=== PATIENT | male | born 1935 | race American Indian/Alaskan Native ===

== ENCOUNTER 2017-06-01 12:18 | Emergency (ER) | payer MEDICARE ==
[2017-06-01] MEDS ORDERED: TYLENOL PO ONE (16:59)
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
[2017-06-01 18:00] VITALS: BP 128/79
== END 2017-06-01 17:58 | disposition left against medical advice (07) ==
LOC: ED 12:18
DX: L03.116 Cellulitis of left lower limb (principal); I10 Essential (primary) hypertension; E11.9 Type 2 diabetes mellitus without complications; M19.90 Unspecified osteoarthritis, unspecified site; Z86.73 Personal history of transient ischemic attack (TIA), and cerebral infarction without residual deficits; Z87.891 Personal history of nicotine dependence
CPT/HCPCS: 99283

== ENCOUNTER 2017-06-02 09:02 | Outpatient (CLI) | payer OTHER ==
--- NOTE | 2017-06-05 11:50 | Vascular Lab Report ---
Left Lower Extremity Venous Duplex Study: Reason for Exam: Pain of the left lower extremity. Comments on the Right: A limited duplex study was done of the proximal veins of the right lower extremity. All veins visualized are freely compressible without evidence of internal echogenicity. Flow is spontaneous and phasic throughout. No evidence of acute or chronic thrombus is seen in any of the vessels visualized. Comments on the Left: All veins visualized are freely compressible without evidence of internal echogenicity. Flow is spontaneous and phasic throughout. No evidence of acute or chronic thrombus is seen in any of the vessels visualized. Impression: No evidence of acute or chronic deep venous thrombosis in the left lower extremity.
== END 2017-06-02 09:03 | disposition home or self-care (01) ==
LOC: VAS 09:02
PROVIDERS: ATTEND Physician Assistant
DX: M79.662 Pain in left lower leg (principal)

== ENCOUNTER 2017-11-29 15:51 | Emergency (ER) | payer MEDICARE ==
[2017-11-29 17:12] LABS: Bilirubin,Urine NEG (Negative); Blood,Urine NEG (Negative); Color,Urine Yellow (Yellow); Hyaline Casts,Urine 3 /LPF; Urobilinogen,Urine < 2.0 mg/dL (<2.0)
[2017-11-29 17:15] LABS: Protein,Urine >500 mg/dL (Negative)
[2017-11-29 17:20] LABS: Albumin 3.5 g/dL (3.9-5); Calcium 9.2 mg/dL (8.4-10.2); Hemoglobin 9.2 gm/dl (11.8-15.2); Mean Corpuscular HGB Conc 31 % (32-34); Platelet Count 197 K/mm3 (140-440); Red Blood Count 4.62 M/mm3 (3.65-5.03); Red Cell Distribution Width 19.3 % (13.2-15.2)
[2017-11-29 17:25] LABS: INR 0.95 (0.87-1.13)
[2017-11-29 17:26] LABS: Partial Thromboplastin Time 37.7 Sec. (24.2-36.6)
[2017-11-29 17:32] LABS: Mean Corpuscular Volume 65 fl (84-94)
[2017-11-29 17:33] LABS: Mean Corpuscular Hemoglobin 20 pg (28-32)
--- NOTE | 2017-11-29 18:12 | XRay Report ---
FINAL REPORT PROCEDURE: Chest. TECHNIQUE: Chest radiograph anteroposterior view. CPT 30128 HISTORY: Difficulty breathing. COMPARISON: No prior studies are available for comparison. FINDINGS: The heart size is borderline. There is mild tortuosity and calcification in the thoracic aorta. The lungs are grossly clear. There are no pleural effusions. The soft tissues are unremarkable. There may be a fracture involving the posterolateral portion of the left 5th rib. Clinical correlation is recommended. IMPRESSION: Borderline cardiomegaly. Possible fracture of the left 5th rib. No definite signs of acute pulmonary disease.
[2017-11-29 18:14] LABS: Basophils % (Manual) 0 % (0.0-1.8); RBC Morphology Normal; Total Cells Counted 100
[2017-11-29] MEDS ORDERED: LASIX IV ONE (19:06)
--- NOTE | 2017-11-29 19:15 | Emergency Department Report ---
ED Shortness of Breath HPI - General Chief Complaint: Dyspnea/Respdistress Stated Complaint: SOB/CHEST PAIN Time Seen by Provider: 11/29/17 18:51 Source: patient Mode of arrival: Ambulatory Limitations: No Limitations - History of Present Illness MD Complaint: shortness of breath -: Gradual, days(s) (3) Severity: moderate Consistency: constant Improves With: nothing Worsens With: nothing Known History Of: congestive heart failure Associated Symptoms: cough Treatments Prior to Arrival: none - Related Data Home Oxygen Therapy: No Home Medications Medication Instructions Recorded Confirmed Last Taken B,C/Folic/Zinc/Copper Ox/Vit E 1 each PO DAILY 04/13/14 04/01/15 Unknown [Stress B-Complex Tablet] Baclofen 10 mg PO BID 04/13/14 04/01/15 Unknown Cyanocobalamin (Vitamin B-12) 1,000 mcg PO DAILY 04/13/14 04/01/15 Unknown [B-12] Doxazosin [Cardura] 4 mg PO QHS 04/13/14 04/01/15 Unknown Gabapentin 300 mg PO BID 04/13/14 04/01/15 Unknown Glimepiride [Amaryl] 4 mg PO BID 04/13/14 04/01/15 Unknown Valsartan/Hydrochlorothiazide 1.5 tab PO DAILY 04/13/14 04/01/15 Unknown [Valsartan-Hctz 160-25 mg] glipiZIDE [glipiZIDE XL] 10 mg PO BID 04/13/14 04/01/15 Unknown metFORMIN [Glucophage] 500 mg PO BID 04/13/14 04/01/15 Unknown Previous Rx's Medication Instructions Recorded Last Taken Type Ferrous Sulfate [Ferrous Sulfate 162.5 mg PO QDAY 30 Days oral.liqd 04/16/14 Unknown Rx Oral Liq 300 Mg/5 Ml] Pantoprazole [Protonix TAB] 40 mg PO BID #60 tablet 06/25/15 Unknown Rx Acetaminophen [Acetaminophen TAB] 500 mg PO Q6HR PRN #30 tablet 06/01/17 Unknown Rx Sulfamethoxazole/Trimethoprim 1 each PO BID #14 tablet 06/01/17 Unknown Rx [Bactrim DS TAB] Allergies Allergy/AdvReac Type Severity Reaction Status Date / Time No Known Allergies Allergy Unverified 05/30/13 12:56 ED Review of Systems ROS: Stated complaint: SOB/CHEST PAIN Other details as noted in HPI Comment: All other systems reviewed and negative Constitutional: denies: chills, fever Eyes: denies: eye pain, eye discharge ENT: denies: ear pain, dental pain Respiratory: cough, orthopnea, shortness of breath, SOB with exertion, SOB at rest Cardiovascular: dyspnea on exertion. denies: chest pain, palpitations Endocrine: no symptoms reported Gastrointestinal: denies: abdominal pain, nausea, vomiting, diarrhea Genitourinary: denies: urgency, dysuria Musculoskeletal: denies: back pain, joint swelling Skin: denies: rash, change in color Neurological: denies: headache, weakness Psychiatric: denies: anxiety, depression Hematological/Lymphatic: denies: easy bleeding, easy bruising ED Past Medical Hx - Past Medical History Hx Hypertension: Yes Hx CVA: Yes (no resid. deficits) Hx Diabetes: Yes Hx Arthritis: Yes Additional medical history: A-fib, anemia - Surgical History Additional Surgical History: colon polyps removed. - Social History Smoking Status: Never Smoker Substance Use Type: None - Medications Home Medications: Home Medications Medication Instructions Recorded Confirmed Last Taken Type B,C/Folic/Zinc/Copper Ox/Vit E 1 each PO DAILY 04/13/14 04/01/15 Unknown History [Stress B-Complex Tablet] Baclofen 10 mg PO BID 04/13/14 04/01/15 Unknown History Cyanocobalamin (Vitamin B-12) 1,000 mcg PO DAILY 04/13/14 04/01/15 Unknown History [B-12] Doxazosin [Cardura] 4 mg PO QHS 04/13/14 04/01/15 Unknown History Gabapentin 300 mg PO BID 04/13/14 04/01/15 Unknown History Glimepiride [Amaryl] 4 mg PO BID 04/13/14 04/01/15 Unknown History Valsartan/Hydrochlorothiazide 1.5 tab PO DAILY 04/13/14 04/01/15 Unknown History [Valsartan-Hctz 160-25 mg] glipiZIDE [glipiZIDE XL] 10 mg PO BID 04/13/14 04/01/15 Unknown History metFORMIN [Glucophage] 500 mg PO BID 04/13/14 04/01/15 Unknown History Ferrous Sulfate [Ferrous Sulfate 162.5 mg PO QDAY 30 Days oral.liqd 04/16/14 Unknown Rx Oral Liq 300 Mg/5 Ml] Pantoprazole [Protonix TAB] 40 mg PO BID #60 tablet 06/25/15 Unknown Rx Acetaminophen [Acetaminophen TAB] 500 mg PO Q6HR PRN #30 tablet 06/01/17 Unknown Rx Sulfamethoxazole/Trimethoprim 1 each PO BID #14 tablet 06/01/17 Unknown Rx [Bactrim DS TAB] ED Physical Exam - General Limitations: No Limitations General appearance: alert, in no apparent distress - Head Head exam: Present: atraumatic, normocephalic, normal inspection - Eye Eye exam: Present: normal appearance, PERRL, EOMI Pupils: Present: normal accommodation - ENT ENT exam: Present: normal exam, normal orophraynx, mucous membranes moist - Neck Neck exam: Present: normal inspection, full ROM. Absent: tenderness - Respiratory Respiratory exam: Present: normal lung sounds bilaterally, rales, rhonchi - Cardiovascular Cardiovascular Exam: Present: regular rate, normal rhythm, normal heart sounds - GI/Abdominal GI/Abdominal exam: Present: soft, normal bowel sounds. Absent: distended, tenderness, guarding, rebound - Extremities Exam Extremities exam: Present: full ROM, pedal edema - Back Exam Back exam: Present: normal inspection, full ROM - Neurological Exam Neurological exam: Present: alert, oriented X3, CN II-XII intact - Psychiatric Psychiatric exam: Present: normal affect, normal mood - Skin Skin exam: Present: warm, dry, intact, normal color. Absent: rash ED Course Vital Signs 11/29/17 11/29/17 11/29/17 16:03 18:38 18:45 Temperature 97.7 F Pulse Rate 67 76 70 Respiratory 22 22 16 Rate Blood Pressure 160/96 Blood Pressure [Left] O2 Sat by Pulse 97 97 97 Oximetry 11/29/17 11/29/17 11/29/17 19:00 19:05 19:07 Temperature 97.7 F Pulse Rate 71 72 Respiratory 20 17 20 Rate Blood Pressure 180/86 Blood Pressure 180/86 [Left] O2 Sat by Pulse 97 97 97 Oximetry 11/29/17 11/29/17 11/29/17 19:15 19:30 19:46 Temperature Pulse Rate 73 67 82 Respiratory 23 18 19 Rate Blood Pressure 173/82 176/86 176/86 Blood Pressure [Left] O2 Sat by Pulse 95 97 97 Oximetry 11/29/17 11/29/17 11/29/17 20:00 20:16 20:30 Temperature Pulse Rate 69 61 66 Respiratory 21 14 23 Rate Blood Pressure 176/86 176/86 172/94 Blood Pressure [Left] O2 Sat by Pulse 98 98 99 Oximetry 11/29/17 11/29/17 20:45 21:00 Temperature Pulse Rate Respiratory 13 23 Rate Blood Pressure 184/97 189/91 Blood Pressure [Left] O2 Sat by Pulse 98 99 Oximetry - Reevaluation(s) Reevaluation #1: 11/29/17 22:50 Patient refused admission and he signed and left AGAINST MEDICAL ADVICE. He said he does not want to be admitted to the hospital and he wants to go home. He verbalizes understanding the risks that I explained to him which includes severe medical disability or . He is alert and oriented 4 and he has a medical decision making capacity. ED Medical Decision Making - Lab Data Result diagrams: 11/29/17 16:25 11/29/17 16:25 - EKG Data -: EKG Interpreted by Me EKG shows normal: sinus rhythm Rate: normal (77) - EKG Data When compared to previous EKG there are: previous EKG unavailable Interpretation: nonspecific ST-T wave felisha, LVH, other (First degree Heart Block , RBBB, LAE.) - Radiology Data Radiology results: report reviewed, image reviewed - Medical Decision Making CHF Exacerbation. Critical care attestation.: If time is entered above; I have spent that time in minutes in the direct care of this critically ill patient, excluding procedure time. ED Disposition Clinical Impression: Shortness of breath CHF exacerbation Qualifiers: Heart failure type: unspecified Qualified Code(s): I50.9 - Heart failure, unspecified Disposition: DC-07 LEFT AGAINST MED ADVICE Is pt being admited?: No Does the pt Need Aspirin: No Condition: Stable Referrals: PRIMARY CARE, [Primary Care Provider] - 3-5 Days Forms: AMA Form
[2017-11-29 20:35] LABS: Chol/HDL Ratio 3.15 %
[2017-11-29 21:34] VITALS: BP 189/91
== END 2017-11-29 21:35 | disposition left against medical advice (07) ==
LOC: ED 15:51
DX: I11.0 Hypertensive heart disease with heart failure (principal); E11.9 Type 2 diabetes mellitus without complications; M19.90 Unspecified osteoarthritis, unspecified site; I48.91 Unspecified atrial fibrillation; Z86.2 Personal history of diseases of the blood and blood-forming organs and certain disorders involving the immune mechanism
CPT/HCPCS: 36415; 71045; 80053; 80061; 81001; 83880; 84484; 85007; 85025; 85610; 85730; 93005; 93010; 96374; 99284; J1940

== ENCOUNTER 2018-01-19 12:35 | Inpatient (IN) | payer MEDICARE ==
[2018-01-19] MEDS ORDERED: ASPIRIN PO ONE (13:26)
[2018-01-19 14:09] LABS: Hematocrit 33.1 % (35.5-45.6); Hemoglobin 10.5 gm/dl (11.8-15.2); Lymphocytes % (Auto) 23.2 % (13.4-35.0); Mean Corpuscular HGB Conc 32 % (32-34); Mean Corpuscular Hemoglobin 20 pg (28-32); Mean Corpuscular Volume 62 fl (84-94); Monocytes % (Auto) 12.1 % (0.0-7.3); Platelet Count 260 K/mm3 (140-440); Red Blood Count 5.35 M/mm3 (3.65-5.03); Red Cell Distribution Width 16.2 % (13.2-15.2)
[2018-01-19 14:10] LABS: Basophils # (Auto) 0.1 K/mm3 (0.0-0.1); Basophils % (Auto) 1.5 % (0.0-1.8); Eosinophils # (Auto) 0.1 K/mm3 (0.0-0.4); Eosinophils % (Auto) 3.4 % (0.0-4.3); Monocytes # (Auto) 0.5 K/mm3 (0.0-0.8)
[2018-01-19 14:31] LABS: Calcium 9.7 mg/dL (8.4-10.2)
[2018-01-19 15:01] LABS: Chol/HDL Ratio 3.78 %
[2018-01-19 16:20] LABS: Bilirubin,Urine NEG (Negative); Blood,Urine NEG (Negative); Color,Urine Yellow (Yellow); Urobilinogen,Urine < 2.0 mg/dL (<2.0); WBC,Urine < 1.0 /HPF (0.0-6.0)
[2018-01-19 16:21] LABS: Protein,Urine >500 mg/dL (Negative)
--- NOTE | 2018-01-19 16:39 | Emergency Department Report ---
ED Altered Mental Status HPI - General Chief Complaint: Weakness Stated Complaint: GENERAL WEAKNESS Time Seen by Provider: 01/19/18 15:12 Source: EMS Mode of arrival: Wheelchair Limitations: Physical Limitation - History of Present Illness Initial Comments: 82-year-old male with a past medical history of arthritis, CVA without residual deficits, diabetes, and hypertension presents to the hospital with alteration in mental status and sleeping a lot. Patient states he's been sleeping a lot the last 3 days with low energy. He has been eating and drinking appropriately. This morning when his checked on him he was lethargic and slow to respond. No syncope reported. Patient has been compliant with his medications but did not take his medications today. His expressed a concerns that his blood pressure was elevated with systolic in the 170s and glucose was "high" in the 160s. As per spouse patient's and she has been low since patient returned from his sister's last week. Currently patient is oriented to self and place but not to year. At his baseline he is alert and oriented 3 per . Patient is pain free. - Related Data Home Medications Medication Instructions Recorded Confirmed Last Taken B,C/Folic/Zinc/Copper Ox/Vit E 1 each PO DAILY 04/13/14 04/01/15 Unknown [Stress B-Complex Tablet] Baclofen 10 mg PO BID 04/13/14 04/01/15 Unknown Cyanocobalamin (Vitamin B-12) 1,000 mcg PO DAILY 04/13/14 04/01/15 Unknown [B-12] Doxazosin [Cardura] 4 mg PO QHS 04/13/14 04/01/15 Unknown Gabapentin 300 mg PO BID 04/13/14 04/01/15 Unknown Glimepiride [Amaryl] 4 mg PO BID 04/13/14 04/01/15 Unknown Valsartan/Hydrochlorothiazide 1.5 tab PO DAILY 04/13/14 04/01/15 Unknown [Valsartan-Hctz 160-25 mg] glipiZIDE [glipiZIDE XL] 10 mg PO BID 04/13/14 04/01/15 Unknown metFORMIN [Glucophage] 500 mg PO BID 04/13/14 04/01/15 Unknown Previous Rx's Medication Instructions Recorded Last Taken Type Ferrous Sulfate [Ferrous Sulfate 162.5 mg PO QDAY 30 Days oral.liqd 04/16/14 Unknown Rx Oral Liq 300 Mg/5 Ml] Pantoprazole [Protonix TAB] 40 mg PO BID #60 tablet 06/25/15 Unknown Rx Acetaminophen [Acetaminophen TAB] 500 mg PO Q6HR PRN #30 tablet 06/01/17 Unknown Rx Sulfamethoxazole/Trimethoprim 1 each PO BID #14 tablet 06/01/17 Unknown Rx [Bactrim DS TAB] Allergies Allergy/AdvReac Type Severity Reaction Status Date / Time No Known Allergies Allergy Unverified 05/30/13 12:56 ED Review of Systems ROS: Stated complaint: GENERAL WEAKNESS Other details as noted in HPI Comment: All other systems reviewed and negative ED Past Medical Hx - Past Medical History Previous Medical History?: Yes Hx Hypertension: Yes Hx CVA: Yes (no resid. deficits) Hx Diabetes: Yes Hx Arthritis: Yes Additional medical history: A-fib, anemia - Surgical History Past Surgical History?: Yes Additional Surgical History: colon polyps removed. - Social History Smoking Status: Former Smoker Substance Use Type: Alcohol - Medications Home Medications: Home Medications Medication Instructions Recorded Confirmed Last Taken Type B,C/Folic/Zinc/Copper Ox/Vit E 1 each PO DAILY 04/13/14 04/01/15 Unknown History [Stress B-Complex Tablet] Baclofen 10 mg PO BID 04/13/14 04/01/15 Unknown History Cyanocobalamin (Vitamin B-12) 1,000 mcg PO DAILY 04/13/14 04/01/15 Unknown History [B-12] Doxazosin [Cardura] 4 mg PO QHS 04/13/14 04/01/15 Unknown History Gabapentin 300 mg PO BID 04/13/14 04/01/15 Unknown History Glimepiride [Amaryl] 4 mg PO BID 04/13/14 04/01/15 Unknown History Valsartan/Hydrochlorothiazide 1.5 tab PO DAILY 04/13/14 04/01/15 Unknown History [Valsartan-Hctz 160-25 mg] glipiZIDE [glipiZIDE XL] 10 mg PO BID 04/13/14 04/01/15 Unknown History metFORMIN [Glucophage] 500 mg PO BID 04/13/14 04/01/15 Unknown History Ferrous Sulfate [Ferrous Sulfate 162.5 mg PO QDAY 30 Days oral.liqd 04/16/14 Unknown Rx Oral Liq 300 Mg/5 Ml] Pantoprazole [Protonix TAB] 40 mg PO BID #60 tablet 06/25/15 Unknown Rx Acetaminophen [Acetaminophen TAB] 500 mg PO Q6HR PRN #30 tablet 06/01/17 Unknown Rx Sulfamethoxazole/Trimethoprim 1 each PO BID #14 tablet 06/01/17 Unknown Rx [Bactrim DS TAB] ED Physical Exam - General Limitations: Physical Limitation - Other Other exam information: General: No limitations, patient is alert in no acute distress Head exam: Atraumatic, normocephalic Eyes exam: Normal appearance, pupils equal reactive to light, extraocular movements intact ENT: Moist mucous membrane, normal oropharynx Neck exam: Normal inspection, full range of motion, no meningismus nontender Respiratory exam: Clear to auscultation bilateral, no wheezes, rales, crackles Cardiovascular: Normal rate and rhythm, normal heart sounds Abdomen: Soft, nondistended, and nontender, with normal bowel sounds, no rebound, or guarding Extremity: Full range of motion normal inspection no deformity Back: Normal Inspection, full range of motion, no tenderness Neurologic: Alert, oriented x2 (not to year), cranial nerves intact, no motor or sensory deficit Psychiatric: normal affect, normal mood Skin: Warm, dry, intact - Assessment Assessment Interval: Baseline - Level of Consciousness 1a. Level of Consciousness: alert - LOC Questions 1b. LOC Questions: answers correctly - LOC Command 1c. LOC Commands: performs tasks correctly - Best Gaze 2. Best Gaze: normal - Visual 3. Visual: no visual loss - Facial Palsy 4. Facial Palsy: normal symmetrical movement - Motor Arm 5b. Motor Arm Right: no drift 5a. Motor Arm Left: no drift - Motor Leg 6a. Motor Leg Left: no drift 6b. Motor Leg Right: no drift - Limb Ataxia 7. Limb Ataxia: absent - Sensory 8. Sensory: normal - Best Language 9. Best Language: no aphasia - Dysarthria 10. Dysarthria: normal - Extinction and Inattention 11. Extinction/Inattention: no abnormality - Scoring Total Score: 0 Stroke Severity: No Stroke Symptoms ED Course Vital Signs 01/19/18 01/19/18 01/19/18 12:46 12:58 13:00 Temperature 97.6 F Pulse Rate 56 L 62 62 Respiratory 21 20 18 Rate Blood Pressure 183/102 183/102 Blood Pressure 183/102 [Left] O2 Sat by Pulse 99 98 98 Oximetry 01/19/18 01/19/18 01/19/18 13:15 13:30 13:45 Temperature 97.7 F Pulse Rate 55 L 65 54 L Respiratory 16 16 17 Rate Blood Pressure 170/84 179/108 173/84 Blood Pressure 183/102 [Left] O2 Sat by Pulse 100 100 99 Oximetry 01/19/18 01/19/18 01/19/18 14:00 14:15 14:30 Temperature Pulse Rate 54 L 59 L 58 L Respiratory 20 0 L 19 Rate Blood Pressure 170/83 164/101 177/98 Blood Pressure [Left] O2 Sat by Pulse 100 100 100 Oximetry 01/19/18 01/19/18 01/19/18 14:45 15:00 15:15 Temperature Pulse Rate 56 L 54 L 50 L Respiratory 20 20 19 Rate Blood Pressure 174/89 172/92 174/72 Blood Pressure [Left] O2 Sat by Pulse 100 100 100 Oximetry 01/19/18 01/19/18 01/19/18 15:31 15:45 16:01 Temperature Pulse Rate 67 72 71 Respiratory 13 17 15 Rate Blood Pressure 179/105 181/97 189/92 Blood Pressure [Left] O2 Sat by Pulse 100 100 100 Oximetry 01/19/18 01/19/18 01/19/18 16:15 16:30 16:45 Temperature Pulse Rate 55 L 72 75 Respiratory 18 17 10 L Rate Blood Pressure 185/81 194/104 194/104 Blood Pressure [Left] O2 Sat by Pulse 100 100 86 Oximetry 01/19/18 17:52 Temperature Pulse Rate 71 Respiratory Rate Blood Pressure 198/101 Blood Pressure [Left] O2 Sat by Pulse Oximetry - Lab Data Result diagrams: 01/19/18 13:52 01/19/18 13:52 Lab Results 01/19/18 01/19/18 01/19/18 Range/Units 13:38 13:52 13:52 WBC 4.3 L (4.5-11.0) K/mm3 RBC 5.35 H (3.65-5.03) M/mm3 Hgb 10.5 L (11.8-15.2) gm/dl Hct 33.1 L (35.5-45.6) % MCV 62 L (84-94) fl MCH 20 L (28-32) pg MCHC 32 (32-34) % RDW 16.2 H (13.2-15.2) % Plt Count 260 (140-440) K/mm3 Lymph % (Auto) 23.2 (13.4-35.0) % [place] % (Auto) 12.1 H (0.0-7.3) % Eos % (Auto) 3.4 (0.0-4.3) % Baso % (Auto) 1.5 (0.0-1.8) % Lymph # 1.0 L (1.2-5.4) K/mm3 [place] # 0.5 (0.0-0.8) K/mm3 Eos # 0.1 (0.0-0.4) K/mm3 Baso # 0.1 (0.0-0.1) K/mm3 Seg Neutrophils % 59.8 (40.0-70.0) % Seg Neutrophils # 2.5 (1.8-7.7) K/mm3 Sodium 137 (137-145) mmol/L Potassium 4.2 (3.6-5.0) mmol/L Chloride 101.5 (98-107) mmol/L Carbon Dioxide 22 (22-30) mmol/L Anion Gap 18 mmol/L BUN 42 H (9-20) mg/dL Creatinine 2.6 H (0.8-1.5) mg/dL Estimated GFR 29 ml/min BUN/Creatinine Ratio 16 % Glucose 138 H (75-100) mg/dL POC Glucose 130 H (70-105) Calcium 9.7 (8.4-10.2) mg/dL Troponin T 0.081 H (0.00-0.029) ng/mL Triglycerides 82 (2-149) mg/dL Cholesterol 212 H (50-199) mg/dL LDL Cholesterol Direct 155 H (50-130) mg/dL HDL Cholesterol 56 (40-59) mg/dL Cholesterol/HDL Ratio 3.78 % TSH (0.270-4.200) mlU/mL Free T4 (0.76-1.46) ng/dL Urine Color (Yellow) Urine Turbidity (Clear) Urine pH (5.0-7.0) Ur Specific [place] (1.003-1.030) Urine Protein (Negative) mg/dL Urine Glucose (UA) (Negative) mg/dL Urine Ketones (Negative) mg/dL Urine Blood (Negative) Urine Nitrite (Negative) Urine Bilirubin (Negative) Urine Urobilinogen (<2.0) mg/dL Ur Leukocyte Esterase (Negative) Urine WBC (Auto) (0.0-6.0) /HPF Urine RBC (Auto) (0.0-6.0) /HPF 01/19/18 01/19/18 01/19/18 Range/Units 14:30 16:41 16:41 WBC (4.5-11.0) K/mm3 RBC (3.65-5.03) M/mm3 Hgb (11.8-15.2) gm/dl Hct (35.5-45.6) % MCV (84-94) fl MCH (28-32) pg MCHC (32-34) % RDW (13.2-15.2) % Plt Count (140-440) K/mm3 Lymph % (Auto) (13.4-35.0) % [place] % (Auto) (0.0-7.3) % Eos % (Auto) (0.0-4.3) % Baso % (Auto) (0.0-1.8) % Lymph # (1.2-5.4) K/mm3 [place] # (0.0-0.8) K/mm3 Eos # (0.0-0.4) K/mm3 Baso # (0.0-0.1) K/mm3 Seg Neutrophils % (40.0-70.0) % Seg Neutrophils # (1.8-7.7) K/mm3 Sodium (137-145) mmol/L Potassium (3.6-5.0) mmol/L Chloride (98-107) mmol/L Carbon Dioxide (22-30) mmol/L Anion Gap mmol/L BUN (9-20) mg/dL Creatinine (0.8-1.5) mg/dL Estimated GFR ml/min BUN/Creatinine Ratio % Glucose (75-100) mg/dL POC Glucose (70-105) Calcium (8.4-10.2) mg/dL Troponin T 0.106 H* D (0.00-0.029) ng/mL Triglycerides (2-149) mg/dL Cholesterol (50-199) mg/dL LDL Cholesterol Direct (50-130) mg/dL HDL Cholesterol (40-59) mg/dL Cholesterol/HDL Ratio % TSH 0.760 (0.270-4.200) mlU/mL Free T4 1.22 (0.76-1.46) ng/dL Urine Color Yellow (Yellow) Urine Turbidity Clear (Clear) Urine pH 7.0 (5.0-7.0) Ur Specific [place] 1.012 (1.003-1.030) Urine Protein >500 (Negative) mg/dL Urine Glucose (UA) 50 (Negative) mg/dL Urine Ketones Neg (Negative) mg/dL Urine Blood Neg (Negative) Urine Nitrite Neg (Negative) Urine Bilirubin Neg (Negative) Urine Urobilinogen < 2.0 (<2.0) mg/dL Ur Leukocyte Esterase Neg (Negative) Urine WBC (Auto) < 1.0 (0.0-6.0) /HPF Urine RBC (Auto) 2.0 (0.0-6.0) /HPF - EKG Data -: EKG Interpreted by Nh EKG shows normal: sinus rhythm, axis (qrs -78), QRS complexes (qrsd 180), ST-T waves (rbbb, no stemi/t inv) Rate: normal (64) When compared to previous EKG there are: no significant change - Radiology Data Radiology results: report reviewed FINAL REPORT EXAM: CT HEAD/BRAIN WO CON HISTORY: altered mental status TECHNIQUE : 2.5 millimeter axial images from the skullbase to the vertex. Comparison: None FINDINGS: Low attenuation in the subcortical and deep white matter of the cerebral hemispheres bilaterally most likely represent areas of chronic post ischemic demyelination/small vessel disease. However, a small focus of acute white matter ischemia cannot entirely be excluded. There are lacunar infarcts in the left basal ganglia that appear to be chronic. There is no evidence of intracranial hemorrhage or mass effect. Ventricular size is concordant with the degree of atrophy. There is atherosclerotic vascular calcification of the internal carotid arteries and vertebral arteries bilaterally at the skullbase. The visualized portions of the orbits, paranasal and mastoid sinuses are unremarkable. There appears to be mild right parietal scalp soft tissue swelling. IMPRESSION: 1. No evidence of an acute intracranial process, intracranial hemorrhage or mass effect. If there is a clinical suspicion of an acute intracranial process, MRI brain may be helpful. 2. White matter changes that most likely represent areas of chronic post ischemic demyelination/small vessel disease. However, a small focus of acute white matter ischemia cannot entirely be excluded. 3. Lacunar infarcts left basal ganglia that appear to be chronic. 4. Appearance of mild right parietal scalp soft tissue swelling. - Medical Decision Making ams ? depression/grief response as cause no labs findings to indicate encephalopathy CT head performed HTN did not have meds today elevated trop with renal insuf, slight elevation with repeat value. Patient does not have chest pain EKG unchanged Aspirin provided after negative CT head obtained NTG paste placed on chest chronic renal insuf stable creatinine will admit to hospitalist for further evaluate and workup - Differential Diagnosis depression, dementia, CVA, encephalopathy, infection Critical Care Time: No Critical care attestation.: If time is entered above; I have spent that time in minutes in the direct care of this critically ill patient, excluding procedure time. ED Disposition Clinical Impression: Lethargy, Diabetes, CRI (chronic renal insufficiency), Elevated troponin, Hypertension Disposition: OP ADMIT IP TO THIS HOSP Is pt being admited?: Yes Condition: Stable Time of Disposition: 18:20 (Dr cummings/hosp)
[2018-01-19 17:25] LABS: Free T4 (Free Thyroxine) 1.22 ng/dL (0.76-1.46)
[2018-01-19] MEDS ORDERED: NITRO-BID 2% TP ONE (17:35)
--- NOTE | 2018-01-19 17:47 | Cat Scan Report ---
FINAL REPORT EXAM: CT HEAD/BRAIN WO CON HISTORY: altered mental status TECHNIQUE: 2.5 millimeter axial images from the skullbase to the vertex. Comparison: None FINDINGS: Low attenuation in the subcortical and deep white matter of the cerebral hemispheres bilaterally most likely represent areas of chronic post ischemic demyelination/small vessel disease. However, a small focus of acute white matter ischemia cannot entirely be excluded. There are lacunar infarcts in the left basal ganglia that appear to be chronic. There is no evidence of intracranial hemorrhage or mass effect. Ventricular size is concordant with the degree of atrophy. There is atherosclerotic vascular calcification of the internal carotid arteries and vertebral arteries bilaterally at the skullbase. The visualized portions of the orbits, paranasal and mastoid sinuses are unremarkable. There appears to be mild right parietal scalp soft tissue swelling. IMPRESSION: 1. No evidence of an acute intracranial process, intracranial hemorrhage or mass effect. If there is a clinical suspicion of an acute intracranial process, MRI brain may be helpful. 2. White matter changes that most likely represent areas of chronic post ischemic demyelination/small vessel disease. However, a small focus of acute white matter ischemia cannot entirely be excluded. 3. Lacunar infarcts left basal ganglia that appear to be chronic. 4. Appearance of mild right parietal scalp soft tissue swelling.
[2018-01-19] MEDS ORDERED: ASPIRIN ONE (19:07)
[2018-01-19] MEDS ORDERED: APRESOLINE IV ONE (20:45)
[2018-01-19] MEDS ORDERED: APRESOLINE ONE (20:52)
[2018-01-19] MEDS ORDERED: TYLENOL PO PRN (22:19)
[2018-01-19] MEDS ORDERED: SODIUM CHLORIDE FLUSH SYRINGE 10 ML IV PRN (22:22)
[2018-01-19] MEDS ORDERED: MORPHINE IV PRN (22:22)
[2018-01-19] MEDS ORDERED: PERCOCET 5/325 PO PRN (22:22)
[2018-01-19] MEDS ORDERED: ZOFRAN IV PRN (22:22)
--- NOTE | 2018-01-19 22:56 | History and Physical Report ---
CHIEF COMPLAINT: Altered mental status for 3 days. HISTORY OF PRESENT ILLNESS: An 82-year-old with past medical history of cerebrovascular accident, hypertension, type 2 diabetes, comes in for altered mental status. The patient has been apparently sleeping a lot for the last 3 days with low energy. As per his , the patient is lethargic and slow to respond. No syncope, no seizures. No fever or chills. The patient eating normally. Also, his blood sugar was high in the and systolic blood pressure was in 170s. PAST MEDICAL HISTORY: As mentioned, hypertension, type 2 diabetes, peripheral neuropathy, overactive bladder, vitamin deficiency. CURRENT MEDICATIONS: Gabapentin 300 mg twice a day, glimepiride 4 mg twice a day, valsartan 160/25 tab daily, glipizide XL 10 mg twice a day, metformin, Glucophage 500 mg twice a day. PAST SURGICAL HISTORY: Colon polyps removed. SOCIAL HISTORY: Former smoker. FAMILY HISTORY: Hypertension. REVIEW OF SYSTEMS: Significant for depression and slightly altered sensorium. No focal deficits. No recent changes. No fever. No chills. A 14-point review of systems done. PHYSICAL EXAMINATION: GENERAL: Elderly male, cooperative during examination, slow to talk. VITAL SIGNS: Blood pressure 168/100, temperature 99, pulse is 71, respirations are 17, sats are 97%. HEENT: Unremarkable. Pupils equal and reactive. NECK: Supple, no lymphadenopathy, no thyromegaly. LUNGS: Clear to auscultation and percussion. Good air entry. CARDIOVASCULAR: S1, S2 heard. No gallop, no murmur, no rub. Apical impulse in left fifth intercostal space and midclavicular line. ABDOMEN: Soft and benign. No hepatosplenomegaly. No guarding, no rigidity. Hernial orifices are normal. EXTREMITIES: Good pedal pulses. No focal deficits. CENTRAL NERVOUS SYSTEM: Alert and oriented. Slow to talk and a bit lethargic. Otherwise, no focal deficits. LABORATORY DATA: Significant for white count of 4300, H and H is 10.3 and 33.1, platelet count is 260,000. Sodium is 137, potassium is 4.2, BUN and creatinine is 42 and 2.6. Troponin is 0.081. Cholesterol is 212. EKG, no acute ST-T wave changes. EKG shows a prolonged AL interval and prolonged left atrial enlargement and right bundle branch block, heart rate of [address], no evidence of any acute intracranial process. Labs, as mentioned elevated troponins and low hemoglobin and hematocrit of 10.5 and 33.1. ASSESSMENT AND PLAN: 1. Acute kidney injury. BUN and creatinine 42 and 2.6. We will try IV fluids. Also, we will get a Nephrology consult. 2. Elevated troponin. Possibly secondary to elevated creatinine. We will get a Lexiscan and Cardiology consult if necessary. 3. Encephalopathy. Reason for altered mental status is not clear. The patient looks depressed. Electrolytes are normal. Neurology consult if necessary. The patient seems to be dehydrated that may be causing his lethargy. His creatinine is 2.6. His baseline creatinine is not known. 4. Hypertension. Continue valsartan/hydrochlorothiazide. Also, Cardura. 5. Muscle spasms. Continue baclofen. 6. Peripheral neuropathy. Continue gabapentin. 7. Type 2 diabetes mellitus. Continue glimepiride and metformin. We will hold the glipizide. 8. Gastroesophageal reflux disease. Continue Protonix. 9. Deep venous thrombosis prophylaxis, Lovenox 40 mg subcutaneous daily. JOB# [id number] HOLLY/NTS
[2018-01-19] MEDS ORDERED: GLUCOPHAGE PO SCH (23:00)
[2018-01-19] MEDS ORDERED: NACL 0.9% 1000 ML 1,000 ML IV SCH (23:00)
[2018-01-19] MEDS ORDERED: GLUCOTROL XL PO SCH (23:00)
[2018-01-20] MEDS: AMARYL PO SCH ×3 (00:49→18:33)
[2018-01-20] MEDS: LIORESAL PO SCH ×3 (00:49→23:08)
[2018-01-20] MEDS: NEURONTIN PO SCH ×3 (00:49→23:08)
[2018-01-20] MEDS: PROTONIX PO SCH ×3 (00:50→23:09)
[2018-01-20] MEDS ORDERED: ZINC PO SCH (10:00)
[2018-01-20] MEDS ORDERED: PEPCID PO SCH (10:00)
[2018-01-20] MEDS ORDERED: HYDROCHLOROTHIAZIDE PO SCH (10:00)
[2018-01-20] MEDS ORDERED: DIOVAN PO SCH (10:00)
[2018-01-20] MEDS ORDERED: VIT E PO SCH (10:00)
[2018-01-20] MEDS ORDERED: [UNRECOGNIZED DRUG - OTHER] PO SCH (10:00)
[2018-01-20] MEDS ORDERED: FOLIC PO SCH (10:00)
[2018-01-20] MEDS ORDERED: VALSARTAN PO SCH (10:00)
--- NOTE | 2018-01-20 10:52 | Progress Note ---
Assessment and Plan Assessment and plan: --Metabolic encephalopathy; neurochecks and supportive care --Elevated cardiac enzymes/and ST elevation TN/ multiple risk factors Evaluate for acute coronary syndrome, continue current cardiac medications Echocardiogram left ventricle function ejection fraction, cardiology consultation Aspirin and beta blockers and nitrates statins, no MARYJANE inhibitors in view of acute kidney injury --Hypertension; moderate control, continue current antihypertensives and when necessary medications --Acute kidney injury; due to ATN Closely monitor renal function and avoid nephrotoxins, consistent nephrology evaluation if no improvement --Type 2 diabetes mellitus; Accu-Chek sliding scale coverage and ADA diet and insulin as needed --Dyslipidemia; continue lipid lowering medications --DVT prophylaxis; Lovenox renal dose --Full CODE STATUS --DC planning per case management. We'll closely monitor the patient and adjust management as needed Follow cardiology and renal evaluations and recommendations . History Interval history: Patient seen and examined medical records reviewed No new events reported by the nursing staff admitted with generalized weakness and elevated troponins and acute on chronic kidney disease Alert awake oriented Vital signs reviewed Hospitalist Physical - Constitutional Vitals: Temp Pulse Resp BP Pulse Ox 98.5 F 67 18 167/103 97 01/20/18 08:09 01/20/18 08:09 01/20/18 08:09 01/20/18 08:09 01/20/18 08:09 General appearance: Present: no acute distress, well-nourished, other (agitated) - EENT Eyes: Present: PERRL, EOM intact - Neck Neck: Present: supple, normal ROM - Respiratory Respiratory effort: normal Respiratory: bilateral: diminished, negative: rales, rhonchi, wheezing - Cardiovascular Rhythm: regular Heart Sounds: Present: S1 & S2 - Extremities Extremities: no ischemia, No edema - Abdominal General gastrointestinal: soft, non-tender, non-distended, normal bowel sounds - Integumentary Integumentary: Present: clear, warm - Psychiatric Psychiatric: appropriate mood/affect, agitated - Neurologic Neurologic: moves all extremities Results - Labs CBC & Chem 7: 01/20/18 10:09 01/20/18 10:09 Labs: Laboratory Last Values WBC 4.3 K/mm3 (4.5-11.0) L 01/19/18 13:52 RBC 5.35 M/mm3 (3.65-5.03) H 01/19/18 13:52 Hgb 10.5 gm/dl (11.8-15.2) L 01/19/18 13:52 Hct 33.1 % (35.5-45.6) L 01/19/18 13:52 MCV 62 fl (84-94) L 01/19/18 13:52 MCH 20 pg (28-32) L 01/19/18 13:52 MCHC 32 % (32-34) 01/19/18 13:52 RDW 16.2 % (13.2-15.2) H 01/19/18 13:52 Plt Count 260 K/mm3 (140-440) 01/19/18 13:52 Lymph % (Auto) 23.2 % (13.4-35.0) 01/19/18 13:52 [place] % (Auto) 12.1 % (0.0-7.3) H 01/19/18 13:52 Eos % (Auto) 3.4 % (0.0-4.3) 01/19/18 13:52 Baso % (Auto) 1.5 % (0.0-1.8) 01/19/18 13:52 Lymph # 1.0 K/mm3 (1.2-5.4) L 01/19/18 13:52 [place] # 0.5 K/mm3 (0.0-0.8) 01/19/18 13:52 Eos # 0.1 K/mm3 (0.0-0.4) 01/19/18 13:52 Baso # 0.1 K/mm3 (0.0-0.1) 01/19/18 13:52 Seg Neutrophils % 59.8 % (40.0-70.0) 01/19/18 13:52 Seg Neutrophils # 2.5 K/mm3 (1.8-7.7) 01/19/18 13:52 Sodium 137 mmol/L (137-145) 01/19/18 13:52 Potassium 4.2 mmol/L (3.6-5.0) 01/19/18 13:52 Chloride 101.5 mmol/L (98-107) 01/19/18 13:52 Carbon Dioxide 22 mmol/L (22-30) 01/19/18 13:52 Anion Gap 18 mmol/L 01/19/18 13:52 BUN 42 mg/dL (9-20) H 01/19/18 13:52 Creatinine 2.6 mg/dL (0.8-1.5) H 01/19/18 13:52 Estimated GFR 29 ml/min 01/19/18 13:52 BUN/Creatinine Ratio 16 % 01/19/18 13:52 Glucose 138 mg/dL (75-100) H 01/19/18 13:52 POC Glucose 130 (70-105) H 01/19/18 13:38 Hemoglobin A1c 7.6 % (4-6) H 01/19/18 22:35 Calcium 9.7 mg/dL (8.4-10.2) 01/19/18 13:52 Troponin T 0.075 ng/mL (0.00-0.029) H D 01/19/18 19:40 Triglycerides 82 mg/dL (2-149) 01/19/18 13:52 Cholesterol 212 mg/dL (50-199) H 01/19/18 13:52 LDL Cholesterol Direct 155 mg/dL (50-130) H 01/19/18 13:52 HDL Cholesterol 56 mg/dL (40-59) 01/19/18 13:52 Cholesterol/HDL Ratio 3.78 % 01/19/18 13:52 TSH 0.760 mlU/mL (0.270-4.200) 01/19/18 16:41 Free T4 1.22 ng/dL (0.76-1.46) 01/19/18 16:41 Urine Color Yellow (Yellow) 01/19/18 14:30 Urine Turbidity Clear (Clear) 01/19/18 14:30 Urine pH 7.0 (5.0-7.0) 01/19/18 14:30 Ur Specific [place] 1.012 (1.003-1.030) 01/19/18 14:30 Urine Protein >500 mg/dL (Negative) 01/19/18 14:30 Urine Glucose (UA) 50 mg/dL (Negative) 01/19/18 14:30 Urine Ketones Neg mg/dL (Negative) 01/19/18 14:30 Urine Blood Neg (Negative) 01/19/18 14:30 Urine Nitrite Neg (Negative) 01/19/18 14:30 Urine Bilirubin Neg (Negative) 01/19/18 14:30 Urine Urobilinogen < 2.0 mg/dL (<2.0) 01/19/18 14:30 Ur Leukocyte Esterase Neg (Negative) 01/19/18 14:30 Urine WBC (Auto) < 1.0 /HPF (0.0-6.0) 01/19/18 14:30 Urine RBC (Auto) 2.0 /HPF (0.0-6.0) 01/19/18 14:30
[2018-01-20] MEDS: ALLBEE WITH C PO SCH (10:59)
[2018-01-20] MEDS: HumaLOG SUB-Q SCH ×4 (10:59→23:09)
[2018-01-20] MEDS: FERROUS SULFATE PO SCH (11:00)
[2018-01-20] MEDS: HCTZ PO SCH (11:00)
[2018-01-20] MEDS: VITAMIN B-12 PO SCH (11:01)
[2018-01-20] MEDS: SODIUM CHLORIDE FLUSH SYRINGE 10 ML IV SCH ×2 (11:01→23:09)
[2018-01-20 12:09] LABS: Basophils % (Auto) 0.8 % (0.0-1.8); Eosinophils # (Auto) 0.1 K/mm3 (0.0-0.4); Eosinophils % (Auto) 1.8 % (0.0-4.3); Hemoglobin 10.8 gm/dl (11.8-15.2); Lymphocytes # (Auto) 0.7 K/mm3 (1.2-5.4); Lymphocytes % (Auto) 15.5 % (13.4-35.0); Mean Corpuscular HGB Conc 32 % (32-34); Monocytes # (Auto) 0.6 K/mm3 (0.0-0.8); Monocytes % (Auto) 13.5 % (0.0-7.3); Platelet Count 265 K/mm3 (140-440); Red Blood Count 5.49 M/mm3 (3.65-5.03); Red Cell Distribution Width 16.3 % (13.2-15.2)
[2018-01-20 12:11] LABS: Mean Corpuscular Hemoglobin 20 pg (28-32); Mean Corpuscular Volume 62 fl (84-94)
[2018-01-20 12:24] LABS: Albumin 3.2 g/dL (3.9-5); Calcium 9.6 mg/dL (8.4-10.2)
[2018-01-20 12:25] LABS: Creatine Kinase MB 4.4 ng/mL (0.0-4.0)
--- NOTE | 2018-01-20 17:45 | Consultation ---
History of Present Illness - Reason for Consult Consult date: 01/20/18 acute renal failure, chronic renal failure Requesting physician: MARGUERITE HUMPHRIES - History of Present Illness 82-year-old male with a past medical history of arthritis, CVA without residual deficits, diabetes, and hypertension presents to the hospital with alteration in mental status and sleeping a lot. Patient states he's been sleeping a lot the last 3 days with low energy. He has been eating and drinking appropriately. on the morning of admission when his checked on him he was lethargic and slow to respond. No syncope reported. Patient has been compliant with his medications but did not take his medications today. His expressed a concerns that his blood pressure was elevated with systolic in the 170s and glucose was "high" in the 160s. As per spouse patient's and she has been low since patient returned from his sister's last week. Currently patient is oriented to self and place but not to year. At his baseline he is alert and oriented 3 per . Patient is pain free. patient states that he had seen in pig lead mel[facility] helper in the past. However does not recall the name Past History Past Medical History: diabetes, hypertension, stroke Social history: no significant social history Family history: no significant family history Medications and Allergies Allergies Allergy/AdvReac Type Severity Reaction Status Date / Time No Known Allergies Allergy Unverified 05/30/13 12:56 Home Medications Medication Instructions Recorded Confirmed Last Taken Type B,C/Folic/Zinc/Copper Ox/Vit E 1 each PO DAILY 04/13/14 01/20/18 Unknown History [Stress B-Complex Tablet] Cyanocobalamin (Vitamin B-12) 1,000 mcg PO DAILY 04/13/14 01/20/18 Unknown History [B-12] Doxazosin [Cardura] 4 mg PO QHS 04/13/14 01/20/18 Unknown History Gabapentin 300 mg PO BID 04/13/14 01/20/18 Unknown History Glimepiride [Amaryl] 4 mg PO BID 04/13/14 01/20/18 Unknown History Valsartan/Hydrochlorothiazide 1.5 tab PO DAILY 04/13/14 01/20/18 Unknown History [Valsartan-Hctz 160-25 mg] glipiZIDE [glipiZIDE XL] 10 mg PO BID 04/13/14 01/20/18 Unknown History metFORMIN [Glucophage] 500 mg PO BID 04/13/14 01/20/18 Unknown History Ferrous Sulfate [Ferrous Sulfate 162.5 mg PO QDAY 30 Days oral.liqd 04/16/14 Unknown Rx Oral Liq 300 Mg/5 Ml] Pantoprazole [Protonix TAB] 40 mg PO BID #60 tablet 06/25/15 01/20/18 Unknown Rx Acetaminophen [Acetaminophen TAB] 500 mg PO Q6HR PRN #30 tablet 06/01/17 Unknown Rx Active Meds: Active Medications Acetaminophen (Tylenol) 500 mg PO Q6HR PRN PRN Reason: Pain Baclofen (Lioresal) 10 mg PO BID [facility] Last Admin: 01/20/18 11:00 Dose: 10 mg Carvedilol (Coreg) 12.5 mg PO BID [facility] Cyanocobalamin (Vitamin B-12) 1,000 mcg PO DAILY [facility] Last Admin: 01/20/18 11:01 Dose: 1,000 mcg Doxazosin Mesylate (Cardura) 4 mg PO QHS [facility] Ferrous Sulfate (Ferrous Sulfate) 162.5 mg PO QDAY [facility] Last Admin: 01/20/18 11:00 Dose: 162.5 mg Gabapentin (Neurontin) 300 mg PO BID [facility] Last Admin: 01/20/18 11:00 Dose: 300 mg Glimepiride (Amaryl) 4 mg PO BIDDIAB [facility] Last Admin: 01/20/18 10:59 Dose: 4 mg Hydrochlorothiazide (Hctz) 37.5 mg PO QDAY [facility] Last Admin: 01/20/18 11:00 Dose: 37.5 mg Sodium Chloride (Nacl 0.9% 1000 Ml) 1,000 mls @ 75 mls/hr IV DIRECT [facility] Stop: 01/20/18 23:59 Last Admin: 01/20/18 00:50 Dose: 75 mls/hr Insulin Human Lispro (Humalog) 0 unit SUB-Q [facility]; Protocol Last Admin: 01/20/18 14:00 Dose: 3 unit Morphine Sulfate (Morphine) 2 mg IV Q4H PRN PRN Reason: Pain, Moderate (4-6) Ondansetron HCl (Zofran) 4 mg IV Q8H PRN PRN Reason: Nausea And Vomiting Oxycodone/Acetaminophen (Percocet 5/325) 1 tab PO Q6H PRN PRN Reason: Pain, Moderate (4-6) Pantoprazole Sodium (Protonix) 40 mg PO BID [facility] Last Admin: 01/20/18 11:01 Dose: 40 mg Sodium Chloride (Sodium Chloride Flush Syringe 10 Ml) 10 ml IV BID [facility] Last Admin: 01/20/18 11:01 Dose: 10 ml Sodium Chloride (Sodium Chloride Flush Syringe 10 Ml) 10 ml IV PRN PRN PRN Reason: LINE FLUSH Vitamin B Complex/Vitamin C ([place] With C) 1 each PO QDAY [facility] Last Admin: 01/20/18 10:59 Dose: 1 each Review of Systems All systems: negative (except as noted above) Exam - Vital Signs Vital signs: Vital Signs Temp Pulse Resp BP Pulse Ox 97.6 F 56 L 21 183/102 99 01/19/18 12:46 01/19/18 12:46 01/19/18 12:46 01/19/18 12:46 01/19/18 12:46 - General Appearance General appearance: well-developed, well-nourished, appears stated age EENT: PERRL, mucous membranes moist Neck: Present: neck supple, trachea midline. Absent: JVD/HJR, Masses Respiratory: Decreased Breath Sounds (at the bases) Heart: regular, normal heart rate, S1S2, no murmurs Gastrointestinal: Present: normal, normoactive bowel sounds Integumentary: no rash, other (no edema) Results - Lab Results 01/20/18 10:09 01/20/18 10:09 Most recent lab results Calcium 9.6 mg/dL (8.4-10.2) 01/20/18 10:09 Assessment and Plan impression * Acute on chronic renal failure * Altered mental status * Uncontrolled hypertension * Diabetes * history of CVA * Hyperkalemia recommendations * Check a UA as well as a fractional excretion of sodium * Agree with gentle hydration * Avoid nephrotoxins * Monitor fluid status and electrolytes closely * Renal ultrasound to assess kidney size and echogenicity * Check old records if available. His baseline creatinine appears to be approximately 2 * Also check a chest x-ray * If urine sediment is active, we will do additional workup * Thank you very much for the consultation. Shall follow along with you
[2018-01-20] MEDS: COREG PO SCH (23:08)
[2018-01-20] MEDS: CARDURA PO SCH (23:08)
[2018-01-20] MEDS: LOVENOX SUB-Q SCH (23:08)
[2018-01-21] MEDS: AMARYL PO SCH ×2 (08:40→17:59)
[2018-01-21] MEDS: HumaLOG SUB-Q SCH ×4 (08:40→22:50)
[2018-01-21 08:54] LABS: Basophils % (Auto) 0.4 % (0.0-1.8); Eosinophils # (Auto) 0.1 K/mm3 (0.0-0.4); Eosinophils % (Auto) 1.8 % (0.0-4.3); Hematocrit 34.2 % (35.5-45.6); Hemoglobin 10.7 gm/dl (11.8-15.2); Lymphocytes # (Auto) 0.7 K/mm3 (1.2-5.4); Mean Corpuscular HGB Conc 31 % (32-34); Monocytes # (Auto) 0.4 K/mm3 (0.0-0.8); Monocytes % (Auto) 9.2 % (0.0-7.3); Platelet Count 225 K/mm3 (140-440); Red Blood Count 5.45 M/mm3 (3.65-5.03); Red Cell Distribution Width 16.2 % (13.2-15.2)
[2018-01-21 08:55] LABS: Mean Corpuscular Hemoglobin 20 pg (28-32); Mean Corpuscular Volume 63 fl (84-94)
[2018-01-21 09:18] LABS: Calcium 9.6 mg/dL (8.4-10.2)
--- NOTE | 2018-01-21 09:20 | Progress Note ---
Assessment and Plan impression * Acute on chronic renal failure * Altered mental status * Uncontrolled hypertension * Diabetes * history of CVA * Hyperkalemia recommendations * F/U results of UA as well as a fractional excretion of sodium * Checked office records . His last creatinine was 2.6 * Avoid nephrotoxins * Monitor fluid status and electrolytes closely * Renal ultrasound to assess kidney size and echogenicity * F/u results of chest x-ray * If urine sediment is active, we will do additional workup Subjective Date of service: 01/21/18 Interval history: patient is comfortable . Denies SOB Objective - Vital Signs Vital signs: Vital Signs - 12hr 01/21/18 01/21/18 01/21/18 00:03 00:21 04:49 Temperature 98.4 F 97.9 F Pulse Rate 73 40 L 48 L Respiratory 20 20 Rate Blood Pressure 135/68 141/61 O2 Sat by Pulse 93 88 Oximetry - General Appearance General appearance: well-developed, well-nourished, appears stated age EENT: PERRL, mucous membranes moist Neck: no JVD, no thyromegaly, no carotid bruit, supple Respiratory: Present: Clear to Ascultation Cardiology: regular, normal heart rate, S1S2, no murmurs Gastrointestinal: normal, normoactive bowel sounds Integumentary: other (no edema ) - Lab 01/21/18 08:07 01/20/18 10:09 Most recent lab results Calcium 9.6 mg/dL (8.4-10.2) 01/20/18 10:09
--- NOTE | 2018-01-21 11:27 | Event Note ---
Date: 01/21/18 Generalized malaise and fatigue Altered Mental Status - reason for admission Chronically elevated troponin MPI 01/01/2017 at [facility] showing no ischemia with a normal LVEF Echo 10/03/2017 - normal LVEF calculated at 62% with G1 DDx Echo 01/20/2018 - LVEF 35-40% Chronic RBBB Acute on chronic renal failure Microcytic anemia - chronic History of gastroduodenal AVM s/p APC 2015 Systemic Hypertension Type II DM Recommendations: Patient with interval decrease in LVEF. However due to multiple comorbidities including renal failure and chronic microcytic anemia with history of AVM, recommend conservative medical management.
--- NOTE | 2018-01-21 11:41 | Consultation ---
History of Present Illness Consult date: 01/21/18 Consult reason: elevated troponin History of present illness: This is an 82 year old man with a history of renal failure, hypertension, diabetes and anemia. He was brought to this hospital with reports of altered mental status and generalized weakness. Head CT scan reports no acute intracranial process. A cardiac consultation was requested for chronic elevated troponin in the setting of renal disease. He has a creatinine of 2.9. Patient denies chest pain and shortness of breath. He has undergone cardiac evaluation at [facility]. He had a persantine stress thallium December 2016 that reports no ischemia with a normal LVEF. An echocardiogram 3 months ago documents a normal LVEF calculated at 62%. A repeat echocardiogram this presentation reports a decrease LVEF 35-40% . ECG shows a sinus rhythm with chronic RBBB. Past History Past Medical History: diabetes, hypertension, stroke Social history: no significant social history Family history: no significant family history Medications and Allergies Allergies Allergy/AdvReac Type Severity Reaction Status Date / Time No Known Allergies Allergy Unverified 05/30/13 12:56 Home Medications Medication Instructions Recorded Confirmed Last Taken Type B,C/Folic/Zinc/Copper Ox/Vit E 1 each PO DAILY 04/13/14 01/20/18 Unknown History [Stress B-Complex Tablet] Cyanocobalamin (Vitamin B-12) 1,000 mcg PO DAILY 04/13/14 01/20/18 Unknown History [B-12] Doxazosin [Cardura] 4 mg PO QHS 04/13/14 01/20/18 Unknown History Gabapentin 300 mg PO BID 04/13/14 01/20/18 Unknown History Glimepiride [Amaryl] 4 mg PO BID 04/13/14 01/20/18 Unknown History Valsartan/Hydrochlorothiazide 1.5 tab PO DAILY 04/13/14 01/20/18 Unknown History [Valsartan-Hctz 160-25 mg] glipiZIDE [glipiZIDE XL] 10 mg PO BID 04/13/14 01/20/18 Unknown History metFORMIN [Glucophage] 500 mg PO BID 04/13/14 01/20/18 Unknown History Ferrous Sulfate [Ferrous Sulfate 162.5 mg PO QDAY 30 Days oral.liqd 04/16/14 Unknown Rx Oral Liq 300 Mg/5 Ml] Pantoprazole [Protonix TAB] 40 mg PO BID #60 tablet 06/25/15 01/20/18 Unknown Rx Acetaminophen [Acetaminophen TAB] 500 mg PO Q6HR PRN #30 tablet 06/01/17 Unknown Rx Active Meds: Active Medications Acetaminophen (Tylenol) 500 mg PO Q6HR PRN PRN Reason: Pain Baclofen (Lioresal) 10 mg PO BID [facility] Last Admin: 01/20/18 23:08 Dose: 10 mg Carvedilol (Coreg) 12.5 mg PO BID [facility] Last Admin: 01/20/18 23:08 Dose: 12.5 mg Cyanocobalamin (Vitamin B-12) 1,000 mcg PO DAILY [facility] Last Admin: 01/20/18 11:01 Dose: 1,000 mcg Doxazosin Mesylate (Cardura) 4 mg PO QHS [facility] Last Admin: 01/20/18 23:08 Dose: 4 mg Enoxaparin Sodium (Lovenox) 30 mg SUB-Q QDAY@2200 [facility] Last Admin: 01/20/18 23:08 Dose: 30 mg Ferrous Sulfate (Ferrous Sulfate) 162.5 mg PO QDAY [facility] Last Admin: 01/20/18 11:00 Dose: 162.5 mg Gabapentin (Neurontin) 300 mg PO BID [facility] Last Admin: 01/20/18 23:08 Dose: 300 mg Glimepiride (Amaryl) 4 mg PO BIDDIAB [facility] Last Admin: 01/20/18 18:33 Dose: 4 mg Hydrochlorothiazide (Hctz) 37.5 mg PO QDAY [facility] Last Admin: 01/20/18 11:00 Dose: 37.5 mg Insulin Human Lispro (Humalog) 0 unit SUB-Q [facility]; Protocol Last Admin: 01/20/18 23:09 Dose: 3 unit Morphine Sulfate (Morphine) 2 mg IV Q4H PRN PRN Reason: Pain, Moderate (4-6) Ondansetron HCl (Zofran) 4 mg IV Q8H PRN PRN Reason: Nausea And Vomiting Oxycodone/Acetaminophen (Percocet 5/325) 1 tab PO Q6H PRN PRN Reason: Pain, Moderate (4-6) Pantoprazole Sodium (Protonix) 40 mg PO BID [facility] Last Admin: 01/20/18 23:09 Dose: 40 mg Sodium Chloride (Sodium Chloride Flush Syringe 10 Ml) 10 ml IV BID [facility] Last Admin: 01/20/18 23:09 Dose: Not Given Sodium Chloride (Sodium Chloride Flush Syringe 10 Ml) 10 ml IV PRN PRN PRN Reason: LINE FLUSH Vitamin B Complex/Vitamin C ([place]bee With C) 1 each PO QDAY [facility] Last Admin: 01/20/18 10:59 Dose: 1 each Physical Examination Vital Signs Temp Pulse Resp BP Pulse Ox 97.6 F 56 L 21 183/102 99 01/19/18 12:46 01/19/18 12:46 01/19/18 12:46 01/19/18 12:46 01/19/18 12:46 General appearance: no acute distress HEENT: Positive: PERRL Cardiac: Positive: Reg Rate and Rhythm Lungs: Positive: Decreased Breath Sounds Results 01/21/18 08:07 01/21/18 08:07 Cardiac Enzymes 01/20/18 01/20/18 01/20/18 Range/Units 10:09 10:09 17:39 AST 17 (5-40) units/L CK-MB (CK-2) 4.4 H 5.0 H (0.0-4.0) ng/mL CBC 01/20/18 01/21/18 Range/Units 10:09 08:07 WBC 4.7 4.9 (4.5-11.0) K/mm3 RBC 5.49 H 5.45 H (3.65-5.03) M/mm3 Hgb 10.8 L 10.7 L (11.8-15.2) gm/dl Hct 34.0 L 34.2 L (35.5-45.6) % Plt Count 265 225 (140-440) K/mm3 Lymph # 0.7 L 0.7 L (1.2-5.4) K/mm3 [place] # 0.6 0.4 (0.0-0.8) K/mm3 Eos # 0.1 0.1 (0.0-0.4) K/mm3 Baso # 0.0 0.0 (0.0-0.1) K/mm3 Comprehensive Metabolic Panel 01/20/18 01/21/18 Range/Units 10:09 08:07 Sodium 138 139 (137-145) mmol/L Potassium 5.3 H D 4.9 (3.6-5.0) mmol/L Chloride 102.6 103.3 (98-107) mmol/L Carbon Dioxide 23 22 (22-30) mmol/L BUN 40 H 45 H (9-20) mg/dL Creatinine 2.4 H 2.9 H (0.8-1.5) mg/dL Glucose 274 H 182 H (75-100) mg/dL Calcium 9.6 9.6 (8.4-10.2) mg/dL AST 17 (5-40) units/L ALT 11 (7-56) units/L Alkaline Phosphatase 98 (35-129) units/L Total Protein 7.1 (6.3-8.2) g/dL Albumin 3.2 L (3.9-5) g/dL Assessment and Plan Generalized malaise and fatigue Altered Mental Status Chronically elevated troponin MPI 01/01/2017 at [facility] showing no ischemia with a normal LVEF Echo 10/03/2017 - normal LVEF calculated at 62% with G1 DDx Echo 01/20/2018 - LVEF 35-40% Chronic RBBB Acute on chronic renal failure Microcytic anemia - chronic History of gastroduodenal AVM s/p APC 2016 Systemic Hypertension Type II DM Recommendations: Patient with interval decrease in LVEF. However due to multiple comorbidities including renal failure and chronic microcytic anemia with history of AVM, recommend conservative medical management.
--- NOTE | 2018-01-21 12:17 | Progress Note ---
Assessment and Plan Assessment and plan: --Metabolic encephalopathy; neurochecks and supportive care --Elevated cardiac enzymes/and ST elevation [place]/ multiple risk factors Evaluate for acute coronary syndrome, Echo EF 35-40%, cardiology following Aspirin and beta blockers and nitrates statins, no MARYJANE inhibitors in view of acute kidney injury --Hypertension; moderate control, continue current antihypertensives and when necessary medications --Acute kidney injury; due to ATN Closely monitor renal function and avoid nephrotoxins, consistent nephrology evaluation if no improvement --Type 2 diabetes mellitus; Accu-Chek sliding scale coverage and ADA diet and insulin as needed --Dyslipidemia; continue lipid lowering medications --DVT prophylaxis; Lovenox renal dose --Full CODE STATUS --DC planning per case management. We'll closely monitor the patient and adjust management as needed Follow cardiology and renal evaluations and recommendations . History Interval history: Patient seen and examined medical records reviewed Patient feels better, slightly confused Denies chest pain shortness of breath Vital signs reviewed Hospitalist Physical - Constitutional Vitals: Temp Pulse Resp BP Pulse Ox 97.5 F L 82 20 133/80 92 01/21/18 07:35 01/21/18 07:35 01/21/18 07:35 01/21/18 07:35 01/21/18 07:35 General appearance: Present: no acute distress, well-nourished - EENT Eyes: Present: PERRL, EOM intact - Neck Neck: Present: supple, normal ROM - Respiratory Respiratory effort: normal Respiratory: bilateral: diminished, negative: rales, rhonchi, wheezing - Cardiovascular Rhythm: regular Heart Sounds: Present: S1 & S2 - Extremities Extremities: no ischemia, No edema - Abdominal General gastrointestinal: soft, non-tender, non-distended, normal bowel sounds - Integumentary Integumentary: Present: clear, warm - Psychiatric Psychiatric: appropriate mood/affect, cooperative - Neurologic Neurologic: CNII-XII intact, moves all extremities Results - Labs CBC & Chem 7: 01/21/18 08:07 01/21/18 08:07 Labs: Laboratory Last Values WBC 4.9 K/mm3 (4.5-11.0) 01/21/18 08:07 RBC 5.45 M/mm3 (3.65-5.03) H 01/21/18 08:07 Hgb 10.7 gm/dl (11.8-15.2) L 01/21/18 08:07 Hct 34.2 % (35.5-45.6) L 01/21/18 08:07 MCV 63 fl (84-94) L 01/21/18 08:07 MCH 20 pg (28-32) L 01/21/18 08:07 MCHC 31 % (32-34) L 01/21/18 08:07 RDW 16.2 % (13.2-15.2) H 01/21/18 08:07 Plt Count 225 K/mm3 (140-440) 01/21/18 08:07 Lymph % (Auto) 14.0 % (13.4-35.0) 01/21/18 08:07 [place] % (Auto) 9.2 % (0.0-7.3) H 01/21/18 08:07 Eos % (Auto) 1.8 % (0.0-4.3) 01/21/18 08:07 Baso % (Auto) 0.4 % (0.0-1.8) 01/21/18 08:07 Lymph # 0.7 K/mm3 (1.2-5.4) L 01/21/18 08:07 [place] # 0.4 K/mm3 (0.0-0.8) 01/21/18 08:07 Eos # 0.1 K/mm3 (0.0-0.4) 01/21/18 08:07 Baso # 0.0 K/mm3 (0.0-0.1) 01/21/18 08:07 Seg Neutrophils % 74.6 % (40.0-70.0) H 01/21/18 08:07 Seg Neutrophils # 3.6 K/mm3 (1.8-7.7) 01/21/18 08:07 Sodium 139 mmol/L (137-145) 01/21/18 08:07 Potassium 4.9 mmol/L (3.6-5.0) 01/21/18 08:07 Chloride 103.3 mmol/L (98-107) 01/21/18 08:07 Carbon Dioxide 22 mmol/L (22-30) 01/21/18 08:07 Anion Gap 19 mmol/L 01/21/18 08:07 BUN 45 mg/dL (9-20) H 01/21/18 08:07 Creatinine 2.9 mg/dL (0.8-1.5) H 01/21/18 08:07 Estimated GFR 25 ml/min 01/21/18 08:07 BUN/Creatinine Ratio 16 % 01/21/18 08:07 Glucose 182 mg/dL (75-100) H 01/21/18 08:07 POC Glucose 188 (70-105) H 01/21/18 07:11 Hemoglobin A1c 7.6 % (4-6) H 01/19/18 22:35 Calcium 9.6 mg/dL (8.4-10.2) 01/21/18 08:07 Total Bilirubin 0.70 mg/dL (0.1-1.2) 01/20/18 10:09 AST 17 units/L (5-40) 01/20/18 10:09 ALT 11 units/L (7-56) 01/20/18 10:09 Alkaline Phosphatase 98 units/L (35-129) 01/20/18 10:09 Total Creatine Kinase 103 units/L (55-170) 01/20/18 17:39 CK-MB (CK-2) 5.0 ng/mL (0.0-4.0) H 01/20/18 17:39 CK-MB (CK-2) Rel Index 4.8 (0-4) H 01/20/18 17:39 Troponin T 0.094 ng/mL (0.00-0.029) H 01/20/18 17:39 Total Protein 7.1 g/dL (6.3-8.2) 01/20/18 10:09 Albumin 3.2 g/dL (3.9-5) L 01/20/18 10:09 Albumin/Globulin Ratio 0.8 % 01/20/18 10:09 Triglycerides 82 mg/dL (2-149) 01/19/18 13:52 Cholesterol 212 mg/dL (50-199) H 01/19/18 13:52 LDL Cholesterol Direct 155 mg/dL (50-130) H 01/19/18 13:52 HDL Cholesterol 56 mg/dL (40-59) 01/19/18 13:52 Cholesterol/HDL Ratio 3.78 % 01/19/18 13:52 TSH 0.760 mlU/mL (0.270-4.200) 01/19/18 16:41 Free T4 1.22 ng/dL (0.76-1.46) 01/19/18 16:41 Urine Color Yellow (Yellow) 01/19/18 14:30 Urine Turbidity Clear (Clear) 01/19/18 14:30 Urine pH 7.0 (5.0-7.0) 01/19/18 14:30 Ur Specific [place] 1.012 (1.003-1.030) 01/19/18 14:30 Urine Protein >500 mg/dL (Negative) 01/19/18 14:30 Urine Glucose (UA) 50 mg/dL (Negative) 01/19/18 14:30 Urine Ketones Neg mg/dL (Negative) 01/19/18 14:30 Urine Blood Neg (Negative) 01/19/18 14:30 Urine Nitrite Neg (Negative) 01/19/18 14:30 Urine Bilirubin Neg (Negative) 01/19/18 14:30 Urine Urobilinogen < 2.0 mg/dL (<2.0) 01/19/18 14:30 Ur Leukocyte Esterase Neg (Negative) 01/19/18 14:30 Urine WBC (Auto) < 1.0 /HPF (0.0-6.0) 01/19/18 14:30 Urine RBC (Auto) 2.0 /HPF (0.0-6.0) 01/19/18 14:30
[2018-01-21] MEDS: ALLBEE WITH C PO SCH (12:26)
[2018-01-21] MEDS: COREG PO SCH ×2 (12:26→21:43)
[2018-01-21] MEDS: FERROUS SULFATE PO SCH (12:27)
[2018-01-21] MEDS: PROTONIX PO SCH ×2 (12:28→21:44)
[2018-01-21] MEDS: NEURONTIN PO SCH ×2 (12:28→21:44)
[2018-01-21] MEDS: HCTZ PO SCH (12:28)
[2018-01-21] MEDS: LIORESAL PO SCH ×2 (12:28→21:44)
[2018-01-21] MEDS: SODIUM CHLORIDE FLUSH SYRINGE 10 ML IV SCH ×2 (12:29→22:20)
[2018-01-21] MEDS: VITAMIN B-12 PO SCH (12:29)
--- NOTE | 2018-01-21 14:09 | Ultrasound Report ---
ULTRASOUND RENAL BILATERAL HISTORY: Acute renal insufficiency. TECHNIQUE: transabdominal ultrasound with color Doppler interrogation. COMPARISON: none. FINDINGS: The right kidney measures 11.2cm. Right renal cortex: 1.3cm. The left kidney measures 11.6cm. Left renal cortex: 1.3cm. The kidneys are normal size, contour and position. There is increased renal cortical echotexture bilaterally consistent with nonspecific renal parenchymal disease. Corticomedullary differentiation is preserved. There are 2 cysts in the mid left kidney measuring 1.5 cm and 2.0 cm. No evidence for mass, nephrolithiasis, hydronephrosis or perinephric fluid. The views of the bladder and the region of the ureters appear normal. IMPRESSION: Slightly echogenic kidneys consistent with nonspecific renal parenchymal disease. Simple left renal cysts.
[2018-01-21] MEDS: LOVENOX SUB-Q SCH (21:43)
[2018-01-21] MEDS: CARDURA PO SCH (21:44)
[2018-01-22 07:35] LABS: Calcium 9.5 mg/dL (8.4-10.2)
--- NOTE | 2018-01-22 09:23 | Progress Note ---
Assessment and Plan impression * Acute on chronic renal failure * Altered mental status * Uncontrolled hypertension * Diabetes * history of CVA * Hyperkalemia recommendations * F/U results of UA as well as a fractional excretion of sodium * Checked office records . His last creatinine was 2.6 * Avoid nephrotoxins * Monitor fluid status and electrolytes closely * Renal ultrasound to assess kidney size and echogenicity * F/u results of chest x-ray * If urine sediment is active, we will do additional workup * Renal function getting worse . Resume IV fluid * Check bladder scan Subjective Date of service: 01/22/18 Interval history: patient is sleepy today . Incontinent of urine Objective - Vital Signs Vital signs: Vital Signs - 12hr 01/21/18 01/21/18 01/21/18 21:43 21:44 22:00 Temperature Pulse Rate 72 72 68 Respiratory Rate Blood Pressure 132/73 132/73 O2 Sat by Pulse Oximetry 01/22/18 01/22/18 00:40 05:36 Temperature 98.2 F 97.8 F Pulse Rate 70 76 Respiratory 20 20 Rate Blood Pressure 101/58 136/72 O2 Sat by Pulse 92 92 Oximetry - General Appearance General appearance: well-developed, well-nourished, appears stated age EENT: PERRL, mucous membranes moist Neck: no JVD, no thyromegaly, no carotid bruit, supple Respiratory: Present: Clear to Ascultation Cardiology: regular, normal heart rate, S1S2, no murmurs Gastrointestinal: normal, normoactive bowel sounds Integumentary: no rash, other (no edema ) - Lab 01/21/18 08:07 01/22/18 05:40 Most recent lab results Calcium 9.5 mg/dL (8.4-10.2) 01/22/18 05:40
[2018-01-22] MEDS ORDERED: NACL 0.9% 1000 ML 1,000 ML IV SCH (10:30)
[2018-01-22] MEDS: FERROUS SULFATE PO SCH (11:15)
[2018-01-22] MEDS: LIORESAL PO SCH ×2 (11:15→22:04)
[2018-01-22] MEDS: COREG PO SCH ×2 (11:15→22:04)
[2018-01-22] MEDS: PROTONIX PO SCH ×2 (11:16→22:04)
[2018-01-22] MEDS: AMARYL PO SCH ×2 (11:17→18:10)
[2018-01-22] MEDS: NEURONTIN PO SCH ×2 (11:17→22:04)
[2018-01-22] MEDS: VITAMIN B-12 PO SCH (11:17)
[2018-01-22] MEDS: ALLBEE WITH C PO SCH (11:17)
[2018-01-22] MEDS: HCTZ PO SCH (11:21)
[2018-01-22] MEDS: HumaLOG SUB-Q SCH ×4 (11:23→22:05)
[2018-01-22] MEDS: SODIUM CHLORIDE FLUSH SYRINGE 10 ML IV SCH ×2 (11:23→22:06)
[2018-01-22] MEDS ORDERED: LASIX IV ONE (13:44)
--- NOTE | 2018-01-22 14:37 | Progress Note ---
Assessment and Plan Generalized malaise and fatigue Altered Mental Status Chronically elevated troponin MPI 01/01/2017 at [facility] showing no ischemia with a normal LVEF Echo 10/03/2017 - normal LVEF calculated at 62% with G1 DDx Echo 01/20/2018 - LVEF 35-40% Chronic RBBB Acute on chronic renal failure Microcytic anemia - chronic History of gastroduodenal AVM s/p APC 2016 Systemic Hypertension Type II DM Conservative cardiac management. Subjective Date of service: 01/22/18 Interval history: Patient is resting in bed comfortably. No reported cardiac events on telemetry. Objective Vital Signs Temp Pulse Resp BP Pulse Ox 01/22/18 12:36 98.3 F 66 20 164/77 93 01/22/18 09:04 97.7 F 92 H 20 149/79 100 01/22/18 05:36 97.8 F 76 20 136/72 92 01/22/18 00:40 98.2 F 70 20 101/58 92 01/21/18 22:00 68 01/21/18 21:44 72 132/73 01/21/18 21:43 72 132/73 01/21/18 20:32 97.3 F L 82 18 145/92 90 01/21/18 16:49 98.4 F 72 20 132/73 95 - Physical Examination General: No Apparent Distress Cardiac: Positive: Reg Rate and Rhythm - Labs and Meds Comprehensive Metabolic Panel 01/22/18 Range/Units 05:40 Sodium 137 (137-145) mmol/L Potassium 4.9 (3.6-5.0) mmol/L Chloride 100.9 (98-107) mmol/L Carbon Dioxide 21 L (22-30) mmol/L BUN 59 H (9-20) mg/dL Creatinine 3.8 H (0.8-1.5) mg/dL Glucose 161 H (75-100) mg/dL Calcium 9.5 (8.4-10.2) mg/dL
--- NOTE | 2018-01-22 16:34 | Progress Note ---
Assessment and Plan Assessment and plan: --Metabolic encephalopathy; neurochecks and supportive care --Elevated cardiac enzymes/and ST elevation OH/ multiple risk factors Evaluate for acute coronary syndrome, Echo EF 35-40%, cardiology following Aspirin and beta blockers and nitrates statins, no MARYJANE inhibitors in view of acute kidney injury --Hypertension; moderate control, continue current antihypertensives and when necessary medications --Acute kidney injury; due to ATN Closely monitor renal function and avoid nephrotoxins, consistent nephrology evaluation if no improvement --Type 2 diabetes mellitus; Accu-Chek sliding scale coverage and ADA diet and insulin as needed --Dyslipidemia; continue lipid lowering medications --DVT prophylaxis; Lovenox renal dose --Full CODE STATUS --DC planning per case management. We'll closely monitor the patient and adjust management as needed Follow cardiology and renal evaluations and recommendations I discussed patient's condition and treatment plan in detail with at the bedside. I also discussed with the son from [place] over the phone Answered all the questions Disposition continue current management, closely monitor his renal function History Interval history: Patient seen and examined medical records reviewed No new events reported by nursing staff The patient remains confused intermittently, mild shortness of breath Worsening renal function Alert awake and responds to simple questions appropriately Vital signs reviewed Hospitalist Physical - Constitutional Vitals: Temp Pulse Resp BP Pulse Ox 98.3 F 66 20 164/77 93 01/22/18 12:36 01/22/18 12:36 01/22/18 12:36 01/22/18 12:36 01/22/18 12:36 General appearance: Present: no acute distress, well-nourished - EENT Eyes: Present: PERRL, EOM intact - Neck Neck: Present: supple, normal ROM - Respiratory Respiratory effort: normal Respiratory: bilateral: diminished, negative: rales, rhonchi, wheezing - Cardiovascular Rhythm: regular Heart Sounds: Present: S1 & S2 - Extremities Extremities: no ischemia, No edema - Abdominal General gastrointestinal: soft, non-tender, non-distended, normal bowel sounds - Integumentary Integumentary: Present: clear, warm - Psychiatric Psychiatric: appropriate mood/affect, cooperative, other (confused at times) - Neurologic Neurologic: CNII-XII intact, moves all extremities Results - Labs CBC & Chem 7: 01/21/18 08:07 01/22/18 05:40 Labs: Laboratory Last Values WBC 4.9 K/mm3 (4.5-11.0) 01/21/18 08:07 RBC 5.45 M/mm3 (3.65-5.03) H 01/21/18 08:07 Hgb 10.7 gm/dl (11.8-15.2) L 01/21/18 08:07 Hct 34.2 % (35.5-45.6) L 01/21/18 08:07 MCV 63 fl (84-94) L 01/21/18 08:07 MCH 20 pg (28-32) L 01/21/18 08:07 MCHC 31 % (32-34) L 01/21/18 08:07 RDW 16.2 % (13.2-15.2) H 01/21/18 08:07 Plt Count 225 K/mm3 (140-440) 01/21/18 08:07 Lymph % (Auto) 14.0 % (13.4-35.0) 01/21/18 08:07 [place] % (Auto) 9.2 % (0.0-7.3) H 01/21/18 08:07 Eos % (Auto) 1.8 % (0.0-4.3) 01/21/18 08:07 Baso % (Auto) 0.4 % (0.0-1.8) 01/21/18 08:07 Lymph # 0.7 K/mm3 (1.2-5.4) L 01/21/18 08:07 [place] # 0.4 K/mm3 (0.0-0.8) 01/21/18 08:07 Eos # 0.1 K/mm3 (0.0-0.4) 01/21/18 08:07 Baso # 0.0 K/mm3 (0.0-0.1) 01/21/18 08:07 Seg Neutrophils % 74.6 % (40.0-70.0) H 01/21/18 08:07 Seg Neutrophils # 3.6 K/mm3 (1.8-7.7) 01/21/18 08:07 Sodium 137 mmol/L (137-145) 01/22/18 05:40 Potassium 4.9 mmol/L (3.6-5.0) 01/22/18 05:40 Chloride 100.9 mmol/L (98-107) 01/22/18 05:40 Carbon Dioxide 21 mmol/L (22-30) L 01/22/18 05:40 Anion Gap 20 mmol/L 01/22/18 05:40 BUN 59 mg/dL (9-20) H 01/22/18 05:40 Creatinine 3.8 mg/dL (0.8-1.5) H 01/22/18 05:40 Estimated GFR 19 ml/min 01/22/18 05:40 BUN/Creatinine Ratio 16 % 01/22/18 05:40 Glucose 161 mg/dL (75-100) H 01/22/18 05:40 POC Glucose 216 (70-105) H 01/22/18 12:12 Hemoglobin A1c 7.6 % (4-6) H 01/19/18 22:35 Calcium 9.5 mg/dL (8.4-10.2) 01/22/18 05:40 Total Bilirubin 0.70 mg/dL (0.1-1.2) 01/20/18 10:09 AST 17 units/L (5-40) 01/20/18 10:09 ALT 11 units/L (7-56) 01/20/18 10:09 Alkaline Phosphatase 98 units/L (35-129) 01/20/18 10:09 Total Creatine Kinase 103 units/L (55-170) 01/20/18 17:39 CK-MB (CK-2) 5.0 ng/mL (0.0-4.0) H 01/20/18 17:39 CK-MB (CK-2) Rel Index 4.8 (0-4) H 01/20/18 17:39 Troponin T 0.094 ng/mL (0.00-0.029) H 01/20/18 17:39 Total Protein 7.1 g/dL (6.3-8.2) 01/20/18 10:09 Albumin 3.2 g/dL (3.9-5) L 01/20/18 10:09 Albumin/Globulin Ratio 0.8 % 01/20/18 10:09 Triglycerides 82 mg/dL (2-149) 01/19/18 13:52 Cholesterol 212 mg/dL (50-199) H 01/19/18 13:52 LDL Cholesterol Direct 155 mg/dL (50-130) H 01/19/18 13:52 HDL Cholesterol 56 mg/dL (40-59) 01/19/18 13:52 Cholesterol/HDL Ratio 3.78 % 01/19/18 13:52 TSH 0.760 mlU/mL (0.270-4.200) 01/19/18 16:41 Free T4 1.22 ng/dL (0.76-1.46) 01/19/18 16:41 Urine Color Yellow (Yellow) 01/19/18 14:30 Urine Turbidity Clear (Clear) 01/19/18 14:30 Urine pH 7.0 (5.0-7.0) 01/19/18 14:30 Ur Specific [place] 1.012 (1.003-1.030) 01/19/18 14:30 Urine Protein >500 mg/dL (Negative) 01/19/18 14:30 Urine Glucose (UA) 50 mg/dL (Negative) 01/19/18 14:30 Urine Ketones Neg mg/dL (Negative) 01/19/18 14:30 Urine Blood Neg (Negative) 01/19/18 14:30 Urine Nitrite Neg (Negative) 01/19/18 14:30 Urine Bilirubin Neg (Negative) 01/19/18 14:30 Urine Urobilinogen < 2.0 mg/dL (<2.0) 01/19/18 14:30 Ur Leukocyte Esterase Neg (Negative) 01/19/18 14:30 Urine WBC (Auto) < 1.0 /HPF (0.0-6.0) 01/19/18 14:30 Urine RBC (Auto) 2.0 /HPF (0.0-6.0) 01/19/18 14:30
[2018-01-22] MEDS ORDERED: PROVENTIL IH PRN (18:11)
[2018-01-22] MEDS: CARDURA PO SCH (22:04)
[2018-01-22] MEDS: LOVENOX SUB-Q SCH (22:04)
[2018-01-23 06:36] LABS: Calcium 9.6 mg/dL (8.4-10.2)
--- NOTE | 2018-01-23 10:35 | Progress Note ---
Assessment and Plan Generalized malaise and fatigue Altered Mental Status Chronically elevated troponin MPI 01/01/2017 at [facility] showing no ischemia with a normal LVEF Echo 10/03/2017 - normal LVEF calculated at 62% with G1 DDx Echo 01/20/2018 - LVEF 35-40% Chronic RBBB Acute on chronic renal failure Microcytic anemia - chronic History of gastroduodenal AVM s/p APC 2016 Systemic Hypertension Type II DM Conservative cardiac management. Subjective Date of service: 01/23/18 Interval history: Patient is resting in bed comfortably. No reported cardiac events on telemetry. Objective Vital Signs Temp Pulse Resp BP Pulse Ox 01/22/18 23:01 98.4 F 77 18 118/68 94 01/22/18 22:00 78 01/22/18 19:51 97.8 F 50 L 18 135/62 93 01/22/18 16:54 98.0 F 64 20 127/54 96 01/22/18 12:36 98.3 F 66 20 164/77 93 - Physical Examination General: No Apparent Distress HEENT: Positive: PERRL Cardiac: Positive: Reg Rate and Rhythm - Labs and Meds Comprehensive Metabolic Panel 01/23/18 Range/Units 05:39 Sodium 135 L (137-145) mmol/L Potassium 4.6 (3.6-5.0) mmol/L Chloride 98.4 (98-107) mmol/L Carbon Dioxide 20 L (22-30) mmol/L BUN 67 H (9-20) mg/dL Creatinine 4.0 H (0.8-1.5) mg/dL Glucose 193 H (75-100) mg/dL Calcium 9.6 (8.4-10.2) mg/dL
[2018-01-23] MEDS: NEURONTIN PO SCH ×2 (10:55→21:38)
[2018-01-23] MEDS: HumaLOG SUB-Q SCH ×4 (10:55→21:38)
[2018-01-23] MEDS: ALLBEE WITH C PO SCH (10:55)
[2018-01-23] MEDS: FERROUS SULFATE PO SCH (10:55)
[2018-01-23] MEDS: VITAMIN B-12 PO SCH (10:55)
[2018-01-23] MEDS: HCTZ PO SCH (10:55)
[2018-01-23] MEDS: PROTONIX PO SCH ×2 (10:55→21:38)
[2018-01-23] MEDS: COREG PO SCH ×2 (10:55→21:37)
[2018-01-23] MEDS: SODIUM CHLORIDE FLUSH SYRINGE 10 ML IV SCH ×2 (10:56→21:39)
[2018-01-23] MEDS: LIORESAL PO SCH ×2 (10:56→21:38)
--- NOTE | 2018-01-23 11:21 | Progress Note ---
Assessment and Plan impression * Acute on chronic renal failure * Altered mental status * Uncontrolled hypertension * Diabetes * history of CVA * Hyperkalemia recommendations * Reorder UA as well as a fractional excretion of sodium * Checked office records . His last creatinine was 2.6 * Avoid nephrotoxins * Monitor fluid status and electrolytes closely * Renal ultrasound to assess kidney size and echogenicity * Reorder chest x-ray. Don't see one this admission * If urine sediment is active, we will do additional workup * Renal function getting worse . Currently off IV fluid . Stop HCTZ * Bladder scan showing a volume of 980 cc . Insert morrell . Add flomax Subjective Date of service: 01/23/18 Interval history: patient appears more alert today . Incontinent of urine Objective - Vital Signs Vital signs: Vital Signs - 12hr 01/23/18 05:34 Temperature 98.2 F Pulse Rate 66 Respiratory 18 Rate Blood Pressure 112/58 O2 Sat by Pulse 95 Oximetry - General Appearance General appearance: well-developed, well-nourished, appears stated age EENT: PERRL, mucous membranes moist Neck: no JVD Respiratory: Present: Clear to Ascultation Cardiology: regular, normal heart rate, S1S2, no murmurs Gastrointestinal: normal, normoactive bowel sounds Integumentary: no rash, other (no edema ) - Lab 01/21/18 08:07 01/23/18 05:39 Most recent lab results Calcium 9.6 mg/dL (8.4-10.2) 01/23/18 05:39
[2018-01-23 12:05] LABS: Bilirubin,Urine NEG (Negative); Blood,Urine NEG (Negative); Color,Urine Yellow (Yellow); Urobilinogen,Urine < 2.0 mg/dL (<2.0)
[2018-01-23 13:19] LABS: Creatinine,Urine 107.9 mg/dL (0.1-20.0); Fractional Sodium Excretion 1.2
--- NOTE | 2018-01-23 13:56 | XRay Report ---
Single view chest: Compared to 11/29/17. History: Shortness of breath. Findings: Cardiomegaly. Trachea is midline. Ill-defined density right lower lobe adjacent to the right diaphragm probably right basilar atelectasis or pneumonitis. Not seen the previous study. Impression: Right basilar pneumonitis or segmental atelectasis.
[2018-01-23] MEDS: FLOMAX PO SCH (14:35)
[2018-01-23] MEDS: AMARYL PO SCH ×2 (14:35→18:17)
--- NOTE | 2018-01-23 14:48 | Progress Note ---
Assessment and Plan Assessment and plan: --Pneumonitis/acute bronchitis: IV antibiotics, albuterol inhaler when necessary, oxygen titrated to O2 sats more than 90%, Supportive care --Metabolic encephalopathy; more alert and awake today --Elevated cardiac enzymes; evaluated by cardiology, continue medical management Echo EF 35-40%, Aspirin and beta blockers and nitrates statins, no MARYJANE inhibitors in view of acute kidney injury --Hypertension; moderate control, continue current antihypertensives and when necessary medications --Acute kidney injury; due to ATN, worsening renal function creatinine today' is 4 Closely monitor renal function and avoid nephrotoxins, nephrology following --Type 2 diabetes mellitus; Accu-Chek sliding scale coverage and ADA diet and insulin as needed --Dyslipidemia; continue lipid lowering medications --DVT prophylaxis; Lovenox renal dose --Full CODE STATUS --DC planning per case management. PT, OT and possible rehabilitation versus home with home health I discussed patient's condition and treatment plan in detail with at the bedside. I also discussed with the son from [place] over the phone, Answered all the questions Disposition continue current management, this planning per case management Possible home with home health versus rehabilitation when medically stable History Interval history: Patient seen and examined medical records reviewed Patient is more alert and awake responding appropriately todaye Mild congestion in the chest, probably secondary to fluid overload Patient responding to simple questions, sometimes lethargic and confused Vital signs reviewed Hospitalist Physical - Constitutional Vitals: Temp Pulse Resp BP Pulse Ox 98.0 F 89 20 178/61 95 01/23/18 11:05 01/23/18 11:05 01/23/18 11:05 01/23/18 11:05 01/23/18 11:05 General appearance: Present: no acute distress, well-nourished - EENT Eyes: Present: PERRL, EOM intact - Neck Neck: Present: supple, normal ROM - Respiratory Respiratory effort: normal Respiratory: bilateral: diminished, rales, negative: rhonchi, wheezing - Cardiovascular Rhythm: regular Heart Sounds: Present: S1 & S2 - Extremities Extremities: no ischemia Extremity abnormal: edema - Abdominal General gastrointestinal: soft, non-tender, non-distended, normal bowel sounds - Integumentary Integumentary: Present: clear, warm - Psychiatric Psychiatric: appropriate mood/affect, cooperative - Neurologic Neurologic: CNII-XII intact, moves all extremities Results - Labs CBC & Chem 7: 01/21/18 08:07 01/23/18 11:22 Labs: Laboratory Last Values WBC 4.9 K/mm3 (4.5-11.0) 01/21/18 08:07 RBC 5.45 M/mm3 (3.65-5.03) H 01/21/18 08:07 Hgb 10.7 gm/dl (11.8-15.2) L 01/21/18 08:07 Hct 34.2 % (35.5-45.6) L 01/21/18 08:07 MCV 63 fl (84-94) L 01/21/18 08:07 MCH 20 pg (28-32) L 01/21/18 08:07 MCHC 31 % (32-34) L 01/21/18 08:07 RDW 16.2 % (13.2-15.2) H 01/21/18 08:07 Plt Count 225 K/mm3 (140-440) 01/21/18 08:07 Lymph % (Auto) 14.0 % (13.4-35.0) 01/21/18 08:07 [place] % (Auto) 9.2 % (0.0-7.3) H 01/21/18 08:07 Eos % (Auto) 1.8 % (0.0-4.3) 01/21/18 08:07 Baso % (Auto) 0.4 % (0.0-1.8) 01/21/18 08:07 Lymph # 0.7 K/mm3 (1.2-5.4) L 01/21/18 08:07 [place] # 0.4 K/mm3 (0.0-0.8) 01/21/18 08:07 Eos # 0.1 K/mm3 (0.0-0.4) 01/21/18 08:07 Baso # 0.0 K/mm3 (0.0-0.1) 01/21/18 08:07 Seg Neutrophils % 74.6 % (40.0-70.0) H 01/21/18 08:07 Seg Neutrophils # 3.6 K/mm3 (1.8-7.7) 01/21/18 08:07 Sodium 134 mmol/L (137-145) L 01/23/18 11:22 Potassium 4.6 mmol/L (3.6-5.0) 01/23/18 05:39 Chloride 98.4 mmol/L (98-107) 01/23/18 05:39 Carbon Dioxide 20 mmol/L (22-30) L 01/23/18 05:39 Anion Gap 21 mmol/L 01/23/18 05:39 BUN 67 mg/dL (9-20) H 01/23/18 05:39 Creatinine 4.0 mg/dL (0.8-1.5) H 01/23/18 11:22 Estimated GFR 18 ml/min 01/23/18 05:39 BUN/Creatinine Ratio 17 % 01/23/18 05:39 Glucose 193 mg/dL (75-100) H 01/23/18 05:39 POC Glucose 158 (70-105) H 01/23/18 05:37 Hemoglobin A1c 7.6 % (4-6) H 01/19/18 22:35 Calcium 9.6 mg/dL (8.4-10.2) 01/23/18 05:39 Total Bilirubin 0.70 mg/dL (0.1-1.2) 01/20/18 10:09 AST 17 units/L (5-40) 01/20/18 10:09 ALT 11 units/L (7-56) 01/20/18 10:09 Alkaline Phosphatase 98 units/L (35-129) 01/20/18 10:09 Total Creatine Kinase 103 units/L (55-170) 01/20/18 17:39 CK-MB (CK-2) 5.0 ng/mL (0.0-4.0) H 01/20/18 17:39 CK-MB (CK-2) Rel Index 4.8 (0-4) H 01/20/18 17:39 Troponin T 0.094 ng/mL (0.00-0.029) H 01/20/18 17:39 Total Protein 7.1 g/dL (6.3-8.2) 01/20/18 10:09 Albumin 3.2 g/dL (3.9-5) L 01/20/18 10:09 Albumin/Globulin Ratio 0.8 % 01/20/18 10:09 Triglycerides 82 mg/dL (2-149) 01/19/18 13:52 Cholesterol 212 mg/dL (50-199) H 01/19/18 13:52 LDL Cholesterol Direct 155 mg/dL (50-130) H 01/19/18 13:52 HDL Cholesterol 56 mg/dL (40-59) 01/19/18 13:52 Cholesterol/HDL Ratio 3.78 % 01/19/18 13:52 TSH 0.760 mlU/mL (0.270-4.200) 01/19/18 16:41 Free T4 1.22 ng/dL (0.76-1.46) 01/19/18 16:41 Urine Color Yellow (Yellow) 01/23/18 11:22 Urine Turbidity Slightly-cloudy (Clear) 01/23/18 11:22 Urine pH 5.0 (5.0-7.0) 01/23/18 11:22 Ur Specific [place] 1.010 (1.003-1.030) 01/23/18 11:22 Urine Protein 100 mg/dl mg/dL (Negative) 01/23/18 11:22 Urine Glucose (UA) Neg mg/dL (Negative) 01/23/18 11:22 Urine Ketones Neg mg/dL (Negative) 01/23/18 11:22 Urine Blood Neg (Negative) 01/23/18 11:22 Urine Nitrite Neg (Negative) 01/23/18 11:22 Urine Bilirubin Neg (Negative) 01/23/18 11:22 Urine Urobilinogen < 2.0 mg/dL (<2.0) 01/23/18 11:22 Ur Leukocyte Esterase Neg (Negative) 01/23/18 11:22 Urine WBC (Auto) 1.0 /HPF (0.0-6.0) 01/23/18 11:22 Urine RBC (Auto) 2.0 /HPF (0.0-6.0) 01/23/18 11:22 Urine Eosinophils None seen (None Seen) 01/23/18 11:40 Urine Creatinine 107.9 mg/dL (0.1-20.0) H 01/23/18 11:22 Urine Sodium 54 mmol/L 01/23/18 11:22 Fraction Sodium Excret 1.2 01/23/18 11:22
[2018-01-23] MEDS ORDERED: LEVAQUIN 500MG/100ML 500 MG/100 ML BAG IV ONE (17:00)
--- NOTE | 2018-01-23 19:28 | Cat Scan Report ---
FINAL REPORT EXAM: CT HEAD/BRAIN WO CON HISTORY: Altered level of consciousness TECHNIQUE: 2.5 millimeter axial images from the skullbase to the vertex. Comparison: Head CT dated January 19, 2018 FINDINGS: There is no evidence of an acute intracranial process, intracranial hemorrhage or mass effect. Ventricular size is concordant with the degree of atrophy. The visualized portions of the orbits, paranasal and mastoid sinuses are unremarkable. The bony structures are unremarkable in appearance. IMPRESSION: 1. No evidence of an acute intracranial process, intracranial hemorrhage or mass effect. If there is a clinical suspicion of an acute intracranial process and if there is no clinical contraindication, MRI brain would be helpful.
[2018-01-23] MEDS: CARDURA PO SCH (21:37)
[2018-01-23] MEDS: LOVENOX SUB-Q SCH (21:38)
[2018-01-24] MEDS: HumaLOG SUB-Q SCH ×4 (08:00→23:13)
[2018-01-24] MEDS: VITAMIN B-12 PO SCH (09:45)
[2018-01-24] MEDS: FERROUS SULFATE PO SCH (09:46)
[2018-01-24] MEDS: ALLBEE WITH C PO SCH (09:46)
[2018-01-24] MEDS: COREG PO SCH ×2 (09:50→23:12)
[2018-01-24] MEDS: LIORESAL PO SCH ×2 (09:50→23:12)
[2018-01-24] MEDS: NEURONTIN PO SCH ×2 (09:52→23:14)
[2018-01-24] MEDS: PROTONIX PO SCH ×2 (09:52→23:13)
[2018-01-24] MEDS: FLOMAX PO SCH (09:53)
[2018-01-24] MEDS: AMARYL PO SCH ×2 (09:53→17:18)
[2018-01-24] MEDS: SODIUM CHLORIDE FLUSH SYRINGE 10 ML IV SCH ×2 (09:59→23:13)
--- NOTE | 2018-01-24 12:32 | Progress Note ---
Assessment and Plan impression * Acute on chronic renal failure * Altered mental status * Uncontrolled hypertension * Diabetes * history of CVA * Hyperkalemia recommendations * His UA shows 2+ protein . Check urine Protein: creatinine ratio * fractional excretion of sodium is 1.2% . * Checked office records . His last creatinine was 2.6 * Avoid nephrotoxins * Monitor fluid status and electrolytes closely * Renal ultrasound showing slightly echogenic kidneys * chest x-ray showing pneumonitis / Atelectasis * Continue to hold diuretics for now * Continue flomax Subjective Date of service: 01/24/18 Interval history: patient appears more alert today . Donato in place Objective - Vital Signs Vital signs: Vital Signs - 12hr 01/24/18 01/24/18 01/24/18 05:53 09:50 10:45 Temperature 98.1 F Pulse Rate 96 H 93 H Respiratory 18 Rate Blood Pressure 149/67 146/70 O2 Sat by Pulse 90 97 Oximetry - General Appearance General appearance: well-developed, well-nourished, appears stated age EENT: PERRL, mucous membranes moist Neck: no JVD, no thyromegaly, no carotid bruit, supple Respiratory: Present: Clear to Ascultation Cardiology: regular, normal heart rate, S1S2, no murmurs Gastrointestinal: normal, normoactive bowel sounds - Lab 01/21/18 08:07 01/23/18 11:22 Most recent lab results Calcium 9.6 mg/dL (8.4-10.2) 01/23/18 05:39 Urine Creatinine 107.9 mg/dL (0.1-20.0) H 01/23/18 11:22 Urine Sodium 54 mmol/L 01/23/18 11:22
--- NOTE | 2018-01-24 12:51 | Progress Note ---
Assessment and Plan - Patient Problems (1) Elevated troponin Current Visit: Yes Status: Acute Plan to address problem: Nonspecific mild troponin elevation in an asymptomatic patient with chronic kidney disease. No further cardiac workup in the absence of cardiac related symptoms, will follow intermittently. Subjective Date of service: 01/24/18 Interval history: Patient is comfortable, no new cardiac complaints. Objective Vital Signs Temp Pulse Resp BP Pulse Ox 01/24/18 10:45 97 01/24/18 09:50 93 H 146/70 01/24/18 05:53 98.1 F 96 H 18 149/67 90 01/23/18 23:26 98.1 F 73 18 142/59 97 01/23/18 22:00 80 01/23/18 21:37 73 136/55 01/23/18 19:44 98.4 F 73 18 136/55 97 01/23/18 18:11 99 01/23/18 16:41 98.9 F 76 20 146/69 93 - Physical Examination General: No Apparent Distress HEENT: Positive: PERRL Neck: Positive: neck supple, trachea midline. Negative: JVD/HJR, Masses Cardiac: Positive: Reg Rate and Rhythm Lungs: Positive: Decreased Breath Sounds Neuro: Positive: Grossly Intact Abdomen: Positive: Soft Skin: Positive: Clear Extremities: Absent: edema - Labs and Meds Comprehensive Metabolic Panel 01/23/18 01/23/18 Range/Units 11:22 11:22 Sodium 132 L 134 L (137-145) mmol/L Creatinine 4.0 H 4.0 H (0.8-1.5) mg/dL
--- NOTE | 2018-01-24 17:35 | Progress Note ---
Assessment and Plan Assessment and plan: --Metabolic encephalopathy; more alert and awake today --Pneumonitis/acute bronchitis: IV antibiotics, albuterol inhaler when necessary, oxygen titrated to O2 sats more than 90%, Supportive care --Elevated cardiac enzymes; evaluated by cardiology, continue medical management Echo EF 35-40%, Aspirin and beta blockers and nitrates statins, no MARYJANE inhibitors in view of acute kidney injury --Hypertension; moderate control, continue current antihypertensives and when necessary medications --Acute kidney injury; due to ATN, worsening renal function creatinine today' is 4 Closely monitor renal function and avoid nephrotoxins, nephrology following --Type 2 diabetes mellitus; Accu-Chek sliding scale coverage and ADA diet and insulin as needed --Dyslipidemia; continue lipid lowering medications --DVT prophylaxis; Lovenox renal dose --Full CODE STATUS --DC planning per case management. PT, OT and possible rehabilitation versus home with home health I discussed patient's condition and treatment plan in detail with at the bedside. I also discussed with the son from [place] over the phone, Answered all the questions Patient may be transferred out of telemetry to medical floor Possible discharge in 1-2 days if stable History Interval history: Patient seen and examined medical records reviewed No new events reported by nursing Patient is more alert and awake, is at the bedside Continues to be confused at times Vital signs reviewed stable Hospitalist Physical - Constitutional Vitals: Temp Pulse Resp BP Pulse Ox 98.1 F 78 22 146/70 97 01/24/18 05:53 01/24/18 10:00 01/24/18 10:00 01/24/18 09:50 01/24/18 10:45 General appearance: Present: no acute distress, well-nourished - EENT Eyes: Present: PERRL, EOM intact - Neck Neck: Present: supple, normal ROM - Respiratory Respiratory effort: normal Respiratory: bilateral: diminished, negative: rales, rhonchi, wheezing - Cardiovascular Rhythm: regular Heart Sounds: Present: S1 & S2 - Extremities Extremities: no ischemia, No edema - Abdominal General gastrointestinal: soft, non-tender, non-distended, normal bowel sounds - Integumentary Integumentary: Present: clear, warm - Psychiatric Psychiatric: appropriate mood/affect, other (confused at times, intermittent lethargy) - Neurologic Neurologic: moves all extremities Results - Labs CBC & Chem 7: 01/21/18 08:07 01/23/18 11:22 Labs: Laboratory Last Values WBC 4.9 K/mm3 (4.5-11.0) 01/21/18 08:07 RBC 5.45 M/mm3 (3.65-5.03) H 01/21/18 08:07 Hgb 10.7 gm/dl (11.8-15.2) L 01/21/18 08:07 Hct 34.2 % (35.5-45.6) L 01/21/18 08:07 MCV 63 fl (84-94) L 01/21/18 08:07 MCH 20 pg (28-32) L 01/21/18 08:07 MCHC 31 % (32-34) L 01/21/18 08:07 RDW 16.2 % (13.2-15.2) H 01/21/18 08:07 Plt Count 225 K/mm3 (140-440) 01/21/18 08:07 Lymph % (Auto) 14.0 % (13.4-35.0) 01/21/18 08:07 [place] % (Auto) 9.2 % (0.0-7.3) H 01/21/18 08:07 Eos % (Auto) 1.8 % (0.0-4.3) 01/21/18 08:07 Baso % (Auto) 0.4 % (0.0-1.8) 01/21/18 08:07 Lymph # 0.7 K/mm3 (1.2-5.4) L 01/21/18 08:07 [place] # 0.4 K/mm3 (0.0-0.8) 01/21/18 08:07 Eos # 0.1 K/mm3 (0.0-0.4) 01/21/18 08:07 Baso # 0.0 K/mm3 (0.0-0.1) 01/21/18 08:07 Seg Neutrophils % 74.6 % (40.0-70.0) H 01/21/18 08:07 Seg Neutrophils # 3.6 K/mm3 (1.8-7.7) 01/21/18 08:07 POC ABG pH 7.375 (7.35-7.45) 01/23/18 18:01 POC ABG pCO2 38.5 (35-45) 01/23/18 18:01 POC ABG pO2 58 (80-105) L 01/23/18 18:01 POC ABG HCO3 22.5 01/23/18 18:01 POC ABG Total CO2 24 01/23/18 18:01 POC ABG O2 Sat 89 01/23/18 18:01 POC ABG Base Excess -3 01/23/18 18:01 FiO2 21 % 01/23/18 18:01 Sodium 134 mmol/L (137-145) L 01/23/18 11:22 Potassium 4.6 mmol/L (3.6-5.0) 01/23/18 05:39 Chloride 98.4 mmol/L (98-107) 01/23/18 05:39 Carbon Dioxide 20 mmol/L (22-30) L 01/23/18 05:39 Anion Gap 21 mmol/L 01/23/18 05:39 BUN 67 mg/dL (9-20) H 01/23/18 05:39 Creatinine 4.0 mg/dL (0.8-1.5) H 01/23/18 11:22 Estimated GFR 18 ml/min 01/23/18 05:39 BUN/Creatinine Ratio 17 % 01/23/18 05:39 Glucose 193 mg/dL (75-100) H 01/23/18 05:39 POC Glucose 330 (70-105) H 01/24/18 11:33 Hemoglobin A1c 7.6 % (4-6) H 01/19/18 22:35 Calcium 9.6 mg/dL (8.4-10.2) 01/23/18 05:39 Total Bilirubin 0.70 mg/dL (0.1-1.2) 01/20/18 10:09 AST 17 units/L (5-40) 01/20/18 10:09 ALT 11 units/L (7-56) 01/20/18 10:09 Alkaline Phosphatase 98 units/L (35-129) 01/20/18 10:09 Total Creatine Kinase 103 units/L (55-170) 01/20/18 17:39 CK-MB (CK-2) 5.0 ng/mL (0.0-4.0) H 01/20/18 17:39 CK-MB (CK-2) Rel Index 4.8 (0-4) H 01/20/18 17:39 Troponin T 0.094 ng/mL (0.00-0.029) H 01/20/18 17:39 Total Protein 7.1 g/dL (6.3-8.2) 01/20/18 10:09 Albumin 3.2 g/dL (3.9-5) L 01/20/18 10:09 Albumin/Globulin Ratio 0.8 % 01/20/18 10:09 Triglycerides 82 mg/dL (2-149) 01/19/18 13:52 Cholesterol 212 mg/dL (50-199) H 01/19/18 13:52 LDL Cholesterol Direct 155 mg/dL (50-130) H 01/19/18 13:52 HDL Cholesterol 56 mg/dL (40-59) 01/19/18 13:52 Cholesterol/HDL Ratio 3.78 % 01/19/18 13:52 TSH 0.760 mlU/mL (0.270-4.200) 01/19/18 16:41 Free T4 1.22 ng/dL (0.76-1.46) 01/19/18 16:41 Urine Color Yellow (Yellow) 01/23/18 11:22 Urine Turbidity Slightly-cloudy (Clear) 01/23/18 11:22 Urine pH 5.0 (5.0-7.0) 01/23/18 11:22 Ur Specific [place] 1.010 (1.003-1.030) 01/23/18 11:22 Urine Protein 100 mg/dl mg/dL (Negative) 01/23/18 11:22 Urine Glucose (UA) Neg mg/dL (Negative) 01/23/18 11:22 Urine Ketones Neg mg/dL (Negative) 01/23/18 11:22 Urine Blood Neg (Negative) 01/23/18 11:22 Urine Nitrite Neg (Negative) 01/23/18 11:22 Urine Bilirubin Neg (Negative) 01/23/18 11:22 Urine Urobilinogen < 2.0 mg/dL (<2.0) 01/23/18 11:22 Ur Leukocyte Esterase Neg (Negative) 01/23/18 11:22 Urine WBC (Auto) 1.0 /HPF (0.0-6.0) 01/23/18 11:22 Urine RBC (Auto) 2.0 /HPF (0.0-6.0) 01/23/18 11:22 Urine Eosinophils None seen (None Seen) 01/23/18 11:40 Urine Creatinine 107.9 mg/dL (0.1-20.0) H 01/23/18 11:22 Urine Sodium 54 mmol/L 01/23/18 11:22 Fraction Sodium Excret 1.2 01/23/18 11:22
[2018-01-24] MEDS: LOVENOX SUB-Q SCH (23:11)
[2018-01-24] MEDS: CARDURA PO SCH (23:11)
[2018-01-25 05:20] LABS: Basophils % (Auto) 0.4 % (0.0-1.8); Eosinophils # (Auto) 0.1 K/mm3 (0.0-0.4); Eosinophils % (Auto) 1.8 % (0.0-4.3); Hematocrit 28.2 % (35.5-45.6); Hemoglobin 8.9 gm/dl (11.8-15.2); Lymphocytes # (Auto) 0.6 K/mm3 (1.2-5.4); Lymphocytes % (Auto) 7.7 % (13.4-35.0); Mean Corpuscular HGB Conc 32 % (32-34); Monocytes % (Auto) 12.4 % (0.0-7.3); Platelet Count 211 K/mm3 (140-440); Red Blood Count 4.51 M/mm3 (3.65-5.03); Red Cell Distribution Width 16.1 % (13.2-15.2)
[2018-01-25 05:30] LABS: Calcium 9.5 mg/dL (8.4-10.2)
[2018-01-25 05:35] LABS: Mean Corpuscular Hemoglobin 20 pg (28-32); Mean Corpuscular Volume 63 fl (84-94)
[2018-01-25] MEDS: HumaLOG SUB-Q SCH ×4 (08:30→22:46)
[2018-01-25] MEDS: AMARYL PO SCH ×2 (08:45→17:30)
--- NOTE | 2018-01-25 10:41 | Progress Note ---
Assessment and Plan Assessment and plan: --Metabolic encephalopathy; more alert and awake today --Pneumonitis/acute bronchitis: IV antibiotics, albuterol inhaler when necessary, oxygen titrated to O2 sats more than 90%, Supportive care --Elevated cardiac enzymes; evaluated by cardiology, continue medical management Echo EF 35-40%, Aspirin and beta blockers and nitrates statins, no MARYJANE inhibitors in view of acute kidney injury --Hypertension; moderate control, continue current antihypertensives and when necessary medications --Acute kidney injury; due to ATN, worsening renal function creatinine monitor renal function and avoid nephrotoxins, nephrology following --Type 2 diabetes mellitus; Accu-Chek sliding scale coverage and ADA diet and insulin as needed --Dyslipidemia; continue lipid lowering medications --DVT prophylaxis; Lovenox renal dose --Full CODE STATUS --DC planning per case management. PT, OT and possible rehabilitation versus home with home health I discussed patient's condition and treatment plan in detail with at the bedside. I also discussed with the son from [place] over the phone, Answered all the questions Continue current management, Possible discharge in 1-2 days if stable. History Interval history: Patient seen and examined medical records reviewed Patient is more alert and awake today Wants to go home, no new complaints Vital signs reviewed Hospitalist Physical - Constitutional Vitals: Temp Pulse Resp BP Pulse Ox 97.3 F L 40 L 20 125/50 96 01/25/18 08:00 01/25/18 08:00 01/25/18 08:00 01/25/18 08:00 01/25/18 08:34 General appearance: Present: no acute distress, well-nourished - EENT Eyes: Present: PERRL, EOM intact ENT: hearing intact, clear oral mucosa - Neck Neck: Present: supple, normal ROM - Respiratory Respiratory effort: normal, labored Respiratory: bilateral: diminished, rales, negative: rhonchi, wheezing - Cardiovascular Rhythm: regular Heart Sounds: Present: S1 & S2 - Extremities Extremities: no ischemia, No edema - Abdominal General gastrointestinal: soft, non-tender, non-distended, normal bowel sounds - Integumentary Integumentary: Present: clear, warm - Psychiatric Psychiatric: appropriate mood/affect, cooperative, other (slow speech) - Neurologic Neurologic: moves all extremities Results - Labs CBC & Chem 7: 01/25/18 04:52 01/25/18 04:52 Labs: Laboratory Last Values WBC 8.2 K/mm3 (4.5-11.0) 01/25/18 04:52 RBC 4.51 M/mm3 (3.65-5.03) 01/25/18 04:52 Hgb 8.9 gm/dl (11.8-15.2) L 01/25/18 04:52 Hct 28.2 % (35.5-45.6) L 01/25/18 04:52 MCV 63 fl (84-94) L 01/25/18 04:52 MCH 20 pg (28-32) L 01/25/18 04:52 MCHC 32 % (32-34) 01/25/18 04:52 RDW 16.1 % (13.2-15.2) H 01/25/18 04:52 Plt Count 211 K/mm3 (140-440) 01/25/18 04:52 Lymph % (Auto) 7.7 % (13.4-35.0) L 01/25/18 04:52 [place] % (Auto) 12.4 % (0.0-7.3) H 01/25/18 04:52 Eos % (Auto) 1.8 % (0.0-4.3) 01/25/18 04:52 Baso % (Auto) 0.4 % (0.0-1.8) 01/25/18 04:52 Lymph # 0.6 K/mm3 (1.2-5.4) L 01/25/18 04:52 [place] # 1.0 K/mm3 (0.0-0.8) H 01/25/18 04:52 Eos # 0.1 K/mm3 (0.0-0.4) 01/25/18 04:52 Baso # 0.0 K/mm3 (0.0-0.1) 01/25/18 04:52 Seg Neutrophils % 77.7 % (40.0-70.0) H 01/25/18 04:52 Seg Neutrophils # 6.4 K/mm3 (1.8-7.7) 01/25/18 04:52 POC ABG pH 7.375 (7.35-7.45) 01/23/18 18:01 POC ABG pCO2 38.5 (35-45) 01/23/18 18:01 POC ABG pO2 58 (80-105) L 01/23/18 18:01 POC ABG HCO3 22.5 01/23/18 18:01 POC ABG Total CO2 24 01/23/18 18:01 POC ABG O2 Sat 89 01/23/18 18:01 POC ABG Base Excess -3 01/23/18 18:01 FiO2 21 % 01/23/18 18:01 Sodium 134 mmol/L (137-145) L 01/25/18 04:52 Potassium 4.1 mmol/L (3.6-5.0) 01/25/18 04:52 Chloride 96.4 mmol/L (98-107) L 01/25/18 04:52 Carbon Dioxide 23 mmol/L (22-30) 01/25/18 04:52 Anion Gap 19 mmol/L 01/25/18 04:52 BUN 84 mg/dL (9-20) H 01/25/18 04:52 Creatinine 4.3 mg/dL (0.8-1.5) H 01/25/18 04:52 Estimated GFR 16 ml/min 01/25/18 04:52 BUN/Creatinine Ratio 20 % 01/25/18 04:52 Glucose 184 mg/dL (75-100) H 01/25/18 04:52 POC Glucose 184 (70-105) H 01/25/18 07:31 Hemoglobin A1c 7.6 % (4-6) H 01/19/18 22:35 Calcium 9.5 mg/dL (8.4-10.2) 01/25/18 04:52 Magnesium 2.30 mg/dL (1.7-2.3) 01/25/18 04:52 Total Bilirubin 0.70 mg/dL (0.1-1.2) 01/20/18 10:09 AST 17 units/L (5-40) 01/20/18 10:09 ALT 11 units/L (7-56) 01/20/18 10:09 Alkaline Phosphatase 98 units/L (35-129) 01/20/18 10:09 Total Creatine Kinase 103 units/L (55-170) 01/20/18 17:39 CK-MB (CK-2) 5.0 ng/mL (0.0-4.0) H 01/20/18 17:39 CK-MB (CK-2) Rel Index 4.8 (0-4) H 01/20/18 17:39 Troponin T 0.094 ng/mL (0.00-0.029) H 01/20/18 17:39 Total Protein 7.1 g/dL (6.3-8.2) 01/20/18 10:09 Albumin 3.2 g/dL (3.9-5) L 01/20/18 10:09 Albumin/Globulin Ratio 0.8 % 01/20/18 10:09 Triglycerides 82 mg/dL (2-149) 01/19/18 13:52 Cholesterol 212 mg/dL (50-199) H 01/19/18 13:52 LDL Cholesterol Direct 155 mg/dL (50-130) H 01/19/18 13:52 HDL Cholesterol 56 mg/dL (40-59) 01/19/18 13:52 Cholesterol/HDL Ratio 3.78 % 01/19/18 13:52 TSH 0.760 mlU/mL (0.270-4.200) 01/19/18 16:41 Free T4 1.22 ng/dL (0.76-1.46) 01/19/18 16:41 Urine Color Yellow (Yellow) 01/23/18 11:22 Urine Turbidity Slightly-cloudy (Clear) 01/23/18 11:22 Urine pH 5.0 (5.0-7.0) 01/23/18 11:22 Ur Specific [place] 1.010 (1.003-1.030) 01/23/18 11:22 Urine Protein 100 mg/dl mg/dL (Negative) 01/23/18 11:22 Urine Glucose (UA) Neg mg/dL (Negative) 01/23/18 11:22 Urine Ketones Neg mg/dL (Negative) 01/23/18 11:22 Urine Blood Neg (Negative) 01/23/18 11:22 Urine Nitrite Neg (Negative) 01/23/18 11:22 Urine Bilirubin Neg (Negative) 01/23/18 11:22 Urine Urobilinogen < 2.0 mg/dL (<2.0) 01/23/18 11:22 Ur Leukocyte Esterase Neg (Negative) 01/23/18 11:22 Urine WBC (Auto) 1.0 /HPF (0.0-6.0) 01/23/18 11:22 Urine RBC (Auto) 2.0 /HPF (0.0-6.0) 01/23/18 11:22 Urine Eosinophils None seen (None Seen) 01/23/18 11:40 Urine Creatinine 107.9 mg/dL (0.1-20.0) H 01/23/18 11:22 Urine Sodium 54 mmol/L 01/23/18 11:22 Fraction Sodium Excret 1.2 01/23/18 11:22
[2018-01-25] MEDS: SODIUM CHLORIDE FLUSH SYRINGE 10 ML IV SCH ×2 (10:47→21:54)
[2018-01-25] MEDS: FLOMAX PO SCH (10:48)
[2018-01-25] MEDS: ALLBEE WITH C PO SCH (10:48)
[2018-01-25] MEDS: PROTONIX PO SCH ×2 (10:49→21:53)
[2018-01-25] MEDS: LIORESAL PO SCH ×2 (10:49→21:53)
[2018-01-25] MEDS: VITAMIN B-12 PO SCH (10:49)
[2018-01-25] MEDS: FERROUS SULFATE PO SCH (10:52)
--- NOTE | 2018-01-25 11:23 | Progress Note ---
Assessment and Plan impression * Acute on chronic renal failure * Altered mental status * Uncontrolled hypertension * Diabetes * history of CVA * Hyperkalemia recommendations * His UA shows 2+ protein . Check urine Protein: creatinine ratio * fractional excretion of sodium is 1.2% . * Checked office records . His last creatinine was 2.6 * Avoid nephrotoxins * Monitor fluid status and electrolytes closely * Renal ultrasound showing slightly echogenic kidneys * chest x-ray showing pneumonitis / Atelectasis * Continue to hold diuretics for now * Creatinine trending up . Resume IV fluid * Check 24 hour urine for creatinine clearance * Continue flomax Subjective Date of service: 01/25/18 Interval history: patient appears more alert today . Donato in place . Appetite still poor Objective - Vital Signs Vital signs: Vital Signs - 12hr 01/25/18 01/25/18 08:00 08:34 Temperature 97.3 F L Pulse Rate 40 L Respiratory 20 Rate Blood Pressure 125/50 [Left] O2 Sat by Pulse 99 96 Oximetry - General Appearance General appearance: well-developed, well-nourished, appears stated age EENT: PERRL, mucous membranes moist Neck: no JVD, no thyromegaly, no carotid bruit, supple Respiratory: Present: Clear to Ascultation Cardiology: regular, normal heart rate, S1S2, no murmurs Gastrointestinal: normal, normoactive bowel sounds Integumentary: no rash, other (ne edema ) - Lab 01/25/18 04:52 01/25/18 04:52 Most recent lab results Calcium 9.5 mg/dL (8.4-10.2) 01/25/18 04:52 Magnesium 2.30 mg/dL (1.7-2.3) 01/25/18 04:52 Urine Creatinine 107.9 mg/dL (0.1-20.0) H 01/23/18 11:22 Urine Sodium 54 mmol/L 01/23/18 11:22
[2018-01-25] MEDS: COREG PO SCH ×2 (11:24→21:54)
[2018-01-25] MEDS: NACL 0.9% 1000 ML 1,000 ML IV SCH (11:30)
[2018-01-25] MEDS ORDERED: LEVAQUIN 250MG/50ML 250 MG/50 ML BAG IV SCH (16:00)
[2018-01-25] MEDS: LOVENOX SUB-Q SCH (21:53)
[2018-01-25] MEDS: CARDURA PO SCH (21:53)
[2018-01-26] MEDS: NACL 0.9% 1000 ML 1,000 ML IV SCH ×2 (05:18→21:47)
[2018-01-26 05:19] LABS: Calcium 9.3 mg/dL (8.4-10.2)
[2018-01-26] MEDS: VITAMIN B-12 PO SCH (09:40)
[2018-01-26] MEDS: COREG PO SCH ×2 (09:40→21:49)
[2018-01-26] MEDS: ALLBEE WITH C PO SCH (09:40)
[2018-01-26] MEDS: LIORESAL PO SCH ×2 (09:40→21:48)
[2018-01-26] MEDS: AMARYL PO SCH ×2 (09:41→17:00)
[2018-01-26] MEDS: HumaLOG SUB-Q SCH ×4 (09:41→22:38)
--- NOTE | 2018-01-26 09:57 | Progress Note ---
Assessment and Plan Impression * Acute kidney injury on chronic kidney disease --Oupatient labs: SCr 2.6 --FeNa1.2% --Renal ultrasound showing slightly echogenic kidneys * Altered mental status * Uncontrolled hypertension * Type II diabetes * History of CVA * Hyperkalemia Recommendations * Renal prognosis is guarded. No emergent need for HD at present * 24 hour urine for creatinine clearance in progress * Monitor fluid status and electrolytes closely * Continue to hold diuretics for now * Gentle IVF * Continue Flomax * Dose medications for renal function * Avoid nephrotoxins Subjective Date of service: 01/26/18 Interval history: Patient reports nausea, generalized malaise. Denies SOB. Objective - Vital Signs Vital signs: Vital Signs - 12hr 01/25/18 01/26/18 01/26/18 22:00 02:50 07:20 Temperature 98.5 F 98.7 F Pulse Rate 42 L 51 L Respiratory 20 20 20 Rate Blood Pressure 157/52 153/53 O2 Sat by Pulse 98 100 Oximetry 01/26/18 09:40 Temperature Pulse Rate 96 H Respiratory Rate Blood Pressure 127/67 O2 Sat by Pulse Oximetry - General Appearance General appearance: well-developed, well-nourished EENT: ATNC Respiratory: Present: Decreased Breath Sounds Cardiology: regular, S1S2 Gastrointestinal: normal, no tenderness, no distended Integumentary: no rash, warm and dry Musculoskeletal: other (no edema) Psychiatric: cooperative - Lab 01/25/18 04:52 01/26/18 03:30 Most recent lab results Calcium 9.3 mg/dL (8.4-10.2) 01/26/18 03:30 Magnesium 2.30 mg/dL (1.7-2.3) 01/25/18 04:52 Urine Creatinine 107.9 mg/dL (0.1-20.0) H 01/23/18 11:22 Urine Sodium 54 mmol/L 01/23/18 11:22
[2018-01-26] MEDS: FERROUS SULFATE PO SCH (10:04)
[2018-01-26] MEDS: SODIUM CHLORIDE FLUSH SYRINGE 10 ML IV SCH ×2 (10:13→21:49)
[2018-01-26] MEDS: FLOMAX PO SCH (10:13)
[2018-01-26] MEDS: PROTONIX PO SCH ×2 (10:13→21:48)
--- NOTE | 2018-01-26 12:46 | Progress Note ---
Assessment and Plan Assessment and plan: --Metabolic encephalopathy; more alert and awake today Multifactorial, uremia, dementia, underlying pneumonitis, continue current management --Acute kidney injury; due to ATN, worsening renal function creatinine monitor renal function and avoid nephrotoxins, nephrology following --acute bronchitis/pneumonitis: IV antibiotics, albuterol inhaler when necessary, oxygen titrated to O2 sats more than 90%, --Elevated cardiac enzymes; evaluated by cardiology, continue medical management Echo EF 35-40%, Aspirin and beta blockers and nitrates statins, no MARYJANE inhibitors in view of acute kidney injury --Hypertension; moderate control, continue current antihypertensives and when necessary medications --Type 2 diabetes mellitus; Accu-Chek sliding scale coverage and ADA diet and insulin as needed --Dyslipidemia; continue lipid lowering medications --DVT prophylaxis; Lovenox renal dose --Full CODE STATUS --DC planning per case management. PT, OT and possible rehabilitation versus home with home health I discussed patient's condition and treatment plan in detail with at the bedside. I also discussed with the son from [place] over the phone, Answered all the questions Disposition; continue current management History Interval history: Patient is seen and examined medical records reviewed No new events reported by nursing staff Patient is more alert today responding to simple questions Vital signs reviewed Hospitalist Physical - Constitutional Vitals: Temp Pulse Resp BP Pulse Ox 98.7 F 96 H 20 127/67 100 01/26/18 07:20 01/26/18 09:40 01/26/18 10:00 01/26/18 09:40 01/26/18 07:20 General appearance: Present: no acute distress, well-nourished - EENT Eyes: Present: PERRL, EOM intact - Neck Neck: Present: supple, normal ROM - Respiratory Respiratory effort: normal Respiratory: bilateral: diminished, rhonchi, negative: rales, wheezing - Cardiovascular Rhythm: regular Heart Sounds: Present: S1 & S2 - Extremities Extremities: no ischemia, No edema - Abdominal General gastrointestinal: soft, non-tender, non-distended, normal bowel sounds - Integumentary Integumentary: Present: clear, warm - Psychiatric Psychiatric: appropriate mood/affect, other (confused at times) - Neurologic Neurologic: moves all extremities Results - Labs CBC & Chem 7: 01/25/18 04:52 01/26/18 03:30 Labs: Laboratory Last Values WBC 8.2 K/mm3 (4.5-11.0) 01/25/18 04:52 RBC 4.51 M/mm3 (3.65-5.03) 01/25/18 04:52 Hgb 8.9 gm/dl (11.8-15.2) L 01/25/18 04:52 Hct 28.2 % (35.5-45.6) L 01/25/18 04:52 MCV 63 fl (84-94) L 01/25/18 04:52 MCH 20 pg (28-32) L 01/25/18 04:52 MCHC 32 % (32-34) 01/25/18 04:52 RDW 16.1 % (13.2-15.2) H 01/25/18 04:52 Plt Count 211 K/mm3 (140-440) 01/25/18 04:52 Lymph % (Auto) 7.7 % (13.4-35.0) L 01/25/18 04:52 [place] % (Auto) 12.4 % (0.0-7.3) H 01/25/18 04:52 Eos % (Auto) 1.8 % (0.0-4.3) 01/25/18 04:52 Baso % (Auto) 0.4 % (0.0-1.8) 01/25/18 04:52 Lymph # 0.6 K/mm3 (1.2-5.4) L 01/25/18 04:52 [place] # 1.0 K/mm3 (0.0-0.8) H 01/25/18 04:52 Eos # 0.1 K/mm3 (0.0-0.4) 01/25/18 04:52 Baso # 0.0 K/mm3 (0.0-0.1) 01/25/18 04:52 Seg Neutrophils % 77.7 % (40.0-70.0) H 01/25/18 04:52 Seg Neutrophils # 6.4 K/mm3 (1.8-7.7) 01/25/18 04:52 POC ABG pH 7.375 (7.35-7.45) 01/23/18 18:01 POC ABG pCO2 38.5 (35-45) 01/23/18 18:01 POC ABG pO2 58 (80-105) L 01/23/18 18:01 POC ABG HCO3 22.5 01/23/18 18:01 POC ABG Total CO2 24 01/23/18 18:01 POC ABG O2 Sat 89 01/23/18 18:01 POC ABG Base Excess -3 01/23/18 18:01 FiO2 21 % 01/23/18 18:01 Sodium 135 mmol/L (137-145) L 01/26/18 03:30 Potassium 4.1 mmol/L (3.6-5.0) 01/26/18 03:30 Chloride 98.5 mmol/L (98-107) 01/26/18 03:30 Carbon Dioxide 20 mmol/L (22-30) L 01/26/18 03:30 Anion Gap 21 mmol/L 01/26/18 03:30 BUN 93 mg/dL (9-20) H 01/26/18 03:30 Creatinine 4.5 mg/dL (0.8-1.5) H 01/26/18 03:30 Estimated GFR 15 ml/min 01/26/18 03:30 BUN/Creatinine Ratio 21 % 01/26/18 03:30 Glucose 127 mg/dL (75-100) H 01/26/18 03:30 POC Glucose 208 (70-105) H 01/26/18 11:28 Hemoglobin A1c 7.6 % (4-6) H 01/19/18 22:35 Calcium 9.3 mg/dL (8.4-10.2) 01/26/18 03:30 Magnesium 2.30 mg/dL (1.7-2.3) 01/25/18 04:52 Total Bilirubin 0.70 mg/dL (0.1-1.2) 01/20/18 10:09 AST 17 units/L (5-40) 01/20/18 10:09 ALT 11 units/L (7-56) 01/20/18 10:09 Alkaline Phosphatase 98 units/L (35-129) 01/20/18 10:09 Total Creatine Kinase 103 units/L (55-170) 01/20/18 17:39 CK-MB (CK-2) 5.0 ng/mL (0.0-4.0) H 01/20/18 17:39 CK-MB (CK-2) Rel Index 4.8 (0-4) H 01/20/18 17:39 Troponin T 0.094 ng/mL (0.00-0.029) H 01/20/18 17:39 Total Protein 7.1 g/dL (6.3-8.2) 01/20/18 10:09 Albumin 3.2 g/dL (3.9-5) L 01/20/18 10:09 Albumin/Globulin Ratio 0.8 % 01/20/18 10:09 Triglycerides 82 mg/dL (2-149) 01/19/18 13:52 Cholesterol 212 mg/dL (50-199) H 01/19/18 13:52 LDL Cholesterol Direct 155 mg/dL (50-130) H 01/19/18 13:52 HDL Cholesterol 56 mg/dL (40-59) 01/19/18 13:52 Cholesterol/HDL Ratio 3.78 % 01/19/18 13:52 TSH 0.760 mlU/mL (0.270-4.200) 01/19/18 16:41 Free T4 1.22 ng/dL (0.76-1.46) 01/19/18 16:41 Urine Color Yellow (Yellow) 01/23/18 11:22 Urine Turbidity Slightly-cloudy (Clear) 01/23/18 11:22 Urine pH 5.0 (5.0-7.0) 01/23/18 11:22 Ur Specific [place] 1.010 (1.003-1.030) 01/23/18 11:22 Urine Protein 100 mg/dl mg/dL (Negative) 01/23/18 11:22 Urine Glucose (UA) Neg mg/dL (Negative) 01/23/18 11:22 Urine Ketones Neg mg/dL (Negative) 01/23/18 11:22 Urine Blood Neg (Negative) 01/23/18 11:22 Urine Nitrite Neg (Negative) 01/23/18 11:22 Urine Bilirubin Neg (Negative) 01/23/18 11:22 Urine Urobilinogen < 2.0 mg/dL (<2.0) 01/23/18 11:22 Ur Leukocyte Esterase Neg (Negative) 01/23/18 11:22 Urine WBC (Auto) 1.0 /HPF (0.0-6.0) 01/23/18 11:22 Urine RBC (Auto) 2.0 /HPF (0.0-6.0) 01/23/18 11:22 Urine Eosinophils None seen (None Seen) 01/23/18 11:40 Urine Creatinine 107.9 mg/dL (0.1-20.0) H 01/23/18 11:22 Urine Sodium 54 mmol/L 01/23/18 11:22 Fraction Sodium Excret 1.2 01/23/18 11:22
[2018-01-26 21:40] LABS: Creatinine,Urine 84.7 mg/dL (0.1-20.0)
[2018-01-26] MEDS: LOVENOX SUB-Q SCH (21:47)
[2018-01-26] MEDS: CARDURA PO SCH (21:48)
[2018-01-26 23:16] LABS: Creatinine 24 Hour,Urine 1.2 (0.8-2.8); Creatinine,Urine 84.7 mg/dL (0.1-20.0)
[2018-01-27 06:32] LABS: Hematocrit 30.6 % (35.5-45.6); Hemoglobin 9.6 gm/dl (11.8-15.2); Mean Corpuscular HGB Conc 31 % (32-34); Platelet Count 254 K/mm3 (140-440); Red Blood Count 4.94 M/mm3 (3.65-5.03); Red Cell Distribution Width 16.1 % (13.2-15.2)
[2018-01-27 06:38] LABS: Mean Corpuscular Hemoglobin 19 pg (28-32); Mean Corpuscular Volume 62 fl (84-94)
[2018-01-27 06:51] LABS: Calcium 9.6 mg/dL (8.4-10.2)
[2018-01-27] MEDS: HumaLOG SUB-Q SCH ×3 (07:20→16:54)
[2018-01-27] MEDS: AMARYL PO SCH ×2 (07:52→16:55)
[2018-01-27 08:10] LABS: Anisocytosis 2+; Hypochromasia 2+; Ovalocytes 1+; Poikilocytosis 1+; Stomatocytes 1+; Target Cells 1+; Total Cells Counted 100
[2018-01-27 08:11] LABS: Helmet Cells Rare; Tear Drop Cells Few
--- NOTE | 2018-01-27 08:56 | Progress Note ---
Assessment and Plan Assessment and plan: --acute bronchitis/pneumonitis: IV antibiotics, albuterol inhaler when necessary, oxygen titrated to O2 sats more than 90%, --Metabolic encephalopathy; more alert and awake today Multifactorial, uremia, dementia, underlying pneumonitis, continue current management --Acute kidney injury; due to ATN, mild improvement renal function creatinine monitor renal function and avoid nephrotoxins, nephrology following --Elevated cardiac enzymes; evaluated by cardiology, continue medical management Echo EF 35-40%, Aspirin and beta blockers and nitrates statins, no MARYJANE inhibitors in view of acute kidney injury --Hypertension; moderate control, continue current antihypertensives and when necessary medications --Type 2 diabetes mellitus; Accu-Chek sliding scale coverage and ADA diet and insulin as needed --Dyslipidemia; continue lipid lowering medications --DVT prophylaxis; Lovenox renal dose --Full CODE STATUS --DC planning per case management. PT, OT and possible rehabilitation versus home with home health Continue Current management, Possible DC in 1-2 days if stable History Interval history: Patient is doing better today More alert and awake sitting in the chair Not in acute distress, vital signs reviewed Hospitalist Physical - Constitutional Vitals: Temp Pulse Resp BP Pulse Ox 97.7 F 50 L 16 155/80 95 01/27/18 02:54 01/27/18 02:54 01/27/18 02:54 01/27/18 02:54 01/27/18 02:54 General appearance: Present: no acute distress, well-nourished - EENT Eyes: Present: PERRL, EOM intact - Neck Neck: Present: supple, normal ROM - Respiratory Respiratory effort: normal Respiratory: bilateral: diminished, negative: rales, rhonchi, wheezing - Cardiovascular Rhythm: regular Heart Sounds: Present: S1 & S2 - Extremities Extremities: no ischemia, No edema - Abdominal General gastrointestinal: soft, non-tender, non-distended, normal bowel sounds - Integumentary Integumentary: Present: clear, warm - Psychiatric Psychiatric: appropriate mood/affect, cooperative - Neurologic Neurologic: CNII-XII intact, moves all extremities Results - Labs CBC & Chem 7: 01/27/18 06:01 01/27/18 06:01 Labs: Laboratory Last Values WBC 4.6 K/mm3 (4.5-11.0) 01/27/18 06:01 RBC 4.94 M/mm3 (3.65-5.03) 01/27/18 06:01 Hgb 9.6 gm/dl (11.8-15.2) L 01/27/18 06:01 Hct 30.6 % (35.5-45.6) L 01/27/18 06:01 MCV 62 fl (84-94) L 01/27/18 06:01 MCH 19 pg (28-32) L 01/27/18 06:01 MCHC 31 % (32-34) L 01/27/18 06:01 RDW 16.1 % (13.2-15.2) H 01/27/18 06:01 Plt Count 254 K/mm3 (140-440) 01/27/18 06:01 Lymph % (Auto) 7.7 % (13.4-35.0) L 01/25/18 04:52 [place] % (Auto) [employer] 01/27/18 06:01 Eos % (Auto) 1.8 % (0.0-4.3) 01/25/18 04:52 Baso % (Auto) 0.4 % (0.0-1.8) 01/25/18 04:52 Lymph # 0.6 K/mm3 (1.2-5.4) L 01/25/18 04:52 [place] # 1.0 K/mm3 (0.0-0.8) H 01/25/18 04:52 Eos # 0.1 K/mm3 (0.0-0.4) 01/25/18 04:52 Baso # 0.0 K/mm3 (0.0-0.1) 01/25/18 04:52 Add Manual Diff Complete 01/27/18 06:01 Total Counted 100 01/27/18 06:01 Seg Neutrophils % 77.7 % (40.0-70.0) H 01/25/18 04:52 Seg Neuts % (Manual) 76.0 % (40.0-70.0) H 01/27/18 06:01 Band Neutrophils % 1.0 % 01/27/18 06:01 Lymphocytes % (Manual) 11.0 % (13.4-35.0) L 01/27/18 06:01 Reactive Lymphs % (Man) 0 % 01/27/18 06:01 Monocytes % (Manual) 3.0 % (0.0-7.3) 01/27/18 06:01 Eosinophils % (Manual) 7.0 % (0.0-4.3) H 01/27/18 06:01 Basophils % (Manual) 1.0 % (0.0-1.8) 01/27/18 06:01 Metamyelocytes % 1.0 % 01/27/18 06:01 Myelocytes % 0 % 01/27/18 06:01 Promyelocytes % 0 % 01/27/18 06:01 Blast Cells % 0 % 01/27/18 06:01 Nucleated RBC % Not Reportable 01/27/18 06:01 Seg Neutrophils # 6.4 K/mm3 (1.8-7.7) 01/25/18 04:52 Seg Neutrophils # Man 3.5 K/mm3 (1.8-7.7) 01/27/18 06:01 Band Neutrophils # 0.0 K/mm3 01/27/18 06:01 Lymphocytes # (Manual) 0.5 K/mm3 (1.2-5.4) L 01/27/18 06:01 Abs React Lymphs (Man) 0.0 K/mm3 01/27/18 06:01 Monocytes # (Manual) 0.1 K/mm3 (0.0-0.8) 01/27/18 06:01 Eosinophils # (Manual) 0.3 K/mm3 (0.0-0.4) 01/27/18 06:01 Basophils # (Manual) 0.0 K/mm3 (0.0-0.1) 01/27/18 06:01 Metamyelocytes # 0.0 K/mm3 01/27/18 06:01 Myelocytes # 0.0 K/mm3 01/27/18 06:01 Promyelocytes # 0.0 K/mm3 01/27/18 06:01 Blast Cells # 0.0 K/mm3 01/27/18 06:01 WBC Morphology Not Reportable 01/27/18 06:01 Hypersegmented Neuts Not Reportable 01/27/18 06:01 Hyposegmented Neuts Not Reportable 01/27/18 06:01 Hypogranular Neuts Not Reportable 01/27/18 06:01 Smudge Cells Not Reportable 01/27/18 06:01 Toxic Granulation Not Reportable 01/27/18 06:01 Toxic Vacuolation Not Reportable 01/27/18 06:01 Dohle Bodies Not Reportable 01/27/18 06:01 Pelger-Huet Anomaly Not Reportable 01/27/18 06:01 Alessio Rods Not Reportable 01/27/18 06:01 Platelet Estimate Appears normal 01/27/18 06:01 Clumped Platelets Not Reportable 01/27/18 06:01 Plt Clumps, EDTA Not Reportable 01/27/18 06:01 Large Platelets Not Reportable 01/27/18 06:01 Giant Platelets Not Reportable 01/27/18 06:01 Platelet Satelliting Not Reportable 01/27/18 06:01 Plt Morphology Comment Not Reportable 01/27/18 06:01 RBC Morphology Not Reportable 01/27/18 06:01 Dimorphic RBCs Not Reportable 01/27/18 06:01 Polychromasia Not Reportable 01/27/18 06:01 Hypochromasia 2+ 01/27/18 06:01 Poikilocytosis 1+ 01/27/18 06:01 Anisocytosis 2+ 01/27/18 06:01 Microcytosis 1+ 01/27/18 06:01 Macrocytosis Not Reportable 01/27/18 06:01 Spherocytes Not Reportable 01/27/18 06:01 Pappenheimer Bodies Not Reportable 01/27/18 06:01 Sickle Cells Not Reportable 01/27/18 06:01 Target Cells 1+ 01/27/18 06:01 Tear Drop Cells Few 01/27/18 06:01 Ovalocytes 1+ 01/27/18 06:01 Stomatocytes 1+ 01/27/18 06:01 Helmet Cells Rare 01/27/18 06:01 [place] Bodies Not Reportable 01/27/18 06:01 [place] Rings Not Reportable 01/27/18 06:01 [place] Cells Not Reportable 01/27/18 06:01 Bite Cells Not Reportable 01/27/18 06:01 Crenated Cell Not Reportable 01/27/18 06:01 Elliptocytes Few 01/27/18 06:01 Acanthocytes (Spur) Not Reportable 01/27/18 06:01 Rouleaux Not Reportable 01/27/18 06:01 Hemoglobin C Crystals Not Reportable 01/27/18 06:01 Schistocytes Not Reportable 01/27/18 06:01 Malaria parasites Not Reportable 01/27/18 06:01 Marlo Bodies Not Reportable 01/27/18 06:01 Hem Pathologist Commnt No 01/27/18 06:01 POC ABG pH 7.375 (7.35-7.45) 01/23/18 18:01 POC ABG pCO2 38.5 (35-45) 01/23/18 18:01 POC ABG pO2 58 (80-105) L 01/23/18 18:01 POC ABG HCO3 22.5 01/23/18 18:01 POC ABG Total CO2 24 01/23/18 18:01 POC ABG O2 Sat 89 01/23/18 18:01 POC ABG Base Excess -3 01/23/18 18:01 FiO2 21 % 01/23/18 18:01 Sodium 137 mmol/L (137-145) 01/27/18 06:01 Potassium 3.8 mmol/L (3.6-5.0) 01/27/18 06:01 Chloride 100.5 mmol/L (98-107) 01/27/18 06:01 Carbon Dioxide 22 mmol/L (22-30) 01/27/18 06:01 Anion Gap 18 mmol/L 01/27/18 06:01 BUN 78 mg/dL (9-20) H 01/27/18 06:01 Creatinine 3.4 mg/dL (0.8-1.5) H 01/27/18 06:01 Estimated GFR 21 ml/min 01/27/18 06:01 BUN/Creatinine Ratio 23 % 01/27/18 06:01 Glucose 105 mg/dL (75-100) H 01/27/18 06:01 POC Glucose 108 (70-105) H 01/27/18 07:18 Hemoglobin A1c 7.6 % (4-6) H 01/19/18 22:35 Calcium 9.6 mg/dL (8.4-10.2) 01/27/18 06:01 Magnesium 2.30 mg/dL (1.7-2.3) 01/25/18 04:52 Total Bilirubin 0.70 mg/dL (0.1-1.2) 01/20/18 10:09 AST 17 units/L (5-40) 01/20/18 10:09 ALT 11 units/L (7-56) 01/20/18 10:09 Alkaline Phosphatase 98 units/L (35-129) 01/20/18 10:09 Total Creatine Kinase 103 units/L (55-170) 01/20/18 17:39 CK-MB (CK-2) 5.0 ng/mL (0.0-4.0) H 01/20/18 17:39 CK-MB (CK-2) Rel Index 4.8 (0-4) H 01/20/18 17:39 Troponin T 0.094 ng/mL (0.00-0.029) H 01/20/18 17:39 Total Protein 7.1 g/dL (6.3-8.2) 01/20/18 10:09 Albumin 3.2 g/dL (3.9-5) L 01/20/18 10:09 Albumin/Globulin Ratio 0.8 % 01/20/18 10:09 Triglycerides 82 mg/dL (2-149) 01/19/18 13:52 Cholesterol 212 mg/dL (50-199) H 01/19/18 13:52 LDL Cholesterol Direct 155 mg/dL (50-130) H 01/19/18 13:52 HDL Cholesterol 56 mg/dL (40-59) 01/19/18 13:52 Cholesterol/HDL Ratio 3.78 % 01/19/18 13:52 TSH 0.760 mlU/mL (0.270-4.200) 01/19/18 16:41 Free T4 1.22 ng/dL (0.76-1.46) 01/19/18 16:41 Urine Color Yellow (Yellow) 01/23/18 11:22 Urine Turbidity Slightly-cloudy (Clear) 01/23/18 11:22 Urine pH 5.0 (5.0-7.0) 01/23/18 11:22 Ur Specific [place] 1.010 (1.003-1.030) 01/23/18 11:22 Urine Protein 100 mg/dl mg/dL (Negative) 01/23/18 11:22 Urine Glucose (UA) Neg mg/dL (Negative) 01/23/18 11:22 Urine Ketones Neg mg/dL (Negative) 01/23/18 11:22 Urine Blood Neg (Negative) 01/23/18 11:22 Urine Nitrite Neg (Negative) 01/23/18 11:22 Urine Bilirubin Neg (Negative) 01/23/18 11:22 Urine Urobilinogen < 2.0 mg/dL (<2.0) 01/23/18 11:22 Ur Leukocyte Esterase Neg (Negative) 01/23/18 11:22 Urine WBC (Auto) 1.0 /HPF (0.0-6.0) 01/23/18 11:22 Urine RBC (Auto) 2.0 /HPF (0.0-6.0) 01/23/18 11:22 Urine Eosinophils None seen (None Seen) 01/23/18 11:40 Urine Total Volume 1400 01/26/18 20:15 Urine Creatinine 84.7 mg/dL (0.1-20.0) H 01/26/18 20:15 Ur Creatinine 24 Hour 1.2 (0.8-2.8) 01/26/18 20:15 Height (in) 71.0 inches 01/25/18 11:24 Weight (lb) 174.0 lbs 01/25/18 11:24 Creatinine Clearance 16 01/25/18 11:24 Urine Sodium 54 mmol/L 01/23/18 11:22 Fraction Sodium Excret 1.2 01/23/18 11:22
--- NOTE | 2018-01-27 09:30 | Progress Note ---
Assessment and Plan Impression * Acute kidney injury on chronic kidney disease --Oupatient labs: SCr 2.6 --FeNa1.2% --Renal ultrasound showing slightly echogenic kidneys * Altered mental status * Uncontrolled hypertension * Type II diabetes * History of CVA * Hyperkalemia Recommendations * Renal function improved - SCr down to 3.4 this AM; 24h urine CrCl appx 18ml/ min (calculated w/ SCr 4.5) * No indication for renal replacement therapy at this time * Monitor fluid status and electrolytes closely * Continue to hold diuretics for now * Stop IVF and encourage po hydration * Continue Flomax * Dose medications for renal function * Avoid nephrotoxins * Hopefully stable for d/c from a renal standpoint in next 24hours Subjective Date of service: 01/27/18 Interval history: Patient sitting in chair this am. Reports generalized malaise - no specific complaint Objective - Vital Signs Vital signs: Vital Signs - 12hr 01/26/18 01/26/18 01/27/18 21:48 21:49 02:54 Temperature 97.7 F Pulse Rate 70 70 50 L Respiratory 16 Rate Blood Pressure 140/102 140/102 155/80 O2 Sat by Pulse 95 Oximetry - General Appearance General appearance: well-developed, well-nourished EENT: ATNC Respiratory: Present: Clear to Ascultation Cardiology: regular, S1S2 Gastrointestinal: normal, no tenderness, no distended Integumentary: no rash, warm and dry Neurologic: other (more alert, interactive this am) Musculoskeletal: other (no edema) Psychiatric: cooperative - Lab 01/27/18 06:01 01/27/18 06:01 Most recent lab results Calcium 9.6 mg/dL (8.4-10.2) 01/27/18 06:01 Magnesium 2.30 mg/dL (1.7-2.3) 01/25/18 04:52 Urine Creatinine 84.7 mg/dL (0.1-20.0) H 01/26/18 20:15 Urine Sodium 54 mmol/L 01/23/18 11:22
[2018-01-27] MEDS: FLOMAX PO SCH (09:43)
[2018-01-27] MEDS: PROTONIX PO SCH ×2 (09:43→22:46)
[2018-01-27] MEDS: LIORESAL PO SCH ×2 (09:44→22:50)
[2018-01-27] MEDS: VITAMIN B-12 PO SCH (09:44)
[2018-01-27] MEDS: ALLBEE WITH C PO SCH (09:44)
[2018-01-27] MEDS: FERROUS SULFATE PO SCH (09:45)
[2018-01-27] MEDS: COREG PO SCH (09:45)
[2018-01-27] MEDS: SODIUM CHLORIDE FLUSH SYRINGE 10 ML IV SCH (09:47)
[2018-01-27] MEDS: LEVAQUIN PO SCH (09:52)
[2018-01-27] MEDS: LOVENOX SUB-Q SCH (22:45)
[2018-01-27] MEDS: CARDURA PO SCH (22:47)
[2018-01-28] MEDS: COREG PO SCH ×2 (05:16→09:07)
[2018-01-28] MEDS: HumaLOG SUB-Q SCH ×3 (05:16→11:29)
[2018-01-28] MEDS: SODIUM CHLORIDE FLUSH SYRINGE 10 ML IV SCH ×2 (05:17→09:07)
[2018-01-28] MEDS: AMARYL PO SCH (07:56)
[2018-01-28 08:07] LABS: Hematocrit 29.4 % (35.5-45.6); Hemoglobin 9.4 gm/dl (11.8-15.2); Mean Corpuscular Volume 62 fl (84-94); Red Blood Count 4.74 M/mm3 (3.65-5.03)
[2018-01-28 08:08] LABS: Mean Corpuscular HGB Conc 32 % (32-34); Mean Corpuscular Hemoglobin 20 pg (28-32); Platelet Count 250 K/mm3 (140-440); Red Cell Distribution Width 15.9 % (13.2-15.2)
[2018-01-28 08:20] LABS: Calcium 9.9 mg/dL (8.4-10.2)
[2018-01-28] MEDS: VITAMIN B-12 PO SCH (09:04)
[2018-01-28] MEDS: FLOMAX PO SCH (09:05)
[2018-01-28] MEDS: LEVAQUIN PO SCH (09:05)
[2018-01-28] MEDS: ALLBEE WITH C PO SCH (09:05)
[2018-01-28] MEDS: PROTONIX PO SCH (09:05)
[2018-01-28] MEDS: FERROUS SULFATE PO SCH (09:06)
[2018-01-28] MEDS: LIORESAL PO SCH (09:06)
[2018-01-28 09:09] VITALS: BP 130/68
--- NOTE | 2018-01-28 09:09 | Progress Note ---
Assessment and Plan Impression * Acute kidney injury on chronic kidney disease --Oupatient labs: SCr 2.6 --FeNa1.2% --Renal ultrasound showing slightly echogenic kidneys * Altered mental status * Uncontrolled hypertension * Type II diabetes * History of CVA * Hyperkalemia Recommendations * * No indication for renal replacement therapy at this time * Monitor fluid status and electrolytes closely * Continue to hold diuretics for now * Continue Flomax * Dose medications for renal function * Avoid nephrotoxins * Stable for d/c from a renal standpoint Subjective Date of service: 01/28/18 Objective - Vital Signs Vital signs: Vital Signs - 12hr 01/27/18 01/28/18 01/28/18 22:47 01:34 02:00 Temperature 97.5 F L Pulse Rate 60 88 Respiratory 20 Rate Blood Pressure 170/70 111/75 Blood Pressure [Left] O2 Sat by Pulse 90 Oximetry 01/28/18 06:28 Temperature 98.4 F Pulse Rate 67 Respiratory 16 Rate Blood Pressure Blood Pressure 158/77 [Left] O2 Sat by Pulse 95 Oximetry - Lab 01/28/18 07:40 01/28/18 07:40 Most recent lab results Calcium 9.9 mg/dL (8.4-10.2) 01/28/18 07:40 Magnesium 2.30 mg/dL (1.7-2.3) 01/25/18 04:52 Urine Creatinine 84.7 mg/dL (0.1-20.0) H 01/26/18 20:15 Urine Sodium 54 mmol/L 01/23/18 11:22
[2018-01-28 09:47] LABS: Total Cells Counted 100
[2018-01-28 09:48] LABS: Anisocytosis 1+; Hypochromasia 2+; Poikilocytosis 1+
[2018-01-28 09:49] LABS: Ovalocytes Few; Target Cells 1+
[2018-01-28 09:50] LABS: Platelet Estimate Cons
--- NOTE | 2018-01-28 13:10 | Discharge Summary ---
Providers - Providers Date of Admission: 01/19/18 18:30 Date of discharge: 01/28/18 Attending physician: MARGUERITE HUMPHRIES 01/20/18 11:25 Consult to Physician [CONS] Routine Comment: Consulting Provider: SAWYER SHEETS Physician Instructions: Reason For Exam: Ac on CKD 01/23/18 18:55 Physical Therapy Evaluation and Treat [CONS] Routine Comment: Reason For Exam: Gen debility/evaluate and treat Primary care physician: DAIRY TECHNICIAN Hospitalization Reason for admission: altered level of consciousness/metabolic encephalopathy/ ANNA Condition: Stable Disposition: DC/TX-06 HOME UNDER HOME HL Time spent for discharge: 35 min Core Measure Documentation - Palliative Care Palliative Care/ Comfort Measures: Not Applicable - Core Measures Any of the following diagnoses?: heart failure - Heart Failure Discharge Requirements MARYJANE/ARB for LVSD if EF <40%: No Reason for no MARYJANE/ARB: Renal impairment Beta ollie at discharge: Yes Exam - Constitutional Vitals: Temp Pulse Resp BP Pulse Ox 98.4 F 76 16 130/68 95 01/28/18 06:28 01/28/18 10:00 01/28/18 10:00 01/28/18 09:07 01/28/18 10:00 General appearance: Present: no acute distress, well-nourished - EENT Eyes: Present: PERRL, EOM intact - Neck Neck: Present: supple, normal ROM - Respiratory Respiratory effort: normal Respiratory: bilateral: diminished, negative: rales, rhonchi, wheezing - Cardiovascular Rhythm: regular Heart Sounds: Present: S1 & S2 - Extremities Extremities: no ischemia, No edema - Abdominal General gastrointestinal: Present: soft, non-tender, non-distended, normal bowel sounds - Integumentary Integumentary: Present: clear - Musculoskeletal Musculoskeletal: strength equal bilaterally, generalized weakness - Psychiatric Psychiatric: appropriate mood/affect, cooperative - Neurologic Neurologic: moves all extremities Plan Activity: advance as tolerated, fall precautions Diet: low salt, diabetic Special Instructions: physical therapy, occupational therapy Additional Instructions: Fall precautions. Physical therapy. Plenty of fluids Follow up with: PAMELA BRUNO MD [Primary Care Provider] - 3-5 Days CHRIS LUCIANO MD [Staff Physician] - 7 Days AGBRIELLE CARRASCO MD [Staff Physician] - 7 Days Prescriptions: Carvedilol [Coreg] 12.5 mg PO BID #60 tablet Tamsulosin [Flomax] 0.4 mg PO QDAY #30 capsule
== END 2018-01-28 15:10 | disposition home health service (06) | DRG 682 ==
LOC: ED 12:35 → 4A 18:30 → 2B-ACE 01-24 22:32
PROVIDERS: ADMIT Internal Medicine; ATTEND Internal Medicine
PROC: 4A033R1 Measurement of Arterial Saturation, Peripheral, Percutaneous Approach (ICD-10-PCS; principal; 2018-01-23)
DX: N17.0 Acute kidney failure with tubular necrosis (principal); G93.41 Metabolic encephalopathy; J18.9 Pneumonia, unspecified organism; R74.8 Abnormal levels of other serum enzymes; E11.42 Type 2 diabetes mellitus with diabetic polyneuropathy; N18.9 Chronic kidney disease, unspecified; K21.9 Gastro-esophageal reflux disease without esophagitis; E11.22 Type 2 diabetes mellitus with diabetic chronic kidney disease; I12.9 Hypertensive chronic kidney disease with stage 1 through stage 4 chronic kidney disease, or unspecified chronic kidney disease; E87.5 Hyperkalemia; I45.10 Unspecified right bundle-branch block; D50.9 Iron deficiency anemia, unspecified; E78.5 Hyperlipidemia, unspecified; J20.9 Acute bronchitis, unspecified; Z86.73 Personal history of transient ischemic attack (TIA), and cerebral infarction without residual deficits; Z87.891 Personal history of nicotine dependence; Z79.84 Long term (current) use of oral hypoglycemic drugs; Z79.899 Other long term (current) drug therapy
CPT/HCPCS: 36415; 36600; 70450; 71045; 76770; 80048; 80053; 80061; 81001; 82550; 82553; 82565; 82570; 82575; 82803; 82962; 83036; 83735; 84295; 84300; 84439; 84443; 84484; 85007; 85025; 89050; 93005; 93010; 93306; 94760; 96374; G8978-GP; G8979-GP; J0360; J1650; J1815; J1940; J1956; J7030

== ENCOUNTER 2018-11-30 10:51 | Emergency (ER) | payer MEDICARE ==
--- NOTE | 2018-11-30 11:59 | Emergency Department Report ---
Blank Doc - Documentation Documentation: This 83-year-old male has presented with a complaint of acute on chronic heada kiah. Overall it is been going on for a few weeks or months but it has been constant for the past one week. It is associated with some blurry vision. He has a history of diabetes, CVA without residual deficits, paroxysmal A. fib, hypertension. His vital signs show some bradycardia with a heart rate of 47. For all these reasons, the patient will be moved over to the main emergency department for further evaluation from one of the ER physicians.
[2018-11-30 12:20] LABS: Hematocrit 31.7 % (35.5-45.6); Hemoglobin 9.9 gm/dl (11.8-15.2); Mean Corpuscular HGB Conc 31 % (32-34); Mean Corpuscular Volume 64 fl (84-94); Red Blood Count 4.96 M/mm3 (3.65-5.03); Red Cell Distribution Width 18.5 % (13.2-15.2)
--- NOTE | 2018-11-30 12:33 | Emergency Department Report ---
ED Headache HPI - General Chief Complaint: Headache Stated Complaint: HEAD PAIN Time Seen by Provider: 11/30/18 11:45 Source: patient Exam Limitations: no limitations - History of Present Illness Initial Comments: 83-year-old male with history of COPD, CHF presents to ED with complaint of headache 3 months. Patient states initially the headache was intermittent, would last for 2-3 days, however, over the last week has been more constant. Patient states pain is located diffusely. Denies fever, nausea, vomiting, dizziness, numbness, weakness. Patient states headache is relieved with Tylenol. Patient denies trauma or fall. Timing/Duration: other (3 months) Quality: moderate, constant, pressure Modifying Factors: improves with: movement Associated Symptoms: denies: facial pain, fever/chills, loss of consciousness, nausea/vomiting, nasal congestion, nasal drainage, sinus infection, stiff neck, vision changes, weakness Allergies/Adverse Reactions: Allergies No Known Allergies Allergy (Unverified 05/30/13 12:56) Home Medications: Ambulatory Orders B,C/Folic/Zinc/Copper Ox/Vit E [Stress B-Complex Tablet] 1 each PO DAILY 04/13/14 Cyanocobalamin (Vitamin B-12) [B-12] 1,000 mcg PO DAILY 04/13/14 Glimepiride [Amaryl] 4 mg PO BID 04/13/14 glipiZIDE [glipiZIDE XL] 10 mg PO BID 04/13/14 Ferrous Sulfate [Ferrous Sulfate Oral Liq 300 Mg/5 Ml] 162.5 mg PO QDAY 30 Days oral.liqd 04/16/14 Pantoprazole [Protonix TAB] 40 mg PO BID #60 tablet 06/25/15 Acetaminophen [Acetaminophen TAB] 500 mg PO Q6HR PRN #30 tablet 06/01/17 Celecoxib [Celebrex] 200 mg PO DAILY 01/23/18 Ipratropium [place] [Atrovent Hfa] 12.9 gm IH Q4HR PRN 01/23/18 Carvedilol [Coreg] 12.5 mg PO BID #60 tablet 01/28/18 Doxazosin [Cardura] 4 mg PO QHS tablet 01/28/18 Tamsulosin [Flomax] 0.4 mg PO QDAY #30 capsule 01/28/18 levoFLOXacin [Levaquin TAB] 250 mg PO DAILY #5 tablet 01/28/18 Butalb/Acetamin/Caff 50-325-40 [Fioricet] 1 tab PO Q6HR PRN #15 tab 11/30/18 ED Review of Systems ROS: Stated complaint: HEAD PAIN Other details as noted in HPI Comment: All other systems reviewed and negative Constitutional: denies: chills, fever Eyes: denies: vision change ENT: denies: congestion Respiratory: denies: shortness of breath Cardiovascular: denies: chest pain Gastrointestinal: denies: nausea, vomiting Neurological: headache. denies: weakness, numbness, paresthesias, abnormal gait, vertigo ED Past Medical Hx - Past Medical History Previous Medical History?: Yes Hx Hypertension: Yes Hx CVA: Yes (no resid. deficits) Hx Diabetes: Yes Hx Arthritis: Yes Additional medical history: A-fib, anemia - Surgical History Past Surgical History?: Yes Additional Surgical History: colon polyps removed. - Social History Smoking Status: Never Smoker Substance Use Type: None - Medications Home Medications: Home Medications Medication Instructions Recorded Confirmed Last Taken Type B,C/Folic/Zinc/Copper Ox/Vit E 1 each PO DAILY 04/13/14 01/20/18 Unknown History [Stress B-Complex Tablet] Cyanocobalamin (Vitamin B-12) 1,000 mcg PO DAILY 04/13/14 01/20/18 Unknown History [B-12] Glimepiride [Amaryl] 4 mg PO BID 04/13/14 01/20/18 Unknown History glipiZIDE [glipiZIDE XL] 10 mg PO BID 04/13/14 01/20/18 Unknown History Ferrous Sulfate [Ferrous Sulfate 162.5 mg PO QDAY 30 Days oral.liqd 04/16/14 01/20/18 Unknown Rx Oral Liq 300 Mg/5 Ml] Pantoprazole [Protonix TAB] 40 mg PO BID #60 tablet 06/25/15 01/20/18 Unknown Rx Acetaminophen [Acetaminophen TAB] 500 mg PO Q6HR PRN #30 tablet 06/01/17 01/20/18 Unknown Rx Celecoxib [Celebrex] 200 mg PO DAILY 01/23/18 01/23/18 Unknown History Ipratropium [place] [Atrovent Hfa] 12.9 gm IH Q4HR PRN 01/23/18 01/23/18 Unknown History Carvedilol [Coreg] 12.5 mg PO BID #60 tablet 01/28/18 Unknown Rx Doxazosin [Cardura] 4 mg PO QHS tablet 01/28/18 Unknown Rx Tamsulosin [Flomax] 0.4 mg PO QDAY #30 capsule 01/28/18 Unknown Rx levoFLOXacin [Levaquin TAB] 250 mg PO DAILY #5 tablet 01/28/18 Unknown Rx Butalb/Acetamin/Caff 50-325-40 1 tab PO Q6HR PRN #15 tab 11/30/18 Unknown Rx [Fioricet] ED Physical Exam - General Limitations: No Limitations General appearance: alert, in no apparent distress - Head Head exam: Present: atraumatic, normocephalic - Eye Eye exam: Present: normal appearance, PERRL, EOMI - ENT ENT exam: Present: mucous membranes moist - Neck Neck exam: Present: normal inspection, full ROM. Absent: meningismus - Respiratory Respiratory exam: Present: normal lung sounds bilaterally. Absent: respiratory distress - Cardiovascular Cardiovascular Exam: Present: normal rhythm, bradycardia - GI/Abdominal GI/Abdominal exam: Present: soft. Absent: distended, tenderness - Extremities Exam Extremities exam: Present: normal inspection - Neurological Exam Neurological exam: Present: alert, oriented X3, CN II-XII intact, normal gait, other ([id number] testing is normal). Absent: motor sensory deficit - Psychiatric Psychiatric exam: Present: normal affect, normal mood - Skin Skin exam: Present: warm, dry, intact, normal color. Absent: rash ED Course Vital Signs 11/30/18 11/30/18 11:05 15:26 Temperature 97.3 F L Pulse Rate 47 L 72 Respiratory 18 16 Rate Blood Pressure 150/68 Blood Pressure 166/94 [Left] O2 Sat by Pulse 100 99 Oximetry ED Medical Decision Making - Lab Data Result diagrams: 11/30/18 11:56 11/30/18 11:56 - Radiology Data Radiology results: report reviewed, image reviewed - Medical Decision Making - OCONNELL x 3 months - no neuro deficits - labs show Cr of 3.2, hx of CKD, last creatnine 2.8, potassium normal - neuro follow-up advised - rx given for fioricet - BP slightly elevated, otherwise vitals are normal - return precautions given - Differential Diagnosis tension OCONNELL, brain mass, metabolic abnormality Critical care attestation.: If time is entered above; I have spent that time in minutes in the direct care of this critically ill patient, excluding procedure time. ED Disposition Clinical Impression: Acute headache, CRI (chronic renal insufficiency) Disposition: TO HOME OR SELFCARE Is pt being admited?: No Condition: Stable Instructions: Acute Headache (ED) Prescriptions: Butalb/Acetamin/Caff 50-325-40 [Fioricet] 1 tab PO Q6HR PRN #15 tab PRN Reason: Headache Referrals: MESSI ROSADO MD [Primary Care Provider] - 3-5 Days DAYANARA RODRIGUEZ MD [Referring] - 3-5 Days Time of Disposition: 15:07
[2018-11-30 12:48] LABS: Calcium 9.7 mg/dL (8.4-10.2)
[2018-11-30 13:13] LABS: Platelet Count 245 K/mm3 (140-440)
--- NOTE | 2018-11-30 14:51 | Cat Scan Report ---
CT HEAD WITHOUT CONTRAST HISTORY: Dizziness, headache for 7 days. TECHNIQUE: Axial imaging performed from the skull apex through the skull base without the use of con trast. All CT scans at this location are performed using CT dose reduction for ALARA by means of aut omated exposure control. COMPARISON: CT head report dated 01/23/2018 FINDINGS: Parenchyma: Mild diffuse cortical volume loss is noted. Moderate hypoattenuation throughout the whit e matter is identified consistent with chronic microvascular ischemic disease. Subcentimeter chronic focal infarct is identified in the left doty radiata. No large chronic infarct. No hemorrhage, extr a-axial fluid collection or obvious mass. Ventricles: There is mild diffuse brain atrophy with commensurate ventricular enlargement which is l ikely age appropriate. Soft tissues: Soft tissues including the orbits appear normal. Bones: No acute osseous abnormality. Sinuses: Sinuses and mastoid air cells are clear. IMPRESSION: No acute abnormality. Volume loss and chronic white matter changes. Chronic focal infarct in the left doty radiata. Signer Name: Landry Thorne Jr, MD Signed: 11/30/2018 2:47 PM Workstation Name: [id number]
[2018-11-30 15:28] VITALS: BP 166/94
== END 2018-11-30 15:28 | disposition home or self-care (01) ==
LOC: ED 10:51
DX: R51 Headache (principal); I13.0 Hypertensive heart and chronic kidney disease with heart failure and stage 1 through stage 4 chronic kidney disease, or unspecified chronic kidney disease; I50.9 Heart failure, unspecified; E11.22 Type 2 diabetes mellitus with diabetic chronic kidney disease; N18.9 Chronic kidney disease, unspecified; J44.9 Chronic obstructive pulmonary disease, unspecified; I48.91 Unspecified atrial fibrillation; M19.90 Unspecified osteoarthritis, unspecified site; Z86.73 Personal history of transient ischemic attack (TIA), and cerebral infarction without residual deficits; Z98.890 Other specified postprocedural states; Z79.899 Other long term (current) drug therapy
CPT/HCPCS: 36415; 70450; 80048; 85027; 99284

== ENCOUNTER 2018-12-05 11:01 | Emergency (ER) | payer MEDICARE ==
[2018-12-05 11:19] VITALS: BP 165/69
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
== END 2018-12-05 13:18 | disposition home or self-care (01) ==
LOC: ED 11:01
DX: M54.2 Cervicalgia (principal); M25.511 Pain in right shoulder; M25.512 Pain in left shoulder; I10 Essential (primary) hypertension; E11.9 Type 2 diabetes mellitus without complications; M19.90 Unspecified osteoarthritis, unspecified site; I48.91 Unspecified atrial fibrillation; Z86.2 Personal history of diseases of the blood and blood-forming organs and certain disorders involving the immune mechanism; Z86.73 Personal history of transient ischemic attack (TIA), and cerebral infarction without residual deficits; Z79.899 Other long term (current) drug therapy; V89.2XXA Person injured in unspecified motor-vehicle accident, traffic, initial encounter; Y93.89 Activity, other specified; Y92.488 Other paved roadways as the place of occurrence of the external cause; Y99.8 Other external cause status
CPT/HCPCS: 72100; 99283

== ENCOUNTER 2019-02-11 11:45 | Emergency (ER) | payer MEDICARE ==
--- NOTE | 2019-02-11 12:11 | Event Note ---
ED Screening Note Date of service: 02/11/19 Time: 12:06 ED Screening Note: This is a 83 y.o. M. with dyspnea and chest discomfort for 3 days. Reports symptoms progressively worse. PMH COPD, HTN, DM2, iron def anemia. Reports increased use of nebulizer with no improvement of symptoms. Denies fever, chills, n/v, or pain This initial assessment/diagnostic orders/clinical plan/treatment(s) is/are subject to change based on patients health status, clinical progression and re- assessment by fellow clinical providers in the ED. Further treatment and workup at subsequent clinical providers discretion. Patient/guardian urged not to elope from the ED as their condition may be serious if not clinically assessed and managed. Initial orders include: CXR and ekg
--- NOTE | 2019-02-11 12:47 | XRay Report ---
CHEST 2 VIEWS INDICATION / CLINICAL INFORMATION: SOB. COMPARISON: 01/23/2018 FINDINGS: SUPPORT DEVICES: None. HEART / MEDIASTINUM: There is mild enlargement of cardiac silhouette. LUNGS / PLEURA: There is mild increased interstitial markings bilaterally characteristic of mild diane a. .No pneumothorax. ADDITIONAL FINDINGS: No significant additional findings. IMPRESSION: 1. There is mild increased interstitial markings bilaterally characteristic of mild pulmonary edema. There is mild enlargement of the cardiac silhouette Signer Name: Paul Connell MD Signed: 02/11/2019 12:42 PM Workstation Name: [id number]
[2019-02-11] MEDS ORDERED: SUBLIMAZE IV ONE (14:21)
[2019-02-11] MEDS ORDERED: ZOFRAN IV ONE (14:21)
--- NOTE | 2019-02-11 14:30 | Emergency Department Report ---
HPI - General Chief Complaint: Dyspnea/Respdistress Time Seen by Provider: 02/11/19 12:06 - HPI HPI: Room 25 The patient is an 83-year-old male presenting with a chief complaint of shortness of breath and chest pain. Patient states she came to the emergency department because he is short of breath for the past 3 days. The patient states for the past 2 days he has had intermittent substernal chest pressure in addition to her shortness of breath. Patient was an occasional cough for the past few days productive of clear white sputum. Patient currently gets the chest pain score of 5/10. Patient states his last stress test occurred approximate 4 years ago but he's never had a cardiac catheterization. The patient states he has an appointment to see the director of rehabilitation Dr. Nate Hanks February 26 Location: [See above] Duration: [See above] Quality: [See above] Severity: [See above] Timing: [See above] Context: [See above] Modifying factors: [See above] Associated signs and symptoms: [see above] ED Past Medical Hx - Past Medical History Hx Hypertension: Yes Hx CVA: Yes (no resid. deficits) Hx Diabetes: Yes Hx Arthritis: Yes Additional medical history: A-fib, anemia - Surgical History Past Surgical History?: No Additional Surgical History: colon polyps removed. - Family History Family history: no significant - Social History Smoking Status: Former Smoker (none 2 years) Substance Use Type: None - Medications Home Medications: Home Medications Medication Instructions Recorded Confirmed Last Taken Type B,C/Folic/Zinc/Copper Ox/Vit E 1 each PO DAILY 04/13/14 02/11/19 02/10/19 History [Stress B-Complex Tablet] Cyanocobalamin (Vitamin B-12) 1,000 mcg PO DAILY 04/13/14 02/11/19 02/10/19 History [B-12] Glimepiride [Amaryl] 4 mg PO BID 04/13/14 02/11/19 02/10/19 History glipiZIDE [glipiZIDE XL] 10 mg PO BID 04/13/14 02/11/19 02/10/19 History Ferrous Sulfate [Ferrous Sulfate 162.5 mg PO QDAY 30 Days oral.liqd 04/16/14 02/11/19 02/10/19 Rx Oral Liq 300 Mg/5 Ml] Pantoprazole [Protonix TAB] 40 mg PO BID #60 tablet 06/25/15 02/11/19 02/10/19 Rx Acetaminophen [Acetaminophen TAB] 500 mg PO Q6HR PRN #30 tablet 06/01/17 02/11/19 02/10/19 Rx Celecoxib [Celebrex] 200 mg PO DAILY 01/23/18 02/11/19 02/10/19 History Ipratropium [place] [Atrovent Hfa] 12.9 gm IH Q4HR PRN 01/23/18 02/11/19 02/10/19 History Carvedilol [Coreg] 12.5 mg PO BID #60 tablet 01/28/18 02/11/19 02/10/19 Rx Doxazosin [Cardura] 4 mg PO QHS tablet 01/28/18 02/11/19 02/10/19 Rx Tamsulosin [Flomax] 0.4 mg PO QDAY #30 capsule 01/28/18 02/11/19 02/10/19 Rx Butalb/Acetamin/Caff 50-325-40 1 tab PO Q6HR PRN #15 tab 11/30/18 02/11/19 02/10/19 Rx [Fioricet] Naproxen [Naprosyn] 500 mg PO BID #14 tablet 12/05/18 02/11/19 02/10/19 Rx ED Review of Systems ROS: Stated complaint: SOB Other details as noted in HPI Constitutional: denies: fever Eyes: denies: eye pain ENT: denies: throat pain Respiratory: cough, shortness of breath Cardiovascular: chest pain Endocrine: no symptoms reported Gastrointestinal: denies: abdominal pain Genitourinary: denies: dysuria Musculoskeletal: denies: back pain Neurological: denies: headache Physical Exam - Physical Exam Vital Signs: Vital Signs 02/11/19 12:07 Temperature 97.5 F L Pulse Rate 82 Respiratory 18 Rate Blood Pressure 115/54 O2 Sat by Pulse 100 Oximetry Physical Exam: GENERAL: The patient is well-developed well-nourished male sitting on stretcher not appearing to be in acute distress HEENT: Normocephalic. Atraumatic. Extraocular motions are intact. Patient has moist mucous membranes. NECK: Supple. Trachea midline CHEST/LUNGS: Clear to auscultation. There is no respiratory distress noted. HEART/CARDIOVASCULAR: Regular. There is no tachycardia. There is no gallop rub or murmur. ABDOMEN: Abdomen is soft, nontender. Patient has normal bowel sounds. There is no abdominal distention. SKIN: There is no rash. There is trace to 1+ bilateral lower extremity pitting edema. There is no diaphoresis. NEURO: The patient is awake, alert, and oriented. The patient is cooperative. The patient has normal speech MUSCULOSKELETAL: There is no evidence of acute injury. ED Course Vital Signs 02/11/19 12:07 Temperature 97.5 F L Pulse Rate 82 Respiratory 18 Rate Blood Pressure 115/54 O2 Sat by Pulse 100 Oximetry - Consultations Consultation #1: 02/11/19 18:[address] Demario tsang 02/11/19 18:[address] Barber ED Medical Decision Making - Lab Data Result diagrams: 02/11/19 17:00 02/11/19 17:00 Laboratory Tests 02/11/19 02/11/19 02/11/19 16:39 16:48 17:00 WBC 4.2 L RBC 4.74 Hgb 9.2 L Hct 30.0 L MCV 63 L MCH 19 L MCHC 31 L RDW 18.9 H Plt Count 239 Sodium Potassium Chloride Carbon Dioxide Anion Gap BUN Creatinine Estimated GFR BUN/Creatinine Ratio Glucose POC Glucose 198 H Calcium Total Bilirubin AST ALT Alkaline Phosphatase Troponin T NT-Pro-B Natriuret Pep Total Protein Albumin Albumin/Globulin Ratio Triglycerides Cholesterol LDL Cholesterol Direct HDL Cholesterol Cholesterol/HDL Ratio Urine Color Yellow Urine Turbidity Clear Urine pH 6.0 Ur Specific Tea 1.013 Urine Protein 100 mg/dl Urine Glucose (UA) 50 Urine Ketones Neg Urine Blood Neg Urine Nitrite Neg Urine Bilirubin Neg Urine Urobilinogen < 2.0 Ur Leukocyte Esterase Neg Urine WBC (Auto) < 1.0 Urine RBC (Auto) < 1.0 Urine Mucus Few 02/11/19 17:00 WBC RBC Hgb Hct MCV MCH MCHC RDW Plt Count Sodium 134 L Potassium 6.3 H* Chloride 104.7 Carbon Dioxide 20 L Anion Gap 16 BUN 54 H Creatinine 3.2 H Estimated GFR 23 BUN/Creatinine Ratio 17 Glucose 167 H POC Glucose Calcium 9.1 Total Bilirubin 0.50 AST 27 ALT 18 Alkaline Phosphatase 97 Troponin T 0.141 H* NT-Pro-B Natriuret Pep 4465 H Total Protein 7.3 Albumin 3.4 L Albumin/Globulin Ratio 0.9 Triglycerides 70 Cholesterol 182 LDL Cholesterol Direct 112 HDL Cholesterol 62 H Cholesterol/HDL Ratio 2.93 Urine Color Urine Turbidity Urine pH Ur Specific Tea Urine Protein Urine Glucose (UA) Urine Ketones Urine Blood Urine Nitrite Urine Bilirubin Urine Urobilinogen Ur Leukocyte Esterase Urine WBC (Auto) Urine RBC (Auto) Urine Mucus - EKG Data -: EKG Interpreted by Me EKG shows normal: sinus rhythm Rate: normal - EKG Data Interpretation: other (frequent PVCs) - Radiology Data Radiology results: report reviewed (chest x-ray), image reviewed (chest x-ray) interpreted by me: Chest x-ray-no focal infiltrates, no pneumothorax [facility] [address] [place] [address] XRay Report Signed Patient: LAMONT GUILLAUME MR# : [id number] : 1935 Acct:[id number] Age/Sex: 83 / M ADM Date: 02/11/19 Loc: ED Attending Dr: Ordering Physician: KIMANI FLORES Date of Service: 02/11/19 Procedure(s): XR chest routine 2V Accession Number(s): [id number] cc: KIMANI FLORES Fluoro Time In Minutes: CHEST 2 VIEWS INDICATION / CLINI SPIKE INFORMATION: SOB. COMPARISON: 01/23/2018 FINDINGS: SUPPORT DEVICES: None. HEART / MEDIASTINUM: There is mild enlargement of cardiac silhouette. LUNGS / PLEURA: There is mild increased interstitial markings bilaterally characteristic of mild edema. .No pneumothorax. ADDITIONAL FINDINGS: No significant additional findings. IMPRESSION: 1. There is mild increased interstitial markings bilaterally characteristic of mild pulmonary edema. There is mild enlargement of the cardiac silhouette Signer Name: Paul Connell MD Signed: 02/11/2019 12:42 PM Workstation Name: [id number] Transcribed By: SS Dictated By: Paul Connell MD Electronically Authenticated By: Paul Connell MD Signed Date/Time: 02/11/19 1242 DD/ 1241 TD/TT: - Differential Diagnosis ACS, pericarditis, CHF, GERD Critical care attestation.: If time is entered above; I have spent that time in minutes in the direct care of this critically ill patient, excluding procedure time. ED Disposition Clinical Impression: Chest pain, Shortness of breath, Frequent PVCs Disposition: 09 OP ADMIT IP TO THIS HOSP Is pt being admited?: Yes Does the pt Need Aspirin: Yes Condition: Fair Instructions: Chest Pain (ED) Referrals: PRIMARY CARE, [Primary Care Provider] - 3-5 Days Time of Disposition: 18:51 (hospitalist paged (Dr Cash))
[2019-02-11] MEDS ORDERED: ASPIRIN PO ONE (14:36)
[2019-02-11 17:11] VITALS: BP 141/82
[2019-02-11 17:16] LABS: Hemoglobin 9.2 gm/dl (11.8-15.2); Mean Corpuscular HGB Conc 31 % (32-34); Platelet Count 239 K/mm3 (140-440); Red Blood Count 4.74 M/mm3 (3.65-5.03); Red Cell Distribution Width 18.9 % (13.2-15.2)
[2019-02-11 17:17] LABS: Mean Corpuscular Volume 63 fl (84-94)
[2019-02-11 17:40] LABS: Albumin 3.4 g/dL (3.9-5); Calcium 9.1 mg/dL (8.4-10.2)
[2019-02-11 18:00] LABS: Chol/HDL Ratio 2.93 %
[2019-02-11] MEDS ORDERED: KIONEX PO ONE (18:01)
[2019-02-11] MEDS ORDERED: D50W (25GM) Syringe IV ONE ×2 (18:02→19:20)
[2019-02-11] MEDS ORDERED: PROVENTIL IH ONE (18:02)
[2019-02-11] MEDS ORDERED: HumuLIN R IV ONE (18:02)
[2019-02-11 18:09] LABS: Bilirubin,Urine NEG (Negative); Blood,Urine NEG (Negative); Color,Urine Yellow (Yellow); Mucus,Urine FEW /HPF; RBC,Urine < 1.0 /HPF (0.0-6.0); Urobilinogen,Urine < 2.0 mg/dL (<2.0); WBC,Urine < 1.0 /HPF (0.0-6.0)
[2019-02-11] MEDS ORDERED: CALCIUM GLUCONATE 1,000 MG in NACL 0.9% 100 ML IV ONE (19:02)
[2019-02-11] MEDS ORDERED: KIONEX ONE (19:20)
[2019-02-11] MEDS ORDERED: FIORICET PO PRN (19:55)
[2019-02-11] MEDS ORDERED: SODIUM CHLORIDE FLUSH SYRINGE 10 ML IV PRN ×2 (19:59→20:02)
[2019-02-11] MEDS ORDERED: NITROSTAT SL PRN (19:59)
[2019-02-11] MEDS ORDERED: NACL 0.9% 1000 ML 1,000 ML IV SCH (20:00)
[2019-02-11] MEDS ORDERED: TYLENOL PO PRN (20:02)
[2019-02-11] MEDS ORDERED: D50W (25GM) Syringe IV PRN (20:02)
[2019-02-11] MEDS ORDERED: PROVENTIL IH PRN (20:02)
[2019-02-11] MEDS ORDERED: ZOFRAN IV PRN (20:02)
--- NOTE | 2019-02-11 20:15 | Event Note ---
Date: 02/11/19 Pt left AMA before being assessed. Risk associated with leaving AMA was discussed with pt. He verbalized understanding and signed AMA form.
[2019-02-11] MEDS ORDERED: HEPARIN SUB-Q SCH (22:00)
[2019-02-11] MEDS ORDERED: CARDURA PO SCH (22:00)
[2019-02-11] MEDS ORDERED: NAPROSYN PO SCH (22:00)
[2019-02-11] MEDS ORDERED: COLACE PO SCH (22:00)
[2019-02-11] MEDS ORDERED: PROTONIX PO SCH (22:00)
[2019-02-11] MEDS ORDERED: COREG PO SCH (22:00)
[2019-02-11] MEDS ORDERED: SODIUM CHLORIDE FLUSH SYRINGE 10 ML IV SCH (22:00)
[2019-02-12] MEDS ORDERED: HumaLOG SUB-Q SCH
[2019-02-12] MEDS ORDERED: DUONEB *Not for PRN Use IH SCH (02:00)
[2019-02-12] MEDS ORDERED: FOLIC PO SCH (10:00)
[2019-02-12] MEDS ORDERED: VITAMIN B-12 PO SCH (10:00)
[2019-02-12] MEDS ORDERED: BABY ASPIRIN PO SCH (10:00)
[2019-02-12] MEDS ORDERED: FLOMAX PO SCH (10:00)
[2019-02-12] MEDS ORDERED: VIT E PO SCH (10:00)
[2019-02-12] MEDS ORDERED: [UNRECOGNIZED DRUG - OTHER] PO SCH (10:00)
[2019-02-12] MEDS ORDERED: FERROUS SULFATE PO SCH (10:00)
[2019-02-12] MEDS ORDERED: ZINC PO SCH (10:00)
== END 2019-02-11 20:27 | disposition admitted as inpatient to this hospital (09) ==
LOC: ED 11:45 → 4A 18:55 → UNDOADMIN 18:55 → UNDODISIN 20:15
DX: R06.02 Shortness of breath (principal); R07.9 Chest pain, unspecified; E11.9 Type 2 diabetes mellitus without complications; I49.3 Ventricular premature depolarization; I48.91 Unspecified atrial fibrillation; Z79.84 Long term (current) use of oral hypoglycemic drugs; E87.5 Hyperkalemia; Z86.73 Personal history of transient ischemic attack (TIA), and cerebral infarction without residual deficits; Z87.891 Personal history of nicotine dependence
CPT/HCPCS: 36415; 71046; 80053; 80061; 81001; 82962; 83880; 84484; 85027; 93005; 93010; 94640; 96374; 96375; 99285; J0610; J2405; J3010; 94644; 96365; G0378

== ENCOUNTER 2019-03-21 12:54 | Inpatient (IN) | payer MEDICARE ==
--- NOTE | 2019-03-21 14:43 | XRay Report ---
CHEST 1 VIEW INDICATION: sob. COMPARISON: 02/11/2019 FINDINGS: Support devices: None. Heart: Within normal limits. Lungs/Pleura: Mild interstitial edema. Additional findings: None. IMPRESSION: 1. Mild interstitial edema. Signer Name: Darrell Jalloh MD Signed: 03/21/2019 2:38 PM Workstation Name: [id number]
--- NOTE | 2019-03-21 14:48 | Emergency Department Report ---
ED Shortness of Breath HPI - General Chief Complaint: Dyspnea/Respdistress Stated Complaint: DAXA Time Seen by Provider: 03/21/19 13:52 Source: patient Mode of arrival: Wheelchair Limitations: No Limitations - History of Present Illness Initial Comments: 84-year-old male with history of COPD, CHF, anemia, CKD presents to ED with shortness of breath 3 days. Patient states symptoms are worse with exertion. Patient reports mild chest discomfort, however denies chest pain currently. Sent denies any fever. Does report cough and orthopnea. Patient denies any leg pain or swelling. MD Complaint: shortness of breath -: days(s) (3) Severity: moderate Consistency: intermittent Improves With: upright position Worsens With: lying flat, exertion Known History Of: COPD, congestive heart failure Associated Symptoms: chest pain, cough - Related Data Home Oxygen Therapy: No Home Medications Medication Instructions Recorded Confirmed Last Taken B,C/Folic/Zinc/Copper Ox/Vit E 1 each PO DAILY 04/13/14 02/11/19 02/10/19 [Stress B-Complex Tablet] Cyanocobalamin (Vitamin B-12) 1,000 mcg PO DAILY 04/13/14 02/11/19 02/10/19 [B-12] Glimepiride [Amaryl] 4 mg PO BID 04/13/14 02/11/19 02/10/19 glipiZIDE [glipiZIDE XL] 10 mg PO BID 04/13/14 02/11/19 02/10/19 Celecoxib [Celebrex] 200 mg PO DAILY 01/23/18 02/11/19 02/10/19 Ipratropium [place] [Atrovent Hfa] 12.9 gm IH Q4HR PRN 01/23/18 02/11/19 02/10/19 Previous Rx's Medication Instructions Recorded Last Taken Type Ferrous Sulfate [Ferrous Sulfate 162.5 mg PO QDAY 30 Days oral.liqd 04/16/14 02/10/19 Rx Oral Liq 300 Mg/5 Ml] Pantoprazole [Protonix TAB] 40 mg PO BID #60 tablet 06/25/15 02/10/19 Rx Acetaminophen [Acetaminophen TAB] 500 mg PO Q6HR PRN #30 tablet 06/01/17 02/10/19 Rx Carvedilol [Coreg] 12.5 mg PO BID #60 tablet 01/28/18 02/10/19 Rx Doxazosin [Cardura] 4 mg PO QHS tablet 01/28/18 02/10/19 Rx Tamsulosin [Flomax] 0.4 mg PO QDAY #30 capsule 01/28/18 02/10/19 Rx Butalb/Acetamin/Caff 50-325-40 1 tab PO Q6HR PRN #15 tab 11/30/18 02/10/19 Rx [Fioricet] Naproxen [Naprosyn] 500 mg PO BID #14 tablet 12/05/18 02/10/19 Rx Allergies Allergy/AdvReac Type Severity Reaction Status Date / Time No Known Allergies Allergy Verified 03/21/19 12:57 ED Review of Systems ROS: Stated complaint: DAXA Other details as noted in HPI Comment: All other systems reviewed and negative Constitutional: denies: chills, fever Respiratory: cough, orthopnea, SOB with exertion Cardiovascular: chest pain Gastrointestinal: denies: nausea, vomiting Musculoskeletal: other (denies leg pain and swelling) ED Past Medical Hx - Past Medical History Hx Hypertension: Yes Hx CVA: Yes (no resid. deficits) Hx Diabetes: Yes Hx Arthritis: Yes Additional medical history: A-fib, anemia - Surgical History Additional Surgical History: colon polyps removed. - Social History Smoking Status: Former Smoker (none 2 years) Substance Use Type: None - Medications Home Medications: Home Medications Medication Instructions Recorded Confirmed Last Taken Type B,C/Folic/Zinc/Copper Ox/Vit E 1 each PO DAILY 04/13/14 02/11/19 02/10/19 History [Stress B-Complex Tablet] Cyanocobalamin (Vitamin B-12) 1,000 mcg PO DAILY 04/13/14 02/11/19 02/10/19 His tory [B-12] Glimepiride [Amaryl] 4 mg PO BID 04/13/14 02/11/19 02/10/19 History glipiZIDE [glipiZIDE XL] 10 mg PO BID 04/13/14 02/11/19 02/10/19 History Ferrous Sulfate [Ferrous Sulfate 162.5 mg PO QDAY 30 Days oral.liqd 04/16/14 02/11/19 02/10/19 Rx Oral Liq 300 Mg/5 Ml] Pantoprazole [Protonix TAB] 40 mg PO BID #60 tablet 06/25/15 02/11/19 02/10/19 Rx Acetaminophen [Acetaminophen TAB] 500 mg PO Q6HR PRN #30 tablet 06/01/17 02/11/19 02/10/19 Rx Celecoxib [Celebrex] 200 mg PO DAILY 01/23/18 02/11/19 02/10/19 History Ipratropium [place] [Atrovent Hfa] 12.9 gm IH Q4HR PRN 01/23/18 02/11/19 02/10/19 History Carvedilol [Coreg] 12.5 mg PO BID #60 tablet 01/28/18 02/11/19 02/10/19 Rx Doxazosin [Cardura] 4 mg PO QHS tablet 01/28/18 02/11/19 02/10/19 Rx Tamsulosin [Flomax] 0.4 mg PO QDAY #30 capsule 01/28/18 02/11/19 02/10/19 Rx Butalb/Acetamin/Caff 50-325-40 1 tab PO Q6HR PRN #15 tab 11/30/18 02/11/19 02/10/19 Rx [Fioricet] Naproxen [Naprosyn] 500 mg PO BID #14 tablet 12/05/18 02/11/19 02/10/19 Rx ED Physical Exam - General Limitations: No Limitations General appearance: alert, in no apparent distress - Head Head exam: Present: atraumatic, normocephalic - Eye Eye exam: Present: normal appearance, PERRL, EOMI - ENT ENT exam: Present: mucous membranes moist - Neck Neck exam: Present: normal inspection - Respiratory Respiratory exam: Present: rales. Absent: respiratory distress - Cardiovascular Cardiovascular Exam: Present: regular rate, normal rhythm - GI/Abdominal GI/Abdominal exam: Present: soft. Absent: distended, tenderness - Extremities Exam Extremities exam: Present: other (one plus pitting edema bilateral lower legs). Absent: calf tenderness - Neurological Exam Neurological exam: Present: alert, oriented X3 - Psychiatric Psychiatric exam: Present: normal affect, normal mood - Skin Skin exam: Present: warm, dry, intact, normal color ED Course Vital Signs 03/21/19 03/21/19 03/21/19 13:14 13:20 14:00 Temperature Pulse Rate 69 68 Respiratory 15 20 25 H Rate Blood Pressure 145/90 Blood Pressure 148/83 [Right] O2 Sat by Pulse 99 100 Oximetry 03/21/19 03/21/19 03/21/19 14:14 14:18 15:00 Temperature 97.9 F Pulse Rate 77 71 Respiratory 21 Rate Blood Pressure 149/81 Blood Pressure 145/90 [Right] O2 Sat by Pulse 100 Oximetry 03/21/19 16:01 Temperature Pulse Rate 70 Respiratory 18 Rate Blood Pressure 149/81 Blood Pressure [Right] O2 Sat by Pulse 96 Oximetry ED Medical Decision Making - Lab Data Result diagrams: 03/21/19 15:02 03/21/19 15:02 - EKG Data EKG shows normal: sinus rhythm, ST-T waves - EKG Data When compared to previous EKG there are: no significant change (compared to 01/2018) Interpretation: other (RBBB, old inferior infarct, prolonged RI interval) - Radiology Data Radiology results: report reviewed, image reviewed - Medical Decision Making 84-year-old male with chronic renal insufficiency, CHF presents to ED with dyspnea on exertion, orthopnea 3 days. EKG is unchanged from previous, showing a right bundle branch block. Renal function is at baseline with creatinine of 3. Troponin is elevated at 0.14, likely due to abnormal renal function. Chest x-ray shows pulmonary edema with BNP level of 13,000. Patient had mildly elevated potassium at 5.5. Insulin, D50, Kayexalate given. Will admit to hospitalist for further management. - Differential Diagnosis pneumonia, COPD, CHF Critical Care Time: Yes Critical care time in (mins) excluding proc time.: 35 Critical care attestation.: If time is entered above; I have spent that time in minutes in the direct care of this critically ill patient, excluding procedure time. Critical Care Time: 35 min ED Disposition Clinical Impression: Pulmonary edema, Hyperkalemia, CRI (chronic renal insufficiency), Elevated troponin Disposition: DC-[id number] OP ADMIT IP TO THIS HOSP Is pt being admited?: Yes Condition: Stable Instructions: Pulmonary Edema (ED) Referrals: ASMITA CHANEY MD [Primary Care Provider] - 3-5 Days
[2019-03-21 15:35] LABS: INR 1.17 (0.87-1.13)
[2019-03-21 15:46] LABS: Calcium 9.9 mg/dL (8.4-10.2)
[2019-03-21 16:17] LABS: Chol/HDL Ratio 2.78 %
[2019-03-21] MEDS ORDERED: INSULIN REGULAR, HUMAN 100 UNITS/1 ML IV ONE (16:24)
[2019-03-21] MEDS ORDERED: DEXTROSE 50% IN WATER (25GM) 50 ML SYRINGE IV ONE ×2 (16:24→18:13)
[2019-03-21] MEDS ORDERED: SODIUM POLYSTYRENE 15 GM/60 ML ORAL LIQD PO ONE (16:25)
[2019-03-21 16:29] LABS: Hematocrit 27.9 % (35.5-45.6); Hemoglobin 8.7 gm/dl (11.8-15.2); Mean Corpuscular HGB Conc 31 % (32-34); Mean Corpuscular Volume 65 fl (84-94); Platelet Count 268 K/mm3 (140-440); Red Cell Distribution Width 18.1 % (13.2-15.2)
[2019-03-21 16:35] LABS: Hypochromasia 2+; Total Cells Counted 100
--- NOTE | 2019-03-21 17:17 | History and Physical Report ---
History of Present Illness Chief complaint: I cant breathe History of present illness: 84 YO Male with HTN, DM, OA, BPH, HLD, CVA, Diverticulosis, Systolic CHF(EF 35%), Chronic Mild troponin elevation, Atrial Fib not taking therapeutic anticoagulation, AVM with H/O Hemorrhage, Anemia presents to ED for evaluation. Pt states that he has experienced shortness of breath over the past 3 days with worsening symptoms over the same time frame. Pt acknowledges Orthopnea/PND, Decreased exercise tolerance, Dypsnea with exertion, Dypsnea at rest. Pt transported to [facility] via private vehicle. Pt seen and evaluated in ED and found to have CHF Decompensation, Acute Kidney Injury and Hyperkalemia without EKG changes. Pt admitted to telemetry. Cardiology team consulted. Nephrology team consulted. Pt denies fever, chills, CP, palpitations, Hemoptysis, productive cough, Individual/Family history of DVT/PE, bleeding or blood clotting disorders. Prior admission on 01/19/18 reviewed. All listed medication reconciled at time of admission. Past History Past Medical History: other (see hpi) Past Surgical History: Other (colonoscopy) Social history: , other (colonoscopy). denies: smoking, alcohol abuse Family history: hypertension Medications and Allergies Allergies Allergy/AdvReac Type Severity Reaction Status Date / Time No Known Allergies Allergy Verified 03/21/19 12:57 Home Medications Medication Instructions Recorded Confirmed Last Taken Type B,C/Folic/Zinc/Copper Ox/Vit E 1 each PO DAILY 04/13/14 02/11/19 02/10/19 History [Stress B-Complex Tablet] Cyanocobalamin (Vitamin B-12) 1,000 mcg PO DAILY 04/13/14 02/11/19 02/10/19 History [B-12] Glimepiride [Amaryl] 4 mg PO BID 04/13/14 02/11/19 02/10/19 History glipiZIDE [glipiZIDE XL] 10 mg PO BID 04/13/14 02/11/19 02/10/19 History Ferrous Sulfate [Ferrous Sulfate 162.5 mg PO QDAY 30 Days oral.liqd 04/16/14 02/11/19 02/10/19 Rx Oral Liq 300 Mg/5 Ml] Pantoprazole [Protonix TAB] 40 mg PO BID #60 tablet 0202/11/19 02/10/19 Rx Acetaminophen [Acetaminophen TAB] 500 mg PO Q6HR PRN #30 tablet 06/01/17 02/11/19 02/10/19 Rx Celecoxib [Celebrex] 200 mg PO DAILY 01/23/18 02/11/19 02/10/19 History Ipratropium [place] [Atrovent Hfa] 12.9 gm IH Q4HR PRN 01/23/18 02/11/19 02/10/19 History Carvedilol [Coreg] 12.5 mg PO BID #60 tablet 01/28/18 02/11/19 02/10/19 Rx Doxazosin [Cardura] 4 mg PO QHS tablet 01/28/18 02/11/19 02/10/19 Rx Tamsulosin [Flomax] 0.4 mg PO QDAY #30 capsule 01/28/18 02/11/19 02/10/19 Rx Butalb/Acetamin/Caff 50-325-40 1 tab PO Q6HR PRN #15 tab 11/30/18 02/11/19 02/10/19 Rx [Fioricet] Naproxen [Naprosyn] 500 mg PO BID #14 tablet 12/05/18 02/11/19 02/10/19 Rx Review of Systems Constitutional: no weight loss, no weight gain, no fever, no chills Ears, nose, mouth and throat: no ear pain, no ear discharge, no tinnitis, no decreased hearing, no nose pain, no nasal congestion, no nasal discharge Cardiovascular: orthopnea, shortness of breath, dyspnea on exertion, paroxysmal nocturnal dyspnea, decreased exercise tolerance, no chest pain, no rapid/irregular heart beat, no syncope Respiratory: no cough, no cough with sputum, no excessive sputum, no hemoptysis Gastrointestinal: no abdominal pain, no nausea, no vomiting, no diarrhea Genitourinary Male: no hematuria, no flank pain, no discharge, no urinary fr equency, no urinary hesitancy Rectal: no pain, no incontinence, no bleeding Musculoskeletal: no neck stiffness, no neck pain, no shooting arm pain, no leg numbness/tingling Integumentary: no rash, no pruritis, no redness, no sores, no wounds Neurological: no transient paralysis, no paralysis, no weakness, no numbness, no tingling, no seizures, no syncope Psychiatric: no anxiety, no memory loss, no change in sleep habits, no hypersomnia, no change in appetite Endocrine: no cold intolerance, no heat intolerance, no polyphagia, no excessive thirst, no polyuria, no nocturia, no excessive sweating Hematologic/Lymphatic: no easy bruising, no easy bleeding, no lymphedema Allergic/Immunologic: no urticaria, no wheezing, no angioedema Exam - Constitutional Vitals: Temp Pulse Resp BP Pulse Ox 97.9 F 70 18 149/81 96 03/21/19 14:14 03/21/19 16:01 03/21/19 16:01 03/21/19 16:01 03/21/19 16:01 General appearance: Present: mild distress - EENT Eyes: Present: PERRL ENT: hearing intact, clear oral mucosa - Neck Neck: Present: supple, normal ROM - Respiratory Respiratory effort: normal Respiratory: bilateral: diminished - Cardiovascular Rhythm: irregularly irregular Heart Sounds: Present: S1 & S2. Absent: rub, click - Extremities Extremities: pulses symmetrical, No edema Peripheral Pulses: within normal limits - Abdominal General gastrointestinal: Present: soft, non-tender, non-distended, normal bowel sounds Male genitourinary: Present: normal - Integumentary Integumentary: Present: clear, warm, dry - Musculoskeletal Musculoskeletal: gait normal, strength equal bilaterally - Psychiatric Psychiatric: appropriate mood/affect, intact judgment & insight - Neurologic Neurologic: CNII-XII intact, moves all extremities Results - Labs CBC & Chem 7: 03/21/19 15:02 03/21/19 15:02 Labs: Abnormal lab results 03/21/19 03/21/19 03/21/19 Range/Units 15:02 15:02 15:02 Hgb 8.7 L (11.8-15.2) gm/dl Hct 27.9 L (35.5-45.6) % MCV 65 L (84-94) fl MCH 20 L (28-32) pg MCHC 31 L (32-34) % RDW 18.1 H (13.2-15.2) % Monocytes % (Manual) 8.0 H (0.0-7.3) % Eosinophils % (Manual) 5.0 H (0.0-4.3) % INR 1.17 H (0.87-1.13) Sodium 133 L (137-145) mmol/L Potassium 5.5 H (3.6-5.0) mmol/L Carbon Dioxide 18 L (22-30) mmol/L BUN 49 H (9-20) mg/dL Creatinine 3.0 H (0.8-1.5) mg/dL Glucose 174 H (75-100) mg/dL Troponin T 0.141 H* (0.00-0.029) ng/mL NT-Pro-B Natriuret Pep 66916 H (0-900) pg/mL Assessment and Plan - Patient Problems (1) CHF (congestive heart failure) Current Visit: Yes Status: Acute Qualifiers: Heart failure type: systolic Heart failure chronicity: acute on chronic Qualified Code(s): I50.23 - Acute on chronic systolic (congestive) heart failure Plan to address problem: Admit to telemetry, Cardiology consulted, strict I/O, daily weight, monitor uop q shift, echo, supplemental oxygen, pulse oximetry, thyroid panel, magnesium level, dikuresis, VQ scan. (2) ANNA (acute kidney injury) Current Visit: Yes Status: Acute Plan to address problem: Nephrology consulted, monitor uop q shift, avoid nephrotoxic agents. (3) Hyperkalemia Current Visit: Yes Status: Acute Plan to address problem: Calcium gluconate, kayexelate, repeat bmp in am, (4) Atrial fibrillation Current Visit: Yes Status: Acute Qualifiers: Atrial fibrillation type: unspecified Qualified Code(s): I48.91 - Unspecified atrial fibrillation Plan to address problem: Supportive care, Rate control, cardiology consulted, risk benefit of anticoagulation in view of high risk for bleeding. supportive care. (5) DVT prophylaxis Current Visit: Yes Status: Acute Plan to address problem: SCD to BLE while in bed,
[2019-03-21] MEDS ORDERED: BUTALB/ACETAMINOPHEN/CAFFEINE TAB PO PRN (17:19)
[2019-03-21] MEDS ORDERED: ACETAMINOPHEN 500 MG TAB PO PRN (17:19)
[2019-03-21] MEDS ORDERED: ACETAMINOPHEN 325 MG TAB PO PRN (17:21)
[2019-03-21] MEDS ORDERED: ALBUTEROL 2.5 MG/3 ML NEBU IH PRN (17:21)
[2019-03-21] MEDS ORDERED: ONDANSETRON 4 MG/2 ML INJ IV PRN (17:21)
[2019-03-21] MEDS ORDERED: INSULIN REGULAR, HUMAN 100 UNITS/1 ML ONE (17:58)
[2019-03-21] MEDS ORDERED: SODIUM POLYSTYRENE 15 GM/60 ML ORAL LIQD ONE ×2 (18:06→18:12)
[2019-03-21] MEDS ORDERED: HEPARIN/ 0.45% NACL DRIP 25,000 UNIT/500 ML BAG IV SCH (20:00)
[2019-03-21 20:26] LABS: Free T4 (Free Thyroxine) 1.14 ng/dL (0.76-1.46)
[2019-03-21] MEDS ORDERED: CALCIUM GLUCONATE 1,000 MG in SODIUM CHLORIDE 0.9% 100 ML IV ONE (20:35)
[2019-03-21] MEDS: FERROUS SULFATE 325 MG TAB PO SCH (21:08)
[2019-03-21] MEDS: PANTOPRAZOLE 40 MG TAB PO SCH (21:09)
[2019-03-21] MEDS: carvediloL 12.5 MG TAB PO SCH (21:09)
[2019-03-21] MEDS: DOXAZOSIN 4 MG TAB PO SCH (21:09)
[2019-03-21] MEDS ORDERED: NAPROXEN 500 MG TAB PO SCH (22:00)
--- NOTE | 2019-03-22 08:52 | Nuclear Medicine Report ---
VENTILATION PERFUSION PULMONARY SCINTIGRAPHY HISTORY: Dyspnea COMPARISON: 03/21/2019 chest radiograph. TECHNIQUE: Radiopharmaceutical was inhaled. Tc-99m-MAA was then injected. Ventilation and perfusion images were acquired. RADIOPHARMACEUTICAL: 15.0 mCi of 4.5 inhaled mCi of Tc-99m-MAA injected FINDINGS: VENTILATION: There is mild to moderate air trapping throughout both lungs, left greater than right, s uggesting obstructive pulmonary disease. PERFUSION: No significant segmental or non-segmental defect. Additional Findings: Prominent cardiac shadow is noted. IMPRESSION: 1. Low probability for pulmonary embolism. Signer Name: Landry Thorne Jr, MD Signed: 03/22/2019 8:47 AM Workstation Name: [id number]
--- NOTE | 2019-03-22 09:01 | Consultation ---
History of Present Illness - History of Present Illness Thank you for the consultation Patient was evaluated today My assessment and plan are as follows Patient does have history of chronic kidney disease and has multiple risk factors for this including, baseline creatinine is around 3.2 as of November 2018 creatinine was 2.6 in November 2017 1.6 and March 2014 No emergent indication for renal replacement therapy, But needs to be mo nitored closely Urinalysis obtained January 2019 showed that patient does have 100 mg protein Creatinine clearance was around 16 mL/m suggestive of advanced stage IV chronic kidney disease, close to stage V Mild hyperkalemia avoid nonsteroidal drugs altogether Mild hyponatremia that could be due to congestive heart failure COPD Mild metabolic acidosis bicarbonate from 18 Abnormal troponin to be followed by cardiology Was also taking Celebrex which should be avoided with a history of hypertension chronic kidney disease as well as congestive heart failure Admitted with respiratory failure resulting from COPD as well as congestive heart failure patient has noted progressive shortness of breath which has been worse for last 3 days Patient was advised to comply with diet, fluid restriction sodium restriction, daily weight monitoring Multiple underlying comorbidities including hypertension, diabetes, osteoarthritis, benign prostatic hyperplasia, hyperlipidemia, CVA, diverticulosis, systolic heart failure ejection fraction 35% on chronic anticoagulation for atrial fibrillation, history of AVM Needs follow-up in outpatient clinic upon discharge. History of presenting illness please note patient is an extremely poor historian Patient is a pleasant 84-year-old -[place] male who has been admitted here with congestive heart failure hyperkalemia metabolic acidosis hyponatremia, also noted to be anemic with a hemoglobin of 8.7, Patient has known history of chronic kidney disease and progression over time old records were also reviewed He presented to the hospital with complaints of increasing shortness of breath swelling in legs which has been going on for last several days and worse for last 3 Patient does have history of underlying COPD congestive heart failure as well as renal failure, is currently in the process of workup for congestive heart failure and is going for echocardiogram Patient has taken nonsteroidal drugs in the past he says that he has seen a informatica architect, but does not recall the name He has been followed by his primary care physician and according to patient he was told that he should not consider dialysis given his age and multiple comorbidities so he does have reservations about her Past medical history significant for Congestive heart failure Progression of renal failure COPD hypertension NSAID use Diabetes Anemia Current allergies: None Home medication present medication: Reviewed Social history, family history: Reviewed Review of system: Positive for worsening shortness of breath progressive swelling in both lower extremity Declining quality of life All other review of system negative Physical examination: General: No acute distress HEENT: Oral mucosa moist no icterus, no facial swelling Neck: Supple no thyromegaly no lymphadenopathy no JVD Chest: bilateral basilar crackles and some wheezes Heart: Regular rate and rhythm S1-S2 heard no S3-S4 Abdomen: Soft nontender no organomegaly no masses palpable no renal bruit no suprapubic masses no CVA tenderness Dermatology: No skin rashes noted Extremity: Approximately 2+ peripheral edema, dry skin no petechial rashes Musculoskeletal: No joint effusion noted in knee and ankle area Psych: No evidence of agitation and aggression noted Neurological: Alert awake follows commands no tremors no myoclonus Back: No CVA tenderness Past History Past Medical History: other (see hpi) Past Surgical History: Other (colonoscopy) Social history: , other (colonoscopy). denies: smoking, alcohol abuse Family history: hypertension Medications and Allergies Allergies Allergy/AdvReac Type Severity Reaction Status Date / Time No Known Allergies Allergy Verified 03/21/19 12:57 Home Medications Medication Instructions Recorded Confirmed Last Taken Type B,C/Folic/Zinc/Copper Ox/Vit E 1 each PO DAILY 04/13/14 03/23/19 02/10/19 History [Stress B-Complex Tablet] Cyanocobalamin (Vitamin B-12) 1,000 mcg PO DAILY 04/13/14 03/23/19 02/10/19 History [B-12] Glimepiride [Amaryl] 4 mg PO BID 04/13/14 03/23/19 02/10/19 History glipiZIDE [glipiZIDE XL] 10 mg PO BID 04/13/14 03/23/19 02/10/19 History Ferrous Sulfate [Ferrous Sulfate 162.5 mg PO QDAY 30 Days oral.liqd 04/16/14 03/23/19 02/10/19 Rx Oral Liq 300 Mg/5 Ml] Pantoprazole [Protonix TAB] 40 mg PO BID #60 tablet 06/25/15 03/23/19 02/10/19 Rx Acetaminophen [Acetaminophen TAB] 500 mg PO Q6HR PRN #30 tablet 06/01/17 03/23/19 02/10/19 Rx Ipratropium [place] [Atrovent Hfa] 12.9 gm IH Q4HR PRN 01/23/18 03/23/19 02/10/19 History Carvedilol [Coreg] 12.5 mg PO BID #60 tablet 01/28/18 03/23/19 02/10/19 Rx Doxazosin [Cardura] 4 mg PO QHS tablet 01/28/18 03/23/19 02/10/19 Rx Tamsulosin [Flomax] 0.4 mg PO QDAY #30 capsule 01/28/18 03/23/19 02/10/19 Rx Butalb/Acetamin/Caff 50-325-40 1 tab PO Q6HR PRN #15 tab 11/30/18 03/23/19 02/10/19 Rx [Fioricet 50-325-40] Active Meds: Active Medications Acetaminophen (Tylenol) 650 mg PO Q4H PRN PRN Reason: Pain MILD(1-3)/Fever >100.5/OCONNELL Last Admin: 03/22/19 03:59 Dose: 650 mg Documented by: Acetaminophen/Butalbital/Caffeine (Fioricet) 1 tab PO Q6HR PRN PRN Reason: Headache Albuterol (Proventil) 2.5 mg IH Q4HRT PRN PRN Reason: Shortness Of Breath Carvedilol (Coreg) 12.5 mg PO BID [facility] Last Admin: 03/21/19 21:09 Dose: 12.5 mg Documented by: Cyanocobalamin (Vitamin B-12) 1,000 mcg PO DAILY [facility] Doxazosin Mesylate (Cardura) 4 mg PO QHS [facility] Last Admin: 03/21/19 21:09 Dose: 4 mg Documented by: Ferrous Sulfate (Feosol) 162.5 mg PO QDAY [facility] Last Admin: 03/21/19 21:08 Dose: 162.5 mg Documented by: Furosemide (Lasix) 40 mg IV 0700,1900 [facility] Ondansetron HCl (Zofran) 4 mg IV Q8H PRN PRN Reason: Nausea And Vomiting Pantoprazole Sodium (Protonix) 40 mg PO BID [facility] Last Admin: 03/21/19 21:09 Dose: 40 mg Documented by: Sodium Chloride (Sodium Chloride Flush Syringe 10 Ml) 10 ml IV BID [facility] Last Admin: 03/21/19 21:10 Dose: 10 ml Documented by: Sodium Chloride (Sodium Chloride Flush Syringe 10 Ml) 10 ml IV PRN PRN PRN Reason: LINE FLUSH Tamsulosin HCl (Flomax) 0.4 mg PO QDAY [facility] Vitamin B Complex/Vitamin C (Allbee With C) 1 each PO QDAY [facility] Exam - Vital Signs Vital signs: Vital Signs Pulse Resp 69 15 03/21/19 13:14 03/21/19 13:14 Results - Lab Results 03/23/19 06:51 03/23/19 06:51 Most recent lab results Calcium 9.9 mg/dL (8.4-10.2) 03/21/19 15:02 Magnesium 2.10 mg/dL (1.7-2.3) 03/21/19 15:02
[2019-03-22] MEDS ORDERED: FERROUS SULFATE PO SCH (10:00)
[2019-03-22] MEDS ORDERED: VIT E PO SCH (10:00)
[2019-03-22] MEDS ORDERED: ZINC PO SCH (10:00)
[2019-03-22] MEDS ORDERED: FOLIC PO SCH (10:00)
[2019-03-22] MEDS ORDERED: CELECOXIB 100 MG CAP PO SCH (10:00)
[2019-03-22] MEDS ORDERED: [UNRECOGNIZED DRUG - OTHER] PO SCH (10:00)
--- NOTE | 2019-03-22 10:14 | Consultation ---
History of Present Illness Consult date: 03/22/19 Consult reason: congestive heart failure History of present illness: This is an 84-year old male who presents with shortness of breath. Patient has a history of chronic renal failure, hypertension, diabetes and anemia. Patient also has a history of dilated cardiomyopathy, ejection fraction 35-40% by echocardiogram done a year ago. In December of 2016, he had a persantine thallium stress test that reports no ischemia. Patient has not followed up with a women nurse in over a year but reports he is followed on a regular basis by his pcp. Chest x-ray reports mild interstitial edema. Ventilation perfusion scan reports a low probability for PE. Lab measurements shows a creatinine at 3.0 and a proBNP greater than 13,000. ECG shows a sinus rhythm with chronic RBBB. Past History Past Medical History: other (see hpi) Past Surgical History: Other (colonoscopy) Social history: , other (colonoscopy). denies: smoking, alcohol abuse Family history: hypertension Medications and Allergies Allergies Allergy/AdvReac Type Severity Reaction Status Date / Time No Known Allergies Allergy Verified 03/21/19 12:57 Home Medications Medication Instructions Recorded Confirmed Last Taken Type B,C/Folic/Zinc/Copper Ox/Vit E 1 each PO DAILY 04/13/14 02/11/19 02/10/19 History [Stress B-Complex Tablet] Cyanocobalamin (Vitamin B-12) 1,000 mcg PO DAILY 04/13/14 02/11/19 02/10/19 History [B-12] Glimepiride [Amaryl] 4 mg PO BID 04/13/14 02/11/19 02/10/19 History glipiZIDE [glipiZIDE XL] 10 mg PO BID 04/13/14 02/11/19 02/10/19 History Ferrous Sulfate [Ferrous Sulfate 162.5 mg PO QDAY 30 Days oral.liqd 04/16/14 02/11/19 02/10/19 Rx Oral Liq 300 Mg/5 Ml] Pantoprazole [Protonix TAB] 40 mg PO BID #60 tablet 06/25/15 02/11/19 02/10/19 Rx Acetaminophen [Acetaminophen TAB] 500 mg PO Q6HR PRN #30 tablet 06/01/1702/10/19 Rx Celecoxib [Celebrex] 200 mg PO DAILY 01/23/18 02/11/19 02/10/19 History Ipratropium Barrett [Atrovent Hfa] 12.9 gm IH Q4HR PRN 01/23/18 02/11/19 02/10/19 History Carvedilol [Coreg] 12.5 mg PO BID #60 tablet 01/28/18 02/11/19 02/10/19 Rx Doxazosin [Cardura] 4 mg PO QHS tablet 01/28/18 02/11/19 02/10/19 Rx Tamsulosin [Flomax] 0.4 mg PO QDAY #30 capsule 01/28/18 02/11/19 02/10/19 Rx Butalb/Acetamin/Caff 50-325-40 1 tab PO Q6HR PRN #15 tab 11/30/18 02/11/19 02/10/19 Rx [Fioricet] Naproxen [Naprosyn] 500 mg PO BID #14 tablet 12/05/18 02/11/19 02/10/19 Rx Active Meds: Active Medications Acetaminophen (Tylenol) 650 mg PO Q4H PRN PRN Reason: Pain MILD(1-3)/Fever >100.5/OCONNELL Last Admin: 03/22/19 03:59 Dose: 650 mg Documented by: Acetaminophen/Butalbital/Caffeine (Fioricet) 1 tab PO Q6HR PRN PRN Reason: Headache Albuterol (Proventil) 2.5 mg IH Q4HRT PRN PRN Reason: Shortness Of Breath Carvedilol (Coreg) 12.5 mg PO BID [facility] Last Admin: 03/21/19 21:09 Dose: 12.5 mg Documented by: Cyanocobalamin (Vitamin B-12) 1,000 mcg PO DAILY [facility] Doxazosin Mesylate (Cardura) 4 mg PO QHS [facility] Last Admin: 03/21/19 21:09 Dose: 4 mg Documented by: Ferrous Sulfate (Feosol) 162.5 mg PO QDAY [facility] Last Admin: 03/21/19 21:08 Dose: 162.5 mg Documented by: Furosemide (Lasix) 40 mg IV 0700,1900 [facility] Ondansetron HCl (Zofran) 4 mg IV Q8H PRN PRN Reason: Nausea And Vomiting Pantoprazole Sodium (Protonix) 40 mg PO BID [facility] Last Admin: 03/21/19 21:09 Dose: 40 mg Documented by: Sodium Chloride (Sodium Chloride Flush Syringe 10 Ml) 10 ml IV BID [facility] Last Admin: 03/21/19 21:10 Dose: 10 ml Documented by: Sodium Chloride (Sodium Chloride Flush Syringe 10 Ml) 10 ml IV PRN PRN PRN Reason: LINE FLUSH Tamsulosin HCl (Flomax) 0.4 mg PO QDAY [facility] Vitamin B Complex/Vitamin C (Allbee With C) 1 each PO QDAY [facility] Physical Examination Vital Signs Pulse Resp 69 15 03/21/19 13:14 03/21/19 13:14 General appearance: no acute distress HEENT: Positive: PERRL Neck: Positive: trachea midline Cardiac: Positive: Reg Rate and Rhythm Lungs: Positive: Decreased Breath Sounds Neuro: Positive: Grossly Intact Extremities: Absent: edema Results 03/21/19 15:02 03/21/19 15:02 Coagulation 03/21/19 Range/Units 15:02 PT 14.8 (12.2-14.9) Sec. INR 1.17 H (0.87-1.13) APTT 29.0 (24.2-36.6) Sec. Lipids 03/21/19 Range/Units 15:02 Triglycerides 50 (2-149) mg/dL Cholesterol 156 (50-199) mg/dL HDL Cholesterol 56 (40-59) mg/dL Cholesterol/HDL Ratio 2.78 % CBC 03/21/19 Range/Units 15:02 WBC 4.5 (4.5-11.0) K/mm3 RBC 4.30 (3.65-5.03) M/mm3 Hgb 8.7 L (11.8-15.2) gm/dl Hct 27.9 L (35.5-45.6) % Plt Count 268 (140-440) K/mm3 Lymph # Blocking Machine Operator [place] # Blocking Machine Operator Eos # Blocking Machine Operator Baso # Blocking Machine Operator Comprehensive Metabolic Panel 03/21/19 Range/Units 15:02 Sodium 133 L (137-145) mmol/L Potassium 5.5 H (3.6-5.0) mmol/L Chloride 103.6 (98-107) mmol/L Carbon Dioxide 18 L (22-30) mmol/L BUN 49 H (9-20) mg/dL Creatinine 3.0 H (0.8-1.5) mg/dL Glucose 174 H (75-100) mg/dL Calcium 9.9 (8.4-10.2) mg/dL Assessment and Plan Systolic heart failure Echo 01/20/2018 - LVEF 35-40% Volume overload Chronic renal failure Chronically elevated troponin MPI 01/01/2017 at [place] reports no ischemia with a normal LVEF Chronic RBBB Microcytic anemia - chronic History of gastroduodenal AVM s/p APC 2015 Hypertension DM Low probability for PE per ventilation perfusion scan.
[2019-03-22] MEDS: carvediloL 12.5 MG TAB PO SCH ×2 (10:47→22:15)
[2019-03-22] MEDS: FERROUS SULFATE 325 MG TAB PO SCH (10:47)
[2019-03-22] MEDS: CYANOCOBALAMIN (VIT B-12) 1000 MCG TAB PO SCH (10:48)
[2019-03-22] MEDS: FUROSEMIDE 40 MG/4 ML INJ IV SCH ×2 (10:48→22:15)
[2019-03-22] MEDS: B COMPLEX W/VITAMIN C TAB PO SCH (10:48)
[2019-03-22] MEDS: TAMSULOSIN 0.4 MG CAP PO SCH (10:48)
[2019-03-22] MEDS: PANTOPRAZOLE 40 MG TAB PO SCH ×2 (10:48→22:14)
--- NOTE | 2019-03-22 12:08 | Ultrasound Report ---
ULTRASOUND RENAL INDICATION / CLINICAL INFORMATION: Renal failure. COMPARISON: 01/21/2018 FINDINGS: RIGHT KIDNEY: Length = 12.5 cm. [normal > 9 cm] - Parenchymal Thickness = 2.1 cm. [normal > 1.5 cm] - Echogenicity: Increased - Hydronephrosis: None. - Cyst or mass: No significant abnormality. - Stones: None seen. LEFT KIDNEY: Length = 11.7 cm. [normal > 9 cm] - Parenchymal Thickness = 1.3 cm. [normal > 1.5 cm] - Echogenicity: Increased - Hydronephrosis: None. - Cyst or mass: No significant abnormality. - Stones: None seen. URINARY BLADDER: No significant abnormality. FREE FLUID: None. ADDITIONAL FINDINGS: A small to medium layering right pleural effusion is partially imaged. IMPRESSION: Echogenic kidneys consistent with acute renal failure or nonspecific renal parenchymal disease. No o bstructive uropathy. Right pleural effusion. Signer Name: Landry Thorne Jr, MD Signed: 03/22/2019 12:03 PM Workstation Name: [id number]
--- NOTE | 2019-03-22 12:09 | Progress Note ---
Assessment and Plan Assessment and plan: Acute systolic heart failure. Echocardiogram January 2018 revealed EF of 35%. Continue GDMT. Cardiology following. Acute hypoxic respiratory failure. Etiology secondary to above. Low probability for PE via ventilation perfusion scan. Chronic renal failure. Nephrology consult. Elevated troponin. Patient appears to have chronically elevated troponins. MPI 01/01/2017 at [place] reports no ischemia with a normal LVEF Hypertension. Continue antihypertensive medications. Diabetes mellitus type 2. Continue Accu-Cheks and sliding scale insulin. History Interval history: No new issues overnight. Hospitalist Physical - Constitutional Vitals: Temp Pulse Resp BP Pulse Ox 98.4 F 76 18 123/65 95 03/22/19 07:48 03/22/19 04:00 03/22/19 07:48 03/22/19 10:47 03/22/19 04:00 General appearance: Present: no acute distress - EENT Eyes: Present: PERRL, EOM intact ENT: hearing intact, clear oral mucosa, dentition normal - Neck Neck: Present: supple, normal ROM - Respiratory Respiratory effort: normal Respiratory: bilateral: CTA - Cardiovascular Rhythm: regular Heart Sounds: Present: S1 & S2. Absent: gallop, rub - Extremities Extremities: no ischemia, No edema, Full ROM - Abdominal General gastrointestinal: soft, non-tender, non-distended, normal bowel sounds - Integumentary Integumentary: Present: clear, warm, dry - Neurologic Neurologic: CNII-XII intact, moves all extremities Results - Labs CBC & Chem 7: 03/21/19 15:02 03/21/19 15:02 Labs: Laboratory Last Values WBC 4.5 K/mm3 (4.5-11.0) 03/21/19 15:02 RBC 4.30 M/mm3 (3.65-5.03) 03/21/19 15:02 Hgb 8.7 gm/dl (11.8-15.2) L 03/21/19 15:02 Hct 27.9 % (35.5-45.6) L 03/21/19 15:02 MCV 65 fl (84-94) L 03/21/19 15:02 MCH 20 pg (28-32) L 03/21/19 15:02 MCHC 31 % (32-34) L 03/21/19 15:02 RDW 18.1 % (13.2-15.2) H 03/21/19 15:02 Plt Count 268 K/mm3 (140-440) 03/21/19 15:02 Lymph % (Auto) Tassel Snipper 03/21/19 15:02 Chase % (Auto) Tassel Snipper 03/21/19 15:02 Eos % (Auto) Tassel Snipper 03/21/19 15:02 Baso % (Auto) Tassel Snipper 03/21/19 15:02 Lymph # Tassel Snipper 03/21/19 15:02 Chase # Tassel Snipper 03/21/19 15:02 Eos # Tassel Snipper 03/21/19 15:02 Baso # Tassel Snipper 03/21/19 15:02 Add Manual Diff Complete 03/21/19 15:02 Total Counted 100 03/21/19 15:02 Seg Neutrophils % Tassel Snipper 03/21/19 15:02 Seg Neuts % (Manual) 60.0 % (40.0-70.0) 03/21/19 15:02 Band Neutrophils % 0 % 03/21/19 15:02 Lymphocytes % (Manual) 26.0 % (13.4-35.0) 03/21/19 15:02 Reactive Lymphs % (Man) 0 % 03/21/19 15:02 Monocytes % (Manual) 8.0 % (0.0-7.3) H 03/21/19 15:02 Eosinophils % (Manual) 5.0 % (0.0-4.3) H 03/21/19 15:02 Basophils % (Manual) 1.0 % (0.0-1.8) 03/21/19 15:02 Metamyelocytes % 0 % 03/21/19 15:02 Myelocytes % 0 % 03/21/19 15:02 Promyelocytes % 0 % 03/21/19 15:02 Blast Cells % 0 % 03/21/19 15:02 Nucleated RBC % Not Reportable 03/21/19 15:02 Seg Neutrophils # Tassel Snipper 03/21/19 15:02 Seg Neutrophils # Man 2.7 K/mm3 (1.8-7.7) 03/21/19 15:02 Band Neutrophils # 0.0 K/mm3 03/21/19 15:02 Lymphocytes # (Manual) 1.2 K/mm3 (1.2-5.4) 03/21/19 15:02 Abs React Lymphs (Man) 0.0 K/mm3 03/21/19 15:02 Monocytes # (Manual) 0.4 K/mm3 (0.0-0.8) 03/21/19 15:02 Eosinophils # (Manual) 0.2 K/mm3 (0.0-0.4) 03/21/19 15:02 Basophils # (Manual) 0.0 K/mm3 (0.0-0.1) 03/21/19 15:02 Metamyelocytes # 0.0 K/mm3 03/21/19 15:02 Myelocytes # 0.0 K/mm3 03/21/19 15:02 Promyelocytes # 0.0 K/mm3 03/21/19 15:02 Blast Cells # 0.0 K/mm3 03/21/19 15:02 WBC Morphology Not Reportable 03/21/19 15:02 Hypersegmented Neuts Not Reportable 03/21/19 15:02 Hyposegmented Neuts Not Reportable 03/21/19 15:02 Hypogranular Neuts Not Reportable 03/21/19 15:02 Smudge Cells Not Reportable 03/21/19 15:02 Toxic Granulation Not Reportable 03/21/19 15:02 Toxic Vacuolation Not Reportable 03/21/19 15:02 Dohle Bodies Not Reportable 03/21/19 15:02 Pelger-Huet Anomaly Not Reportable 03/21/19 15:02 Alessio Rods Not Reportable 03/21/19 15:02 Platelet Estimate Not Reportable 03/21/19 15:02 Clumped Platelets Not Reportable 03/21/19 15:02 Plt Clumps, EDTA Not Reportable 03/21/19 15:02 Large Platelets Not Reportable 03/21/19 15:02 Giant Platelets Not Reportable 03/21/19 15:02 Platelet Satelliting Not Reportable 03/21/19 15:02 Plt Morphology Comment Not Reportable 03/21/19 15:02 RBC Morphology Not Reportable 03/21/19 15:02 Dimorphic RBCs Not Reportable 03/21/19 15:02 Polychromasia Not Reportable 03/21/19 15:02 Hypochromasia 2+ 03/21/19 15:02 Poikilocytosis Not Reportable 03/21/19 15:02 Anisocytosis Not Reportable 03/21/19 15:02 Microcytosis 1+ 03/21/19 15:02 Macrocytosis Not Reportable 03/21/19 15:02 Spherocytes Not Reportable 03/21/19 15:02 Pappenheimer Bodies Not Reportable 03/21/19 15:02 Sickle Cells Not Reportable 03/21/19 15:02 Target Cells Not Reportable 03/21/19 15:02 Tear Drop Cells Not Reportable 03/21/19 15:02 Ovalocytes Not Reportable 03/21/19 15:02 Helmet Cells Not Reportable 03/21/19 15:02 [place] Bodies Not Reportable 03/21/19 15:02 [place] Rings Not Reportable 03/21/19 15:02 [place] Cells Not Reportable 03/21/19 15:02 Bite Cells Not Reportable 03/21/19 15:02 Crenated Cell Not Reportable 03/21/19 15:02 Elliptocytes Not Reportable 03/21/19 15:02 Acanthocytes (Spur) Not Reportable 03/21/19 15:02 Rouleaux Not Reportable 03/21/19 15:02 Hemoglobin C Crystals Not Reportable 03/21/19 15:02 Schistocytes Not Reportable 03/21/19 15:02 Malaria parasites Not Reportable 03/21/19 15:02 Marlo Bodies Not Reportable 03/21/19 15:02 Hem Pathologist Commnt No 03/21/19 15:02 PT 14.8 Sec. (12.2-14.9) 03/21/19 15:02 INR 1.17 (0.87-1.13) H 03/21/19 15:02 APTT 29.0 Sec. (24.2-36.6) 03/21/19 15:02 Sodium 133 mmol/L (137-145) L 03/21/19 15:02 Potassium 5.5 mmol/L (3.6-5.0) H 03/21/19 15:02 Chloride 103.6 mmol/L (98-107) 03/21/19 15:02 Carbon Dioxide 18 mmol/L (22-30) L 03/21/19 15:02 Anion Gap 17 mmol/L 03/21/19 15:02 BUN 49 mg/dL (9-20) H 03/21/19 15:02 Creatinine 3.0 mg/dL (0.8-1.5) H 03/21/19 15:02 Estimated GFR 24 ml/min 03/21/19 15:02 BUN/Creatinine Ratio 16 % 03/21/19 15:02 Glucose 174 mg/dL (75-100) H 03/21/19 15:02 POC Glucose 230 (70-105) H 03/22/19 12:10 Calcium 9.9 mg/dL (8.4-10.2) 03/21/19 15:02 Magnesium 2.10 mg/dL (1.7-2.3) 03/21/19 15:02 Troponin T 0.141 ng/mL (0.00-0.029) H* 03/21/19 15:02 NT-Pro-B Natriuret Pep 04769 pg/mL (0-900) H 03/21/19 15:02 Triglycerides 50 mg/dL (2-149) 03/21/19 15:02 Cholesterol 156 mg/dL (50-199) 03/21/19 15:02 LDL Cholesterol Direct 96 mg/dL (50-130) 03/21/19 15:02 HDL Cholesterol 56 mg/dL (40-59) 03/21/19 15:02 Cholesterol/HDL Ratio 2.78 % 03/21/19 15:02 TSH 0.797 mlU/mL (0.270-4.200) 03/21/19 15:02 Free T4 1.14 ng/dL (0.76-1.46) 03/21/19 15:02 Active Medications - Current Medications Current Medications: Generic Name Dose Route Start Last Admin Trade Name Freq PRN Reason Stop Dose Admin Acetaminophen 650 mg 03/21/19 17:21 03/22/19 03:59 Tylenol PO 650 mg Q4H PRN Administration Pain MILD(1-3)/Fever >100.5/OCONNELL Acetaminophen/Butalbital/Caffeine 1 tab 03/21/19 17:19 Fioricet PO Q6HR PRN Headache Albuterol 2.5 mg 03/21/19 17:21 Proventil IH Q4HRT PRN Shortness Of Breath Carvedilol 12.5 mg 03/21/19 22:00 03/22/19 10:47 Coreg PO 12.5 mg BID ARUNLFO Administration Cyanocobalamin 1,000 mcg 03/22/19 10:00 03/22/19 10:48 Vitamin B-12 PO 1,000 mcg DAILY ARNULFO Administration Doxazosin Mesylate 4 mg 03/21/19 22:00 03/21/19 21:09 Cardura PO 4 mg QHS ARNULFO Administration Ferrous Sulfate 162.5 mg 03/21/19 20:00 03/22/19 10:47 Feosol PO 162.5 mg QDAY ARNULFO Administration Furosemide 40 mg 03/22/19 07:00 03/22/19 10:48 Lasix IV 40 mg 0700,1900 ARNULFO Administration Ondansetron HCl 4 mg 03/21/19 17:21 Zofran IV Q8H PRN Nausea And Vomiting Pantoprazole Sodium 40 mg 03/21/19 22:00 03/22/19 10:48 Protonix PO 40 mg BID ARNULFO Administration Sodium Chloride 10 ml 03/21/19 22:00 03/22/19 10:48 Sodium Chloride Flush Syringe 10 Ml IV 10 ml BID ARNULFO Administration Sodium Chloride 10 ml 03/21/19 17:21 Sodium Chloride Flush Syringe 10 Ml IV PRN PRN LINE FLUSH Tamsulosin HCl 0.4 mg 03/22/19 10:00 03/22/19 10:48 Flomax PO 0.4 mg QDAY ARNULFO Administration Vitamin B Complex/Vitamin C 1 each 03/22/19 10:00 03/22/19 10:48 Allbee With C PO 1 each QDAY ARNULFO Administration
[2019-03-22 15:14] LABS: Albumin 2.9 g/dL (3.9-5); Calcium 9.4 mg/dL (8.4-10.2)
[2019-03-22] MEDS ORDERED: FUROSEMIDE 20 MG/2 ML INJ IV SCH (19:19)
[2019-03-22] MEDS ORDERED: INSULIN GLARGINE 100 UNITS/ML SUB-Q SCH (22:00)
[2019-03-22] MEDS: INSULIN REGULAR, HUMAN 100 UNITS/1 ML SUB-Q SCH (22:12)
[2019-03-22] MEDS: DOXAZOSIN 4 MG TAB PO SCH (22:15)
[2019-03-23 07:47] LABS: Hematocrit 26.5 % (35.5-45.6); Hemoglobin 8.3 gm/dl (11.8-15.2); Mean Corpuscular HGB Conc 31 % (32-34); Platelet Count 260 K/mm3 (140-440); Red Blood Count 4.12 M/mm3 (3.65-5.03); Red Cell Distribution Width 17.7 % (13.2-15.2)
[2019-03-23 07:49] LABS: Mean Corpuscular Volume 64 fl (84-94)
[2019-03-23 08:07] LABS: Calcium 9.3 mg/dL (8.4-10.2)
--- NOTE | 2019-03-23 08:46 | Progress Note ---
Subjective Interval history: Patient was seen today for follow-up on multiple renal related issues Events of this hospitalization were noted Patient does have reservations about dialysis as he was told by his primary care physician not to consider dialysis He does understand that he has severe renal failure and does have a good idea about this hospitalization, Interdisciplinary notes were also reviewed Vitals intake output medications were reviewed Past medical history: Reviewed Family, social history: Reviewed Allergies: Reviewed Physical examination General: No acute distress Vitals: Reviewed HEENT: Oral mucosa moist no icterus Neck: Supple no thyromegaly nodular mass or JVD Chest: Clear to auscultation anteriorly Heart: Regular rate and rhythm S1-S2 heard no S3-S4 Abdomen: Soft nontender no suprapubic masses no organomegaly Extremity: Dry skin less than 1+ edema Psych: No evidence of any agitation and aggression noted Derm: No petechial rash Assessment and plan: Stage IV CK D with hyperkalemia and metabolic acidosis fluid overload in a patient who is 84-year-old, and discussed all the options with the patient including possibility of at least a short-term trial of dialysis which can be given to see how he feels patient will let me know tomorrow, Renal ultrasonogram shows evidence of echogenic kidneys Echocardiogram shows: Ejection fraction in the range of 30-35% Hyperkalemia needs ongoing monitoring Hyponatremia with volume overload Metabolic acidosis relatively stable Leukopenia, anemia patient may need to see hematology down the line at this time Patient will benefit from erythropoietin therapy All renal related issues were discussed with the patient, patient does exhibit good understanding, lab results were also discussed with patient in simple Yi Prognosis: Guarded We'll continue to follow and make recommendation from renal standpoint Objective - Vital Signs Vital signs: Vital Signs - 12hr 03/22/19 03/22/19 03/22/19 21:32 22:41 23:14 Temperature 97.7 F Pulse Rate 78 Respiratory 20 18 Rate Blood Pressure 137/64 O2 Sat by Pulse 97 99 Oximetry 03/23/19 03/23/19 03:44 08:34 Temperature 97.5 F L Pulse Rate 79 Respiratory 18 Rate Blood Pressure 143/84 O2 Sat by Pulse 97 97 Oximetry - Lab 03/23/19 06:51 03/23/19 06:51 Most recent lab results Calcium 9.3 mg/dL (8.4-10.2) 03/23/19 06:51 Magnesium 2.10 mg/dL (1.7-2.3) 03/21/19 15:02 Medications & Allergies - Medications Allergies/Adverse Reactions: Allergies No Known Allergies Allergy (Verified 03/21/19 12:57) Home Medications: Home Medications Medication Instructions Recorded Confirmed Last Taken Type B,C/Folic/Zinc/Copper Ox/Vit E 1 each PO DAILY 04/13/14 03/23/19 02/10/19 History [Stress B-Complex Tablet] Cyanocobalamin (Vitamin B-12) 1,000 mcg PO DAILY 04/13/14 03/23/19 02/10/19 History [B-12] Glimepiride [Amaryl] 4 mg PO BID 04/13/14 03/23/19 02/10/19 History glipiZIDE [glipiZIDE XL] 10 mg PO BID 04/13/14 03/23/19 02/10/19 History Ferrous Sulfate [Ferrous Sulfate 162.5 mg PO QDAY 30 Days oral.liqd 04/16/14 03/23/19 02/10/19 Rx Oral Liq 300 Mg/5 Ml] Pantoprazole [Protonix TAB] 40 mg PO BID #60 tablet 06/25/15 03/23/19 02/10/19 Rx Acetaminophen [Acetaminophen TAB] 500 mg PO Q6HR PRN #30 tablet 06/01/17 03/23/19 02/10/19 Rx Celecoxib [Celebrex] 200 mg PO DAILY 01/23/18 03/23/19 02/10/19 History Ipratropium Poth [Atrovent Hfa] 12.9 gm IH Q4HR PRN 01/23/18 03/23/19 02/10/19 History Carvedilol [Coreg] 12.5 mg PO BID #60 tablet 01/28/18 03/23/19 02/10/19 Rx Doxazosin [Cardura] 4 mg PO QHS tablet 01/28/18 03/23/19 02/10/19 Rx Tamsulosin [Flomax] 0.4 mg PO QDAY #30 capsule 01/28/18 03/23/19 02/10/19 Rx Butalb/Acetamin/Caff 50-325-40 1 tab PO Q6HR PRN #15 tab 11/30/18 03/23/19 02/10/19 Rx [Fioricet] Naproxen [Naprosyn] 500 mg PO BID #14 tablet 12/05/18 03/23/19 02/10/19 Rx Active Medications: Generic Name Dose Route Start Last Admin Trade Name Freq PRN Reason Stop Dose Admin Acetaminophen 650 mg 03/21/19 17:21 03/22/19 03:59 Tylenol PO 650 mg Q4H PRN Administration Pain MILD(1-3)/Fever >100.5/[place]ON[place] Acetaminophen/Butalbital/Caffeine 1 tab 03/21/19 17:19 Fioricet PO Q6HR PRN Headache Albuterol 2.5 mg 03/21/19 17:21 Proventil IH Q4HRT PRN Shortness Of Breath Carvedilol 12.5 mg 03/21/19 22:00 03/22/19 22:15 Coreg PO 12.5 mg BID ARNULFO Administration Cyanocobalamin 1,000 mcg 03/22/19 10:00 03/22/19 10:48 Vitamin B-12 PO 1,000 mcg DAILY ARNULFO Administration Doxazosin Mesylate 4 mg 03/21/19 22:00 03/22/19 22:15 Cardura PO 4 mg QHS ARNULFO Administration Ferrous Sulfate 162.5 mg 03/21/19 20:00 03/22/19 10:47 Feosol PO 162.5 mg QDAY ARNULFO Administration Furosemide 40 mg 03/22/19 07:00 03/22/19 22:15 Lasix IV 40 mg 0700,1900 ARNULFO Administration Insulin Glargine 10 units 03/22/19 22:00 03/22/19 22:16 Lantus SUB-Q 10 units QHS ARNULFO Administration Insulin Human Regular 0 units 03/22/19 22:00 03/22/19 22:12 Humulin R SUB-Q Not Given ACHS [facility] Protocol Ondansetron HCl 4 mg 03/21/19 17:21 Zofran IV Q8H PRN Nausea And Vomiting Pantoprazole Sodium 40 mg 03/21/19 22:00 03/22/19 22:14 Protonix PO 40 mg BID ARNULFO Administration Sodium Chloride 10 ml 03/21/19 22:00 03/22/19 22:17 Sodium Chloride Flush Syringe 10 Ml IV 10 ml BID ARNULFO Administration Sodium Chloride 10 ml 03/21/19 17:21 Sodium Chloride Flush Syringe 10 Ml IV PRN PRN LINE FLUSH Tamsulosin HCl 0.4 mg 03/22/19 10:00 03/22/19 10:48 Flomax PO 0.4 mg QDAY ARNULFO Administration Vitamin B Complex/Vitamin C 1 each 03/22/19 10:00 03/22/19 10:48 Allbee With C PO 1 each QDAY ARNULFO Administration
[2019-03-23 09:43] LABS: Uric Acid 7.7 mg/dL (3.5-7.6)
[2019-03-23 10:14] VITALS: BP 136/43
[2019-03-23 10:25] LABS: Total Cells Counted 100
[2019-03-23 10:26] LABS: Basophils % (Manual) 0 % (0.0-1.8); Hypochromasia 2+; Platelet Estimate Consistent w Auto; Target Cells 1+
[2019-03-23] MEDS: FERROUS SULFATE 325 MG TAB PO SCH (10:40)
[2019-03-23] MEDS: TAMSULOSIN 0.4 MG CAP PO SCH (10:40)
[2019-03-23] MEDS: carvediloL 12.5 MG TAB PO SCH (10:41)
[2019-03-23] MEDS: INSULIN REGULAR, HUMAN 100 UNITS/1 ML SUB-Q SCH ×2 (10:41→13:55)
[2019-03-23] MEDS: PANTOPRAZOLE 40 MG TAB PO SCH (10:41)
[2019-03-23] MEDS: CYANOCOBALAMIN (VIT B-12) 1000 MCG TAB PO SCH (10:41)
[2019-03-23] MEDS: B COMPLEX W/VITAMIN C TAB PO SCH (10:41)
[2019-03-23] MEDS: FUROSEMIDE 40 MG/4 ML INJ IV SCH (10:45)
[2019-03-23] MEDS ORDERED: EPOETIN ALFA 20,000 UNIT/1 ML INJ SUB-Q NR (11:10)
--- NOTE | 2019-03-23 11:24 | Progress Note ---
Assessment and Plan Systolic heart failure Volume overload Chronic renal failure Chronically elevated troponin MPI 01/01/2017 at [place] reports no ischemia with a normal LVEF Chronic RBBB Microcytic anemia - chronic History of gastroduodenal AV malformation s/p APC 2016 Hypertension DM Low probability for PE per ventilation perfusion scan. A repeat echocardiogram this admission shows a decreased left ventricular systolic function, EF 30-35%. Recommendations: Advised sodium/fluid restriction. Medical therapy with afterload reduction agents, beta blockers for systolic heart failure. Medical therapy for fluid overload including diuretics as tolerated and directed by the nephrology service. Subjective Date of service: 03/23/19 Interval history: Patient denies shortness of breath and chest pain. Objective Vital Signs Temp Pulse Resp BP Pulse Ox 03/23/19 08:34 97 03/23/19 08:31 98.6 F 18 136/43 03/23/19 03:44 97.5 F L 79 18 143/84 97 03/22/19 23:14 97.7 F 78 18 137/64 99 03/22/19 22:41 20 03/22/19 21:32 97 03/22/19 20:40 75 03/22/19 19:47 97.6 F 79 20 155/87 97 03/22/19 17:26 98.2 F 18 156/78 98 03/22/19 12:03 98.4 F 75 18 143/79 97 03/22/19 12:00 66 - Physical Examination General: No Apparent Distress HEENT: Positive: PERRL Neck: Positive: trachea midline Cardiac: Positive: Reg Rate and Rhythm Lungs: Positive: Decreased Breath Sounds Neuro: Positive: Grossly Intact Extremities: Absent: edema - Labs and Meds Cardiac Enzymes 03/22/19 Range/Units 14:28 AST 26 (5-40) units/L CBC 03/23/19 Range/Units 06:51 WBC 3.3 L (4.5-11.0) K/mm3 RBC 4.12 (3.65-5.03) M/mm3 Hgb 8.3 L (11.8-15.2) gm/dl Hct 26.5 L (35.5-45.6) % Plt Count 260 (140-440) K/mm3 Comprehensive Metabolic Panel 03/22/19 03/23/19 Range/Units 14:28 06:51 Sodium 132 L 132 L (137-145) mmol/L Potassium 5.8 H 5.2 H (3.6-5.0) mmol/L Chloride 103.5 102.0 (98-107) mmol/L Carbon Dioxide 18 L 19 L (22-30) mmol/L BUN 54 H 54 H (9-20) mg/dL Creatinine 3.2 H 3.3 H (0.8-1.5) mg/dL Glucose 270 H 266 H (75-100) mg/dL Calcium 9.4 9.3 (8.4-10.2) mg/dL AST 26 (5-40) units/L ALT 26 (7-56) units/L Alkaline Phosphatase 106 (35-129) units/L Total Protein 6.6 (6.3-8.2) g/dL Albumin 2.9 L (3.9-5) g/dL
--- NOTE | 2019-03-23 11:52 | Discharge Summary ---
Providers - Providers Date of Admission: 03/21/19 17:21 Date of discharge: 03/23/19 Attending physician: REHAN MENDOZA MD 03/21/19 17:21 Consult to Physician [CONS] Routine Comment: CLD OFC TO ADV OF CONSULT Consulting Provider: GABRIELLE CARRASCO Physician Instructions: Reason For Exam: CHF 03/21/19 17:25 Consult to Physician [CONS] Routine Comment: CLD OFC TO ADV OF CONSULT Consulting Provider: SAWYER SHEETS Physician Instructions: Reason For Exam: ANNA Primary care physician: MESSI ROSADO Hospitalization Reason for admission: CHF exacerbation, acute on chronic renal failure Condition: Stable Hospital course: 84 YO Male with HTN, DM, OA, BPH, HLD, CVA, Diverticulosis, Systolic CHF(EF 35%) , Chronic Mild troponin elevation, Atrial Fib not taking therapeutic anticoagulation, AVM with H/O Hemorrhage, Anemia presents to ED for evaluation. Pt states that he has experienced shortness of breath over the past 3 days with worsening symptoms over the same time frame. Pt acknowledges Orthopnea/PND, Decreased exercise tolerance, Dypsnea with exertion, Dypsnea at rest. Pt transported to [facility] via private vehicle. Pt seen and evaluated in ED and found to have CHF Decompensation, Acute Kidney Injury and Hyperkalemia without EKG changes. Pt admitted to telemetry. Cardiology team consulted. Nephrology team consulted. Pt denies fever, chills, CP, palpitations, Hemoptysis, productive cough, Individual/Family history of DVT/PE, bleeding or blood clotting disorders. Prior admission on 01/19/18 reviewed. All listed medication reconciled at time of admission. Patient was admitted to the floor, cardiology was consulted and patient was adequately treated for CHF exacerbation. Patient symptoms resolved and discharged home in a stable condition. Disposition: DC-01 TO HOME OR SELFCARE Time spent for discharge: 35 minutes - Discharge Diagnoses (1) Atrial fibrillation Status: Acute Qualifiers: Atrial fibrillation type: unspecified Qualified Code(s): I48.91 - Unspecified atrial fibrillation (2) CHF (congestive heart failure) Status: Acute Qualifiers: Heart failure type: systolic Heart failure chronicity: acute on chronic Qualified Code(s): I50.23 - Acute on chronic systolic (congestive) heart failure (3) CRI (chronic renal insufficiency) Status: Acute (4) Acute on chronic renal failure Status: Acute Core Measure Documentation - Palliative Care Palliative Care/ Comfort Measures: Not Applicable - Core Measures Any of the following diagnoses?: heart failure - Heart Failure Discharge Requirements MARYJANE/ARB for LVSD if EF <40%: No Reason for no MARYJANE/ARB: Renal impairment Beta ollie at discharge: Yes Exam - Physical Exam Narrative exam: Not in cardiopulmonary distress. The patient appeared well nourished and normally developed. Vital signs as documented. Head exam is unremarkable. No scleral icterus . Neck is without jugular venous distension, thyromegaly, or carotid bruits. Lungs are clear to auscultation. Cardiac exam reveals regular rate and Rhythm. Abdominal exam reveals normal bowel sounds, nontender, no organomegaly. Extremities are nonedematous and both femoral and pedal pulses are normal. CLINICAL BIOCHEMICAL GENETICIST: Alert and oriented 3. No focal weakness. - Constitutional Vitals: Temp Pulse Resp BP Pulse Ox 98.6 F 79 18 136/43 97 03/23/19 08:31 03/23/19 03:44 03/23/19 08:31 03/23/19 08:31 03/23/19 08:34 Plan Activity: no restrictions Weight Bearing Status: Full Weight Bearing Diet: low cholesterol, low salt Follow up with: ASMITA CHANEY MD [Referring] - 3-5 Days Forms: Discharge Signature Page
== END 2019-03-23 15:41 | disposition home or self-care (01) | DRG 682 ==
LOC: ED 12:54 → 4A 17:21
PROVIDERS: ADMIT Internal Medicine; ATTEND Internal Medicine
DX: N17.9 Acute kidney failure, unspecified (principal); I50.23 Acute on chronic systolic (congestive) heart failure; J96.01 Acute respiratory failure with hypoxia; E87.1 Hypo-osmolality and hyponatremia; E87.2 Acidosis; I42.0 Dilated cardiomyopathy; I13.0 Hypertensive heart and chronic kidney disease with heart failure and stage 1 through stage 4 chronic kidney disease, or unspecified chronic kidney disease; N18.4 Chronic kidney disease, stage 4 (severe); D50.9 Iron deficiency anemia, unspecified; E87.5 Hyperkalemia; I48.91 Unspecified atrial fibrillation; I45.10 Unspecified right bundle-branch block; E11.22 Type 2 diabetes mellitus with diabetic chronic kidney disease; J44.9 Chronic obstructive pulmonary disease, unspecified; M19.90 Unspecified osteoarthritis, unspecified site; D72.819 Decreased white blood cell count, unspecified; Z79.899 Other long term (current) drug therapy; Z82.49 Family history of ischemic heart disease and other diseases of the circulatory system; Z86.73 Personal history of transient ischemic attack (TIA), and cerebral infarction without residual deficits
CPT/HCPCS: 36415; 71045; 76770; 78582; 80048; 80053; 80061; 82607; 82747; 82962; 83550; 83735; 83880; 83930; 84439; 84443; 84484; 84550; 85007; 85025; 85045; 85610; 85730; 86334; 93005; 93010; 93306; 94760; 96360; G0378; A9540; A9558; J0610; J0885; J1815; J1940

== ENCOUNTER 2019-05-03 09:56 | Inpatient (IN) | payer MEDICARE ==
[2019-05-03 10:40] LABS: Red Cell Distribution Width 16.7 % (13.2-15.2)
[2019-05-03 10:48] LABS: Hematocrit 23.8 % (35.5-45.6); Hemoglobin 7.5 gm/dl (11.8-15.2); Mean Corpuscular HGB Conc 31 % (32-34); Platelet Count 330 K/mm3 (140-440)
[2019-05-03 10:51] LABS: Mean Corpuscular Volume 61 fl (84-94)
[2019-05-03 11:01] LABS: Albumin 3.2 g/dL (3.9-5); Calcium 9.8 mg/dL (8.4-10.2)
--- NOTE | 2019-05-03 11:06 | Emergency Department Report ---
ED General Adult HPI - General Chief complaint: Dyspnea/Respdistress Stated complaint: DAXA Time Seen by Provider: 05/03/19 11:02 Source: EMS Mode of arrival: Stretcher Limitations: No Limitations - History of Present Illness Initial comments: A 4-year-old man who is a rather poor historian. Complains of shortness of breath for the last 3 days. He's had a largely nonproductive cough with occasional clear sputum. He denies fever chills or chest pain. He has a history of CHF and chronic renal insufficiency as well as type 2 diabetes and hypertension. Per his last hospitalization a few months ago: Hospitalization Reason for admission: CHF exacerbation, acute on chronic renal failure Condition: Stable Hospital course: 84 YO Male with HTN, DM, OA, BPH, HLD, CVA, Diverticulosis, Systolic CHF(EF 35%), Chronic Mild troponin elevation, Atrial Fib not taking therapeutic anticoagulation, AVM with H/O Hemorrhage, Anemia presents to ED for evaluation. Pt states that he has experienced shortness of breath over the past 3 days with worsening symptoms over the same time frame. Pt acknowledges Orthopnea/PND, Decreased exercise tolerance, Dypsnea with exertion, Dypsnea at rest. Pt transported to [facility] via private vehicle. Pt seen and evaluated in ED and found to have CHF Decompensation, Acute Kidney Injury and Hyperkalemia without EKG changes. Pt admitted to telemetry. Cardiology team consulted. Nephrology team consulted. Pt denies fever, chills, CP, palpitations, Hemoptysis, productive cough, Individual/Family history of DVT/PE, bleeding or blood clotting disorders. Prior admission on 01/19/18 reviewed. All listed medication reconciled at time of admission. Patient was admitted to the floor, cardiology was consulted and patient was adequately treated for CHF exacerbation. Patient symptoms resolved and discharged home in a stable condition. Disposition: DC-01 TO HOME OR SELFCARE Time spent for discharge: 35 minutes - Discharge Diagnoses (1) Atrial fibrillation Status: Acute Qualifiers: Atrial fibrillation type: unspecified Qualified Code(s): I48.91 - Unspecified atrial fibrillation (2) CHF (congestive heart failure) Status: Acute Qualifiers: Heart failure type: systolic Heart failure chronicity: acute on chronic Qualified Code(s): I50.23 - Acute on chronic systolic (congestive) heart failure (3) CRI (chronic renal insufficiency) Status: Acute (4) Acute on chronic renal failure Status: Acute -: Gradual, days(s) Associated Symptoms: denies other symptoms - Related Data Home Medications Medication Instructions Recorded Confirmed Last Taken B,C/Folic/Zinc/Copper Ox/Vit E 1 each PO DAILY 04/13/14 03/23/19 02/10/19 [Stress B-Complex Tablet] Cyanocobalamin (Vitamin B-12) 1,000 mcg PO DAILY 04/13/14 03/23/19 02/10/19 [B-12] Glimepiride [Amaryl] 4 mg PO BID 04/13/14 03/23/19 02/10/19 glipiZIDE [glipiZIDE XL] 10 mg PO BID 04/13/14 03/23/19 02/10/19 Ipratropium [place] [Atrovent Hfa] 12.9 gm IH Q4HR PRN 01/23/18 03/23/19 02/10/19 Previous Rx's Medication Instructions Recorded Last Taken Type Ferrous Sulfate [Ferrous Sulfate 162.5 mg PO QDAY 30 Days oral.liqd 04/16/14 02/10/19 Rx Oral Liq 300 Mg/5 Ml] Pantoprazole [Protonix TAB] 40 mg PO BID #60 tablet 06/25/15 02/10/19 Rx Acetaminophen [Acetaminophen TAB] 500 mg PO Q6HR PRN #30 tablet 06/01/17 02/10/19 Rx Doxazosin [Cardura] 4 mg PO QHS tablet 01/28/18 02/10/19 Rx Tamsulosin [Flomax] 0.4 mg PO QDAY #30 capsule 01/28/18 02/10/19 Rx carvediloL [Coreg] 12.5 mg PO BID #60 tablet 01/28/18 02/10/19 Rx Butalb/Acetamin/Caff 50-325-40 1 tab PO Q6HR PRN #15 tab 11/30/18 02/10/19 Rx [Fioricet 50-325-40] Allergies Allergy/AdvReac Type Severity Reaction Status Date / Time No Known Allergies Allergy Verified 03/21/19 12:57 ED Review of Systems ROS: Stated complaint: DAXA Other details as noted in HPI Constitutional: denies: chills, fever Eyes: denies: eye pain, eye discharge, vision change ENT: denies: ear pain, throat pain Respiratory: cough, shortness of breath. denies: wheezing Cardiovascular: denies: chest pain, palpitations Endocrine: no symptoms reported Gastrointestinal: denies: abdominal pain, nausea, diarrhea Genitourinary: denies: urgency, dysuria Musculoskeletal: denies: back pain, joint swelling, arthralgia Skin: denies: rash, lesions Neurological: denies: headache, weakness, paresthesias Psychiatric: denies: anxiety, depression Hematological/Lymphatic: denies: easy bleeding, easy bruising ED Past Medical Hx - Past Medical History Previous Medical History?: Yes Hx Hypertension: Yes Hx CVA: Yes (no resid. deficits) Hx Congestive Heart Failure: Yes Hx Diabetes: Yes Hx Arthritis: Yes Hx Asthma: Yes Hx COPD: No Additional medical history: A-fib, anemia - Surgical History Past Surgical History?: No Additional Surgical History: colon polyps removed. - Social History Smoking Status: Unknown if ever smoked Substance Use Type: None - Medications Home Medications: Home Medications Medication Instructions Recorded Confirmed Last Taken Type B,C/Folic/Zinc/Copper Ox/Vit E 1 each PO DAILY 04/13/14 03/23/19 02/10/19 History [Stress B-Complex Tablet] Cyanocobalamin (Vitamin B-12) 1,000 mcg PO DAILY 04/13/14 03/23/19 02/10/19 History [B-12] Glimepiride [Amaryl] 4 mg PO BID 04/13/14 03/23/19 02/10/19 History glipiZIDE [glipiZIDE XL] 10 mg PO BID 04/13/14 03/23/19 02/10/19 History Ferrous Sulfate [Ferrous Sulfate 162.5 mg PO QDAY 30 Days oral.liqd 04/16/14 03/23/19 02/10/19 Rx Oral Liq 300 Mg/5 Ml] Pantoprazole [Protonix TAB] 40 mg PO BID #60 tablet 06/25/15 03/23/19 02/10/19 Rx Acetaminophen [Acetaminophen TAB] 500 mg PO Q6HR PRN #30 tablet 06/01/17 03/23/19 02/10/19 Rx Ipratropium [place] [Atrovent Hfa] 12.9 gm IH Q4HR PRN 01/23/18 03/23/19 02/10/19 History Doxazosin [Cardura] 4 mg PO QHS tablet 01/28/18 03/23/19 02/10/19 Rx Tamsulosin [Flomax] 0.4 mg PO QDAY #30 capsule 01/28/18 03/23/19 02/10/19 Rx carvediloL [Coreg] 12.5 mg PO BID #60 tablet 01/28/18 03/23/19 02/10/19 Rx Butalb/Acetamin/Caff 50-325-40 1 tab PO Q6HR PRN #15 tab 11/30/18 03/23/19 02/10/19 Rx [Fioricet 50-325-40] ED Physical Exam - General Limitations: No Limitations General appearance: alert, in no apparent distress - Head Head exam: Present: atraumatic, normocephalic - Eye Eye exam: Present: normal appearance. Absent: scleral icterus - ENT ENT exam: Present: mucous membranes moist - Neck Neck exam: Present: normal inspection. Absent: tenderness - Respiratory Respiratory exam: Present: rales. Absent: respiratory distress - Cardiovascular Cardiovascular Exam: Present: regular rate, normal rhythm. Absent: systolic murmur, diastolic murmur, rubs, gallop - GI/Abdominal GI/Abdominal exam: Present: soft, normal bowel sounds. Absent: distended, tenderness, guarding, rebound - Rectal Rectal exam: Present: deferred - Extremities Exam Extremities exam: Present: normal inspection - Back Exam Back exam: Present: normal inspection - Neurological Exam Neurological exam: Present: alert, oriented X3, CN II-XII intact. Absent: motor sensory deficit - Psychiatric Psychiatric exam: Present: normal mood, flat affect - Skin Skin exam: Present: warm, dry, intact, normal color. Absent: rash ED Course Vital Signs 05/03/19 05/03/19 05/03/19 10:07 10:12 10:15 Temperature 97.5 F L Pulse Rate 74 75 Respiratory 21 Rate Blood Pressure 137/86 141/87 O2 Sat by Pulse 100 100 100 Oximetry 05/03/19 05/03/19 05/03/19 10:30 11:00 11:30 Temperature Pulse Rate 79 79 86 Respiratory 16 15 22 Rate Blood Pressure 139/91 138/83 143/82 O2 Sat by Pulse 100 Oximetry 05/03/19 05/03/19 05/03/19 12:00 12:30 13:01 Temperature Pulse Rate 70 78 80 Respiratory 14 Rate Blood Pressure 141/85 145/87 151/85 O2 Sat by Pulse 96 99 100 Oximetry - Reevaluation(s) Reevaluation #1: She was found to be hyperkalemic. He has evidence of a wide QRS and first degree AV block as well as somewhat sharp. This is stated to be possibly due to his hyperkalemia. He was treated with a cocktail for hyperkalemia to include Kayexalate, Lasix, insulin and D50. He was discussed with teacher instrumental Dr. Rodgers who will be consulting. He is given a dose of ceftriaxone for possible pneumonia. He is believed to have CHF. He was typed and screened for his anemia. Patient was discussed with Dr. Moore and admitted to the hospitalist service. 05/03/19 13:43 05/03/19 13:45 ED Medical Decision Making - Lab Data Result diagrams: 05/03/19 10:22 05/03/19 10:22 Critical Care Time: Yes Critical care time in (mins) excluding proc time.: 60 Critical care attestation.: If time is entered above; I have spent that time in minutes in the direct care of this critically ill patient, excluding procedure time. ED Disposition Clinical Impression: Hyperkalemia, Right bundle branch block, First degree AV block Congestive heart failure Qualifiers: Heart failure type: unspecified Heart failure chronicity: acute on chronic Qualified Code(s): I50.9 - Heart failure, unspecified Anemia Qualifiers: Anemia type: due to chronic kidney disease Chronic kidney disease stage: stage 4 (severe) Qualified Code(s): N18.4 - Chronic kidney disease, stage 4 (severe); D63.1 - Anemia in chronic kidney disease Disposition: 09 OP ADMIT IP TO THIS HOSP Is pt being admited?: Yes Does the pt Need Aspirin: Yes Condition: Stable Time of Disposition: 13:48
--- NOTE | 2019-05-03 11:22 | XRay Report ---
CHEST 1 VIEW INDICATION / CLINICAL INFORMATION: eloy. COMPARISON: 03/21/2019 FINDINGS: SUPPORT DEVICES: None. HEART / MEDIASTINUM: No significant abnormality. LUNGS / PLEURA: Focal airspace disease in the right lower lung No pneumothorax. ADDITIONAL FINDINGS: No significant additional findings. IMPRESSION: Focal airspace disease is seen in the right lower lung representing either atelectasis or pneumonia. The left lung is clear Signer Name: Srini Trujillo MD FACR Signed: 05/03/2019 11:18 AM Workstation Name: [id number]
[2019-05-03] MEDS ORDERED: SODIUM POLYSTYRENE 15 GM/60 ML ORAL LIQD PO ONE (11:30)
[2019-05-03] MEDS ORDERED: DEXTROSE 50% IN WATER (25GM) 50 ML SYRINGE IV ONE (11:32)
[2019-05-03] MEDS ORDERED: INSULIN REGULAR, HUMAN 100 UNITS/1 ML IV ONE (11:33)
[2019-05-03] MEDS ORDERED: cefTRIAXone/NS 1 GM/50 ML 1 GM/50 ML BAG IV ONE (11:33)
[2019-05-03] MEDS ORDERED: FUROSEMIDE 40 MG/4 ML INJ IV ONE (11:41)
[2019-05-03 11:55] LABS: INR 1.07 (0.87-1.13)
[2019-05-03 11:56] LABS: Partial Thromboplastin Time 35.5 Sec. (24.2-36.6)
[2019-05-03 12:33] LABS: Basophils % (Manual) 0 % (0.0-1.8); Total Cells Counted 100
[2019-05-03 12:34] LABS: Anisocytosis 1+; Hypochromasia 2+; Platelet Estimate Consistent w Auto; Schistocytes Few; Target Cells 1+
[2019-05-03] MEDS ORDERED: ASPIRIN 325 MG TAB PO ONE (13:48)
--- NOTE | 2019-05-03 14:01 | History and Physical Report ---
History of Present Illness Chief complaint: Kassidy been coughing History of present illness: 84 YO Male with HTN, DM, OA, BPH, HLD, CVA, Diverticulosis, Systolic CHF(EF 35%), Chronic Mild Troponin Elevation, Atrial Fib not taking therapeutic anticoagulation, AVM with H/O Hemorrhage, Anemia, Dementia presents to ED for ev aluation. Pt states that he has experienced shortness of breath over the past 3 days with worsening symptoms over the same time frame. Pt acknowledges productive cough with clear sputum production. EMS notified, and upon arrival the patient was found to be in distress. Pt transported to [facility]. Pt seen and evaluated in ED. Pt underwent Chest X ray and found to have RLL Pneumonia, ANNA, and Metabolic Acidosis. Pt admitted to [facility] and initiated on Pneumonia Protocol. Nephrology consulted in ED. Prior admission on 03/21/19 reviewed. Past History Past Medical History: other (see HPI) Past Surgical History: Other (colonoscopy) Social history: . denies: smoking, alcohol abuse, prescription drug abuse Family history: no significant family history, other (reviewed) Medications and Allergies Allergies Allergy/AdvReac Type Severity Reaction Status Date / Time No Known Allergies Allergy Verified 03/21/19 12:57 Home Medications Medication Instructions Recorded Confirmed Last Taken Type B,C/Folic/Zinc/Copper Ox/Vit E 1 each PO DAILY 04/13/14 05/03/19 02/10/19 History [Stress B-Complex Tablet] Cyanocobalamin (Vitamin B-12) 1,000 mcg PO DAILY 04/13/14 05/03/19 02/10/19 His tory [B-12] Glimepiride [Amaryl] 4 mg PO BID 04/13/14 05/03/19 02/10/19 History glipiZIDE [glipiZIDE XL] 10 mg PO BID 04/13/14 05/03/19 02/10/19 History Ferrous Sulfate [Ferrous Sulfate 162.5 mg PO QDAY 30 Days oral.liqd 04/16/14 05/03/19 02/10/19 Rx Oral Liq 300 Mg/5 Ml] Pantoprazole [Protonix TAB] 40 mg PO BID #60 tablet 06/25/15 05/03/19 02/10/19 Rx Acetaminophen [Acetaminophen TAB] 500 mg PO Q6HR PRN #30 tablet 0105/03/19 02/10/19 Rx Ipratropium [place] [Atrovent Hfa] 12.9 gm IH Q4HR PRN 01/23/18 05/03/19 02/10/19 History Doxazosin [Cardura] 4 mg PO QHS tablet 01/28/18 05/03/19 02/10/19 Rx Tamsulosin [Flomax] 0.4 mg PO QDAY #30 capsule 01/28/18 05/03/19 02/10/19 Rx carvediloL [Coreg] 12.5 mg PO BID #60 tablet 01/28/18 05/03/19 02/10/19 Rx Butalb/Acetamin/Caff 50-325-40 1 tab PO Q6HR PRN #15 tab 11/30/18 05/03/19 02/10/19 Rx [Fioricet 50-325-40] Exam - Constitutional Vitals: Temp Pulse Resp BP Pulse Ox 97.5 F L 80 14 151/85 100 05/03/19 10:07 05/03/19 13:01 05/03/19 13:01 05/03/19 13:01 05/03/19 13:01 General appearance: Present: mild distress - EENT Eyes: Present: PERRL ENT: hearing intact, clear oral mucosa - Neck Neck: Present: supple, normal ROM - Respiratory Respiratory effort: normal Respiratory: right: diminished - Cardiovascular Heart Sounds: Present: S1 & S2. Absent: rub, click - Extremities Extremities: pulses symmetrical, No edema Peripheral Pulses: within normal limits - Abdominal General gastrointestinal: Present: soft, non-tender, non-distended, normal bowel sounds Male genitourinary: Present: normal - Integumentary Integumentary: Present: clear, warm, dry - Musculoskeletal Musculoskeletal: gait normal, strength equal bilaterally - Psychiatric Psychiatric: appropriate mood/affect, intact judgment & insight - Neurologic Neurologic: CNII-XII intact, moves all extremities Results - Labs CBC & Chem 7: 05/03/19 10:22 05/03/19 10:22 Labs: Abnormal lab results 05/03/19 05/03/19 05/03/19 Range/Units 10:22 10:22 11:12 Hgb 7.5 L (11.8-15.2) gm/dl Hct 23.8 L (35.5-45.6) % MCV 61 L (84-94) fl MCH 19 L (28-32) pg MCHC 31 L (32-34) % RDW 16.7 H (13.2-15.2) % Seg Neuts % (Manual) 74.0 H (40.0-70.0) % Lymphocytes % (Manual) 10.0 L (13.4-35.0) % Eosinophils % (Manual) 11.0 H (0.0-4.3) % Lymphocytes # (Manual) 0.5 L (1.2-5.4) K/mm3 Eosinophils # (Manual) 0.5 H (0.0-0.4) K/mm3 Sodium 136 L (137-145) mmol/L Potassium 5.6 H (3.6-5.0) mmol/L Carbon Dioxide 19 L (22-30) mmol/L BUN 43 H (9-20) mg/dL Creatinine 3.1 H (0.8-1.5) mg/dL NT-Pro-B Natriuret Pep 9775 H (0-900) pg/mL Albumin 3.2 L (3.9-5) g/dL Assessment and Plan - Patient Problems (1) Pneumonia Current Visit: Yes Status: Acute Qualifiers: Laterality: right Lung location: lower lobe of lung Plan to address problem: Pneumonia protocol: Chest X ray, nebulizer therapy, supplemental oxygen, pulse oximetry, CBC, CMP, Blood cultures, influenza antigen, lactic acid (2) ANNA (acute kidney injury) Current Visit: Yes Status: Acute Plan to address problem: Monitor Uop q shift, repeat bmp, IVF resuscitation therapy, nephrology consulted, urine electrolytes, renal ultrasound. (3) Acidosis Current Visit: Yes Status: Acute Plan to address problem: IVF resuscitation therapy, IV bicarbonate therapy, bmp, repeat bmp in am. (4) Advance care planning Current Visit: Yes Status: Acute Plan to address problem: Pt is full code, diagnosis education conducted, Pt acknowledges understanding care plan. +30min (5) CHF (congestive heart failure) Current Visit: Yes Status: Acute Qualifiers: Heart failure chronicity: acute on chronic Plan to address problem: Strict I/O, daily weight, BNP, supplemental oxygen, pulse oximetry, thyroid panel, monitor fluid balance, chest x ray. (6) DVT prophylaxis Current Visit: Yes Status: Acute Plan to address problem: SCD to BLE while in bed, prophylactic heparin
[2019-05-03] MEDS ORDERED: ONDANSETRON 4 MG/2 ML INJ IV PRN (14:04)
[2019-05-03] MEDS ORDERED: ACETAMINOPHEN 325 MG TAB PO PRN (14:04)
[2019-05-03] MEDS ORDERED: ALBUTEROL 2.5 MG/3 ML NEBU IH PRN (14:04)
[2019-05-03] MEDS ORDERED: CALCIUM GLUCONATE 1,000 MG in SODIUM CHLORIDE 0.9% 100 ML IV ONE (14:08)
[2019-05-03] MEDS ORDERED: ASPIRIN 325 MG TAB ONE (14:56)
--- NOTE | 2019-05-03 16:27 | Consultation ---
History of Present Illness - Reason for Consult Consult date: 05/03/19 chronic renal failure - History of Present Illness This is a 84 year old man with history of HTN, DM, OA, BPH, HLD, CVA, Di verticulosis, Systolic CHF(EF 35%), Atrial Fib, AVM with H/O Hemorrhage, Anemia, Dementia who presents with shortness of breath. He notes dyspnea for past 3 days. Patient last seen in CKD clinic in October 2017. At that time, it was suspected that he had diabetic and hypertensive kidney disease, with cessation of several nephrotoxins including echinocea, PPI. Creatinine was 2.6 at that time. He notes good urine output. Notes dyspnea improved with lasix and other medical management ED. Does note ongoing cough. Normal appetite. No nausea, vomiting, chest pain. Past History Past Medical History: diabetes, DVT, heart failure, hypertension, stroke Past Surgical History: No surgical history Social history: no significant social history Family history: no significant family history Medications and Allergies Allergies Allergy/AdvReac Type Severity Reaction Status Date / Time No Known Allergies Allergy Verified 03/21/19 12:57 Home Medications Medication Instructions Recorded Confirmed Last Taken Type B,C/Folic/Zinc/Copper Ox/Vit E 1 each PO DAILY 04/13/14 05/03/19 02/10/19 History [Stress B-Complex Tablet] Cyanocobalamin (Vitamin B-12) 1,000 mcg PO DAILY 04/13/14 05/03/19 02/10/19 History [B-12] Glimepiride [Amaryl] 4 mg PO BID 04/13/14 05/03/19 02/10/19 History glipiZIDE [glipiZIDE XL] 10 mg PO BID 04/13/14 05/03/19 02/10/19 History Ferrous Sulfate [Ferrous Sulfate 162.5 mg PO QDAY 30 Days oral.liqd 04/16/14 05/03/19 02/10/19 Rx Oral Liq 300 Mg/5 Ml] Pantoprazole [Protonix TAB] 40 mg PO BID #60 tablet 06/25/15 05/03/19 02/10/19 Rx Acetaminophen [Acetaminophen TAB] 500 mg PO Q6HR PRN #30 tablet 06/01/17 05/03/19 02/10/19 Rx Ipratropium [place] [Atrovent Hfa] 12.9 gm IH Q4HR PRN 01/23/18 05/03/19 02/10/19 History Doxazosin [Cardura] 4 mg PO QHS tablet 01/28/18 05/03/19 02/10/19 Rx Tamsulosin [Flomax] 0.4 mg PO QDAY #30 capsule 01/28/18 05/03/19 02/10/19 Rx carvediloL [Coreg] 12.5 mg PO BID #60 tablet 01/28/18 05/03/19 02/10/19 Rx Butalb/Acetamin/Caff 50-325-40 1 tab PO Q6HR PRN #15 tab 11/30/18 05/03/19 02/10/19 Rx [Fioricet 50-325-40] Active Meds: Active Medications Acetaminophen (Tylenol) 650 mg PO Q4H PRN PRN Reason: Pain MILD(1-3)/Fever >100.5/OCONNELL Albuterol (Proventil) 2.5 mg IH Q4HRT PRN PRN Reason: Shortness Of Breath Ceftriaxone Sodium (Rocephin/Ns 2 Gm/100 Ml) 2 gm in 100 mls @ 200 mls/hr IV Q24HR ARNULFO; Protocol Azithromycin 500 mg/ Sodium (Chloride) 250 mls @ 250 mls/hr IV Q24HR ARNULFO; Protocol Ondansetron HCl (Zofran) 4 mg IV Q8H PRN PRN Reason: Nausea And Vomiting Sodium Chloride (Sodium Chloride Flush Syringe 10 Ml) 10 ml IV BID ARNULFO Sodium Chloride (Sodium Chloride Flush Syringe 10 Ml) 10 ml IV PRN PRN PRN Reason: LINE FLUSH Review of Systems Constitutional: no fatigue, no weakness Ears, nose, mouth and throat: no ear pain Cardiovascular: orthopnea, dyspnea on exertion, no chest pain, no palpitations, no edema, no syncope Respiratory: cough, shortness of breath, congestion, no hemoptysis Gastrointestinal: no abdominal pain, no nausea, no vomiting, no diarrhea Genitourinary Male: no dysuria, no hematuria, no flank pain Musculoskeletal: no neck stiffness, no neck pain Integumentary: no rash Neurological: no head injury, no headaches Psychiatric: no anxiety Exam - Vital Signs Vital signs: Vital Signs Temp Pulse Resp BP Pulse Ox 97.5 F L 69 22 137/86 100 05/03/19 10:07 05/03/19 10:07 05/03/19 10:07 05/03/19 10:07 05/03/19 10:07 - General Appearance General appearance: well-developed, appears stated age, chronically ill EENT: ATNC, mucous membranes moist Neck: Present: neck supple Respiratory: Decreased Breath Sounds, Other (on NC) Heart: regular, S1S2 Gastrointestinal: Present: normoactive bowel sounds. Absent: tenderness, distended Integumentary: no rash Neurologic: no focal deficit, no asterixis, alert and oriented x3, other (baseline dementia) Psychiatric: mood/affect appropriate Results - Lab Results 05/03/19 10:22 05/03/19 10:22 Most recent lab results Calcium 9.8 mg/dL (8.4-10.2) 05/03/19 10:22 Magnesium 2.10 mg/dL (1.7-2.3) 05/03/19 11:12 Assessment and Plan # ANNA on CKD: creatinine appears at baseline CKD 4. S/p Lasix 60mg IV x1 - will diurese prn based on volume status, will assess in AM and order more Lasix if needed; would like to avoid over-diuresis - avoid nephrotoxins - renally dose meds - daily labs - no dialysis indications # Microcytic Anemia: would check iron level; replete if needed # HTN: BP reasonable, monitor for now. Avoid hypotension # Hyperkalemia: K 5.6 on arrival; received medical management. Likely will improve with Lasix as well. Recheck tomorrow # Metabolic Acidosis: likely in setting of CKD, start po NaHCO3 650mg BID # Volume Overload/CHF: wean O2 as tolerated. S/p diuretics, will continue prn. Thank you for this consult, we will continue to follow with you.
--- NOTE | 2019-05-03 20:54 | Ultrasound Report ---
ULTRASOUND RENAL INDICATION: ANNA. COMPARISON: No relevant prior imaging study available. FINDINGS: RIGHT KIDNEY: Size: 11.6 cm. Echogenicity: Moderately echogenic. Cortical thickness: Normal. Hydronephrosis: None. Cyst or mass: None. Stones: None. LEFT KIDNEY: Size: 11.5 cm. Echogenicity: Moderately echogenic. Cortical thickness: Normal. Hydronephrosis: None. Cyst or mass: 2.4 x 1.6 x 2.2 cm simple left renal cyst. Stones: None. Urinary Bladder: No significant abnormality. Free Fluid: None. Additional Findings: None. IMPRESSION 1. Echogenic kidneys characteristic for medical renal disease. No hydronephrosis. 2 simple 2.4 cm left renal cyst. Signer Name: Bernard Freeman MD Signed: 05/03/2019 8:49 PM Workstation Name: [id number]
[2019-05-03] MEDS: SODIUM BICARBONATE 650 MG TAB PO SCH (22:56)
[2019-05-04 05:31] LABS: Albumin 2.8 g/dL (3.9-5); Calcium 9.7 mg/dL (8.4-10.2)
[2019-05-04 07:37] LABS: Iron 28 ug/dL (49-181); Total Iron Binding Capacity 224 mcg/dL (250-450)
[2019-05-04 08:27] LABS: Hematocrit 25.6 % (35.5-45.6); Hemoglobin 7.8 gm/dl (11.8-15.2); Mean Corpuscular HGB Conc 30 % (32-34); Mean Corpuscular Volume 61 fl (84-94); Red Blood Count 4.17 M/mm3 (3.65-5.03)
[2019-05-04 08:28] LABS: Basophils # (Auto) 0.1 K/mm3 (0.0-0.1); Basophils % (Auto) 1.7 % (0.0-1.8); Eosinophils # (Auto) 0.6 K/mm3 (0.0-0.4); Eosinophils % (Auto) 13.4 % (0.0-4.3); Lymphocytes # (Auto) 0.7 K/mm3 (1.2-5.4); Lymphocytes % (Auto) 14.8 % (13.4-35.0); Monocytes # (Auto) 0.6 K/mm3 (0.0-0.8); Monocytes % (Auto) 13.5 % (0.0-7.3); Platelet Count 335 K/mm3 (140-440)
[2019-05-04 08:48] LABS: Color,Urine Straw (Yellow)
[2019-05-04 08:50] LABS: Bilirubin,Urine Negative (Negative); Blood,Urine Negative (Negative)
[2019-05-04 08:51] LABS: Urobilinogen,Urine < 2.0 mg/dL (<2.0); WBC,Urine < 1.0 /HPF (0.0-6.0)
--- NOTE | 2019-05-04 10:00 | Progress Note ---
Assessment and Plan # ANNA on CKD: creatinine appears at baseline CKD 4. S/p Lasix 60mg IV x1 yesterday - will diurese prn based on volume status, will trial oral Lasix 80mg BID for now; would like to avoid over-diuresis while improving volume overload - avoid nephrotoxins - renally dose meds - daily labs - no dialysis indications - strict Is/Os - low salt diet - will need close CKD clinic follow up at time of discharge # Microcytic Anemia: would check iron level; replete if needed # HTN: BP reasonable, monitor for now # Hyperkalemia: K 5.6->5.8 on arrival; received medical management, now 5.0. Likely will improve with Lasix and PO bicarbonate as well. Low K diet # Metabolic Acidosis: likely in setting of CKD, improving, continue po NaHCO3 650mg BID, will need to monitor for alkalosis in setting of diuresis # Volume Overload/CHF: wean O2 as tolerated. S/p diuretics, will continue po for now Thank you for this consult, we will continue to follow with you. Subjective Date of service: 05/04/19 Principal diagnosis: dyspnea, volume overload Interval history: No acute events noted overnight. Urinating well. Breathing improving. Wants to go home. Normal appetite. Objective - Exam Narrative Exam: General appearance: well-developed, appears stated age, chronically ill appearing EENT: ATNC, mucous membranes moist Neck: Present: neck supple Respiratory: Decreased Breath Sounds, on 2L NC Heart: regular, S1S2 Gastrointestinal: Present: normoactive bowel sounds. Absent: tenderness, distended Integumentary: no rash Neurologic: no focal deficit, no asterixis, alert and oriented x3, other (baseline dementia noted) Psychiatric: mood/affect appropriate - Vital Signs Vital signs: Vital Signs - 12hr 05/03/19 05/04/19 05/04/19 22:00 03:20 07:31 Temperature 97.6 F 98.0 F Pulse Rate 78 84 79 Respiratory 18 18 20 Rate Blood Pressure 151/88 133/72 O2 Sat by Pulse 96 100 98 Oximetry 05/04/19 08:52 Temperature Pulse Rate Respiratory Rate Blood Pressure O2 Sat by Pulse 98 Oximetry - Lab 05/04/19 04:34 05/04/19 04:34 Most recent lab results Calcium 9.7 mg/dL (8.4-10.2) 05/04/19 04:34 Magnesium 2.10 mg/dL (1.7-2.3) 05/03/19 11:12 Urine Creatinine 42.0 mg/dL (0.1-20.0) H 05/04/19 03:50 Urine Sodium 10 mmol/L 05/04/19 03:50 Medications & Allergies - Medications Allergies/Adverse Reactions: Allergies No Known Allergies Allergy (Verified 03/21/19 12:57) Home Medications: Home Medications Medication Instructions Recorded Confirmed Last Taken Type B,C/Folic/Zinc/Copper Ox/Vit E 1 each PO DAILY 04/13/14 05/03/19 02/10/19 History [Stress B-Complex Tablet] Cyanocobalamin (Vitamin B-12) 1,000 mcg PO DAILY 04/13/14 05/03/19 02/10/19 History [B-12] Glimepiride [Amaryl] 4 mg PO BID 04/13/14 05/03/19 02/10/19 History glipiZIDE [glipiZIDE XL] 10 mg PO BID 04/13/14 05/03/19 02/10/19 History Ferrous Sulfate [Ferrous Sulfate 162.5 mg PO QDAY 30 Days oral.liqd 04/16/14 05/03/19 02/10/19 Rx Oral Liq 300 Mg/5 Ml] Pantoprazole [Protonix TAB] 40 mg PO BID #60 tablet 06/25/15 05/03/19 02/10/19 Rx Acetaminophen [Acetaminophen TAB] 500 mg PO Q6HR PRN #30 tablet 06/01/17 05/03/19 02/10/19 Rx Ipratropium [place] [Atrovent Hfa] 12.9 gm IH Q4HR PRN 01/23/18 05/03/19 02/10/19 History Doxazosin [Cardura] 4 mg PO QHS tablet 01/28/18 05/03/19 02/10/19 Rx Tamsulosin [Flomax] 0.4 mg PO QDAY #30 capsule 01/28/18 05/03/19 02/10/19 Rx carvediloL [Coreg] 12.5 mg PO BID #60 tablet 01/28/18 05/03/19 02/10/19 Rx Butalb/Acetamin/Caff 50-325-40 1 tab PO Q6HR PRN #15 tab 11/30/18 05/03/19 02/10/19 Rx [Fioricet 50-325-40] Active Medications: Generic Name Dose Route Start Last Admin Trade Name Freq PRN Reason Stop Dose Admin Acetaminophen 650 mg 05/03/19 14:04 Tylenol PO Q4H PRN Pain MILD(1-3)/Fever >100.5/OCONNELL Albuterol 2.5 mg 05/03/19 14:04 Proventil IH Q4HRT PRN Shortness Of Breath Furosemide 80 mg 05/04/19 09:59 Lasix PO 0600,1800 ARNULFO Ceftriaxone Sodium 2 gm in 100 mls @ 200 mls/hr 05/04/19 10:00 Rocephin/Ns 2 Gm/100 Ml IV Q24HR ARNULFO Protocol Azithromycin 500 mg/ Sodium 250 mls @ 250 mls/hr 05/04/19 10:00 Chloride IV 05/08/19 10:59 Q24HR ARNULFO Protocol Ondansetron HCl 4 mg 05/03/19 14:04 Zofran IV Q8H PRN Nausea And Vomiting Sodium Bicarbonate 650 mg 05/03/19 22:00 05/03/19 22:56 Sodium Bicarbonate PO 650 mg BID ARNULFO Administration Sodium Chloride 10 ml 05/03/19 22:00 05/03/19 22:56 Sodium Chloride Flush Syringe 10 Ml IV 10 ml BID ARNULFO Administration Sodium Chloride 10 ml 05/03/19 14:04 Sodium Chloride Flush Syringe 10 Ml IV PRN PRN LINE FLUSH
[2019-05-04] MEDS: cefTRIAXone/NS 2 GM/100 ML 2 GM/100 ML BAG IV SCH (10:14)
[2019-05-04] MEDS: SODIUM BICARBONATE 650 MG TAB PO SCH ×2 (10:14→22:30)
[2019-05-04] MEDS: AZITHROMYCIN 500 MG in SODIUM CHLORIDE 0.9% 250ML 250 ML IV SCH (12:05)
[2019-05-04] MEDS: FUROSEMIDE 40 MG TAB PO SCH ×2 (12:10→17:49)
--- NOTE | 2019-05-04 14:21 | XRay Report ---
CHEST 1 VIEW INDICATION: focal area RLL. COMPARISON: 05/03/2019 FINDINGS: Support devices: None. Heart: Stable cardiomegaly. Pulmonary vasculature: More distinct vessels and decreased central vascular congestion. Lungs/Pleura: Overall decreased interstitial opacities and decreased right basal alveolar opacities. Lingular subsegmental atelectasis. No pleural effusion. Additional findings: None. IMPRESSION: 1. CHF improved bilateral interstitial pulmonary edema an improved right lower lobe airspace disease. Signer Name: Fazal Akins MD Signed: 05/04/2019 2:16 PM Workstation Name: [id number]
--- NOTE | 2019-05-04 14:34 | Progress Note ---
Assessment and Plan Assessment and plan: Pneumonia Pneumonia protocol: Chest X ray, On Rocephin and Zithromax nebulizer therapy, supplemental oxygen, pulse oximetry, CBC, CMP, Blood cultures, influenza antigen, lactic acid ANNA on CKD Monitor Uop q shift, repeat bmp, IVF resuscitation therapy, nephrology consulted, following urine electrolytes, renal ultrasound. Acidosis IVF resuscitation therapy, IV bicarbonate therapy, bmp, repeat bmp in am. Advance care planning Pt is full code, diagnosis education conducted, Pt acknowledges understanding care plan. +30min Acute on chronic systolic CHF Strict I/O, daily weight, BNP, supplemental oxygen, pulse oximetry, thyroid panel, monitor fluid balance, chest x ray. lasix Diabetes mellitus type 2 accucheck qac and hs DVT prophylaxis SCD to BLE while in bed, prophylactic heparin History Interval history: Feels better less shortness of breath less cough Hospitalist Physical - Physical exam Narrative exam: Gen: Not in acute distress, lying in bed, HEENT: Normocephalic, atraumatic Neck: supple, no JVD Heart: S1 and S2 reg, no murmurs, rubs or gallop Lungs: Bilateral crackles, no wheeze Abd: soft, NT, non distended, normal BS Ext: No edema, no clubbing, no cyanosis Neuro:Awake,alert, oriented , moves all ext - Constitutional Vitals: Temp Pulse Resp BP Pulse Ox 98.0 F 87 20 133/67 100 05/04/19 13:28 05/04/19 13:28 05/04/19 13:28 05/04/19 13:28 05/04/19 13:28 Results - Labs CBC & Chem 7: 05/04/19 04:34 05/04/19 04:34 Labs: Laboratory Last Values WBC 4.7 K/mm3 (4.5-11.0) 05/04/19 04:34 RBC 4.17 M/mm3 (3.65-5.03) 05/04/19 04:34 Hgb 7.8 gm/dl (11.8-15.2) L 05/04/19 04:34 Hct 25.6 % (35.5-45.6) L 05/04/19 04:34 MCV 61 fl (84-94) L 05/04/19 04:34 MCH 19 pg (28-32) L 05/04/19 04:34 MCHC 30 % (32-34) L 05/04/19 04:34 RDW 17.0 % (13.2-15.2) H 05/04/19 04:34 Plt Count 335 K/mm3 (140-440) 05/04/19 04:34 Lymph % (Auto) 14.8 % (13.4-35.0) 05/04/19 04:34 [place] % (Auto) 13.5 % (0.0-7.3) H 05/04/19 04:34 Eos % (Auto) 13.4 % (0.0-4.3) H 05/04/19 04:34 Baso % (Auto) 1.7 % (0.0-1.8) 05/04/19 04:34 Lymph # 0.7 K/mm3 (1.2-5.4) L 05/04/19 04:34 [place] # 0.6 K/mm3 (0.0-0.8) 05/04/19 04:34 Eos # 0.6 K/mm3 (0.0-0.4) H 05/04/19 04:34 Baso # 0.1 K/mm3 (0.0-0.1) 05/04/19 04:34 Add Manual Diff Complete 05/03/19 10:22 Total Counted 100 05/03/19 10:22 Seg Neutrophils % 56.6 % (40.0-70.0) 05/04/19 04:34 Seg Neuts % (Manual) 74.0 % (40.0-70.0) H 05/03/19 10:22 Band Neutrophils % 0 % 05/03/19 10:22 Lymphocytes % (Manual) 10.0 % (13.4-35.0) L 05/03/19 10:22 Reactive Lymphs % (Man) 0 % 05/03/19 10:22 Monocytes % (Manual) 5.0 % (0.0-7.3) 05/03/19 10:22 Eosinophils % (Manual) 11.0 % (0.0-4.3) H 05/03/19 10:22 Basophils % (Manual) 0 % (0.0-1.8) 05/03/19 10:22 Metamyelocytes % 0 % 05/03/19 10:22 Myelocytes % 0 % 05/03/19 10:22 Promyelocytes % 0 % 05/03/19 10:22 Blast Cells % 0 % 05/03/19 10:22 Nucleated RBC % Not Reportable 05/03/19 10:22 Seg Neutrophils # 2.6 K/mm3 (1.8-7.7) 05/04/19 04:34 Seg Neutrophils # Man 3.3 K/mm3 (1.8-7.7) 05/03/19 10:22 Band Neutrophils # 0.0 K/mm3 05/03/19 10:22 Lymphocytes # (Manual) 0.5 K/mm3 (1.2-5.4) L 05/03/19 10:22 Abs React Lymphs (Man) 0.0 K/mm3 05/03/19 10:22 Monocytes # (Manual) 0.2 K/mm3 (0.0-0.8) 05/03/19 10:22 Eosinophils # (Manual) 0.5 K/mm3 (0.0-0.4) H 05/03/19 10:22 Basophils # (Manual) 0.0 K/mm3 (0.0-0.1) 05/03/19 10:22 Metamyelocytes # 0.0 K/mm3 05/03/19 10:22 Myelocytes # 0.0 K/mm3 05/03/19 10:22 Promyelocytes # 0.0 K/mm3 05/03/19 10:22 Blast Cells # 0.0 K/mm3 05/03/19 10:22 WBC Morphology Not Reportable 05/03/19 10:22 Hypersegmented Neuts Not Reportable 05/03/19 10:22 Hyposegmented Neuts Not Reportable 05/03/19 10:22 Hypogranular Neuts Not Reportable 05/03/19 10:22 Smudge Cells Not Reportable 05/03/19 10:22 Toxic Granulation Not Reportable 05/03/19 10:22 Toxic Vacuolation Not Reportable 05/03/19 10:22 Dohle Bodies Not Reportable 05/03/19 10:22 Pelger-Huet Anomaly Not Reportable 05/03/19 10:22 Alessio Rods Not Reportable 05/03/19 10:22 Platelet Estimate Consistent w auto 05/03/19 10:22 Clumped Platelets Not Reportable 05/03/19 10:22 Plt Clumps, EDTA Not Reportable 05/03/19 10:22 Large Platelets Not Reportable 05/03/19 10:22 Giant Platelets Not Reportable 05/03/19 10:22 Platelet Satelliting Not Reportable 05/03/19 10:22 Plt Morphology Comment Not Reportable 05/03/19 10:22 RBC Morphology Not Reportable 05/03/19 10:22 Dimorphic RBCs Not Reportable 05/03/19 10:22 Polychromasia Not Reportable 05/03/19 10:22 Hypochromasia 2+ 05/03/19 10:22 Poikilocytosis Not Reportable 05/03/19 10:22 Anisocytosis 1+ 05/03/19 10:22 Microcytosis 1+ 05/03/19 10:22 Macrocytosis Not Reportable 05/03/19 10:22 Spherocytes Not Reportable 05/03/19 10:22 Pappenheimer Bodies Not Reportable 05/03/19 10:22 Sickle Cells Not Reportable 05/03/19 10:22 Target Cells 1+ 05/03/19 10:22 Tear Drop Cells Not Reportable 05/03/19 10:22 Ovalocytes Not Reportable 05/03/19 10:22 Helmet Cells Not Reportable 05/03/19 10:22 [place] Bodies Not Reportable 05/03/19 10:22 [place] Rings Not Reportable 05/03/19 10:22 Barbra Cells Not Reportable 05/03/19 10:22 Bite Cells Not Reportable 05/03/19 10:22 Crenated Cell Not Reportable 05/03/19 10:22 Elliptocytes Not Reportable 05/03/19 10:22 Acanthocytes (Spur) Not Reportable 05/03/19 10:22 Rouleaux Not Reportable 05/03/19 10:22 Hemoglobin C Crystals Not Reportable 05/03/19 10:22 Schistocytes Few 05/03/19 10:22 Malaria parasites Not Reportable 05/03/19 10:22 Marlo Bodies Not Reportable 05/03/19 10:22 Hem Pathologist Commnt No 05/03/19 10:22 PT 14.0 Sec. (12.2-14.9) 05/03/19 11:12 INR 1.07 (0.87-1.13) 05/03/19 11:12 APTT 35.5 Sec. (24.2-36.6) 05/03/19 11:12 Sodium 137 mmol/L (137-145) 05/04/19 04:34 Potassium 5.0 mmol/L (3.6-5.0) 05/04/19 04:34 Chloride 103.1 mmol/L (98-107) 05/04/19 04:34 Carbon Dioxide 24 mmol/L (22-30) 05/04/19 04:34 Anion Gap 15 mmol/L 05/04/19 04:34 BUN 47 mg/dL (9-20) H 05/04/19 04:34 Creatinine 3.2 mg/dL (0.8-1.5) H 05/04/19 04:34 Estimated GFR 23 ml/min 05/04/19 04:34 BUN/Creatinine Ratio 15 % 05/04/19 04:34 Glucose 98 mg/dL (75-100) 05/04/19 04:34 POC Glucose 159 (70-105) H 05/04/19 11:39 Lactic Acid 1.10 mmol/L (0.7-2.0) 05/03/19 13:44 Calcium 9.7 mg/dL (8.4-10.2) 05/04/19 04:34 Magnesium 2.10 mg/dL (1.7-2.3) 05/03/19 11:12 Iron 28 ug/dL (49-181) L 05/04/19 04:34 TIBC 224 mcg/dL (250-450) L 05/04/19 04:34 Total Bilirubin 0.40 mg/dL (0.1-1.2) 05/04/19 04:34 AST 18 units/L (5-40) 05/04/19 04:34 ALT 14 units/L (7-56) 05/04/19 04:34 Alkaline Phosphatase 106 units/L (35-129) 05/04/19 04:34 NT-Pro-B Natriuret Pep 9775 pg/mL (0-900) H 05/03/19 11:12 Total Protein 6.9 g/dL (6.3-8.2) 05/04/19 04:34 Albumin 2.8 g/dL (3.9-5) L 05/04/19 04:34 Albumin/Globulin Ratio 0.7 % 05/04/19 04:34 Urine Color Straw (Yellow) 05/04/19 03:50 Urine Turbidity Clear (Clear) 05/04/19 03:50 Urine pH 7.0 (5.0-7.0) 05/04/19 03:50 Ur Specific [place] 1.009 (1.003-1.030) 05/04/19 03:50 Urine Protein 100 mg/dl mg/dL (Negative) 05/04/19 03:50 Urine Glucose (UA) Negative mg/dL (Negative) 05/04/19 03:50 Urine Ketones Negative mg/dL (Negative) 05/04/19 03:50 Urine Blood Negative (Negative) 05/04/19 03:50 Urine Nitrite Negative (Negative) 05/04/19 03:50 Urine Bilirubin Negative (Negative) 05/04/19 03:50 Urine Urobilinogen < 2.0 mg/dL (<2.0) 05/04/19 03:50 Ur Leukocyte Esterase Negative (Negative) 05/04/19 03:50 Urine WBC (Auto) < 1.0 /HPF (0.0-6.0) 05/04/19 03:50 Urine RBC (Auto) 2.0 /HPF (0.0-6.0) 05/04/19 03:50 Urine Creatinine 42.0 mg/dL (0.1-20.0) H 05/04/19 03:50 Urine Sodium 10 mmol/L 05/04/19 03:50 Blood Type O POSITIVE 05/03/19 11:32 Antibody Screen Negative 05/03/19 11:32 Active Medications - Current Medications Current Medications: Generic Name Dose Route Start Last Admin Trade Name Freq PRN Reason Stop Dose Admin Acetaminophen 650 mg 05/03/19 14:04 Tylenol PO Q4H PRN Pain MILD(1-3)/Fever >100.5/OCONNELL Albuterol 2.5 mg 05/03/19 14:04 Proventil IH Q4HRT PRN Shortness Of Breath Furosemide 80 mg 05/04/19 10:30 05/04/19 12:10 Lasix PO 80 mg 0600,1800 ARNULFO Administration Ceftriaxone Sodium 2 gm in 100 mls @ 200 mls/hr 05/04/19 10:00 05/04/19 10:14 Rocephin/Ns 2 Gm/100 Ml IV 200 mls/hr Q24HR ARNULFO Administration Protocol Azithromycin 500 mg/ Sodium 250 mls @ 250 mls/hr 05/04/19 10:00 05/04/19 12:05 Chloride IV 05/08/19 10:59 250 mls/hr Q24HR ARNULFO Administration Protocol Ondansetron HCl 4 mg 05/03/19 14:04 Zofran IV Q8H PRN Nausea And Vomiting Sodium Bicarbonate 650 mg 05/03/19 22:00 05/04/19 10:14 Sodium Bicarbonate PO 650 mg BID ARNULFO Administration Sodium Chloride 10 ml 05/03/19 22:00 05/04/19 10:15 Sodium Chloride Flush Syringe 10 Ml IV 10 ml BID ARNULFO Administration Sodium Chloride 10 ml 05/03/19 14:04 Sodium Chloride Flush Syringe 10 Ml IV PRN PRN LINE FLUSH Nutrition/Malnutrition Assess - Dietary Evaluation Nutrition/Malnutrition Findings: Nutrition Notes Start: 05/04/19 11:55 Freq: Status: Active Protocol: Document 05/04/19 11:55 (Rec: 05/04/19 12:02 [email or web address]) Co-Sign 05/04/19 11:55 LM Nutrition Notes Need for Assessment generated from: pocket closer,MST Initial or Follow up Assessment Current Diagnosis Acute Kidney Injury,Diabetes, Hypertension,Heart Failure Other Pertinent Diagnosis Dyspena, OA, pneumonia Current Diet Cardiac Labs/Tests BUN 47 Creatinine 3.2 Pertinent Medications Reviewed Height 6 ft Weight 76.9 kg Usual Body Weight 90.9 kg [place] Body Weight (kg) 80.90 BMI 23.0 Intake Prior to Admission Fair Weight change and time frame 15% in 3 months Weight Status Appropriate Subjective/Other Information RN consult for MST. Pt reports having an appetite and ate 75 % of his breakfast. Pt reports not eating well due to SOB [employer]. Burn Absent Trauma Absent GI Symptoms None Current % PO Good (75-100%) Minimum of two criteria Yes Energy Intake (severe) < or equal to 50% Estimated Energy Requirement > or equal to 5 days Interpretation of Weight Loss (severe) >7.5% in 3 months #1 Nutrition Diagnosis Malnutrition Etiology SOB and advanced age As Evidenced by Signs and Symptoms 15% wt loss in 3 mo and < 50% EER >5 days Is patient on ventilator? No Is Patient Ambulatory and/or Out of Bed Yes REE-([place]-ambulatory/OOB) [ 1952.600 [id number]] Calculation Used for Recommendations [facility] Additional Notes Pro: 92-115 g (1.2-1.5g/kg) Fluid: 1ml/kcal Nutrition Intervention Change Diet Order: Continue current Goal #1 Meet at least 80% of energy needs via PO Anticipated Discharge Needs: Cardiac, consistent carb Follow-Up By: 05/06/19 Additional Comments FU for intakes
[2019-05-04] MEDS ORDERED: BUTALB/ACETAMINOPHEN/CAFFEINE TAB PO PRN (17:22)
[2019-05-04] MEDS ORDERED: ACETAMINOPHEN 500 MG TAB PO PRN (17:22)
[2019-05-04] MEDS ORDERED: DEXTROSE 50% IN WATER (25GM) 50 ML SYRINGE IV PRN (17:27)
[2019-05-04] MEDS ORDERED: FOLIC PO SCH (17:30)
[2019-05-04] MEDS ORDERED: [UNRECOGNIZED DRUG - OTHER] PO SCH (17:30)
[2019-05-04] MEDS ORDERED: ZINC PO SCH (17:30)
[2019-05-04] MEDS ORDERED: VIT E PO SCH (17:30)
[2019-05-04] MEDS: FERROUS SULFATE 325 MG TAB PO SCH (17:49)
[2019-05-04] MEDS: TAMSULOSIN 0.4 MG CAP PO SCH (17:49)
[2019-05-04] MEDS: HEPARIN 5,000 UNIT/1 ML VIAL SUB-Q SCH ×2 (17:49→22:31)
[2019-05-04] MEDS: GLIMEPIRIDE 4 MG TAB PO SCH (17:49)
[2019-05-04] MEDS: FOLBEE PLUS CZ (FOLIC ACID/VIT BCOMP&C/CU/ZNOX) PO SCH (18:01)
[2019-05-04] MEDS: CYANOCOBALAMIN (VIT B-12) 1000 MCG TAB PO SCH (18:15)
[2019-05-04] MEDS ORDERED: DOXAZOSIN 4 MG TAB PO SCH (22:00)
[2019-05-04] MEDS ORDERED: INSULIN LISPRO 100 UNIT/ML SUB-Q SCH (22:00)
[2019-05-04] MEDS: carvediloL 12.5 MG TAB PO SCH (22:30)
[2019-05-04] MEDS: PANTOPRAZOLE 40 MG TAB PO SCH (22:31)
[2019-05-05 06:20] LABS: Hematocrit 22.3 % (35.5-45.6); Mean Corpuscular HGB Conc 31 % (32-34); Mean Corpuscular Volume 61 fl (84-94); Platelet Count 317 K/mm3 (140-440); Red Blood Count 3.63 M/mm3 (3.65-5.03); Red Cell Distribution Width 16.6 % (13.2-15.2)
[2019-05-05] MEDS: FUROSEMIDE 40 MG TAB PO SCH (06:24)
[2019-05-05 06:45] LABS: Calcium 9.2 mg/dL (8.4-10.2)
[2019-05-05] MEDS: INSULIN LISPRO 100 UNIT/ML SUB-Q SCH ×2 (07:30→13:28)
[2019-05-05] MEDS ORDERED: FERROUS SULFATE PO SCH (10:00)
[2019-05-05] MEDS: FERROUS SULFATE 325 MG TAB PO SCH (10:07)
[2019-05-05] MEDS: carvediloL 12.5 MG TAB PO SCH (10:07)
[2019-05-05] MEDS: HEPARIN 5,000 UNIT/1 ML VIAL SUB-Q SCH (10:07)
[2019-05-05] MEDS: PANTOPRAZOLE 40 MG TAB PO SCH (10:07)
[2019-05-05] MEDS: SODIUM BICARBONATE 650 MG TAB PO SCH (10:07)
[2019-05-05] MEDS: CYANOCOBALAMIN (VIT B-12) 1000 MCG TAB PO SCH (10:07)
[2019-05-05] MEDS: TAMSULOSIN 0.4 MG CAP PO SCH (10:07)
[2019-05-05] MEDS: FOLBEE PLUS CZ (FOLIC ACID/VIT BCOMP&C/CU/ZNOX) PO SCH (10:09)
[2019-05-05] MEDS: cefTRIAXone/NS 2 GM/100 ML 2 GM/100 ML BAG IV SCH (10:09)
[2019-05-05] MEDS: GLIMEPIRIDE 4 MG TAB PO SCH (10:12)
[2019-05-05] MEDS: AZITHROMYCIN 500 MG in SODIUM CHLORIDE 0.9% 250ML 250 ML IV SCH (10:24)
--- NOTE | 2019-05-05 11:26 | Progress Note ---
Assessment and Plan # ANNA on CKD: creatinine appears at baseline CKD 4. S/p Lasix 60mg IV x1 on admission, now on Lasix 80mg PO BID - will diurese prn based on volume status, tolerating PO Lasix well. Will decrease to Lasix 40mg BID for outpatient planning; would like to avoid over- diuresis - avoid nephrotoxins - renally dose meds - daily labs - no dialysis indications - strict Is/Os - low salt diet - will need close CKD clinic follow up at time of discharge; ok to discharge from renal perspective # Microcytic Anemia: low iron noted, repleting # HTN: BP reasonable, monitor for now # Hyperkalemia: K 5.6->5.8 on arrival; received medical management, now improved. Likely will be stable with Lasix and PO bicarbonate . Low K diet # Metabolic Acidosis: likely in setting of CKD, continue po NaHCO3 650mg BID, will need to monitor for alkalosis in setting of diuresis # Volume Overload/CHF: off O2 as tolerated. S/p diuretics, will continue po for now Thank you for this consult, we will continue to follow with you while he is inpatient. Subjective Date of service: 05/05/19 Principal diagnosis: dyspnea, volume overload Interval history: No acute events noted overnight. Urinating well. Breathing much better. Wants to go home. Normal appetite. Objective - Exam Narrative Exam: General appearance: well-developed, appears stated age, EENT: ATNC, mucous membranes moist Neck: Present: neck supple Respiratory: normal breath sounds bilaterally Heart: regular, S1S2 Gastrointestinal: Present: normoactive bowel sounds. Absent: tenderness, distended Integumentary: no rash Neurologic: no focal deficit, no asterixis, alert and oriented x3 Psychiatric: mood/affect appropriate - Vital Signs Vital signs: Vital Signs - 12hr 05/05/19 05/05/19 05/05/19 01:57 07:33 08:35 Temperature 98.2 F 98.0 F Pulse Rate 69 66 Respiratory 18 20 Rate Blood Pressure 122/69 133/72 O2 Sat by Pulse 99 92 96 Oximetry - Lab 05/05/19 05:49 05/05/19 05:49 Most recent lab results Calcium 9.2 mg/dL (8.4-10.2) 05/05/19 05:49 Magnesium 2.10 mg/dL (1.7-2.3) 05/03/19 11:12 Urine Creatinine 42.0 mg/dL (0.1-20.0) H 05/04/19 03:50 Urine Sodium 10 mmol/L 05/04/19 03:50 Medications & Allergies - Medications Allergies/Adverse Reactions: Allergies No Known Allergies Allergy (Verified 03/21/19 12:57) Home Medications: Home Medications Medication Instructions Recorded Confirmed Last Taken Type B,C/Folic/Zinc/Copper Ox/Vit E 1 each PO DAILY 04/13/14 05/03/19 02/10/19 History [Stress B-Complex Tablet] Cyanocobalamin (Vitamin B-12) 1,000 mcg PO DAILY 04/13/14 05/03/19 02/10/19 History [B-12] Glimepiride [Amaryl] 4 mg PO BID 04/13/14 05/03/19 02/10/19 History glipiZIDE [glipiZIDE XL] 10 mg PO BID 04/13/14 05/03/19 02/10/19 History Ferrous Sulfate [Ferrous Sulfate 162.5 mg PO QDAY 30 Days oral.liqd 04/16/14 05/03/19 02/10/19 Rx Oral Liq 300 Mg/5 Ml] Pantoprazole [Protonix TAB] 40 mg PO BID #60 tablet 06/25/15 05/03/19 02/10/19 Rx Acetaminophen [Acetaminophen TAB] 500 mg PO Q6HR PRN #30 tablet 06/01/17 05/03/19 02/10/19 Rx Ipratropium [place] [Atrovent Hfa] 12.9 gm IH Q4HR PRN 01/23/18 05/03/19 02/10/19 History Doxazosin [Cardura] 4 mg PO QHS tablet 01/28/18 05/03/19 02/10/19 Rx Tamsulosin [Flomax] 0.4 mg PO QDAY #30 capsule 01/28/18 05/03/19 02/10/19 Rx carvediloL [Coreg] 12.5 mg PO BID #60 tablet 01/28/18 05/03/19 02/10/19 Rx Butalb/Acetamin/Caff 50-325-40 1 tab PO Q6HR PRN #15 tab 11/30/18 05/03/1919 Rx [Fioricet 50-325-40] Active Medications: Generic Name Dose Route Start Last Admin Trade Name Freq PRN Reason Stop Dose Admin Acetaminophen 500 mg 05/04/19 17:22 Tylenol PO Q6HR PRN PAIN Acetaminophen/Butalbital/Caffeine 1 tab 05/04/19 17:22 Fioricet PO Q6HR PRN Headache Albuterol 2.5 mg 05/03/19 14:04 Proventil IH Q4HRT PRN Shortness Of Breath Carvedilol 12.5 mg 05/04/19 22:00 05/05/19 10:07 Coreg PO 12.5 mg BID ARNULFO Administration Cyanocobalamin 1,000 mcg 05/04/19 18:00 05/05/19 10:07 Vitamin B-12 PO 1,000 mcg DAILY ARNULFO Administration Dextrose 50 ml 05/04/19 17:27 D50w (25gm) Syringe IV Q30MIN PRN Hypoglycemia Protocol Doxazosin Mesylate 4 mg 05/04/19 22:00 05/04/19 22:30 Cardura PO 4 mg QHS ARNULFO Administration Ferrous Sulfate 325 mg 05/04/19 18:00 05/05/19 10:07 Feosol PO 325 mg DAILY ARNULFO Administration Furosemide 80 mg 05/04/19 10:30 05/05/19 06:24 Lasix PO 80 mg 0600,1800 ARNULFO Administration Glimepiride 4 mg 05/04/19 18:00 05/05/19 10:12 Amaryl PO 4 mg BIDDIAB ARNULFO Administration Heparin Sodium (Porcine) 5,000 unit 05/04/19 18:00 05/05/19 10:07 Heparin SUB-Q 5,000 unit Q12HR ARNULFO Administration Ceftriaxone Sodium 2 gm in 100 mls @ 200 mls/hr 05/04/19 10:00 05/05/19 10:09 Rocephin/Ns 2 Gm/100 Ml IV 200 mls/hr Q24HR ARNULFO Administration Protocol Azithromycin 500 mg/ Sodium 250 mls @ 250 mls/hr 05/04/19 10:00 05/05/19 10:24 Chloride IV 05/08/19 10:59 250 mls/hr Q24HR ARNULFO Administration Protocol Insulin Human Lispro 0 unit 05/05/19 07:30 05/05/19 07:30 Humalog SUB-Q Not Given AC ARNULFO Protocol Insulin Human Lispro 0 unit 05/04/19 22:00 05/04/19 22:32 Humalog SUB-Q 6 unit QHS ARNULFO Administration Protocol Ondansetron HCl 4 mg 05/03/19 14:04 Zofran IV Q8H PRN Nausea And Vomiting Pantoprazole Sodium 40 mg 05/04/19 22:00 05/05/19 10:07 Protonix PO 40 mg BID ARNULFO Administration Sodium Bicarbonate 650 mg 05/03/19 22:00 05/05/19 10:07 Sodium Bicarbonate PO 650 mg BID ARNULFO Administration Sodium Chloride 10 ml 05/03/19 22:00 05/05/19 10:13 Sodium Chloride Flush Syringe 10 Ml IV 10 ml BID ARNULFO Administration Sodium Chloride 10 ml 05/03/19 14:04 Sodium Chloride Flush Syringe 10 Ml IV PRN PRN LINE FLUSH Tamsulosin HCl 0.4 mg 05/04/19 18:00 05/05/19 10:07 Flomax PO 0.4 mg QDAY ARNULFO Administration Vitamin B Complex/Folic Acid 1 each 05/04/19 18:00 05/05/19 10:09 Folbee Plus Cz PO 1 each QDAY ARNULFO Administration
[2019-05-05] MEDS ORDERED: FUROSEMIDE 40 MG TAB PO SCH (11:27)
[2019-05-05 14:26] LABS: Hematocrit 22.2 % (35.5-45.6); Hemoglobin 7.1 gm/dl (11.8-15.2)
[2019-05-05 14:55] VITALS: BP 126/64
--- NOTE | 2019-05-05 15:09 | Discharge Summary ---
Providers - Providers Date of Admission: 05/03/19 14:04 Date of discharge: 05/05/19 Attending physician: NORA TORRES 05/03/19 11:56 Consult to Physician [CONS] Stat Comment: Consulting Provider: STEFANI ANDRADE Physician Instructions: Reason For Exam: ESRD hyperk 05/03/19 14:55 Physical Therapy Evaluation and Treat [CONS] Routine Comment: Reason For Exam: Weakness Primary care physician: MESSI ROSADO Hospitalization Condition: Fair Hospital course: 84 YO Male with HTN, DM, OA, BPH, HLD, CVA, Diverticulosis, Systolic CHF(EF 35%), Chronic Mild Troponin Elevation, Atrial Fib not taking therapeutic anticoagulation, AVM with H/O Hemorrhage, Anemia, Dementia presented to ED for evaluation. Pt states that he has experienced shortness of breath and cough for 3 days with worsening symptoms over the same time frame. He was seen and evaluated in ED. Pt underwent Chest X ray and found to have RLL Pneumonia, ANNA, and Metabolic Acidosis. He was started on iv Antibiotic, iv fuids and admitted. Pneumonia Pneumonia protocol: Chest X ray, On Rocephin and Zithromax nebulizer therapy, supplemental oxygen, pulse oximetry, CBC, CMP, Blood cultures, influenza antigen, lactic acid ANNA on CKD Managed by monitoring Uop q shift, IVF resuscitation therapy, nephrology consulted, following Metabolic Acidosis IVF resuscitation therapy, IV bicarbonate therapy. Acute on chronic systolic CHF Strict I/O, daily weight, BNP, supplemental oxygen, pulse oximetry, thyroid panel, monitor fluid balance, chest x ray. lasix iv given Diabetes mellitus type 2 accucheck qac and hs Total time spent on discharge, 34 mins Disposition: DC- TO HOME OR SELFCARE - Discharge Diagnoses (1) Acute on chronic renal failure Status: Acute (2) Anemia Status: Acute Qualifiers: Anemia type: due to chronic kidney disease Chronic kidney disease stage: stage 4 (severe) Qualified Code(s): N18.4 - Chronic kidney disease, stage 4 (severe); D63.1 - Anemia in chronic kidney disease (3) Diabetes Status: Acute (4) Hyperkalemia Status: Acute (5) Hypertension Status: Chronic (6) Pneumonia Status: Acute (7) Acute on chronic systolic (congestive) heart failure Status: Acute (8) Diabetes mellitus Status: Acute Core Measure Documentation - Palliative Care Palliative Care/ Comfort Measures: Not Applicable - Core Measures Any of the following diagnoses?: heart failure - Heart Failure Discharge Requirements MARYJANE/ARB for LVSD if EF <40%: No Reason for no MARYJANE/ARB: Hyperkalemia Beta ollie at discharge: Yes Exam - Constitutional Vitals: Temp Pulse Resp BP Pulse Ox 97.8 F 72 20 126/64 98 05/05/19 13:02 05/05/19 13:02 05/05/19 13:02 05/05/19 13:02 05/05/19 13:02 Plan Activity: no restrictions Diet: low fat, low cholesterol, low salt, diabetic, renal Plan of Treatment: 1.Follow up with PCP in 1 week. 2.Follow up with Dr. Stefani Andrade, Nephrology in 1 week Follow up with: PRIMARY CARE, [Referring] - 7 Days Prescriptions: cefUROXime [Ceftin] 250 mg PO DAILY #3 tablet Azithromycin [Zithromax TAB] 250 mg PO QDAY #3 tablet
== END 2019-05-05 16:20 | disposition home or self-care (01) | DRG 682 ==
LOC: ED 09:56 → 2B-ACE 14:04
PROVIDERS: ADMIT Internal Medicine; ATTEND Internal Medicine
DX: N17.9 Acute kidney failure, unspecified (principal); J18.9 Pneumonia, unspecified organism; I50.23 Acute on chronic systolic (congestive) heart failure; E87.2 Acidosis; I13.0 Hypertensive heart and chronic kidney disease with heart failure and stage 1 through stage 4 chronic kidney disease, or unspecified chronic kidney disease; D50.9 Iron deficiency anemia, unspecified; E11.22 Type 2 diabetes mellitus with diabetic chronic kidney disease; E87.70 Fluid overload, unspecified; M19.90 Unspecified osteoarthritis, unspecified site; N40.0 Benign prostatic hyperplasia without lower urinary tract symptoms; I48.91 Unspecified atrial fibrillation; F03.90 Unspecified dementia, unspecified severity, without behavioral disturbance, psychotic disturbance, mood disturbance, and anxiety; E87.5 Hyperkalemia; I45.10 Unspecified right bundle-branch block; I44.0 Atrioventricular block, first degree; N18.4 Chronic kidney disease, stage 4 (severe); D63.1 Anemia in chronic kidney disease; Z86.73 Personal history of transient ischemic attack (TIA), and cerebral infarction without residual deficits; Z79.899 Other long term (current) drug therapy
CPT/HCPCS: 36415; 71045; 76770; 80048; 80053; 81001; 82140; 82570; 82962; 83550; 83735; 83880; 84132; 84300; 85007; 85014; 85018; 85025; 85027; 85610; 85730; 86850; 86900; 86901; 87040; 93005; 93010; 94760; 96374; G0378; J0456; J0610; J0696; J1644; J1815; J1940; J7050

== ENCOUNTER 2019-07-18 00:32 | Emergency (ER) | payer MEDICARE ==
--- NOTE | 2019-07-18 00:45 | Emergency Department Report ---
ED General Adult HPI - General Stated complaint: SHORTNESS OF BREATH Time Seen by Provider: 07/18/19 00:32 Source: patient, EMS Mode of arrival: Ambulatory Limitations: No Limitations - History of Present Illness Initial comments: Patient is an 84-year-old male that presents emergency room with complaints of hypoglycemia and shortness of breath. Patient states when the sugar goes low he gets short of breath and patient shortness of breath improved but patient is still having dyspnea on exertion and mild shortness of breath.. Patient denies chest pain. Patient states his shortness of breath is better with rest and worse with exertion. Patient states his been having this shortness of breath like this for a year. Patient was brought in by EMS and EMS checked his sugar was 60 and gave him oral glucose. Patient's current blood sugar is greater than 100 at this time. Patient states that he checked his sugar earlier this evening and he had a 400 and so he gave himself a few extra units of insulin. Patient states his sugar then dropped. Patient denies fever and chills. Patient denies any physical planes. Patient denies headache. Patient denies fatigue. Patient denies blurred vision. -: Sudden Severity scale (0 -10): 0 Consistency: constant Improves with: rest Worsens with: movement Associated Symptoms: shortness of breath. denies: confusion, chest pain, cough, diaphoresis, fever/chills, headaches, loss of appetite, malaise, nausea/vomiting, rash, seizure, syncope Treatments Prior to Arrival: other (Glucose) - Related Data Home Medications Medication Instructions Recorded Confirmed Last Taken B,C/Folic/Zinc/Copper Ox/Vit E 1 each PO DAILY 04/13/14 05/03/19 02/10/19 [Stress B-Complex Tablet] Cyanocobalamin (Vitamin B-12) 1,000 mcg PO DAILY 04/13/14 05/03/19 02/10/19 [B-12] Glimepiride [Amaryl] 4 mg PO BID 04/13/14 05/03/19 02/10/19 glipiZIDE [glipiZIDE XL] 10 mg PO BID 04/13/14 05/03/19 02/10/19 Ipratropium [place] [Atrovent Hfa] 12.9 gm IH Q4HR PRN 01/23/18 05/03/19 02/10/19 Previous Rx's Medication Instructions Recorded Last Taken Type Ferrous Sulfate [Ferrous Sulfate 162.5 mg PO QDAY 30 Days oral.liqd 04/16/14 02/10/19 Rx Oral Liq 300 Mg/5 Ml] Pantoprazole [Protonix TAB] 40 mg PO BID #60 tablet 06/25/15 02/10/19 Rx Acetaminophen [Acetaminophen TAB] 500 mg PO Q6HR PRN #30 tablet 06/01/17 02/10/19 Rx Doxazosin [Cardura] 4 mg PO QHS tablet 01/28/18 02/10/19 Rx Tamsulosin [Flomax] 0.4 mg PO QDAY #30 capsule 01/28/18 02/10/19 Rx carvediloL [Coreg] 12.5 mg PO BID #60 tablet 01/28/18 02/10/19 Rx Butalb/Acetamin/Caff 50-325-40 1 tab PO Q6HR PRN #15 tab 11/30/18 02/10/19 Rx [Fioricet 50-325-40] Azithromycin [Zithromax TAB] 250 mg PO QDAY #3 tablet 05/05/19 Unknown Rx cefUROXime [Ceftin] 250 mg PO DAILY #3 tablet 05/05/19 Unknown Rx Allergies Allergy/AdvReac Type Severity Reaction Status Date / Time No Known Allergies Allergy Verified 03/21/19 12:57 ED Review of Systems ROS: Stated complaint: SHORTNESS OF BREATH Other details as noted in HPI Constitutional: denies: chills, fever Eyes: denies: eye pain, eye discharge, vision change ENT: denies: ear pain, throat pain Respiratory: shortness of breath, SOB with exertion, SOB at rest. denies: cough, wheezing Cardiovascular: denies: chest pain, palpitations Endocrine: no symptoms reported Gastrointestinal: denies: abdominal pain, nausea, diarrhea Genitourinary: denies: urgency, dysuria Musculoskeletal: denies: back pain, joint swelling, arthralgia Skin: denies: rash, lesions Neurological: denies: headache, weakness, paresthesias Psychiatric: denies: anxiety, depression Hematological/Lymphatic: denies: easy bleeding, easy bruising ED Past Medical Hx - Past Medical History Previous Medical History?: Yes Hx Hypertension: Yes Hx CVA: Yes (no resid. deficits) Hx Heart Attack/AMI: No Hx Congestive Heart Failure: Yes Hx Diabetes: Yes Hx Renal Disease: Yes Hx Arthritis: Yes Hx Asthma: Yes Hx COPD: Yes Additional medical history: A-fib, anemia - Surgical History Past Surgical History?: Yes Additional Surgical History: colon polyps removed. - Family History Family history: no significant - Social History Smoking Status: Former Smoker - Medications Home Medications: Home Medications Medication Instructions Recorded Confirmed Last Taken Type B,C/Folic/Zinc/Copper Ox/Vit E 1 each PO DAILY 04/13/14 05/03/19 02/10/19 History [Stress B-Complex Tablet] Cyanocobalamin (Vitamin B-12) 1,000 mcg PO DAILY 04/13/14 05/03/19 02/10/19 History [B-12] Glimepiride [Amaryl] 4 mg PO BID 04/13/14 05/03/19 02/10/19 History glipiZIDE [glipiZIDE XL] 10 mg PO BID 04/13/14 05/03/19 02/10/19 History Ferrous Sulfate [Ferrous Sulfate 162.5 mg PO QDAY 30 Days oral.liqd 04/16/14 05/03/19 02/10/19 Rx Oral Liq 300 Mg/5 Ml] Pantoprazole [Protonix TAB] 40 mg PO BID #60 tablet 06/25/15 05/03/19 02/10/19 Rx Acetaminophen [Acetaminophen TAB] 500 mg PO Q6HR PRN #30 tablet 06/01/17 05/03/19 02/10/19 Rx Ipratropium [place] [Atrovent Hfa] 12.9 gm IH Q4HR PRN 01/23/18 05/03/19 02/10/19 History Doxazosin [Cardura] 4 mg PO QHS tablet 01/28/18 05/03/19 02/10/19 Rx Tamsulosin [Flomax] 0.4 mg PO QDAY #30 capsule 01/28/18 05/03/19 02/10/19 Rx carvediloL [Coreg] 12.5 mg PO BID #60 tablet 01/28/18 05/03/19 02/10/19 Rx Butalb/Acetamin/Caff 50-325-40 1 tab PO Q6HR PRN #15 tab 11/30/18 05/03/19 02/10/19 Rx [Fioricet 50-325-40] Azithromycin [Zithromax TAB] 250 mg PO QDAY #3 tablet 05/05/19 Unknown Rx cefUROXime [Ceftin] 250 mg PO DAILY #3 tablet 05/05/19 Unknown Rx ED Physical Exam - General Limitations: No Limitations General appearance: alert, in no apparent distress - Head Head exam: Present: atraumatic, normocephalic - Eye Eye exam: Present: normal appearance, PERRL Pupils: Present: normal accommodation - ENT ENT exam: Present: mucous membranes moist - Neck Neck exam: Present: normal inspection - Respiratory Respiratory exam: Present: normal lung sounds bilaterally. Absent: respiratory distress, wheezes, rales - Cardiovascular Cardiovascular Exam: Present: regular rate, normal rhythm. Absent: systolic murmur, diastolic murmur, rubs, gallop - GI/Abdominal GI/Abdominal exam: Present: soft, normal bowel sounds. Absent: distended, tenderness, guarding - Rectal Rectal exam: Present: deferred - Extremities Exam Extremities exam: Present: normal inspection - Back Exam Back exam: Present: normal inspection - Neurological Exam Neurological exam: Present: alert, oriented X3 - Psychiatric Psychiatric exam: Present: normal affect, normal mood - Skin Skin exam: Present: warm, dry, intact, normal color. Absent: rash ED Course Vital Signs 07/18/19 07/18/19 07/18/19 00:44 01:18 03:00 Temperature 97.7 F 98.3 F Pulse Rate 76 69 68 Respiratory 18 20 15 Rate Blood Pressure 155/97 Blood Pressure 160/104 170/113 [Right] O2 Sat by Pulse 97 100 95 Oximetry - Reevaluation(s) Reevaluation #1: Patient states he is feeling better. Patient denies shortness of breath at this time. Patient states he is only having shortness of breath if he walks long distances. Patient states he has had this dyspnea for about a year. Patient says his primary care is taking care of it. Patient states he is ready to go home. Patient ambulatory in the ER without difficulty. I discussed all results and clinical findings with patient. I discussed plan of care with patient. Patient agrees with plan of care. Patient is stable for discharge. Patient will be discharged home. Patient given discharge instructions. Patient voiced understanding of discharge instructions. 07/18/19 02:31 ED Medical Decision Making - Lab Data Result diagrams: 07/18/19 01:03 07/18/19 01:03 - EKG Data -: EKG Interpreted by Me EKG shows normal: sinus rhythm, intervals, ST-T waves Rate: normal - EKG Data Interpretation: LVH, other (Right bundle branch block. .Wide QRS. [place] deviation) - Radiology Data Radiology results: report reviewed, image reviewed CHEST 1 VIEW INDICATION / CLINICAL INFORMATION: Dyspnea. COMPARISON: 05/04/2019 FINDINGS: SUPPORT DEVICES: None. HEART / MEDIASTINUM: Moderately enlarged but stable. LUNGS / PLEURA: Increased interstitial markings are seen but no infiltrate, edema or effusion. No pneumothorax. ADDITIONAL FINDINGS: No significant additional findings. IMPRESSION: 1. No significant change - Medical Decision Making Patient is a 84-year-old male that presents emergency room for shortness of breath. Patient's shortness of breath only happens with long distance walk. Patient stable in ER. Patient never had any shortness of breath patient ambulated in the ER without difficulty. Patient had labs, EKG and chest x-ray done. Chest x-ray does not show any pulmonary edema. Labs unremarkable except for end-stage renal disease, anemia, elevated troponin and elevated BNP. Danny brand's troponin and BNP are lower than his baseline. Patient's creatinine is at baseline. Patient's anemia is at baseline. Patient is stable for discharge. Patient was discharged home. - Differential Diagnosis SOB, CHF, fluid overload, Critical Care Time: Yes Critical care time in (mins) excluding proc time.: 35 Critical care attestation.: If time is entered above; I have spent that time in minutes in the direct care of this critically ill patient, excluding procedure time. Critical Care Time: 35 minutes ED Disposition Clinical Impression: SOB (shortness of breath), Hypoglycemia, Right bundle branch block Anemia Qualifiers: Anemia type: unspecified type Qualified Code(s): D64.9 - Anemia, unspecified CRI (chronic renal insufficiency) Qualifiers: Chronic kidney disease stage: unspecified stage Qualified Code(s): N18.9 - Chronic kidney disease, unspecified Disposition: -01 TO HOME OR SELFCARE Is pt being admited?: No Does the pt Need Aspirin: No Condition: Stable Instructions: Diabetic Hypoglycemia (ED), Dyspnea (ED) Additional Instructions: Patient to follow-up with corporate scheduler in 2 to 3 days. Patient to follow-up with airline counter agent in 2 to 3 days. Patient to follow-up with primary care in 2 to 3 days. Patient to rest. Patient to increase water. Patient to avoid strenuous exercise or heavy lifting until cleared by corporate scheduler. Patient to take meds as directed. Patient to return to the ER if condition worsens, changes or new symptoms arise. Referrals: PRIMARY CARE, [Primary Care Provider] - 2-3 Days Time of Disposition: 02:52
[2019-07-18 01:21] LABS: Hematocrit 32.4 % (35.5-45.6); Hemoglobin 10.1 gm/dl (11.8-15.2); Mean Corpuscular HGB Conc 31 % (32-34); Red Blood Count 5.21 M/mm3 (3.65-5.03)
[2019-07-18 01:22] LABS: Mean Corpuscular Volume 62 fl (84-94); Platelet Count 198 K/mm3 (140-440)
--- NOTE | 2019-07-18 01:42 | XRay Report ---
CHEST 1 VIEW INDICATION / CLINICAL INFORMATION: Dyspnea. COMPARISON: 05/04/2019 FINDINGS: SUPPORT DEVICES: None. HEART / MEDIASTINUM: Moderately enlarged but stable. LUNGS / PLEURA: Increased interstitial markings are seen but no infiltrate, edema or effusion. No pne umothorax. ADDITIONAL FINDINGS: No significant additional findings. IMPRESSION: 1. No significant change Signer Name: Alexandre Jesus MD Signed: 07/18/2019 1:37 AM Workstation Name: [id number]
[2019-07-18 01:50] LABS: Creatine Kinase MB 4.8 ng/mL (0.0-4.0)
[2019-07-18 01:51] LABS: Albumin 3.6 g/dL (3.9-5); Calcium 9.4 mg/dL (8.4-10.2)
[2019-07-18 02:11] LABS: Chol/HDL Ratio 2.71 %
[2019-07-18 03:13] VITALS: BP 155/97
[2019-07-18 03:25] LABS: Total Cells Counted 100
[2019-07-18 03:26] LABS: Hypochromasia 2+; Ovalocytes Few; Target Cells Few
[2019-07-18 03:27] LABS: Platelet Estimate Consistent w Auto; Schistocytes Few
== END 2019-07-18 05:43 | disposition home or self-care (01) ==
LOC: ED 00:32
DX: E13.649 Other specified diabetes mellitus with hypoglycemia without coma (principal); D64.9 Anemia, unspecified; R06.02 Shortness of breath; E13.22 Other specified diabetes mellitus with diabetic chronic kidney disease; I13.0 Hypertensive heart and chronic kidney disease with heart failure and stage 1 through stage 4 chronic kidney disease, or unspecified chronic kidney disease; N18.9 Chronic kidney disease, unspecified; J45.909 Unspecified asthma, uncomplicated; I50.9 Heart failure, unspecified; Z87.891 Personal history of nicotine dependence; Z86.73 Personal history of transient ischemic attack (TIA), and cerebral infarction without residual deficits
CPT/HCPCS: 36415; 71045; 80053; 80061; 82550; 82553; 82962; 83880; 84484; 85007; 85025; 93005; 93010

== ENCOUNTER 2019-12-29 13:31 | Observation (INO) | payer MEDICARE ==
[2019-12-29] MEDS ORDERED: ASPIRIN 325 MG TAB PO ONE (13:37)
[2019-12-29 14:17] LABS: Hematocrit 30.4 % (35.5-45.6); Hemoglobin 9.6 gm/dl (11.8-15.2); Mean Corpuscular HGB Conc 32 % (32-34); Platelet Count 217 K/mm3 (140-440); Red Blood Count 4.83 M/mm3 (3.65-5.03)
--- NOTE | 2019-12-29 14:22 | XRay Report ---
CHEST 1 VIEW 12/29/2019 2:11 PM INDICATION / CLINICAL INFORMATION: Chest Pain. COMPARISON: 07/18/2019 FINDINGS: SUPPORT DEVICES: None. HEART / MEDIASTINUM: Stable. LUNGS / PLEURA: Mild increased interstitial markings are again noted, similar to the prior. No pneumo thorax. ADDITIONAL FINDINGS: No significant additional findings. IMPRESSION: 1. No significant change. Signer Name: Steven Martinez MD Signed: 12/29/2019 2:18 PM Workstation Name: [id number]
[2019-12-29 14:47] LABS: Mean Corpuscular Volume 63 fl (84-94)
--- NOTE | 2019-12-29 15:09 | Emergency Department Report ---
ED Shortness of Breath HPI - General Chief Complaint: Dyspnea/Respdistress Stated Complaint: DAXA/SOB Time Seen by Provider: 12/29/19 14:54 Source: patient Mode of arrival: Ambulatory Limitations: No Limitations - History of Present Illness Initial Comments: Patient is 84 years old male with history of congestive heart failure, COPD, hypertension and diabetes. Patient presented to the ER complaining of shortness of breath and cough for the last 2 days. Patient also complaining of mild chest pain described as substernal aching with no radiation. Patient denied any fever or chills. No recent exposure to COVID-19 or patient report. MD Complaint: shortness of breath, cough -: days(s) (2) Severity: moderate - Related Data Home Medications Medication Instructions Recorded Confirmed Last Taken B,C/Folic/Zinc/Copper Ox/Vit E 1 each PO DAILY 04/13/14 05/03/19 02/10/19 [Stress B-Complex Tablet] Cyanocobalamin (Vitamin B-12) 1,000 mcg PO DAILY 04/13/14 05/03/19 02/10/19 [B-12] Glimepiride [Amaryl] 4 mg PO BID 04/13/14 05/03/19 02/10/19 glipiZIDE [glipiZIDE XL] 10 mg PO BID 04/13/14 05/03/19 02/10/19 Ipratropium [place] [Atrovent Hfa] 12.9 gm IH Q4HR PRN 01/23/18 05/03/19 02/10/19 Previous Rx's Medication Instructions Recorded Last Taken Type Ferrous Sulfate [Ferrous Sulfate 162.5 mg PO QDAY 30 Days oral.liqd 04/16/14 02/10/19 Rx Oral Liq 300 Mg/5 Ml] Pantoprazole [Protonix TAB] 40 mg PO BID #60 tablet 06/25/15 02/10/19 Rx Acetaminophen [Acetaminophen TAB] 500 mg PO Q6HR PRN #30 tablet 06/01/17 02/10/19 Rx Doxazosin [Cardura] 4 mg PO QHS tablet 01/28/18 02/10/19 Rx Tamsulosin [Flomax] 0.4 mg PO QDAY #30 capsule 01/28/18 02/10/19 Rx carvediloL [Coreg] 12.5 mg PO BID #60 tablet 01/28/18 02/10/19 Rx Butalb/Acetamin/Caff 50-325-40 1 tab PO Q6HR PRN #15 tab 11/30/18 02/10/19 Rx [Fioricet 50-325-40] Azithromycin [Zithromax TAB] 250 mg PO QDAY #3 tablet 05/05/19 Unknown Rx cefUROXime [Ceftin] 250 mg PO DAILY #3 tablet 05/05/19 Unknown Rx Allergies Allergy/AdvReac Type Severity Reaction Status Date / Time No Known Allergies Allergy Verified 03/21/19 12:57 ED Review of Systems ROS: Stated complaint: DAXA/SOB Other details as noted in HPI Comment: All other systems reviewed and negative Constitutional: denies: chills, fever Respiratory: cough, orthopnea, shortness of breath, SOB with exertion, SOB at rest. denies: wheezing Cardiovascular: chest pain. denies: palpitations, dyspnea on exertion Gastrointestinal: denies: abdominal pain, nausea, vomiting, diarrhea, constipation, hematemesis, melena, hematochezia Musculoskeletal: denies: back pain Neurological: denies: headache ED Past Medical Hx - Past Medical History Previous Medical History?: Yes Hx Hypertension: Yes Hx CVA: Yes (no resid. deficits) Hx Heart Attack/AMI: No Hx Congestive Heart Failure: Yes Hx Diabetes: Yes Hx Renal Disease: Yes Hx Arthritis: Yes Hx Asthma: Yes Hx COPD: Yes Additional medical history: A-fib, anemia - Surgical History Past Surgical History?: Yes Additional Surgical History: colon polyps removed. - Social History Smoking Status: Never Smoker Substance Use Type: None - Medications Home Medications: Home Medications Medication Instructions Recorded Confirmed Last Taken Type B,C/Folic/Zinc/Copper Ox/Vit E 1 each PO DAILY 04/13/14 05/03/19 02/10/19 History [Stress B-Complex Tablet] Cyanocobalamin (Vitamin B-12) 1,000 mcg PO DAILY 04/13/14 05/03/19 02/10/19 History [B-12] Glimepiride [Amaryl] 4 mg PO BID 04/13/14 05/03/19 02/10/19 History glipiZIDE [glipiZIDE XL] 10 mg PO BID 04/13/14 05/03/19 02/10/19 History Ferrous Sulfate [Ferrous Sulfate 162.5 mg PO QDAY 30 Days oral.liqd 04/16/14 05/03/19 02/10/19 Rx Oral Liq 300 Mg/5 Ml] Pantoprazole [Protonix TAB] 40 mg PO BID #60 tablet 06/25/15 05/03/19 02/10/19 Rx Acetaminophen [Acetaminophen TAB] 500 mg PO Q6HR PRN #30 tablet 06/01/17 05/03/19 02/10/19 Rx Ipratropium [place] [Atrovent Hfa] 12.9 gm IH Q4HR PRN 01/23/18 05/03/19 02/10/19 History Doxazosin [Cardura] 4 mg PO QHS tablet 01/28/18 05/03/19 02/10/19 Rx Tamsulosin [Flomax] 0.4 mg PO QDAY #30 capsule 01/28/18 05/03/19 02/10/19 Rx carvediloL [Coreg] 12.5 mg PO BID #60 tablet 01/28/18 05/03/19 02/10/19 Rx Butalb/Acetamin/Caff 50-325-40 1 tab PO Q6HR PRN #15 tab 11/30/18 05/03/19 02/10/19 Rx [Fioricet 50-325-40] Azithromycin [Zithromax TAB] 250 mg PO QDAY #3 tablet 05/05/19 Unknown Rx cefUROXime [Ceftin] 250 mg PO DAILY #3 tablet 05/05/19 Unknown Rx ED Physical Exam - General Limitations: No Limitations General appearance: alert, in no apparent distress - Head Head exam: Present: atraumatic, normocephalic, normal inspection - Eye Eye exam: Present: normal appearance - ENT ENT exam: Present: normal exam, normal orophraynx, mucous membranes moist - Neck Neck exam: Present: normal inspection, full ROM. Absent: tenderness, meningismus, lymphadenopathy, thyromegaly - Respiratory Respiratory exam: Present: normal lung sounds bilaterally - Cardiovascular Cardiovascular Exam: Present: regular rate - GI/Abdominal GI/Abdominal exam: Present: soft, normal bowel sounds. Absent: distended, tenderness, guarding, rebound, rigid, organomegaly, mass, bruit, pulsatile mass, hernia - Extremities Exam Extremities exam: Present: normal inspection, full ROM, normal capillary refill. Absent: pedal edema, calf tenderness - Back Exam Back exam: Present: normal inspection, full ROM. Absent: CVA tenderness (R), CVA tenderness (L) - Neurological Exam Neurological exam: Present: alert, oriented X3, CN II-XII intact - Psychiatric Psychiatric exam: Present: normal mood - Skin Skin exam: Present: warm, intact, normal color ED Course Vital Signs 12/29/19 12/29/19 12/29/19 13:35 14:55 15:06 Temperature 97.5 F L Pulse Rate 94 H 85 Respiratory 20 23 17 Rate Blood Pressure 155/87 O2 Sat by Pulse 100 98 Oximetry 12/29/19 12/29/19 12/29/19 15:15 15:30 15:45 Temperature Pulse Rate 83 82 87 Respiratory 21 19 18 Rate Blood Pressure 162/90 165/99 171/102 O2 Sat by Pulse 97 100 100 Oximetry 12/29/19 12/29/19 12/29/19 16:00 16:15 16:30 Temperature Pulse Rate 86 86 88 Respiratory 22 25 H 20 Rate Blood Pressure 171/102 163/97 169/101 O2 Sat by Pulse 100 100 100 Oximetry 12/29/19 16:45 Temperature Pulse Rate Respiratory Rate Blood Pressure 167/103 O2 Sat by Pulse 99 Oximetry ED Medical Decision Making - Lab Data Result diagrams: 12/29/19 13:49 12/29/19 13:49 - EKG Data -: EKG Interpreted by Ri EKG shows normal: sinus rhythm - EKG Data Interpretation: no acute changes - Radiology Data Radiology results: report reviewed - Medical Decision Making Patient is 84 years old male with history of congestive heart failure, COPD, hypertension and diabetes. Patient presented to the ER complaining of shortness of breath and cough for the last 2 days. Patient also complaining of mild chest pain described as substernal aching with no radiation. Patient denied any fever or chills. No recent exposure to COVID-19. EKG showed no ST elevation. Chest x-ray is unremarkable. Patient has significant increase in his baseline creatinine up to 4.7 with a slightly elevat ed potassium indicating worsening kidney function. I discussed the patient with Dr. Cash, he agreed to admit the patient to medical service for further management. Critical Care Time: Yes Critical care time in (mins) excluding proc time.: 30 Critical care attestation.: If time is entered above; I have spent that time in minutes in the direct care of this critically ill patient, excluding procedure time. ED Disposition Clinical Impression: Acute on chronic renal failure, Acute on chronic systolic (congestive) heart failure, Elevated troponin Disposition: OP ADMIT IP TO THIS HOSP Is pt being admited?: Yes Condition: Stable
[2019-12-29 15:33] LABS: Chol/HDL Ratio 2.49 %
[2019-12-29 15:47] LABS: Alanine Aminotransferase 21 units/L (7-56); Albumin 3.7 g/dL (3.9-5)
[2019-12-29 15:54] LABS: Bilirubin,Direct < 0.2 mg/dL (0-0.2)
[2019-12-29] MEDS ORDERED: ASPIRIN 325 MG TAB ONE (16:14)
[2019-12-29] MEDS: FUROSEMIDE 40 MG/4 ML INJ IV ONE ×2 (16:18→16:20)
[2019-12-29 16:19] LABS: Hypochromasia 2+; Ovalocytes Few; Schistocytes 1+; Target Cells Few; Total Cells Counted 100
[2019-12-29 16:20] LABS: Giant Platelets Few
--- NOTE | 2019-12-29 23:15 | History and Physical Report ---
History of Present Illness Date of examination: 12/29/19 Date of admission: 12/29/19 16:46 Chief complaint: Shortness of breath for 2 days History of present illness: 84-year-old male with history of chronic kidney disease, BPH, hypertension and type 2 diabetes comes in for increasing shortness of breath and cough for last 2 days. Mild chest pain. Intermittent. Shortness of breath more with exertion. Relieved by rest. Patient has no known chronic kidney disease and follows with [facility] nephrology group. Patient's last creatinine was 3.4 on July 18, 2019. Patient was admitted from 05/03 to 05/05/2019 for pneumonia acute kidney injury and CHF. At that point his creatinine was 3.2 BUN was 47. No exposure to coronavirus. Increasing shortness of breath. No fever. No exposure to coronavirus. Admission from 05/03 through 05/05/2019 (1) Pneumonia (2) ANNA (acute kidney injury) (3) Acidosis (4) Advance care planning (5) CHF (congestive heart failure) - Past Medical History Previous Medical History?: Yes Hypertension: Yes CVA: Yes (no resid. deficits) Heart Attack/AMI: No Congestive Heart Failure: Yes Diabetes: Yes Renal Disease: Yes Arthritis: Yes Asthma: Yes COPD: Yes Additional medical history: A-fib, anemia - Surgical History Past Surgical History?: Yes Additional Surgical History: colon polyps removed. - Social History Smoking Status: Never Smoker Substance Use Type: None Family history Hypertension Review of Systems ROS: Stated complaint: DAXA/SOB Other details as noted in HPI Comment: All other systems reviewed and negative Constitutional: denies: chills, fever Respiratory: cough, orthopnea, shortness of breath, SOB with exertion, SOB at rest. denies: wheezing Cardiovascular: chest pain. denies: palpitations, dyspnea on exertion Gastrointestinal: denies: abdominal pain, nausea, vomiting, diarrhea, constipation, hematemesis, melena, hematochezia Musculoskeletal: denies: back pain Neurological: denies: headache -- Medications and Allergies Allergies Allergy/AdvReac Type Severity Reaction Status Date / Time No Known Allergies Allergy Verified 03/21/19 12:57 Home Medications Medication Instructions Recorded Confirmed Last Taken Type glipiZIDE [glipiZIDE XL] 10 mg PO BID 04/13/14 12/29/19 02/10/19 History Exam - Constitutional Vitals: Temp Pulse Resp BP Pulse Ox 97.5 F L 87 20 164/96 95 12/29/19 20:33 12/29/19 20:33 12/29/19 20:33 12/29/19 20:33 12/29/19 20:33 General appearance: Present: mild distress, well-nourished - EENT Eyes: Present: PERRL ENT: hearing intact, clear oral mucosa - Neck Neck: Present: supple, normal ROM - Respiratory Respiratory effort: normal Respiratory: bilateral: CTA, rales - Cardiovascular Heart rate: 78 Rhythm: regular Heart Sounds: Present: S1 & S2. Absent: rub, click - Extremities Extremities: no ischemia, pulses symmetrical, No edema Peripheral Pulses: within normal limits - Abdominal General gastrointestinal: Present: soft, non-tender, non-distended, normal bowel sounds Male genitourinary: Present: normal - Integumentary Integumentary: Present: clear, warm, dry - Musculoskeletal Musculoskeletal: gait normal, strength equal bilaterally - Psychiatric Psychiatric: appropriate mood/affect, intact judgment & insight - Neurologic Neurologic: CNII-XII intact, moves all extremities HEART Score - HEART Score History: Moderately suspicious Age: > 65 Risk factors: > 3 risk factors or hx of atherosclerotic disease Troponin: Troponin T 0.189 ng/mL (0.00-0.029) H* 12/29/19 19:52 - Critical Actions Critical Actions: 4-6 pts:12-16.6% risk of adverse cardiac event. Should be admitted Results - Labs CBC & Chem 7: 12/30/19 02:22 12/30/19 02:22 Labs: Laboratory Last Values WBC 3.6 K/mm3 (4.5-11.0) L 12/29/19 13:49 RBC 4.83 M/mm3 (3.65-5.03) 12/29/19 13:49 Hgb 9.6 gm/dl (11.8-15.2) L 12/29/19 13:49 Hct 30.4 % (35.5-45.6) L 12/29/19 13:49 MCV 63 fl (84-94) L 12/29/19 13:49 MCH 20 pg (28-32) L 12/29/19 13:49 MCHC 32 % (32-34) 12/29/19 13:49 RDW 17.0 % (13.2-15.2) H 12/29/19 13:49 Plt Count 217 K/mm3 (140-440) 12/29/19 13:49 Add Manual Diff Complete 12/29/19 13:49 Total Counted 100 12/29/19 13:49 Seg Neuts % (Manual) 60.0 % (40.0-70.0) 12/29/19 13:49 Band Neutrophils % 0 % 12/29/19 13:49 Lymphocytes % (Manual) 29.0 % (13.4-35.0) 12/29/19 13:49 Reactive Lymphs % (Man) 0 % 12/29/19 13:49 Monocytes % (Manual) 7.0 % (0.0-7.3) 12/29/19 13:49 Eosinophils % (Manual) 3.0 % (0.0-4.3) 12/29/19 13:49 Basophils % (Manual) 1.0 % (0.0-1.8) 12/29/19 13:49 Metamyelocytes % 0 % 12/29/19 13:49 Myelocytes % 0 % 12/29/19 13:49 Promyelocytes % 0 % 12/29/19 13:49 Blast Cells % 0 % 12/29/19 13:49 Nucleated RBC % Not Reportable 12/29/19 13:49 Seg Neutrophils # Man 2.2 K/mm3 (1.8-7.7) 12/29/19 13:49 Band Neutrophils # 0.0 K/mm3 12/29/19 13:49 Lymphocytes # (Manual) 1.0 K/mm3 (1.2-5.4) L 12/29/19 13:49 Abs React Lymphs (Man) 0.0 K/mm3 12/29/19 13:49 Monocytes # (Manual) 0.3 K/mm3 (0.0-0.8) 12/29/19 13:49 Eosinophils # (Manual) 0.1 K/mm3 (0.0-0.4) 12/29/19 13:49 Basophils # (Manual) 0.0 K/mm3 (0.0-0.1) 12/29/19 13:49 Metamyelocytes # 0.0 K/mm3 12/29/19 13:49 Myelocytes # 0.0 K/mm3 12/29/19 13:49 Promyelocytes # 0.0 K/mm3 12/29/19 13:49 Blast Cells # 0.0 K/mm3 12/29/19 13:49 WBC Morphology Not Reportable 12/29/19 13:49 Hypersegmented Neuts Not Reportable 12/29/19 13:49 Hyposegmented Neuts Not Reportable 12/29/19 13:49 Hypogranular Neuts Not Reportable 12/29/19 13:49 Smudge Cells Not Reportable 12/29/19 13:49 Toxic Granulation Not Reportable 12/29/19 13:49 Toxic Vacuolation Not Reportable 12/29/19 13:49 Dohle Bodies Not Reportable 12/29/19 13:49 Pelger-Huet Anomaly Not Reportable 12/29/19 13:49 Alessio Rods Not Reportable 12/29/19 13:49 Platelet Estimate Not Reportable 12/29/19 13:49 Clumped Platelets Not Reportable 12/29/19 13:49 Plt Clumps, EDTA Not Reportable 12/29/19 13:49 Large Platelets Not Reportable 12/29/19 13:49 Giant Platelets Few 12/29/19 13:49 Platelet Satelliting Not Reportable 12/29/19 13:49 Plt Morphology Comment Not Reportable 12/29/19 13:49 RBC Morphology Not Reportable 12/29/19 13:49 Dimorphic RBCs Not Reportable 12/29/19 13:49 Polychromasia Not Reportable 12/29/19 13:49 Hypochromasia 2+ 12/29/19 13:49 Poikilocytosis Not Reportable 12/29/19 13:49 Anisocytosis Not Reportable 12/29/19 13:49 Microcytosis 2+ 12/29/19 13:49 Macrocytosis Not Reportable 12/29/19 13:49 Spherocytes Not Reportable 12/29/19 13:49 Pappenheimer Bodies Not Reportable 12/29/19 13:49 Sickle Cells Not Reportable 12/29/19 13:49 Target Cells Few 12/29/19 13:49 Tear Drop Cells Not Reportable 12/29/19 13:49 Ovalocytes Few 12/29/19 13:49 Helmet Cells Not Reportable 12/29/19 13:49 [place] Bodies Not Reportable 12/29/19 13:49 [place] Rings Not Reportable 12/29/19 13:49 Barbra Cells Not Reportable 12/29/19 13:49 Bite Cells Not Reportable 12/29/19 13:49 Crenated Cell Not Reportable 12/29/19 13:49 Elliptocytes Few 12/29/19 13:49 Acanthocytes (Spur) Not Reportable 12/29/19 13:49 Rouleaux Not Reportable 12/29/19 13:49 Hemoglobin C Crystals Not Reportable 12/29/19 13:49 Schistocytes 1+ 12/29/19 13:49 Malaria parasites Not Reportable 12/29/19 13:49 Marlo Bodies Not Reportable 12/29/19 13:49 Hem Pathologist Commnt No 12/29/19 13:49 Sodium 137 mmol/L (137-145) 12/29/19 13:49 Potassium 5.4 mmol/L (3.6-5.0) H 12/29/19 13:49 Chloride 102.9 mmol/L (98-107) 12/29/19 13:49 Carbon Dioxide 23 mmol/L (22-30) 12/29/19 13:49 Anion Gap 17 mmol/L 12/29/19 13:49 BUN 47 mg/dL (9-20) H 12/29/19 13:49 Creatinine 4.6 mg/dL (0.8-1.3) H 12/29/19 13:49 Estimated GFR 15 ml/min 12/29/19 13:49 BUN/Creatinine Ratio 10 % 12/29/19 13:49 Glucose 153 mg/dL (75-100) H 12/29/19 13:49 POC Glucose 110 (70-105) H 12/29/19 22:45 Calcium 10.0 mg/dL (8.4-10.2) 12/29/19 13:49 Total Bilirubin 0.40 mg/dL (0.1-1.2) 12/29/19 13:49 Direct Bilirubin < 0.2 mg/dL (0-0.2) 12/29/19 13:49 Indirect Bilirubin 0.2 mg/dL 12/29/19 13:49 AST 25 units/L (5-40) 12/29/19 13:49 ALT 21 units/L (7-56) 12/29/19 13:49 Alkaline Phosphatase 95 units/L (35-129) 12/29/19 13:49 Troponin T 0.189 ng/mL (0.00-0.029) H* 12/29/19 19:52 NT-Pro-B Natriuret Pep 7984 pg/mL (0-900) H 12/29/19 13:49 Total Protein 7.3 g/dL (6.3-8.2) 12/29/19 13:49 Albumin 3.7 g/dL (3.9-5) L 12/29/19 13:49 Albumin/Globulin Ratio 1.0 % 12/29/19 13:49 Triglycerides 52 mg/dL (2-149) 12/29/19 13:49 Cholesterol 177 mg/dL (50-199) 12/29/19 13:49 LDL Cholesterol Direct 104 mg/dL (50-130) 12/29/19 13:49 HDL Cholesterol 71 mg/dL (40-59) H 12/29/19 13:49 Cholesterol/HDL Ratio 2.49 % 12/29/19 13:49 Short CBC 12/29/19 12/29/19 12/29/19 Range/Units 13:49 13:49 13:49 WBC 3.6 L (4.5-11.0) K/mm3 RBC 4.83 (3.65-5.03) M/mm3 Hgb 9.6 L (11.8-15.2) gm/dl Hct 30.4 L (35.5-45.6) % MCV 63 L (84-94) fl MCH 20 L (28-32) pg MCHC 32 (32-34) % RDW 17.0 H (13.2-15.2) % Plt Count 217 (140-440) K/mm3 Add Manual Diff Complete Total Counted 100 Seg Neuts % (Manual) 60.0 (40.0-70.0) % Band Neutrophils % 0 % Lymphocytes % (Manual) 29.0 (13.4-35.0) % Reactive Lymphs % (Man) 0 % Monocytes % (Manual) 7.0 (0.0-7.3) % Eosinophils % (Manual) 3.0 (0.0-4.3) % Basophils % (Manual) 1.0 (0.0-1.8) % Metamyelocytes % 0 % Myelocytes % 0 % Promyelocytes % 0 % Blast Cells % 0 % Nucleated RBC % Not Reportable Seg Neutrophils # Man 2.2 (1.8-7.7) K/mm3 Band Neutrophils # 0.0 K/mm3 Lymphocytes # (Manual) 1.0 L (1.2-5.4) K/mm3 Abs React Lymphs (Man) 0.0 K/mm3 Monocytes # (Manual) 0.3 (0.0-0.8) K/mm3 Eosinophils # (Manual) 0.1 (0.0-0.4) K/mm3 Basophils # (Manual) 0.0 (0.0-0.1) K/mm3 Metamyelocytes # 0.0 K/mm3 Myelocytes # 0.0 K/mm3 Promyelocytes # 0.0 K/mm3 Blast Cells # 0.0 K/mm3 WBC Morphology Not Reportable Hypersegmented Neuts Not Reportable Hyposegmented Neuts Not Reportable Hypogranular Neuts Not Reportable Smudge Cells Not Reportable Toxic Granulation Not Reportable Toxic Vacuolation Not Reportable Dohle Bodies Not Reportable Pelger-Huet Anomaly Not Reportable Alessio Rods Not Reportable Platelet Estimate Not Reportable Clumped Platelets Not Reportable Plt Clumps, EDTA Not Reportable Large Platelets Not Reportable Giant Platelets Few Platelet Satelliting Not Reportable Plt Morphology Comment Not Reportable RBC Morphology Not Reportable Dimorphic RBCs Not Reportable Polychromasia Not Reportable Hypochromasia 2+ Poikilocytosis Not Reportable Anisocytosis Not Reportable Microcytosis 2+ Macrocytosis Not Reportable Spherocytes Not Reportable Pappenheimer Bodies Not Reportable Sickle Cells Not Reportable Target Cells Few Tear Drop Cells Not Reportable Ovalocytes Few Helmet Cells Not Reportable [place] Bodies Not Reportable [place] Rings Not Reportable Barbra Cells Not Reportable Bite Cells Not Reportable Crenated Cell Not Reportable Elliptocytes Few Acanthocytes (Spur) Not Reportable Rouleaux Not Reportable Hemoglobin C Crystals Not Reportable Schistocytes 1+ Malaria parasites Not Reportable Marlo Bodies Not Reportable Hem Pathologist Commnt No Sodium 137 (137-145) mmol/L Potassium 5.4 H (3.6-5.0) mmol/L Chloride 102.9 (98-107) mmol/L Carbon Dioxide 23 (22-30) mmol/L Anion Gap 17 mmol/L BUN 47 H (9-20) mg/dL Creatinine 4.6 H (0.8-1.3) mg/dL Estimated GFR 15 ml/min BUN/Creatinine Ratio 10 % Glucose 153 H (75-100) mg/dL POC Glucose (70-105) Hemoglobin A1c (4-6) % Calcium 10.0 (8.4-10.2) mg/dL Total Bilirubin 0.40 (0.1-1.2) mg/dL Direct Bilirubin < 0.2 (0-0.2) mg/dL Indirect Bilirubin 0.2 mg/dL AST 25 (5-40) units/L ALT 21 (7-56) units/L Alkaline Phosphatase 95 (35-129) units/L Troponin T 0.211 H* (0.00-0.029) ng/mL NT-Pro-B Natriuret Pep 7984 H (0-900) pg/mL Total Protein 7.3 (6.3-8.2) g/dL Albumin 3.7 L (3.9-5) g/dL Albumin/Globulin Ratio 1.0 % Triglycerides 52 (2-149) mg/dL Cholesterol 177 (50-199) mg/dL LDL Cholesterol Direct 104 (50-130) mg/dL HDL Cholesterol 71 H (40-59) mg/dL Cholesterol/HDL Ratio 2.49 % 0812/29/19 12/29/19 Range/Units 16:24 19:52 22:45 WBC (4.5-11.0) K/mm3 RBC (3.65-5.03) M/mm3 Hgb (11.8-15.2) gm/dl Hct (35.5-45.6) % MCV (84-94) fl MCH (28-32) pg MCHC (32-34) % RDW (13.2-15.2) % Plt Count (140-440) K/mm3 Add Manual Diff Total Counted Seg Neuts % (Manual) (40.0-70.0) % Band Neutrophils % % Lymphocytes % (Manual) (13.4-35.0) % Reactive Lymphs % (Man) % Monocytes % (Manual) (0.0-7.3) % Eosinophils % (Manual) (0.0-4.3) % Basophils % (Manual) (0.0-1.8) % Metamyelocytes % % Myelocytes % % Promyelocytes % % Blast Cells % % Nucleated RBC % Seg Neutrophils # Man (1.8-7.7) K/mm3 Band Neutrophils # K/mm3 Lymphocytes # (Manual) (1.2-5.4) K/mm3 Abs React Lymphs (Man) K/mm3 Monocytes # (Manual) (0.0-0.8) K/mm3 Eosinophils # (Manual) (0.0-0.4) K/mm3 Basophils # (Manual) (0.0-0.1) K/mm3 Metamyelocytes # K/mm3 Myelocytes # K/mm3 Promyelocytes # K/mm3 Blast Cells # K/mm3 WBC Morphology Hypersegmented Neuts Hyposegmented Neuts Hypogranular Neuts Smudge Cells Toxic Granulation Toxic Vacuolation Dohle Bodies Pelger-Huet Anomaly Alessio Rods Platelet Estimate Clumped Platelets Plt Clumps, EDTA Large Platelets Giant Platelets Platelet Satelliting Plt Morphology Comment RBC Morphology Dimorphic RBCs Polychromasia Hypochromasia Poikilocytosis Anisocytosis Microcytosis Macrocytosis Spherocytes Pappenheimer Bodies Sickle Cells Target Cells Tear Drop Cells Ovalocytes Helmet Cells [place] Bodies [place] Rings [place] Cells Bite Cells Crenated Cell Elliptocytes Acanthocytes (Spur) Rouleaux Hemoglobin C Crystals Schistocytes Malaria parasites Marlo Bodies Hem Pathologist Commnt Sodium (137-145) mmol/L Potassium (3.6-5.0) mmol/L Chloride (98-107) mmol/L Carbon Dioxide (22-30) mmol/L Anion Gap mmol/L BUN (9-20) mg/dL Creatinine (0.8-1.3) mg/dL Estimated GFR ml/min BUN/Creatinine Ratio % Glucose (75-100) mg/dL POC Glucose 110 H (70-105) Hemoglobin A1c (4-6) % Calcium (8.4-10.2) mg/dL Total Bilirubin (0.1-1.2) mg/dL Direct Bilirubin (0-0.2) mg/dL Indirect Bilirubin mg/dL AST (5-40) units/L ALT (7-56) units/L Alkaline Phosphatase (35-129) units/L Troponin T 0.211 H* 0.189 H* (0.00-0.029) ng/mL NT-Pro-B Natriuret Pep (0-900) pg/mL Total Protein (6.3-8.2) g/dL Albumin (3.9-5) g/dL Albumin/Globulin Ratio % Triglycerides (2-149) mg/dL Cholesterol (50-199) mg/dL LDL Cholesterol Direct (50-130) mg/dL HDL Cholesterol (40-59) mg/dL Cholesterol/HDL Ratio % 12/30/19 12/30/19 12/30/19 Range/Units 02:22 02:22 02:22 WBC 4.0 L (4.5-11.0) K/mm3 RBC 5.04 H (3.65-5.03) M/mm3 Hgb 10.1 L (11.8-15.2) gm/dl Hct 31.8 L (35.5-45.6) % MCV 63 L (84-94) fl MCH 20 L (28-32) pg MCHC 32 (32-34) % RDW 17.2 H (13.2-15.2) % Plt Count 215 (140-440) K/mm3 Add Manual Diff Complete Total Counted 100 Seg Neuts % (Manual) 78.0 H (40.0-70.0) % Band Neutrophils % 1.0 % Lymphocytes % (Manual) 12.0 L (13.4-35.0) % Reactive Lymphs % (Man) 0 % Monocytes % (Manual) 5.0 (0.0-7.3) % Eosinophils % (Manual) 4.0 (0.0-4.3) % Basophils % (Manual) 0 (0.0-1.8) % Metamyelocytes % 0 % Myelocytes % 0 % Promyelocytes % 0 % Blast Cells % 0 % Nucleated RBC % Not Reportable Seg Neutrophils # Man 3.1 (1.8-7.7) K/mm3 Band Neutrophils # 0.0 K/mm3 Lymphocytes # (Manual) 0.5 L (1.2-5.4) K/mm3 Abs React Lymphs (Man) 0.0 K/mm3 Monocytes # (Manual) 0.2 (0.0-0.8) K/mm3 Eosinophils # (Manual) 0.2 (0.0-0.4) K/mm3 Basophils # (Manual) 0.0 (0.0-0.1) K/mm3 Metamyelocytes # 0.0 K/mm3 Myelocytes # 0.0 K/mm3 Promyelocytes # 0.0 K/mm3 Blast Cells # 0.0 K/mm3 WBC Morphology Not Reportable Hypersegmented Neuts Not Reportable Hyposegmented Neuts Not Reportable Hypogranular Neuts Not Reportable Smudge Cells Not Reportable Toxic Granulation Not Reportable Toxic Vacuolation Not Reportable Dohle Bodies Not Reportable Pelger-Huet Anomaly Not Reportable Alessio Rods Not Reportable Platelet Estimate Consistent w auto Clumped Platelets Not Reportable Plt Clumps, EDTA Not Reportable Large Platelets Few Giant Platelets Not Reportable Platelet Satelliting Not Reportable Plt Morphology Comment Not Reportable RBC Morphology Not Reportable Dimorphic RBCs Not Reportable Polychromasia Not Reportable Hypochromasia 2+ Poikilocytosis Not Reportable Anisocytosis Few Microcytosis 2+ Macrocytosis Not Reportable Spherocytes Not Reportable Pappenheimer Bodies Not Reportable Sickle Cells Not Reportable Target Cells Few Tear Drop Cells Not Reportable Ovalocytes Few Helmet Cells Not Reportable [place] Bodies Not Reportable [place] Rings Not Reportable Barbra Cells Not Reportable Bite Cells Not Reportable Crenated Cell Not Reportable Elliptocytes Rare Acanthocytes (Spur) Not Reportable Rouleaux Not Reportable Hemoglobin C Crystals Not Reportable Schistocytes 1+ Malaria parasites Not Reportable Marlo Bodies Not Reportable Hem Pathologist Commnt No Sodium 135 L (137-145) mmol/L Potassium 4.5 (3.6-5.0) mmol/L Chloride 101.0 (98-107) mmol/L Carbon Dioxide 20 L (22-30) mmol/L Anion Gap 19 mmol/L BUN 46 H (9-20) mg/dL Creatinine 4.5 H (0.8-1.3) mg/dL Estimated GFR 15 ml/min BUN/Creatinine Ratio 10 % Glucose 78 (75-100) mg/dL POC Glucose (70-105) Hemoglobin A1c 7.3 H (4-6) % Calcium 10.1 (8.4-10.2) mg/dL Total Bilirubin (0.1-1.2) mg/dL Direct Bilirubin (0-0.2) mg/dL Indirect Bilirubin mg/dL AST (5-40) units/L ALT (7-56) units/L Alkaline Phosphatase (35-129) units/L Troponin T (0.00-0.029) ng/mL NT-Pro-B Natriuret Pep (0-900) pg/mL Total Protein (6.3-8.2) g/dL Albumin (3.9-5) g/dL Albumin/Globulin Ratio % Triglycerides (2-149) mg/dL Cholesterol (50-199) mg/dL LDL Cholesterol Direct (50-130) mg/dL HDL Cholesterol (40-59) mg/dL Cholesterol/HDL Ratio % BMP 12/29/19 12/30/19 13:49 02:22 Sodium 137 135 L Potassium 5.4 H 4.5 Chloride 102.9 101.0 Carbon Dioxide 23 20 L BUN 47 H 46 H Creatinine 4.6 H 4.5 H Glucose 153 H 78 Calcium 10.0 10.1 Cardiac Enzymes 12/29/19 12/29/19 12/29/19 Range/Units 13:49 16:24 19:52 Troponin T 0.211 H* 0.211 H* 0.189 H* (0.00-0.029) ng/mL Liver Function 12/29/19 Range/Units 13:49 Total Bilirubin 0.40 (0.1-1.2) mg/dL Direct Bilirubin < 0.2 (0-0.2) mg/dL AST 25 (5-40) units/L ALT 21 (7-56) units/L Alkaline Phosphatase 95 (35-129) units/L Albumin 3.7 L (3.9-5) g/dL - Imaging and Cardiology EKG: report reviewed (Heart rate of 89/min right bundle branch block sinus rhythm.) Chest x-ray: report reviewed Imaging and Cardiology: Chest x-ray Mild increased interstitial markings are again noted similar to the prior No pneumothorax Donato/IV: IV Catheter Type [Right INT / Saline Lock Antecubital] Assessment and Plan Advance Directives: Yes (Full code) VTE prophylaxis?: Chemical Plan of care discussed with patient/family: Yes - Patient Problems (1) Acute on chronic systolic (congestive) heart failure Current Visit: Yes Status: Acute Plan to address problem: We will continue Lasix Patient has increased creatinine Cardiology and nephrology consults Echocardiogram for ejection fraction Daily intake output Daily weights (2) ANNA (acute kidney injury) Current Visit: No Status: Acute Plan to address problem: Acute kidney injury secondary to ATN superimposed on chronic kidney disease Nephrology consulted May need hemodialysis for increased ultrafiltration and removal of fluid Patient is prone to volume overload more often recently (3) COPD (chronic obstructive pulmonary disease) Current Visit: Yes Status: Chronic Plan to address problem: Bronchodilators as needed (4) T2DM (type 2 diabetes mellitus) Current Visit: Yes Status: Acute Plan to address problem: Continue insulin coverage and check hemoglobin A1c Oral hypoglycemics on hold because of the possibility of hypoglycemia Patient should be on insulin at discharge and not oral hypoglycemics because of the tendency for hypoglycemia (5) GERD (gastroesophageal reflux disease) Current Visit: Yes Status: Chronic Qualifiers: Esophagitis presence: without esophagitis Qualified Code(s): K21.9 - Gastro-esophageal reflux disease without esophagitis Plan to address problem: Continue with PPIs Chest pain secondary to reflux esophagitis (6) BPH (benign prostatic hyperplasia) Current Visit: Yes Status: Chronic Qualifiers: Lower urinary tract symptom presence: symptoms present Plan to address problem: On Flomax (7) DVT prophylaxis Current Visit: Yes Status: Acute Plan to address problem: On heparin and GI prophylaxis
[2019-12-30] MEDS ORDERED: ONDANSETRON 4 MG/2 ML INJ IV PRN (00:15)
[2019-12-30] MEDS ORDERED: ACETAMINOPHEN 325 MG TAB PO PRN (00:15)
[2019-12-30] MEDS ORDERED: HYDROmorphone 1 MG/1 ML INJ IV PRN (00:15)
[2019-12-30] MEDS ORDERED: oxyCODONE /ACETAMINOPHEN 5-325MG TAB PO PRN (00:15)
[2019-12-30 02:51] LABS: Hematocrit 31.8 % (35.5-45.6); Hemoglobin 10.1 gm/dl (11.8-15.2); Mean Corpuscular HGB Conc 32 % (32-34); Red Blood Count 5.04 M/mm3 (3.65-5.03); Red Cell Distribution Width 17.2 % (13.2-15.2)
[2019-12-30 02:53] LABS: Mean Corpuscular Volume 63 fl (84-94)
[2019-12-30 02:55] LABS: Platelet Count 215 K/mm3 (140-440)
[2019-12-30 03:10] LABS: Calcium 10.1 mg/dL (8.4-10.2)
[2019-12-30] MEDS ORDERED: ALBUTEROL 2.5 MG/3 ML NEBU IH PRN (04:08)
[2019-12-30 04:09] LABS: Anisocytosis Few; Basophils % (Manual) 0 % (0.0-1.8); Hypochromasia 2+; Schistocytes 1+; Total Cells Counted 100
[2019-12-30 04:10] LABS: Ovalocytes Few; Target Cells Few
[2019-12-30 04:11] LABS: Large Platelets Few; Platelet Estimate Consistent w Auto
[2019-12-30] MEDS ORDERED: POTASSIUM CHLORIDE ER 20 MEQ TAB PO ONE (06:34)
[2019-12-30] MEDS ORDERED: IPRATROPIUM/ALBUTEROL SULFATE 3 ML AMPUL.NEB IH PRN (06:35)
[2019-12-30] MEDS ORDERED: FUROSEMIDE 40 MG/4 ML INJ IV SCH (07:00)
[2019-12-30] MEDS ORDERED: INSULIN LISPRO 100 UNIT/ML VIAL 3 mL SUB-Q SCH (07:30)
[2019-12-30 09:25] VITALS: BP 163/91
--- NOTE | 2019-12-30 09:48 | Consultation ---
History of Present Illness Consult date: 12/30/19 Consult reason: chest pain, congestive heart failure History of present illness: This is an 84-year old male who presents with shortness of breath, relieved by sitting up. He denies chest pain. There is no lower extremity edema. A chest x- ray reports interstitial edema. Initial labs shows a creatinine of 4.6. There was also chronic elevation of troponin. His ECG is sinus rhythm with a right bundle branch block. No significant change from his prior ECG. Patient has a history of dilated nonischemic cardiomyopathy, ejection fraction 35-40%. A thallium stress test showed no ischemia. A follow up echocardiogram done 8 months ago, showed persistent dilated cardiomyopathy with an ejection fraction 30-35%. 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 Medications and Allergies Allergies Allergy/AdvReac Type Severity Reaction Status Date / Time No Known Allergies Allergy Verified 03/21/19 12:57 Home Medications Medication Instructions Recorded Confirmed Last Taken Type glipiZIDE [glipiZIDE XL] 10 mg PO BID 04/13/14 12/29/19 02/10/19 History Active Meds: Active Medications Acetaminophen (Tylenol) 650 mg PO Q4H PRN PRN Reason: Pain MILD(1-3)/Fever >100.5/OCONNELL Albuterol/Ipratropium (Duoneb *Not For Prn Use*) 1 ampul IH Q3H PRN PRN Reason: Wheezing Furosemide (Lasix) 40 mg IV 0600,1800 [facility] Last Admin: 12/30/19 07:32 Dose: 40 mg Documented by: Hydromorphone HCl (Dilaudid) 0.5 mg IV Q3H PRN PRN Reason: Pain , Severe (7-10) Insulin Human Lispro (Humalog) 0 unit SUB-Q ACHS [facility]; Protocol Last Admin: 12/30/19 09:29 Dose: Not Given Documented by: Ondansetron HCl (Zofran) 4 mg IV Q8H PRN PRN Reason: Nausea And Vomiting Last Admin: 12/30/19 08:00 Dose: 4 mg Documented by: Oxycodone/Acetaminophen (Percocet 5/325) 1 tab PO Q6H PRN PRN Reason: Pain, Moderate (4-6) Sodium Chloride (Sodium Chloride Flush Syringe 10 Ml) 10 ml IV BID [facility] Sodium Chloride (Sodium Chloride Flush Syringe 10 Ml) 10 ml IV PRN PRN PRN Reason: LINE FLUSH Last Admin: 12/30/19 08:00 Dose: 10 ml Documented by: Physical Examination Vital Signs Temp Pulse Resp BP Pulse Ox 97.5 F L 94 H 20 155/87 100 12/29/19 13:35 12/29/19 13:35 12/29/19 13:35 12/29/19 13:35 12/29/19 13:35 General appearance: no acute distress HEENT: Positive: PERRL Neck: Positive: trachea midline Cardiac: Positive: Reg Rate and Rhythm Lungs: Positive: Decreased Breath Sounds Neuro: Positive: Grossly Intact Extremities: Absent: edema Results 12/30/19 02:22 12/30/19 02:22 Cardiac Enzymes 12/29/19 Range/Units 13:49 AST 25 (5-40) units/L Lipids 12/29/19 Range/Units 13:49 Triglycerides 52 (2-149) mg/dL Cholesterol 177 (50-199) mg/dL HDL Cholesterol 71 H (40-59) mg/dL Cholesterol/HDL Ratio 2.49 % CBC 12/29/19 12/30/19 Range/Units 13:49 02:22 WBC 3.6 L 4.0 L (4.5-11.0) K/mm3 RBC 4.83 5.04 H (3.65-5.03) M/mm3 Hgb 9.6 L 10.1 L (11.8-15.2) gm/dl Hct 30.4 L 31.8 L (35.5-45.6) % Plt Count 217 215 (140-440) K/mm3 Comprehensive Metabolic Panel 12/29/19 12/29/19 12/30/19 Range/Units 13:49 13:49 02:22 Sodium 137 135 L (137-145) mmol/L Potassium 5.4 H 4.5 (3.6-5.0) mmol/L Chloride 102.9 101.0 (98-107) mmol/L Carbon Dioxide 23 20 L (22-30) mmol/L BUN 47 H 46 H (9-20) mg/dL Creatinine 4.6 H 4.5 H (0.8-1.3) mg/dL Glucose 153 H 78 (75-100) mg/dL Calcium 10.0 10.1 (8.4-10.2) mg/dL Direct Bilirubin < 0.2 (0-0.2) mg/dL Indirect Bilirubin 0.2 mg/dL AST 25 (5-40) units/L ALT 21 (7-56) units/L Alkaline Phosphatase 95 (35-129) units/L Total Protein 7.3 (6.3-8.2) g/dL Albumin 3.7 L (3.9-5) g/dL Assessment and Plan Acute CHF Volume overload 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
--- NOTE | 2019-12-30 12:53 | Consultation ---
History of Present Illness - Reason for Consult Consult date: 12/30/19 acute renal failure, chronic renal failure - History of Present Illness This is a 84 year old with history of CKD who presents with shortness of breath. He follows with [facility], last seen in [address] Rema Rodgers. Creatinine at that time 2.7; states that he thought he had been to CKD clinic more recently but no documentation. States that he is feeling a little better this AM but still has some dyspnea. Notes that he has COPD and CHF. Notes good urination, no edema. Notes good appetite, and is upset that he has not gotten breakfast yet. No other concerns this AM. Currently, patient denies edema, nausea, vomiting, h eadaches. Past History Past Medical History: COPD, diabetes, heart failure, hypertension, other (CKD) Past Surgical History: No surgical history Social history: no significant social history Family history: no significant family history Medications and Allergies Allergies Allergy/AdvReac Type Severity Reaction Status Date / Time No Known Allergies Allergy Verified 03/21/19 12:57 Home Medications Medication Instructions Recorded Confirmed Last Taken Type glipiZIDE [glipiZIDE XL] 10 mg PO BID 04/13/14 12/29/19 02/10/19 History Active Meds: Active Medications Acetaminophen (Tylenol) 650 mg PO Q4H PRN PRN Reason: Pain MILD(1-3)/Fever >100.5/OCONNELL Albuterol/Ipratropium (Duoneb *Not For Prn Use*) 1 ampul IH Q3H PRN PRN Reason: Wheezing Furosemide (Lasix) 40 mg IV 0600,1800 ARNULFO Last Admin: 12/30/19 07:32 Dose: 40 mg Documented by: Hydromorphone HCl (Dilaudid) 0.5 mg IV Q3H PRN PRN Reason: Pain , Severe (7-10) Insulin Human Lispro (Humalog) 0 unit SUB-Q ACHS ARNULFO; Protocol Last Admin: 12/30/19 09:29 Dose: Not Given Documented by: Ondansetron HCl (Zofran) 4 mg IV Q8H PRN PRN Reason: Nausea And Vomiting Last Admin: 12/30/19 08:00 Dose: 4 mg Documented by: Oxycodone/Acetaminophen (Percocet 5/325) 1 tab PO Q6H PRN PRN Reason: Pain, Moderate (4-6) Sodium Chloride (Sodium Chloride Flush Syringe 10 Ml) 10 ml IV BID ARNULFO Sodium Chloride (Sodium Chloride Flush Syringe 10 Ml) 10 ml IV PRN PRN PRN Reason: LINE FLUSH Last Admin: 12/30/19 08:00 Dose: 10 ml Documented by: Review of Systems All systems: negative (as per HPI) Exam - Vital Signs Vital signs: Vital Signs Temp Pulse Resp BP Pulse Ox 97.5 F L 94 H 20 155/87 100 12/29/19 13:35 12/29/19 13:35 12/29/19 13:35 12/29/19 13:35 12/29/19 13:35 - Physical Exam Narrative exam: Constitutional: no acute distress, on NC Head: NC/AT Neck: supple Lungs: clear to auscultation CV: RRR, no M/R/G Abdomen: soft, non-tender, bowel sounds present Back: nontender Extremities: no edema, pulses WNL Skin: intact Neuro: no focal deficits, alert and oriented x4 Results - Lab Results 12/30/19 02:22 12/30/19 02:22 Most recent lab results Calcium 10.1 mg/dL (8.4-10.2) 12/30/19 02:22 Assessment and Plan This is a 84 year old man who presents with shortness of breath, found to have creatinine of 4.5 # ANNA on CKD: has not been seen in clinic since 2018, creatinine has worsened from 2.8->4.5 currently, likely progression of CKD. CKD likely due to age, DM, HTN. Creatinine has been around 4 per [facility] labs since late 2018. No evidence of volume overload from renal perspective. Certainly may be dehydrated, but caution with fluids given CHF. Patient is not interested in dialysis if needed, and states that he would "absolutely deny it". No immediate dialysis needs noted based on labs, volume. Will discuss with patient if clinically worsens but likely no terminal superintendent HD plans. - avoid diuretics based on volume status from renal perspective, defer to cardiology/pulmonary if needed - daily labs - renally dose meds - avoid nephrotoxins - renal diet - check renal ultrasound to ensure no acute abnormalities - outpatient follow up # Anemia: last hemoglobin >10, no indication for ESAs # HTN: BP currently reasonable, continue current management # Secondary Hyperparathyroidism: continue home binders as needed, check PTH # DM # CHF: appreciate cardiology # COPD
--- NOTE | 2019-12-30 17:55 | Progress Note ---
Subjective Date of service: 12/30/19 Interval history: 84-year-old male with history of chronic kidney disease, BPH, hypertension and type 2 diabetes comes in for increasing shortness of breath and cough for last 2 days. Mild chest pain. Intermittent. Shortness of breath more with exertion. Relieved by rest. Patient has no known chronic kidney disease and follows with [facility] nephrology group. Patient's last creatinine was 3.4 on July 18, 2019. Patient was admitted from 05/03 to 05/05/2019 for pneumonia acute kidney injury and CHF. At that point his creatinine was 3.2 BUN was 47. No exposure to coronavirus. Increasing shortness of breath. No fever. No exposure to coronavirus. 12/29 Patient is alert and oriented and irritable and upset. States he is starving and hungry Was scheduled for stress test but this has been postponed to tomorrow He denies any chest pain or shortness of breath Lab results reviewed Cardiology and nephrology notes reviewed # ANNA on CKD: -Nephrology note reviewed and appreciated - avoid diuretics based on volume status from renal perspective - daily labs - renally dose meds - avoid nephrotoxins - renal diet - check renal ultrasound to ensure no acute abnormalities # Anemia: H&H stable Monitor as needed No overt bleed # HTN: BP currently reasonable, continue current management # Secondary Hyperparathyroidism: continue home binders as needed, check PTH # DM Continue insulin sliding scale coverage Hemoglobin A1c is 7.3 # CHF: Cardiology note reviewed EF 35 to 40% Check COVID-19 test # COPD Continue neb treatments as needed Patient is not having any shortness of breath Objective - Constitutional Vitals: Vital Signs - 12hr 12/30/19 12/30/19 06:53 08:07 Temperature 97.6 F 97.4 F L Pulse Rate 84 92 H Respiratory 20 18 Rate Blood Pressure 152/84 163/91 O2 Sat by Pulse 100 99 Oximetry General appearance: Present: no acute distress, well-nourished - EENT Eyes: PERRL, EOM intact ENT: hearing intact, clear oral mucosa - Neck Neck: supple, normal ROM, no masses or JVD - Respiratory Respiratory effort: normal Respiratory: bilateral: CTA, diminished - Cardiovascular Rhythm: regular Heart Sounds: Present: S1 & S2 Extremities: No edema - Gastrointestinal General gastrointestinal: Present: soft, non-tender Rectal Exam: deferred - Integumentary Integumentary: clear - Musculoskeletal Musculoskeletal: strength equal bilaterally - Neurologic Neurologic: no focal deficits - Labs CBC & Chem 7: 12/30/19 02:22 12/30/19 02:22 Labs: Abnormal lab results 12/29/19 12/29/19 12/30/19 Range/Units 19:52 22:45 02:22 WBC 4.0 L (4.5-11.0) K/mm3 RBC 5.04 H (3.65-5.03) M/mm3 Hgb 10.1 L (11.8-15.2) gm/dl Hct 31.8 L (35.5-45.6) % MCV 63 L (84-94) fl MCH 20 L (28-32) pg RDW 17.2 H (13.2-15.2) % Seg Neuts % (Manual) 78.0 H (40.0-70.0) % Lymphocytes % (Manual) 12.0 L (13.4-35.0) % Lymphocytes # (Manual) 0.5 L (1.2-5.4) K/mm3 Sodium (137-145) mmol/L Carbon Dioxide (22-30) mmol/L BUN (9-20) mg/dL Creatinine (0.8-1.3) mg/dL POC Glucose 110 H (70-105) Hemoglobin A1c (4-6) % Troponin T 0.189 H* (0.00-0.029) ng/mL 12/30/19 12/30/19 Range/Units 02:22 02:22 WBC (4.5-11.0) K/mm3 RBC (3.65-5.03) M/mm3 Hgb (11.8-15.2) gm/dl Hct (35.5-45.6) % MCV (84-94) fl MCH (28-32) pg RDW (13.2-15.2) % Seg Neuts % (Manual) (40.0-70.0) % Lymphocytes % (Manual) (13.4-35.0) % Lymphocytes # (Manual) (1.2-5.4) K/mm3 Sodium 135 L (137-145) mmol/L Carbon Dioxide 20 L (22-30) mmol/L BUN 46 H (9-20) mg/dL Creatinine 4.5 H (0.8-1.3) mg/dL POC Glucose (70-105) Hemoglobin A1c 7.3 H (4-6) % Troponin T (0.00-0.029) ng/mL HEART Score - HEART Score Age: > 65 Risk factors: > 3 risk factors or hx of atherosclerotic disease Troponin: Troponin T 0.189 ng/mL (0.00-0.029) H* 12/29/19 19:52 - Critical Actions Critical Actions: 4-6 pts:12-16.6% risk of adverse cardiac event. Should be admitted
== END 2019-12-30 11:35 | disposition left against medical advice (07) ==
LOC: ED 13:31 → 4A 16:46
PROVIDERS: ADMIT Internal Medicine; ATTEND Internal Medicine
DX: I13.0 Hypertensive heart and chronic kidney disease with heart failure and stage 1 through stage 4 chronic kidney disease, or unspecified chronic kidney disease (principal); E11.22 Type 2 diabetes mellitus with diabetic chronic kidney disease; I50.23 Acute on chronic systolic (congestive) heart failure; N18.9 Chronic kidney disease, unspecified; N17.9 Acute kidney failure, unspecified; J44.9 Chronic obstructive pulmonary disease, unspecified; J18.9 Pneumonia, unspecified organism; D64.9 Anemia, unspecified; N25.81 Secondary hyperparathyroidism of renal origin; I45.10 Unspecified right bundle-branch block; R79.89 Other specified abnormal findings of blood chemistry; I08.1 Rheumatic disorders of both mitral and tricuspid valves; I27.20 Pulmonary hypertension, unspecified; I42.8 Other cardiomyopathies; E87.2 Acidosis; K21.9 Gastro-esophageal reflux disease without esophagitis; N40.1 Benign prostatic hyperplasia with lower urinary tract symptoms; M19.90 Unspecified osteoarthritis, unspecified site; I48.91 Unspecified atrial fibrillation; Z86.73 Personal history of transient ischemic attack (TIA), and cerebral infarction without residual deficits; Z86.010 Personal history of colon polyps; Z79.84 Long term (current) use of oral hypoglycemic drugs; Z79.899 Other long term (current) drug therapy
CPT/HCPCS: 36415; 71045; 80048; 80061; 80076; 82962; 83036; 83880; 84484; 85025; 93005; 96374; 96375; 96376; 99291; G0378; J1940; J2405; 85007

== ENCOUNTER 2020-03-07 05:28 | Observation (INO) | payer MEDICARE ==
[2020-03-07 06:33] LABS: Hematocrit 32.3 % (35.5-45.6); Hemoglobin 10.3 gm/dl (11.8-15.2); Mean Corpuscular HGB Conc 32 % (32-34); Platelet Count 226 K/mm3 (140-440); Red Blood Count 5.03 M/mm3 (3.65-5.03); Red Cell Distribution Width 18.1 % (13.2-15.2)
[2020-03-07 06:34] LABS: Eosinophils % (Auto) 4.2 % (0.0-4.3); Lymphocytes # (Auto) 1.2 K/mm3 (1.2-5.4); Lymphocytes % (Auto) 34.4 % (13.4-35.0); Mean Corpuscular Volume 64 fl (84-94); Monocytes % (Auto) 9.5 % (0.0-7.3)
[2020-03-07 06:35] LABS: Eosinophils # (Auto) 0.2 K/mm3 (0.0-0.4); Monocytes # (Auto) 0.3 K/mm3 (0.0-0.8)
[2020-03-07 06:43] LABS: INR 1.15 (0.87-1.13)
[2020-03-07 06:44] LABS: Partial Thromboplastin Time 35.2 Sec. (24.2-36.6)
[2020-03-07 09:23] LABS: Blood Urea Nitrogen 53 mg/dL (9-20); Calcium 10.8 mg/dL (8.4-10.2); Hemolysis Index 4
[2020-03-07 09:25] LABS: BUN/Creatinine Ratio 13
[2020-03-07 09:26] LABS: Bilirubin,Urine NEG (Negative); Blood,Urine SM (Negative); Color,Urine Straw (Yellow); Mucus,Urine FEW /HPF; Urobilinogen,Urine < 2.0 mg/dL (<2.0); WBC,Urine < 1.0 /HPF (0.0-6.0)
[2020-03-07] MEDS ORDERED: FUROSEMIDE 40 MG/4 ML INJ IV ONE (09:38)
--- NOTE | 2020-03-07 09:56 | XRay Report ---
CHEST 1 VIEW INDICATION / CLINICAL INFORMATION: Shortness of breath. COMPARISON: 12/29/2019 FINDINGS: SUPPORT DEVICES: None. HEART / MEDIASTINUM: Is prominence of the cardiac silhouette LUNGS / PLEURA: There is increase in interstitial markings bilaterally characteristic of pulmonary ed aston.. No pneumothorax. ADDITIONAL FINDINGS: No significant additional findings. IMPRESSION: 1. There is increase in interstitial markings bilaterally characteristic of edema. There is prominenc e the cardiac silhouette. Signer Name: Paul Connell MD Signed: 03/07/2020 6:21 AM Workstation Name: [id number]
--- NOTE | 2020-03-07 09:59 | Emergency Department Report ---
ED General Adult HPI - General Chief complaint: Dyspnea/Respdistress Stated complaint: DIFFICULTY IN BREATHING Time Seen by Provider: 03/07/20 08:05 Source: patient Mode of arrival: Ambulatory Limitations: No Limitations - History of Present Illness Initial comments: This is an 85-year-old gentleman with a known history of cardiomyopathy and chronic renal failure presenting to this facility with shortness of breath. He describes orthopnea. He has had nonproductive cough occasionally but no chest pain was reported. He has dyspnea on exertion. Previous cardiology note: The patient is an 84-year-old man with a longstanding history of four-chamber dilated cardiomyopathy. His most recent LV function assessment with echocardiogram in March 2019 reported a left ventricular ejection fraction of 30 to 35%. His cardiomyopathy is presumed nonischemic on the basis of a previous normal myocardial perfusion on noninvasive stress imaging. He has multiple severe comorbidities including chronic kidney disease with a baseline creatinine of 2.9, chronic anemia with a gastric AVM, and chronic hypertension. The patient is admitted to the hospital at this time with complaints of shortness of breath but no chest pain, no palpitations and no lower extremity edema. ECG is in normal sinus rhythm, first-degree AV block and right bundle branch block. The ECG is unchanged from his chronic baseline. Chest x-ray shows a moderate severity cardiomegaly, and very mild interstitial changes that may represent mild interstitial edema or mild pneumonitis. Laboratory exam shows troponin levels of 0.18-0.21, unchanged from his previous admissions to this hospital. The most significant change in his laboratory exam is a worsening in his renal function, with creatinine currently 4.5 (baseline 2.9- 3.2). Recommendations: Shortness of breath and abnormal chest x-ray may represent mild interstitial edema and heart failure exacerbation, but in the setting of the pandemic, the patient should be tested for COVID-[address] the patient on optimal medical therapy for underlying cardiomyopathy, hypertension and chronic left ventricular dysfunction. We will defer to internal medicine and nephrology for further management of the patient's worsening renal function. -: Gradual, week(s) Severity scale (0 -10): 0 Associated Symptoms: denies other symptoms, shortness of breath Treatments Prior to Arrival: none - Related Data Home Medications Medication Instructions Recorded Confirmed Last Taken glipiZIDE [glipiZIDE XL] 10 mg PO BID 04/13/14 12/29/1902/10/19 Allergies Allergy/AdvReac Type Severity Reaction Status Date / Time No Known Allergies Allergy Verified 03/21/19 12:57 ED Review of Systems ROS: Stated complaint: DIFFICULTY IN BREATHING Other details as noted in HPI Constitutional: denies: chills, fever Eyes: denies: eye pain, vision change ENT: denies: ear pain, throat pain Respiratory: cough, shortness of breath, SOB with exertion. denies: wheezing Cardiovascular: edema. denies: chest pain, palpitations Endocrine: no symptoms reported Gastrointestinal: denies: abdominal pain, nausea, diarrhea Genitourinary: denies: urgency, dysuria Musculoskeletal: denies: back pain, joint swelling, arthralgia Skin: denies: rash, lesions Neurological: denies: headache, weakness, paresthesias Psychiatric: denies: anxiety, depression Hematological/Lymphatic: denies: easy bleeding, easy bruising ED Past Medical Hx - Past Medical History Previous Medical History?: Yes Hx Hypertension: Yes Hx CVA: Yes (no resid. deficits) Hx Heart Attack/AMI: No Hx Congestive Heart Failure: Yes Hx Diabetes: Yes Hx Renal Disease: Yes Hx Arthritis: Yes Hx Asthma: Yes Hx COPD: Yes Additional medical history: A-fib, anemia - Surgical History Past Surgical History?: Yes Additional Surgical History: colon polyps removed. - Social History Smoking Status: Former Smoker - Medications Home Medications: Home Medications Medication Instructions Recorded Confirmed Last Taken Type glipiZIDE [glipiZIDE XL] 10 mg PO BID 04/13/14 12/29/19 02/10/19 History ED Physical Exam - General Limitations: No Limitations General appearance: alert, in no apparent distress - Head Head exam: Present: atraumatic, normocephalic - Eye Eye exam: Present: normal appearance. Absent: scleral icterus - ENT ENT exam: Present: mucous membranes moist - Neck Neck exam: Present: normal inspection - Respiratory Respiratory exam: Present: normal lung sounds bilaterally. Absent: respiratory distress - Cardiovascular Cardiovascular Exam: Present: regular rate, normal rhythm. Absent: systolic murmur, diastolic murmur, rubs, gallop - GI/Abdominal GI/Abdominal exam: Present: soft, normal bowel sounds. Absent: distended, tenderness, guarding, rebound - Rectal Rectal exam: Present: deferred - Extremities Exam Extremities exam: Present: normal inspection - Back Exam Back exam: Present: normal inspection - Neurological Exam Neurological exam: Present: alert, oriented X3, CN II-XII intact. Absent: motor sensory deficit - Psychiatric Psychiatric exam: Present: normal affect, normal mood - Skin Skin exam: Present: warm, dry, intact, normal color. Absent: rash ED Course Vital Signs 03/07/20 03/07/20 03/07/20 05:34 08:29 08:58 Temperature 97.9 F Pulse Rate 87 83 81 Respiratory 22 24 Rate Blood Pressure 149/81 171/117 Blood Pressure 178/116 [Left] O2 Sat by Pulse 93 99 Oximetry - Reevaluation(s) Reevaluation #1: Patient given labetalol and Lasix. He is clinically stable. He will be admitted for further care and evaluation. Renal consult. Admitted to the hospital service 03/07/20 10:24 ED Medical Decision Making - Lab Data Result diagrams: 03/07/20 06:05 03/07/20 06:05 Laboratory Results - last 24 hr 03/07/20 03/07/20 03/07/20 06:05 06:05 06:05 WBC 3.6 L RBC 5.03 Hgb 10.3 L Hct 32.3 L MCV 64 L MCH 20 L MCHC 32 RDW 18.1 H Plt Count 226 Lymph % (Auto) 34.4 [place] % (Auto) 9.5 H Eos % (Auto) 4.2 Baso % (Auto) 1.0 Lymph # (Auto) 1.2 [place] # (Auto) 0.3 Eos # (Auto) 0.2 Baso # (Auto) 0.0 Seg Neutrophils % 50.9 Seg Neutrophils # 1.8 PT 14.9 INR 1.15 H APTT 35.2 Sodium 144 Potassium 4.8 Chloride 104.2 Carbon Dioxide 16 L Anion Gap 29 BUN 53 H Creatinine 4.0 H Estimated GFR 17 BUN/Creatinine Ratio 13 Glucose 229 H Calcium 10.8 H Phosphorus 3.50 Total Bilirubin 0.60 AST 27 Total Protein 7.7 Urine Color Urine Turbidity Urine pH Ur Specific [place] Urine Protein Urine Glucose (UA) Urine Ketones Urine Blood Urine Nitrite Urine Bilirubin Urine Urobilinogen Ur Leukocyte Esterase Urine WBC (Auto) Urine RBC (Auto) Urine Mucus 03/07/20 08:29 WBC RBC Hgb Hct MCV MCH MCHC RDW Plt Count Lymph % (Auto) [place] % (Auto) Eos % (Auto) Baso % (Auto) Lymph # (Auto) [place] # (Auto) Eos # (Auto) Baso # (Auto) Seg Neutrophils % Seg Neutrophils # PT INR APTT Sodium Potassium Chloride Carbon Dioxide Anion Gap BUN Creatinine Estimated GFR BUN/Creatinine Ratio Glucose Calcium Phosphorus Total Bilirubin AST Total Protein Urine Color Straw Urine Turbidity Clear Urine pH 6.0 Ur Specific [place] 1.010 Urine Protein 100 mg/dl Urine Glucose (UA) 50 Urine Ketones Neg Urine Blood Sm Urine Nitrite Neg Urine Bilirubin Neg Urine Urobilinogen < 2.0 Ur Leukocyte Esterase Neg Urine WBC (Auto) < 1.0 Urine RBC (Auto) 2.0 Urine Mucus Few - EKG Data -: EKG Interpreted by Vt EKG shows normal: axis (Left axis deviation/LAFB) Rate: normal - EKG Data Interpretation: other (Accelerated junctional rhythm, bifascicular block, right bundle branch block, no acute ischemic changes) Critical care attestation.: If time is entered above; I have spent that time in minutes in the direct care of this critically ill patient, excluding procedure time. ED Disposition Clinical Impression: Chronic renal insufficiency, stage IV (severe), Accelerated junctional rhythm, Bifascicular block Pulmonary edema Qualifiers: Chronicity: acute Qualified Code(s): J81.0 - Acute pulmonary edema Disposition: OP ADMIT IP TO THIS HOSP Is pt being admited?: Yes Does the pt Need Aspirin: Yes Condition: Stable Instructions: Pulmonary Edema (ED) Referrals: PRIMARY CARE, [Primary Care Provider] - 3-5 Days Time of Disposition: 10:26
[2020-03-07 11:03] LABS: Alanine Aminotransferase 28 units/L (7-56); Albumin 3.8 g/dL (3.9-5)
[2020-03-07 11:04] LABS: Bilirubin,Direct < 0.2 mg/dL (0-0.2)
--- NOTE | 2020-03-07 11:30 | Consultation ---
History of Present Illness Consult date: 03/07/20 Consult reason: other (Pulmonary edema; Accelerated junctional rhythm) History of present illness: This is an 85-year old male that has a known history of dilated nonischemic cardiomyopathy. His latest echocardiogram showed persistent dilated ca rdiomyopathy with an ejection fraction 30-35%. 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 Patient presents to this hospital and is admitted with shortness of breath and coughs, currently on isolation protocol for suspected coronavirus. Patient denies chest pain and denies palpitations. There is mild lower extremity edema. Admits noncompliance with dietary restrictions. Chest x-ray reports interstitial edema. Laboratory measurement shows a creatinine at 4.0. There is also elevated of troponin, unchanged from previous admissions. His ECG is sinus rhythm, first degree AV block and chronic RBBB. A cardiac consultation has been requested for management of CHF. Medications and Allergies Allergies Allergy/AdvReac Type Severity Reaction Status Date / Time No Known Allergies Allergy Verified 03/21/19 12:57 Home Medications Medication Instructions Recorded Confirmed Last Taken Type glipiZIDE [glipiZIDE XL] 10 mg PO BID 04/13/14 12/29/19 02/10/19 History Active Meds: Active Medications Aspirin (Aspirin) 325 mg PO QDAY ARNULFO Physical Examination Vital Signs Temp Pulse Resp BP Pulse Ox 97.9 F 87 22 149/81 93 03/07/20 05:34 03/07/20 05:34 03/07/20 05:34 03/07/20 05:34 03/07/20 05:34 Narrative exam: Deferred due to isolation protocol. Results 03/07/20 06:05 03/07/20 06:05 Cardiac Enzymes 03/07/20 Range/Units 06:05 AST 27 (5-40) units/L Coagulation 03/07/20 Range/Units 06:05 PT 14.9 (12.2-14.9) Sec. INR 1.15 H (0.87-1.13) APTT 35.2 (24.2-36.6) Sec. CBC 03/07/20 Range/Units 06:05 WBC 3.6 L (4.5-11.0) K/mm3 RBC 5.03 (3.65-5.03) M/mm3 Hgb 10.3 L (11.8-15.2) gm/dl Hct 32.3 L (35.5-45.6) % Plt Count 226 (140-440) K/mm3 Lymph # (Auto) 1.2 (1.2-5.4) K/mm3 [place] # (Auto) 0.3 (0.0-0.8) K/mm3 Eos # (Auto) 0.2 (0.0-0.4) K/mm3 Baso # (Auto) 0.0 (0.0-0.1) K/mm3 Comprehensive Metabolic Panel 03/07/20 Range/Units 06:05 Sodium 144 (137-145) mmol/L Potassium 4.8 (3.6-5.0) mmol/L Chloride 104.2 (98-107) mmol/L Carbon Dioxide 16 L (22-30) mmol/L BUN 53 H (9-20) mg/dL Creatinine 4.0 H (0.8-1.3) mg/dL Glucose 229 H (75-100) mg/dL Calcium 10.8 H (8.4-10.2) mg/dL Direct Bilirubin < 0.2 (0-0.2) mg/dL AST 27 (5-40) units/L ALT 28 (7-56) units/L Alkaline Phosphatase 121 (35-129) units/L Total Protein 7.7 (6.3-8.2) g/dL Albumin 3.8 L (3.9-5) g/dL Assessment and Plan Acute systolic heart failure Volume overload Nonischemic CMP EF 30-35% by echo 03/2019 no ischemia by persantine thallium test at [facility] 2016 Chronic renal failure Hypertension Diabetes Chronic RBBB Chronic elevated troponin Recommend: Medical therapy for fluid overload including diuretics as directed by the nephrology. Medical therapy for dilated cardiomyopathy.
[2020-03-07] MEDS ORDERED: DEXTROSE 50% IN WATER (25GM) 50 ML SYRINGE IV PRN (12:00)
[2020-03-07] MEDS: amLODIPine 10 MG TAB PO SCH (12:45)
[2020-03-07] MEDS: ASPIRIN 325 MG TAB PO SCH (12:45)
--- NOTE | 2020-03-07 12:53 | History and Physical Report ---
History of Present Illness Date of examination: 03/07/20 Date of admission: 03/07/20 10:28 Chief complaint: Shortness of breath History of present illness: 85-year-old -[place] male with past medical history significant for nonischemic cardiomyopathy with ejection fraction of 30 to 35%, hypertension, diabetes mellitus, CVA, CKD, 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 Patient said shortness of breath is progressively getting worse. Shortness of breath is worsened with exertion. Patient also said he has dry cough, orthopnea, PND and leg swelling. Patient denied fever, chills, contact with Covid patient. Work-up in the emergency department showed that he has acute on chronic renal failure, and chest x-ray showed cardiomegaly. Covid test was ordered in the e mergency department. Cardiology and nephrology consulted in the emergency department. Patient will be admitted for the management of acute on chronic systolic CHF exacerbation, acute on chronic renal failure, uncontrolled hypertension. REVIEW OF SYSTEMS: GENERAL: no weight change, no fatigue, no fever HEAD: no head ache EYES: no blurry vision, no acute visual loss EARS: no hearing loss, no discharge, no earache NOSE: no stuffiness, no sneezing, no discharge MOUTH, THROAT AND NECK: no bleeding gums, no sore throat, no swollen neck CARDIAC: As stated in the HPI RESPIRATORY: As stated in the HPI. GI: no decreased appetite, no nausea, no vomiting, no dysphagia, no diarrhea, no constipation, no abdominal pain URINARY: No urgency, hematuria, dysuria or frequency. MUSCULOSKELETAL: no muscle weakness, no pain, no joint stiffness NEUROLOGIC: no loss of sensation/numbness, no tingling, no tremors, no weakness/paralysis HEMATOLOGIC: no anemia, no easy bruising SKIN: no rashes ENDOCRINE: no heat/cold intolerance, no polyuria, no polydipsia, no thyroid problems, no diabetes PSYCHIATRIC: no anxiety, no depression, no suicidal ideations Past History Past Medical History: diabetes, heart failure, hypertension, renal failure Past Surgical History: No surgical history Social history: full code. denies: smoking, alcohol abuse, prescription drug abuse, IV drug use Family history: other (CHF and diabetes around the family) Medications and Allergies Allergies Allergy/AdvReac Type Severity Reaction Status Date / Time No Known Allergies Allergy Verified 03/21/19 12:57 Home Medications Medication Instructions Recorded Confirmed Last Taken Type glipiZIDE [glipiZIDE XL] 10 mg PO BID 04/13/14 12/29/19 02/10/19 History Active Meds: Active Medications Amlodipine Besylate (Amlodipine) 10 mg PO QDAY [facility] Last Admin: 03/07/20 12:45 Dose: 10 mg Documented by: Aspirin (Aspirin) 325 mg PO QDAY [facility] Last Admin: 03/07/20 12:45 Dose: 325 mg Documented by: Dextrose (D50w (25gm) Syringe) 50 ml IV Q30MIN PRN; Protocol PRN Reason: Hypoglycemia Insulin Glargine (Lantus) 10 units SUB-Q QHS ARNULFO Insulin Human Lispro (Humalog) 0 unit SUB-Q ACHS ARNULFO; Protocol Labetalol HCl (Labetalol) 10 mg IV Q4H PRN PRN Reason: Hypertension Exam - Physical Exam Narrative exam: Not in cardiopulmonary distress. The patient appeared well nourished and normally developed. Vital signs as documented. Head exam is unremarkable. No scleral icterus . Neck is without jugular venous distension, thyromegaly, or carotid bruits. Lungs are clear to auscultation. Cardiac exam reveals regular rate and Rhythm. Abdominal exam reveals normal bowel sounds, nontender, no organomegaly. Extremities trace pedal and pretibial edema. 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 No focal weakness. - Constitutional Vitals: Temp Pulse Resp BP Pulse Ox 97.9 F 81 24 137/82 98 03/07/20 05:34 03/07/20 11:15 03/07/20 11:15 03/07/20 11:15 03/07/20 11:15 HEART Score - HEART Score Troponin: Troponin T 0.238 ng/mL (0.00-0.029) H* 03/07/20 06:05 Results - Labs CBC & Chem 7: 03/07/20 06:05 03/07/20 06:05 Labs: Laboratory Last Values WBC 3.6 K/mm3 (4.5-11.0) L 03/07/20 06:05 RBC 5.03 M/mm3 (3.65-5.03) 03/07/20 06:05 Hgb 10.3 gm/dl (11.8-15.2) L 03/07/20 06:05 Hct 32.3 % (35.5-45.6) L 03/07/20 06:05 MCV 64 fl (84-94) L 03/07/20 06:05 MCH 20 pg (28-32) L 03/07/20 06:05 MCHC 32 % (32-34) 03/07/20 06:05 RDW 18.1 % (13.2-15.2) H 03/07/20 06:05 Plt Count 226 K/mm3 (140-440) 03/07/20 06:05 Lymph % (Auto) 34.4 % (13.4-35.0) 03/07/20 06:05 Avery % (Auto) 9.5 % (0.0-7.3) H 03/07/20 06:05 Eos % (Auto) 4.2 % (0.0-4.3) 03/07/20 06:05 Baso % (Auto) 1.0 % (0.0-1.8) 03/07/20 06:05 Lymph # (Auto) 1.2 K/mm3 (1.2-5.4) 03/07/20 06:05 Avery # (Auto) 0.3 K/mm3 (0.0-0.8) 03/07/20 06:05 Eos # (Auto) 0.2 K/mm3 (0.0-0.4) 03/07/20 06:05 Baso # (Auto) 0.0 K/mm3 (0.0-0.1) 03/07/20 06:05 Seg Neutrophils % 50.9 % (40.0-70.0) 03/07/20 06:05 Seg Neutrophils # 1.8 K/mm3 (1.8-7.7) 03/07/20 06:05 PT 14.9 Sec. (12.2-14.9) 03/07/20 06:05 INR 1.15 (0.87-1.13) H 03/07/20 06:05 APTT 35.2 Sec. (24.2-36.6) 03/07/20 06:05 Sodium 144 mmol/L (137-145) 03/07/20 06:05 Potassium 4.8 mmol/L (3.6-5.0) 03/07/20 06:05 Chloride 104.2 mmol/L (98-107) 03/07/20 06:05 Carbon Dioxide 16 mmol/L (22-30) L 03/07/20 06:05 Anion Gap 29 mmol/L 03/07/20 06:05 BUN 53 mg/dL (9-20) H 03/07/20 06:05 Creatinine 4.0 mg/dL (0.8-1.3) H 03/07/20 06:05 Estimated GFR 17 ml/min 03/07/20 06:05 BUN/Creatinine Ratio 13 % 03/07/20 06:05 Glucose 229 mg/dL (75-100) H 03/07/20 06:05 Calcium 10.8 mg/dL (8.4-10.2) H 03/07/20 06:05 Phosphorus 3.50 mg/dL (2.5-4.5) 03/07/20 06:05 Total Bilirubin 0.60 mg/dL (0.1-1.2) 03/07/20 06:05 Direct Bilirubin < 0.2 mg/dL (0-0.2) 03/07/20 06:05 AST 27 units/L (5-40) 03/07/20 06:05 ALT 28 units/L (7-56) 03/07/20 06:05 Alkaline Phosphatase 121 units/L (35-129) 03/07/20 06:05 Troponin T 0.238 ng/mL (0.00-0.029) H* 03/07/20 06:05 NT-Pro-B Natriuret Pep 76295 pg/mL (0-900) H 03/07/20 06:05 Total Protein 7.7 g/dL (6.3-8.2) 03/07/20 06:05 Albumin 3.8 g/dL (3.9-5) L 03/07/20 06:05 Albumin/Globulin Ratio 1.0 % 03/07/20 06:05 Urine Color Straw (Yellow) 03/07/20 08:29 Urine Turbidity Clear (Clear) 03/07/20 08:29 Urine pH 6.0 (5.0-7.0) 03/07/20 08:29 Ur Specific [place] 1.010 (1.003-1.030) 03/07/20 08:29 Urine Protein 100 mg/dl mg/dL (Negative) 03/07/20 08:29 Urine Glucose (UA) 50 mg/dL (Negative) 03/07/20 08: Urine Ketones Neg mg/dL (Negative) 03/07/20 08: Urine Blood Sm (Negative) 03/07/20 08: Urine Nitrite Neg (Negative) 03/07/20 08: Urine Bilirubin Neg (Negative) 03/07/20 08: Urine Urobilinogen < 2.0 mg/dL (<2.0) 03/07/20 08: Ur Leukocyte Esterase Neg (Negative) 03/07/20 08: Urine WBC (Auto) < 1.0 /HPF (0.0-6.0) 03/07/20: Urine RBC (Auto) 2.0 /HPF (0.0-6.0) 03/07/20 08: Urine Mucus Few /HPF 03/07/20 08: Assessment and Plan Assessment and plan: Acute on chronic systolic CHF exacerbation -Patient was given IV Lasix -Cardiology consulted -We will resume home medications once patient's nurse obtained the records -Strict input output, low-salt diet, fluid restriction Elevated troponin level; in the setting of CHF and CKD. Management is per cardiology Acute on chronic renal failure -Management per nephrology Uncontrolled hypertension -Patient started on amlodipine -We will resume his home medications once obtained -We will monitor and adjust Diabetes mellitus -Sliding scale insulin and basal insulin -Accu-Chek, diabetic diet And adjust insulin as needed -Patient was on glipizide at home, will check A1c History of anemia -Currently stable PUI -Isolation precautions and COVID-19 test DVT prophylaxis -Heparin Disposition -Admit to the floor CODE STATUS; full Management plan was discussed with the patient and was in agreement with the plan of care. Advance Directives: Yes VTE prophylaxis?: Chemical Plan of care discussed with patient/family: Yes
--- OUTSIDE RECORDS SUMMARY | 2020-03-07 13:56 | External Medical Summary ---
:1935 Author Care Team Providers Name Role Phone Mikey Primary Care Provider Mohan Primary Care Provider Reason for Referral Reason No Reason given Assessment No Assessments Health Concern No Health Concerns Goals No Goals Medications Code Code System Medication Frequency Route Dose Active 946752 (SCD) RxNorm furosemide 40 mg 1 by mouth oral 1 unit Active tablet daily 527761 (SCD) RxNorm ferrous sulfate 1 by mouth oral 1 unit Active 325 mg (65 mg three times iron) daily tablet,delayed release (DR/EC) 741457 (SCD) RxNorm hydralazine 25 mg 1 by mouth oral 1 unit Active tablet three times daily 226392 (SCD) RxNorm glipizide 10 mg 1 by mouth oral 1 unit Active tablet twice daily 866329 (SCD) RxNorm carvedilol 3.125 1 by mouth oral 1 unit Active mg tablet twice daily 192086 (SBD) RxNorm Lantus U-100 10 units at subcutaneous 1 unit Active Insulin 100 bedtime unit/mL solution Social History Element Description Status Start End Code Code System Current Smoking Current some 08/04/2018 - [id number] SN OMED-CT Status day smoker Sex Female - F Administrative Sex Lab Results Date Name Result Value and Units Ref Range LVEF Mode 05/16/2016 Left Ventricular Ejection Fraction (59381-3) 60% 55-70% ECHOCARDIOGRAM Functional Status No Functional Status Information History of Procedures No Known Procedures History of Encounters Description Vist Date Vist Code Code System Code Code System Description NEW PATIENT COMPREHENSIVE HIGH 09/29/2017 00753 C PT J44.9 QLE05-XL Chronic Obstructive Pulmonary Disease, Unspecified N18.3 FGF50-OH Chronic Kidney Disea se, Stage 3 (moderate) R06.00 QFI49-KS Dyspnea, Unspecified R07.2 UJO54-EF Precordial pain J44.9 ZAG41-XA Chronic Obstructive Pulmonary Disease, Unspecified N18.3 SLC64-KN Chronic Kidney Disea se, Stage 3 (moderate) R06.00 EYQ52-SX Dyspnea, Unspecified R07.2 JQG49-VJ Precordial pain EKG 09/29/2017 90105 CPT R06.00 UTI51-XW Dyspnea, Unspecified OV OR OUTPT HIGH 10/24/2017 71145 CPT I50.3 UWI34-KY Diastolic (congestiv e) Heart Failure J44.9 FVM71-FR Chronic Obstructive Pulmonary Disease, Unspecified N18.3 ZTG91-ND Chronic Kidney Disea se, Stage 3 (moderate) I50.3 MMM59-MD Diastolic (congestiv e) Heart Failure J44.9 OYF16-HI Chronic Obstructive Pulmonary Disease, Unspecified N18.3 JYF01-NZ Chronic Kidney Disea se, Stage 3 (moderate) OV OR OUTPT HIGH 12/09/2017 41529 CPT I50.32 XIM60-FC Chronic Diastolic (c ongestive) Heart Failure J44.9 NQS26-ND Chronic Obstructive Pulmonary Disease, Unspecified N18.3 ZLD45-TF Chronic Kidney Disea se, Stage 3 (moderate) R06.00 QRI20-FC Dyspnea, Unspecified EKG 12/09/2017 41546 CPT R00.2 YCW94-WQ Palpitations [facility] 01/21/2018 16149 CPT I10 LLR02-OJ Essential (primary) Hypertension R74.8 SJW71-AB Abnormal levels of o ther serum enzymes R94.31 QZX44-JH Abnormal Electrocard iogram [ecg] [ekg] I10 MRO09-WD Essential (primary) Hypertension R74.8 UYU40-EJ Abnormal levels of o ther serum enzymes R94.31 UKN66-VE Abnormal Electrocard iogram [ecg] [ekg] SUBSEQUENT CARE MED 01/22/2018 26606 CPT I10 HIQ11-IJ Essential (primary) Hypertension R74.8 FRH59-BL Abnormal levels of o ther serum enzymes R94.31 GTR40-UD Abnormal Electrocard iogram [ecg] [ekg] SUBSEQUENT CARE MED 01/23/2018 67700 CPT I10 KMC51-QB Essential (primary) Hypertension R74.8 QQZ13-EK Abnormal levels of o ther serum enzymes R94.31 PJQ70-DB Abnormal Electrocard iogram [ecg] [ekg] SUBSEQUENT CARE MED 01/24/2018 80317 CPT I10 KSP36-PP Essential (primary) Hypertension R74.8 RFQ57-JG Abnormal levels of o ther serum enzymes R94.31 CMS78-DK Abnormal Electrocard iogram [ecg] [ekg] 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 01/20/2018 3630466 CPT I36.8 FFW63-JQ Other nonrheumatic t ricuspid valve disorders [facility] 03/22/2019 90425 CPT E87.79 DIZ72-YR Other fluid overload I50.23 SHT10-VJ Acute on chronic sys tolic (congestive) heart failure R74.8 WVO10-FE Abnormal levels of o ther serum enzymes E87.79 YYT70-RE Other fluid overload I50.23 CSH74-FG Acute on chronic sys tolic (congestive) heart failure R74.8 ZCA51-AA Abnormal levels of o ther serum enzymes 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 03/22/2019 0940575 CPT I36.8 XXY21-CS Other nonrheumatic t ricuspid valve disorders OV OR OUTPT SEVERE 12/30/2019 14490 CPT I10 KSE31-MD Essential (primary) Hypertension I42.8 XBM80-GJ Other cardiomyopathi es I50.21 CWT93-XN Acute systolic (alida estive) heart failure Plan of Treatment No Plan of Treatment Supplied Medical Equipment No History of Medical Devices Mental Status No Mental Status Information Vital Signs Code Code System Vital Name Timing Information Value and Units 8480-6 [facility] Blood 12/09/2017 Value =150 (Systolic) Pressure-Systolic units=mm[H g] 8462-4 [facility] Blood 12/09/2017 Value =71 (Diastolic) Pressure-Diastolic units=mm[ Hg] 8867-4 [facility] Heart Rate 12/09/2017 Value =73 units=/min 9279-1 [facility] Respiration 12/09/2017 Value =18 units=/min 8302-2 [facility] Height 12/09/2017 Value =178 units=cm 69495-3 [facility] Weight 12/09/2017 Value =89 units=kg 54634-4 [facility] BMI 12/09/2017 Value =28.01 units=kg/m2 8480-6 [facility] Blood 10/24/2017 Value =172 (Systolic) Pressure-Systolic units=mm[H g] 8462-4 [facility] Blood 10/24/2017 Value =90 (Diastolic) Pressure-Diastolic units=mm[ Hg] 8867-4 [facility] Heart Rate 10/24/2017 Value =70 units=/min 9279-1 [facility] Respiration 10/24/2017 Value =18 units=/min 8302-2 [facility] Height 10/24/2017 Value =178 units=cm 17328-3 [facility] Weight 10/24/2017 Value =87 units=kg 89872-5 [facility] BMI 10/24/2017 Value =27.40 units=kg/m2 8480-6 [facility] Blood 09/29/2017 Value =140 (Systolic) Pressure-Systolic units=mm[H g] 8462-4 [facility] Blood 09/29/2017 Value =76 (Diastolic) Pressure-Diastolic units=mm[ Hg] 8867-4 [facility] Heart Rate 09/29/2017 Value =74 units=/min 9279-1 [facility] Respiration 09/29/2017 Value =16 units=/min 8302-2 [facility] Height 09/29/2017 Value =178 units=cm 75665-0 [facility] Weight 09/29/2017 Value =86 units=kg 97844-3 [facility] BMI 09/29/2017 Value =27.26 units=kg/m2 Allergies, adverse reactions, alerts Code Code System Allergy Reaction Severity Concern Statu s -1 (IN) Gemms 7.6 No Known Allergies (code - , SNOMED-CT) Unknow n Active Immunizations No Known Immunizations Problem List Code Code System Condition Concern Status R94.31 ICD10 Abnormal Electrocardiogram [ecg] [ekg] Completed I50.32 ICD10 Chronic Diastolic (congestive) H eart Failure Completed N18.3 ICD10 Chronic Kidney Disease, Stage 3 (moderate) Completed J44.9 ICD10 Chronic Obstructive Pulmonary Di sease, Unspecified Completed I50.3 ICD10 Diastolic (congestive) Heart Owen lure Completed R06.00 ICD10 Dyspnea, Unspecified Completed I10 ICD10 Essential (primary) Hypertension Completed D64 ICD10 Other Anemias Completed R00.2 ICD10 Palpitations Completed E11 ICD10 Type 2 Diabetes Mellitus Complet ed
[2020-03-07] MEDS ORDERED: hydrALAZINE 100 MG TAB PO SCH (14:00)
[2020-03-07] MEDS: HEPARIN 5,000 UNIT/1 ML VIAL SUB-Q SCH ×2 (15:52→22:33)
[2020-03-07 16:01] LABS: Chol/HDL Ratio 2.44 %; HDL Cholesterol 63 mg/dL (40-59); LDL Cholesterol,Direct 87 mg/dL (50-130)
--- NOTE | 2020-03-07 18:09 | Consultation ---
History of Present Illness - Reason for Consult Consult date: 03/07/20 chronic renal failure - History of Present Illness This is a 85 year old with history of CKD, dilated cardiomyopathy/CHF with EF 30-35%, hypertension, anemia, gastric AVMs who present with shortness of breath and cough. He follows with [facility] and was last seen in [address] Rema Rodgers. Creatinine at that time was 2.7. He was seen in the hospital in December/2019 for increase in creatinine to 4.5. Creatinine on this admission is 4 mg/dL. Nephrology was consulted for abnormal renal function. Past History Past Medical History: diabetes, heart failure, hypertension, renal failure Past Surgical History: No surgical history Social history: full code. denies: smoking, alcohol abuse, prescription drug abuse, IV drug use Family history: other (CHF and diabetes around the family) Medications and Allergies Allergies Allergy/AdvReac Type Severity Reaction Status Date / Time No Known Allergies Allergy Verified 03/21/19 12:57 Home Medications Medication Instructions Recorded Confirmed Last Taken Type glipiZIDE [glipiZIDE XL] 10 mg PO BID 04/13/14 12/29/19 02/10/19 History Active Meds: Active Medications Amlodipine Besylate (Amlodipine) 10 mg PO QDAY [facility] Last Admin: 03/07/20 12:45 Dose: 10 mg Documented by: Aspirin (Aspirin) 325 mg PO QDAY [facility] Last Admin: 03/07/20 12:45 Dose: 325 mg Documented by: Dextrose (D50w (25gm) Syringe) 50 ml IV Q30MIN PRN; Protocol PRN Reason: Hypoglycemia Furosemide (Lasix) 80 mg IV 0600,1800 [facility] Heparin Sodium (Porcine) (Heparin) 5,000 unit SUB-Q Q8HR [facility] Last Admin: 03/07/20 15:52 Dose: Not Given Documented by: Insulin Glargine (Lantus) 10 units SUB-Q QHS ARNULFO Insulin Human Lispro (Humalog) 0 unit SUB-Q ACHS [facility]; Protocol Labetalol HCl (Labetalol) 10 mg IV Q4H PRN PRN Reason: Hypertension Review of Systems Constitutional: other (Unable to obtain due to isolation protocol. Reviewed prim alaina note. positive for shortness of breath, leg swelling, PND and cough, otherwise negative.) Exam - Vital Signs Vital signs: Vital Signs Temp Pulse Resp BP Pulse Ox 97.9 F 87 22 149/81 93 03/07/20 05:34 03/07/20 05:34 03/07/20 05:34 03/07/20 05:34 03/07/20 05:34 - Physical Exam Narrative exam: Unable to examine patient due to isolation protocol Exam below as per primary team Cardiac exam reveals regular rate and rhythm. Abdominal exam reveals normal bowel sounds, nontender, no organomegaly. Extremities trace pedal and pretibial edema. 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 No focal weakness. Results - Lab Results 03/07/20 06:05 03/07/20 06:05 Most recent lab results Calcium 10.8 mg/dL (8.4-10.2) H 03/07/20 06:05 Phosphorus 3.50 mg/dL (2.5-4.5) 03/07/20 06:05 Assessment and Plan Assessment * CKD stage IV * Dilated cardiomyopathy * Anion gap acidosis * Pulmonary edema * Hypercalcemia * Anemia * Proteinuria * metabolic acidosis * Hypertension * Diabetes Recommendations * Agree with IV diuretics * Check ABG * Check lactate * Check ionized calcium * Check SPEP, UPEP, kappa lambda * Check iron studies * Chec PTH, P * Start sodium bicarb tabs * Keep glucose less than 180 mg/dL * Strict I's and O's * Avoid nephrotoxins * Renal diet * Fluid restriction to 1 L daily
[2020-03-07] MEDS: INSULIN LISPRO 100 UNIT/ML VIAL 3 mL SUB-Q SCH (18:19)
[2020-03-07] MEDS: FUROSEMIDE 40 MG/4 ML INJ IV SCH (18:27)
[2020-03-07 21:46] LABS: ABG Base Excess -1.5 mmol/L (-2.0-3.0); ABG Methemoglobin 0.6 % (0.0-1.5); ABG Oxygen Saturation 94.2 % (95.0-99.0); ABG PH 7.442 pH Units (7.350-7.450); ABG PO2 65.8 mm Hg (80.0-90.0)
[2020-03-07] MEDS ORDERED: INSULIN GLARGINE 100 UNITS/ML SUB-Q SCH (22:00)
[2020-03-07] MEDS: SODIUM BICARBONATE 650 MG TAB PO SCH (22:32)
[2020-03-08] MEDS: INSULIN LISPRO 100 UNIT/ML VIAL 3 mL SUB-Q SCH ×3 (00:08→12:34)
[2020-03-08] MEDS: HEPARIN 5,000 UNIT/1 ML VIAL SUB-Q SCH (05:59)
[2020-03-08] MEDS: FUROSEMIDE 40 MG/4 ML INJ IV SCH (05:59)
--- NOTE | 2020-03-08 08:19 | Progress Note ---
Assessment and Plan Assessment and plan: Acute on chronic systolic CHF exacerbation -Patient is on IV Lasix 80 mg IV twice daily -Cardiology consulted -We will reconcile home medications once was obtained -Strict input output, low-salt diet, fluid restriction Elevated troponin level; in the setting of CHF and CKD. Management is per cardiology Acute on chronic renal failure -Nephrology input appreciated -Creatinine was 4 yesterday and 3.5 this morning Uncontrolled hypertension -Currently controlled -Patient started on amlodipine -We will resume his home medications once obtained -We will monitor and adjust Diabetes mellitus -Sliding scale insulin and basal insulin -Accu-Chek, diabetic diet And adjust insulin as needed -Patient was on glipizide at home, A1c is 7.9 History of anemia -Currently stable PUI -Isolation precautions and COVID-19 test is pending DVT prophylaxis -Heparin Disposition -Patient wants to go home. Cardiology said no further cardiac work-up, nephrology recommends if no shortness of breath he can go home and follow-up in the office in [address] Puentes will arrange outpatient follow-up. Management plan was discussed with the patient and was in agreement with the plan of care. History Interval history: Patient was seen and evaluated this morning Patient's shortness of breath is getting better Hospitalist Physical - Physical exam Narrative exam: Not in cardiopulmonary distress. The patient appeared well nourished and normally developed. Vital signs as documented. Head exam is unremarkable. No scleral icterus . Neck is without jugular venous distension, thyromegaly, or carotid bruits. Lungs are clear to auscultation. Cardiac exam reveals regular rate and Rhythm. Abdominal exam reveals normal bowel sounds, nontender, no organomegaly. Extremities trace pedal and pretibial edema. SITE INTERPRETER: Alert and oriented 3. No focal weakness. - Constitutional Vitals: Temp Pulse Resp BP Pulse Ox 97.6 F 84 20 141/72 98 03/08/20 05:29 03/08/20 05:29 03/08/20 05:29 03/08/20 05:29 03/08/20 05:29 HEART Score - HEART Score Troponin: Troponin T 0.238 ng/mL (0.00-0.029) H* 03/07/20 06:05 Results - Labs CBC & Chem 7: 03/08/20 09:21 03/08/20 09:21 Labs: Laboratory Last Values WBC 3.6 K/mm3 (4.5-11.0) L 03/07/20 06:05 RBC 5.03 M/mm3 (3.65-5.03) 03/07/20 06:05 Hgb 10.3 gm/dl (11.8-15.2) L 03/07/20 06:05 Hct 32.3 % (35.5-45.6) L 03/07/20 06:05 MCV 64 fl (84-94) L 03/07/20 06:05 MCH 20 pg (28-32) L 03/07/20 06:05 MCHC 32 % (32-34) 03/07/20 06:05 RDW 18.1 % (13.2-15.2) H 03/07/20 06:05 Plt Count 226 K/mm3 (140-440) 03/07/20 06:05 Lymph % (Auto) 34.4 % (13.4-35.0) 03/07/20 06:05 [place] % (Auto) 9.5 % (0.0-7.3) H 03/07/20 06:05 Eos % (Auto) 4.2 % (0.0-4.3) 03/07/20 06:05 Baso % (Auto) 1.0 % (0.0-1.8) 03/07/20 06:05 Lymph # (Auto) 1.2 K/mm3 (1.2-5.4) 03/07/20 06:05 [place] # (Auto) 0.3 K/mm3 (0.0-0.8) 03/07/20 06:05 Eos # (Auto) 0.2 K/mm3 (0.0-0.4) 03/07/20 06:05 Baso # (Auto) 0.0 K/mm3 (0.0-0.1) 03/07/20 06:05 Seg Neutrophils % 50.9 % (40.0-70.0) 03/07/20 06:05 Seg Neutrophils # 1.8 K/mm3 (1.8-7.7) 03/07/20 06:05 PT 14.9 Sec. (12.2-14.9) 03/07/20 06:05 INR 1.15 (0.87-1.13) H 03/07/20 06:05 APTT 35.2 Sec. (24.2-36.6) 03/07/20 06:05 ABG pH 7.442 pH Units (7.350-7.450) 03/07/20 21:30 ABG pCO2 33.0 mm Hg 03/07/20 21:30 ABG pO2 65.8 mm Hg (80.0-90.0) L 03/07/20 21:30 ABG HCO3 22.0 mmol/L (20.0-26.0) 03/07/20 21:30 ABG O2 Saturation 94.2 % (95.0-99.0) L 03/07/20 21:30 ABG O2 Content 15.1 (0.0-44) 03/07/20 21:30 ABG Base Excess -1.5 mmol/L (-2.0-3.0) 03/07/20 21:30 ABG Hemoglobin 11.6 gm/dl (14.0-18.0) L 03/07/20 21:30 ABG Carboxyhemoglobin 1.3 % (0.0-5.0) 03/07/20 21:30 ABG Methemoglobin 0.6 % (0.0-1.5) 03/07/20 21:30 Oxyhemoglobin 92.4 % (95.0-99.0) L 03/07/20 21:30 FiO2 28 % 03/07/20 21:30 Sodium 144 mmol/L (137-145) 03/07/20 06:05 Potassium 4.8 mmol/L (3.6-5.0) 03/07/20 06:05 Chloride 104.2 mmol/L (98-107) 03/07/20 06:05 Carbon Dioxide 16 mmol/L (22-30) L 03/07/20 06:05 Anion Gap 29 mmol/L 03/07/20 06:05 BUN 53 mg/dL (9-20) H 03/07/20 06:05 Creatinine 4.0 mg/dL (0.8-1.3) H 03/07/20 06:05 Estimated GFR 17 ml/min 03/07/20 06:05 BUN/Creatinine Ratio 13 % 03/07/20 06:05 Glucose 229 mg/dL (75-100) H 03/07/20 06:05 POC Glucose 108 mg/dL (70-105) H 03/08/20 07:54 Hemoglobin A1c 7.9 % (4-6) H 03/07/20 06:05 Calcium 10.8 mg/dL (8.4-10.2) H 03/07/20 06:05 Phosphorus 3.50 mg/dL (2.5-4.5) 03/07/20 06:05 Total Bilirubin 0.60 mg/dL (0.1-1.2) 03/07/20 06:05 Direct Bilirubin < 0.2 mg/dL (0-0.2) 03/07/20 06:05 AST 27 units/L (5-40) 03/07/20 06:05 ALT 28 units/L (7-56) 03/07/20 06:05 Alkaline Phosphatase 121 units/L (35-129) 03/07/20 06:05 Troponin T 0.238 ng/mL (0.00-0.029) H* 03/07/20 06:05 NT-Pro-B Natriuret Pep 76705 pg/mL (0-900) H 03/07/20 06:05 Total Protein 7.7 g/dL (6.3-8.2) 03/07/20 06:05 Albumin 3.8 g/dL (3.9-5) L 03/07/20 06:05 Albumin/Globulin Ratio 1.0 % 03/07/20 06:05 Triglycerides 56 mg/dL (2-149) 03/07/20 06:05 Cholesterol 154 mg/dL (50-199) 03/07/20 06:05 LDL Cholesterol Direct 87 mg/dL (50-130) 03/07/20 06:05 HDL Cholesterol 63 mg/dL (40-59) H 03/07/20 06:05 Cholesterol/HDL Ratio 2.44 % 03/07/20 06:05 Urine Color Straw (Yellow) 03/07/20 08:29 Urine Turbidity Clear (Clear) 03/07/20 08:29 Urine pH 6.0 (5.0-7.0) 03/07/20 08:29 Ur Specific [place] 1.010 (1.003-1.030) 03/07/20 08:29 Urine Protein 100 mg/dl mg/dL (Negative) 03/07/20 08:29 Urine Glucose (UA) 50 mg/dL (Negative) 03/07/20 08:29 Urine Ketones Neg mg/dL (Negative) 03/07/20 08:29 Urine Blood Sm (Negative) 03/07/20 08:29 Urine Nitrite Neg (Negative) 03/07/20 08:29 Urine Bilirubin Neg (Negative) 03/07/20 08:29 Urine Urobilinogen < 2.0 mg/dL (<2.0) 03/07/20 08:29 Ur Leukocyte Esterase Neg (Negative) 03/07/20 08:29 Urine WBC (Auto) < 1.0 /HPF (0.0-6.0) 03/07/20 08:29 Urine RBC (Auto) 2.0 /HPF (0.0-6.0) 03/07/20 08:29 Urine Mucus Few /HPF 03/07/20 08:29 Donato/IV: Voiding Method Urinal IV Catheter Type [Left Hand] Peripheral IV Active Medications - Current Medications Current Medications: Generic Name Dose Route Start Last Admin Trade Name Freq PRN Reason Stop Dose Admin Amlodipine Besylate 10 mg 03/07/20 13:00 03/07/20 12:45 Amlodipine PO 10 mg QDAY ARNULFO Administration Aspirin 325 mg 03/07/20 11:00 03/07/20 12:45 Aspirin PO 325 mg QDAY ARNULFO Administration Dextrose 50 ml 03/07/20 12:00 D50w (25gm) Syringe IV Q30MIN PRN Hypoglycemia Protocol Furosemide 80 mg 03/07/20 18:00 03/08/20 05:59 Lasix IV 80 mg 0600,1800 ARNULFO Administration Heparin Sodium (Porcine) 5,000 unit 03/07/20 14:00 03/08/20 05:59 Heparin SUB-Q 5,000 unit Q8HR [facility] Administration Insulin Glargine 10 units 03/07/20 22:00 03/08/20 00:08 Lantus SUB-Q Not Given QHS [facility] Insulin Human Lispro 0 unit 03/07/20 16:30 03/08/20 00:08 Humalog SUB-Q Not Given ACHS [facility] Protocol Labetalol HCl 10 mg 03/07/20 12:30 03/08/20 00:27 Labetalol IV 10 mg Q4H PRN Administration Hypertension Sodium Bicarbonate 1,300 mg 03/07/20 20:00 03/07/20 22:32 Sodium Bicarbonate PO 1,300 mg TID ARNULFO Administration
--- NOTE | 2020-03-08 09:17 | Progress Note ---
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 Medical therapy for dilated nonischemic cardiomyopathy. Subjective Date of service: 03/08/20 Interval history: Patient is sitting up in the bedside chair. He reports his breathing is better and wants to go home. States he has a at home with confusion and no one to take care of her. Objective Vital Signs Temp Pulse Resp BP Pulse Ox 03/08/20 05:29 97.6 F 84 20 141/72 98 03/07/20 23:14 98.6 F 97 H 24 177/86 100 03/07/20 23:08 99.1 F 88 26 H 170/89 100 03/07/20 18:29 143/95 03/07/20 16:59 72 98 03/07/20 13:58 18 96 03/07/20 12:33 96.6 F L 82 154/93 96 03/07/20 11:15 81 24 137/82 98 03/07/20 11:00 73 16 141/87 100 03/07/20 10:45 69 19 141/87 99 03/07/20 10:30 76 26 H 99 03/07/20 10:16 77 34 H 155/102 98 03/07/20 10:00 82 17 155/102 97 03/07/20 09:45 81 22 155/102 97 03/07/20 09:30 80 23 155/98 03/07/20 09:15 76 21 155/98 96 - Physical Examination Narrative exam: Deferred due to isolation protocol. - Labs and Meds Cardiac Enzymes 03/07/20 Range/Units 06:05 AST 27 (5-40) units/L Lipids 03/07/20 Range/Units 06:05 Triglycerides 56 (2-149) mg/dL Cholesterol 154 (50-199) mg/dL HDL Cholesterol 63 H (40-59) mg/dL Cholesterol/HDL Ratio 2.44 % Comprehensive Metabolic Panel 03/07/20 Range/Units 06:05 Sodium 144 (137-145) mmol/L Potassium 4.8 (3.6-5.0) mmol/L Chloride 104.2 (98-107) mmol/L Carbon Dioxide 16 L (22-30) mmol/L BUN 53 H (9-20) mg/dL Creatinine 4.0 H (0.8-1.3) mg/dL Glucose 229 H (75-100) mg/dL Calcium 10.8 H (8.4-10.2) mg/dL Direct Bilirubin < 0.2 (0-0.2) mg/dL AST 27 (5-40) units/L ALT 28 (7-56) units/L Alkaline Phosphatase 121 (35-129) units/L Total Protein 7.7 (6.3-8.2) g/dL Albumin 3.8 L (3.9-5) g/dL
[2020-03-08 09:45] LABS: Hematocrit 33.7 % (35.5-45.6); Hemoglobin 10.8 gm/dl (11.8-15.2); Mean Corpuscular HGB Conc 32 % (32-34); Platelet Count 235 K/mm3 (140-440); Red Blood Count 5.29 M/mm3 (3.65-5.03); Red Cell Distribution Width 17.7 % (13.2-15.2)
--- NOTE | 2020-03-08 09:45 | Progress Note ---
Assessment and Plan Assessment * CKD stage IV * Dilated cardiomyopathy * Anion gap acidosis * Pulmonary edema * Hypercalcemia * Anemia * Proteinuria * metabolic acidosis * Hypertension * hyperparathyroidism * Diabetes * COVID PUI Recommendations * Can transition from IV to PO diuretics BID * F/u ionized calcium * F/u SPEP, UPEP, kappa lambda * Continue sodium bicarb tabs * Keep glucose less than 180 mg/dL * Strict I's and O's * Avoid nephrotoxins * Renal diet * Fluid restriction to 1 L daily * follow-up COVID result Subjective Date of service: 03/08/20 Principal diagnosis: respiratory distress Interval history: Patient was seen for his renal issues Nursing, interdisciplinary and consult notes were reviewed Vitals, input and output, medications and labs were reviewed Urine output 1.4 L Objective - Exam Narrative Exam: Unable to examine patient due to isolation protocol Exam below as per primary team Cardiac exam reveals regular rate and rhythm. Abdominal exam reveals normal bowel sounds, nontender, no organomegaly. Extremities trace pedal and pretibial edema. 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 No focal weakness. - Vital Signs Vital signs: Vital Signs - 12hr 03/07/20 03/07/20 03/08/20 23:08 23:14 05:29 Temperature 99.1 F 98.6 F 97.6 F Pulse Rate 88 97 H 84 Respiratory 26 H 24 20 Rate Blood Pressure 170/89 177/86 141/72 O2 Sat by Pulse 100 100 98 Oximetry - Lab 03/08/20 09:21 03/08/20 09:21 Most recent lab results ABG pH 7.442 pH Units (7.350-7.450) 03/07/20 21:30 ABG pCO2 33.0 mm Hg 03/07/20 21:30 ABG pO2 65.8 mm Hg (80.0-90.0) L 03/07/20 21:30 ABG HCO3 22.0 mmol/L (20.0-26.0) 03/07/20 21:30 ABG O2 Saturation 94.2 % (95.0-99.0) L 03/07/20 21:30 Calcium 10.8 mg/dL (8.4-10.2) H 03/07/20 06:05 Phosphorus 3.50 mg/dL (2.5-4.5) 03/07/20 06:05 Medications & Allergies - Medications Allergies/Adverse Reactions: Allergies No Known Allergies Allergy (Verified 03/21/19 12:57) Home Medications: Home Medications Medication Instructions Recorded Confirmed Last Taken Type glipiZIDE [glipiZIDE XL] 10 mg PO BID 04/13/14 12/29/19 02/10/19 History Furosemide [Lasix TAB] 80 mg PO BID #60 tablet 03/08/20 Unknown Rx Active Medications: Generic Name Dose Route Start Last Admin Trade Name Freq PRN Reason Stop Dose Admin Amlodipine Besylate 10 mg 03/07/20 13:00 03/07/20 12:45 Amlodipine PO 10 mg QDAY ARNULFO Administration Aspirin 325 mg 03/07/20 11:00 03/07/20 12:45 Aspirin PO 325 mg QDAY ARNULFO Administration Carvedilol 3.125 mg 03/08/20 10:00 Coreg PO BID [facility] Dextrose 50 ml 03/07/20 12:00 D50w (25gm) Syringe IV Q30MIN PRN Hypoglycemia Protocol Furosemide 80 mg 03/07/20 18:00 03/08/20 05:59 Lasix IV 80 mg 0600,1800 [facility] Administration Heparin Sodium (Porcine) 5,000 unit 03/07/20 14:00 03/08/20 05:59 Heparin SUB-Q 5,000 unit Q8HR ARNULFO Administration Hydralazine HCl 25 mg 03/08/20 10:00 Apresoline PO Q8HR [facility] Insulin Glargine 10 units 03/07/20 22:00 03/08/20 00:08 Lantus SUB-Q Not Given QHS [facility] Insulin Human Lispro 0 unit 03/07/20 16:30 03/08/20 09:39 Humalog SUB-Q Not Given ACHS [facility] Protocol Labetalol HCl 10 mg 03/07/20 12:30 03/08/20 00:27 Labetalol IV 10 mg Q4H PRN Administration Hypertension Sodium Bicarbonate 1,300 mg 03/07/20 20:00 03/07/20 22:32 Sodium Bicarbonate PO 1,300 mg TID ANRULFO Administration
[2020-03-08 09:55] LABS: Mean Corpuscular Volume 64 fl (84-94)
[2020-03-08] MEDS ORDERED: hydrALAZINE 25 MG TAB PO SCH (10:00)
[2020-03-08] MEDS ORDERED: carvediloL 3.125 MG TAB PO SCH (10:00)
[2020-03-08 10:23] LABS: Calcium 10.5 mg/dL (8.4-10.2)
[2020-03-08 10:31] LABS: Iron 44 ug/dL (49-181); Total Iron Binding Capacity 258 mcg/dL (250-450)
[2020-03-08 11:27] LABS: Basophils % (Manual) 0 % (0.0-1.8); Hypochromasia 2+; Total Cells Counted 100
[2020-03-08 11:28] LABS: Ovalocytes Few; Platelet Estimate Consistent w Auto; Target Cells 1+
--- NOTE | 2020-03-08 11:28 | Discharge Summary ---
Providers - Providers Date of Admission: 03/07/20 10:28 Date of discharge: 03/08/20 Attending physician: REHAN MENDOZA MD 03/07/20 09:56 Consult to Physician [CONS] Urgent Comment: Consulting Provider: STEFAIN ANDRADE Physician Instructions: Reason For Exam: Pulmonary edema, creatinine 4, chronic 03/07/20 10:27 Consult to Physician [CONS] Urgent Comment: Chronic renal insufficiency, cardiomyopathy Consulting Provider: GABRIELLE CARRASCO Physician Instructions: Reason For Exam: Accelerated junctional rhythm, pulmonary edema, ch Primary care physician: FILLING MIXER Hospitalization Reason for admission: Acute hypoxic respiratory failure, acute on chronic systolic CHF exacerbati Condition: Stable Hospital course: 85-year-old -[place] male with past medical history significant for nonischemic cardiomyopathy with ejection fraction of 30 to 35%, hypertension, diabetes mellitus, CVA, CKD, 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 Patient said shortness of breath is progressively getting worse. Shortness of breath is worsened with exertion. Patient also said he has dry cough, orthopnea, PND and leg swelling. Patient denied fever, chills, contact with Covid patient. Work-up in the emergency department showed that he has acute on chronic renal failure, and chest x-ray showed cardiomegaly. Covid test was ordered in the emergency department. Cardiology and nephrology consulted in the emergency de partment. Patient will be admitted for the management of acute on chronic systolic CHF exacerbation, acute on chronic renal failure, uncontrolled hypertension. Acute on chronic systolic CHF exacerbation -Patient is on IV Lasix 80 mg IV twice daily -Cardiology consulted -We will reconcile home medications once was obtained -Strict input output, low-salt diet, fluid restriction Elevated troponin level; in the setting of CHF and CKD. Management is per cardiology Acute on chronic renal failure -Nephrology input appreciated -Creatinine was 4 yesterday and 3.5 this morning Uncontrolled hypertension -Currently controlled -Patient started on amlodipine -We will resume his home medications once obtained -We will monitor and adjust Diabetes mellitus -Sliding scale insulin and basal insulin -Accu-Chek, diabetic diet And adjust insulin as needed -Patient was on glipizide at home, A1c is 7.9 History of anemia -Currently stable PUI -Isolation precautions and COVID-19 test is pending DVT prophylaxis -Heparin Disposition -Patient wants to go home. Cardiology said no further cardiac work-up, nephrology recommends if no shortness of breath he can go home and follow-up in the office in [address] Genevieve Puentes will arrange outpatient follow-up. Management plan was discussed with the patient and was in agreement with the plan of care. Patient said he is taking care of his demented and he wants to go home. Patient shortness of breath is completely resolved. Patient has adequate urine output. His medications were not reconciled on discharge but I confirmed that the patient is on appropriate CHF medications and advised him to continue to take it. I increase the Lasix to 80 mg p.o. twice daily. I explained the patient the management plan. Disposition: TO HOME OR SELFCARE Time spent for discharge: 35 minutes - Discharge Diagnoses (1) Chronic renal insufficiency, stage IV (severe) Status: Acute (2) Pulmonary edema Status: Acute Qualifiers: Chronicity: acute Qualified Code(s): J81.0 - Acute pulmonary edema (3) Uncontrolled hypertension Status: Acute (4) Acute on chronic renal failure Status: Acute (5) Acute on chronic systolic (congestive) heart failure Status: Acute Core Measure Documentation - Palliative Care Palliative Care/ Comfort Measures: Not Applicable - Core Measures Any of the following diagnoses?: heart failure - Heart Failure Discharge Requirements MARYJANE/ARB for LVSD if EF <40%: No Reason for no MARYJANE/ARB: Renal impairment Beta ollie at discharge: Yes Exam - Physical Exam Narrative exam: Not in cardiopulmonary distress. The patient appeared well nourished and normally developed. Vital signs as documented. Head exam is unremarkable. No scleral icterus . Neck is without jugular venous distension, thyromegaly, or carotid bruits. Lungs are clear to auscultation. Cardiac exam reveals regular rate and Rhythm. Abdominal exam reveals normal bowel sounds, nontender, no organomegaly. Extremities no edema. 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 No focal weakness. - Constitutional Vitals: Temp Pulse Resp BP Pulse Ox 97.6 F 84 20 141/72 98 03/08/20 05:29 03/08/20 05:29 03/08/20 05:29 03/08/20 05:29 03/08/20 05:29 Plan Follow up with: PAMELA BRUNO MD [Primary Care Provider] - 3-5 Days STEFANI ANDRADE MD [Staff Physician] - 10 Days GABRIELLE CARRASCO MD [Staff Physician] - 14 Days Prescriptions: Furosemide [Lasix TAB] 80 mg PO BID #60 tablet
[2020-03-08 11:35] VITALS: BP 140/86
[2020-03-08] MEDS: amLODIPine 10 MG TAB PO SCH (12:00)
[2020-03-08] MEDS: ASPIRIN 325 MG TAB PO SCH (12:00)
[2020-03-08] MEDS: SODIUM BICARBONATE 650 MG TAB PO SCH (12:01)
[2020-03-12 06:33] LABS: Albumin 3.5 g/dL (3.8-4.8); Gamma Globulin 1.6 g/dL (0.8-1.7)
[2020-03-22 10:45] LABS: Albumin SEE SCANNED RESULT; Creatinine, Random Urine SEE SCANNED RESULT; Protein/Creatinine Ratio SEE SCANNED RESULT
[2020-03-22 10:46] LABS: Abnormal Protein Band 1 SEE SCANNED RESULT; Abnormal Protein Band 2 SEE SCANNED RESULT; Gamma Globulin SEE SCANNED RESULT; Interpretation SEE SCANNED RESULT
== END 2020-03-08 16:40 | disposition home or self-care (01) ==
LOC: ED 05:28 → INTOOBSV 10:28 → 4A 10:28 → 3A 16:57
PROVIDERS: ADMIT Internal Medicine; ATTEND Internal Medicine
DX: I13.0 Hypertensive heart and chronic kidney disease with heart failure and stage 1 through stage 4 chronic kidney disease, or unspecified chronic kidney disease (principal); Z20.828 Contact with and (suspected) exposure to other viral communicable diseases; R06.02 Shortness of breath; E11.22 Type 2 diabetes mellitus with diabetic chronic kidney disease; I50.23 Acute on chronic systolic (congestive) heart failure; N18.4 Chronic kidney disease, stage 4 (severe); D64.9 Anemia, unspecified; N17.9 Acute kidney failure, unspecified; I42.8 Other cardiomyopathies; I45.2 Bifascicular block; J81.0 Acute pulmonary edema; E83.52 Hypercalcemia; E87.2 Acidosis; E21.3 Hyperparathyroidism, unspecified; I45.10 Unspecified right bundle-branch block; M19.90 Unspecified osteoarthritis, unspecified site; J44.9 Chronic obstructive pulmonary disease, unspecified; Z86.73 Personal history of transient ischemic attack (TIA), and cerebral infarction without residual deficits; Z87.891 Personal history of nicotine dependence; Z79.84 Long term (current) use of oral hypoglycemic drugs; Z79.899 Other long term (current) drug therapy
CPT/HCPCS: 36415; 71045; 80048; 80061; 80076; 81001; 82140; 82330; 82728; 82803; 82962; 83036; 83550; 83880; 83970; 84100; 84165; 84166; 84484; 85025; 85610; 85730; 86334; 93005; 96372; 96374; 96375; 96376; 99285; G0378; J1644; J1940; U0003; 85007